=== PATIENT | female | born 1950 | race Two or more races ===

== ENCOUNTER 2020-06-30 09:31 | Outpatient (REF) | payer MEDICARE, SELFPAY | END 2020-06-30 09:32 | disposition home or self-care (01) | LOC: HO.LAB 09:31 | PROVIDERS: Visit Provider Internal Medicine | DX: Z20.828 Contact with and (suspected) exposure to other viral communicable diseases (principal) | CPT/HCPCS: C9803; U0003 ==

== ENCOUNTER 2020-07-24 09:44 | Emergency (ER) | payer MEDICARE, SELFPAY ==
[2020-07-24 10:00] VITALS: BP 170/71; PULSE 82; RESP 18; TEMP 36.4; O2SAT 95; BMI 26.0
--- NOTE | 2020-07-24 10:13 | ED.EAR ---
HPI - Ear Problem General Chief complaint: Ear Problems Stated complaint: ear pain Time Seen by Provider: 07/24/20 09:56 Source: patient Mode of arrival: ambulatory Limitations: no limitations History of Present Illness HPI Narrative: Left-sided sinus congestion and left ear pain for past couple days your pain getting worse. Thought maybe COVID related symptoms she had a COVID test 2 days ago that result today was negative. Denies any cough, runny nose, chest pain. Location: left ear Severity: moderate Relieving factors: nothing Discharge from ear: no Treatment prior to arrival: none Related Data Home Medications Medication Instructions Recorded Confirmed amlodipine 10 mg tablet 10 mg PO DAILY 06/17/20 Previous Rx's Medication Instructions Recorded amlodipine 10 mg tablet 10 mg PO DAILY 90 Days #90 tab 06/17/20 citalopram 10 mg tablet 10 mg PO DAILY 60 Days #60 tab 06/24/20 gabapentin 400 mg capsule 400 mg PO BID 60 Days #120 cap 06/24/20 hydrochlorothiazide 25 mg tablet 25 mg PO DAILY 90 Days #90 tab 06/24/20 insulin detemir U-100 100 unit/mL 56 unit SUBCUT DAILY 90 Days #50.4 06/24/20 (3 mL) subcutaneous pen ml metformin 850 mg tablet 850 mg PO BID 60 Days #120 tab 06/24/20 pen needle, diabetic 31 gauge x #100 ea 06/24/20 3/ amoxicillin-pot clavulanate 1 tab PO BID 7 Days #14 tab 07/24/20 [Augmentin] naproxen 500 mg PO BID PRN #14 tab 07/24/20 Allergies Allergy/AdvReac Type Severity Reaction Status Date / Time No Known Allergies Allergy Verified 07/24/20 10:02 [No Known Allergies*] Review of Systems Review of Systems: Constitutional: No Weight loss, No Fever, No Chills, No Night Sweats, No Fatigue, No Malaise ENT/Mouth: No Hearing loss, + Ear Pain, No Nasal Congestion, No Sinus Pain, No Hoarseness, No sore throat, No Rhinorrhea, No Swallowing Difficulty . Eyes: No Eye Pain, No Swelling, No Redness, No Foreign Body, No Discharge, No Vision Changes Cardiovascular: No Chest Pain, No SOB, No Dyspnea on Exertion, No Orthopnea, No Edema, No Palpitations Respiratory: No Cough, No Sputum, No Wheezing, No Smoke Exposure, No Dyspnea Gastrointestinal: No Nausea, No Vomiting, No Diarrhea, No Constipation, No abdominal Pain, No Hematochezia, No Melena Genitourinary: No Dysuria, No Urinary Frequency, No Hematuria, No Urinary Incontinence, No Urgency, No Flank Pain, No Urinary Flow Changes, No Hesitancy Musculoskeletal: No joint pain, No Myalgias, No Joint Swelling Skin: No Skin Lesions, No rash Neuro: No Weakness, No Numbness, No Paresthesias, No Loss of Consciousness, No Dizziness, No Headache Psych: No Social Issues Heme/Lymph: No Bruising, No Bleeding,No Lymphadenopathy Endocrine: No Polyuria, No Polydipsia, No Temperature Intolerance Yes all other systems are reviewed and are negative [facility] Past Medical History Surgical History History of bladder surgery History of tonsillectomy History of total hysterectomy Family History Family History (Updated 06/16/20 @ 13:12 by MICHAEL Stewart) Father Hypertension Diabetes Hx of leg amputation Mother Myocardial infarction Diabetes Hypertension Sister Breast cancer Brother Diabetes Maternal Aunt Bone cancer Social History Social History Advance Directives: No Advance Directives Information Provided: No Physical Exam Vital Signs: Vital Signs: Last Vital Signs Temp 97.6 F 07/24/20 10:00 Pulse 82 07/24/20 10:00 Resp 18 07/24/20 10:00 BP 170/71 H 07/24/20 10:00 Pulse Ox 95 07/24/20 10:00 Body Mass Index 26.0 Reviewed Const: General: cooperative and healthy appearing; No acute distress or intoxicated appearing Nutritional Appearance: average body habitus Orientation/consciousness: patient oriented x3 HENMT: Head: Yes normal to inspection Ears: hearing grossly normal bilaterally and TM abnormal (Negative tug test, no tender palpation over mastoid.) bulging, wth effusion, erythematous, with fluid behind the TM, with loss of landmarks and not mobile Eyes: General: appearance normal, both eyes and all related structures Visual Mariscal: normal visual mariscal by confrontation Neck: Neck: Yes normal visual inspection, No positive Brudzinski's sign, No positive Kernig's sign and No tender Thyroid: Thyroid normal Chest: Chest palpation & inspection: normal inspection of the chest Resp: Effort & Inspection: normal respiratory effort Cardio: Jugular venous distension: no JVD GI: Inspection: Yes normal to inspection Percussion: Yes normal to percussion Auscultation: normal bowel sounds : General: Yes no CVA tenderness Back/Spine/Pelvis: Back: no CVA tenderness Skin: General skin exam: no rashes or lesions noted Neuro: General: patient oriented x3 Extrem: General: Yes normal to inspection MDM - Ear Lab Data Labs: Lab Results 07/24/20 Range/Units 10:02 Coronavirus (PCR) NEGATIVE (Negative) Influenza Type A (PCR) NEGATIVE (Negative) Influenza Type B (PCR) NEGATIVE (Negative) RSV RNA Qual (PCR) NEGATIVE (Negative) Discharge Plan Discharge Clinical Impression: Acute otalgia, Sinusitis Patient Disposition: Home, Self-Care Instructions: Sinusitis (ED), Earache (ED) Additional Instructions: Drink plenty fluids Saltwater gargle Taking medication prescribed Return if any concerns or worsening symptoms otherwise self-isolation Social distancing and will call with results of your COVID test as well as her strep test in the next 1-2 hours Thank you Prescriptions: New amoxicillin-pot clavulanate [Augmentin] 875-125 mg tablet 1 tab PO BID 7 Days Qty: 14 RF: 0 naproxen 500 mg tablet 500 mg PO BID PRN (Reason: pain) Qty: 14 RF: 0 No Action amlodipine 10 mg tablet 10 mg PO DAILY 90 Days Qty: 90 RF: 0 citalopram 10 mg tablet 10 mg PO DAILY 60 Days Qty: 60 RF: 0 metformin 850 mg tablet 850 mg PO BID 60 Days Qty: 120 RF: 0 gabapentin 400 mg capsule 400 mg PO BID 60 Days Qty: 120 RF: 0 hydrochlorothiazide 25 mg tablet 25 mg PO DAILY 90 Days Qty: 90 RF: 0 Levemir FlexTouch U-100 Insuln 100 unit/mL (3 mL) insulin pen 56 unit subcut DAILY 90 Days Qty: 50.4 RF: 0 (DME) pen needle, diabetic [BD Ultra-Fine Mini Pen Needle] 31 gauge x 3/16 needle See Rx Instructions .ROUTE .MEDSUPPLY Qty: 100 RF: 0 Referrals: Afshan Smalls MD [Primary Care Provider] - 1 week (Phone visit) Interventions: ED Discharge Assessment Last Done: 07/24/20 10:31 Discharge Date/Time: 07/24/20 10:31
[2020-07-24 11:13] LABS: Influenza A PCR NEGATIVE (Negative); Influenza B PCR NEGATIVE (Negative); Resp Syncy Virus RNA Qual PCR NEGATIVE (Negative); SARS COV2 PCR INHOUSE NEGATIVE (Negative)
== END 2020-07-24 10:31 | disposition home or self-care (01) ==
PROVIDERS: Nurse Practitioner Primary Care; Emergency Provider Emergency Medicine Emergency Medical Services; PCP Internal Medicine
DX: H92.02 Otalgia, left ear (principal); J01.90 Acute sinusitis, unspecified; Z20.828 Contact with and (suspected) exposure to other viral communicable diseases
CPT/HCPCS: 0241U; 87071; 87880; 99282; 99283

== ENCOUNTER 2020-07-31 19:21 | Emergency (ER) | payer MEDICARE, SELFPAY ==
[2020-07-31 19:50] VITALS: BP 142/54; PULSE 86; RESP 16; TEMP 36.2; O2SAT 97; BMI 27.1
--- NOTE | 2020-07-31 21:14 | ED_ITS ---
HPI - Ear Problem General Chief complaint: Dental/Oral Stated complaint: EAR PAIN Time Seen by Provider: 07/31/20 21:10 Source: patient and full time staff interpreter Mode of arrival: ambulatory Limitations: no limitations History of Present Illness MD Complaint: ear pain and other (L sinus pain) Location: left ear Duration: constant Severity: moderate Relieving factors: nothing Exacerbating factors: palpation Context: recent illness (just completed antibiotics from 07/24) Discharge from ear: no Associated symptoms ear: other (facial swelling, congestion, L jaw pain ) Treatment prior to arrival: none Related Data Home Medications Medication Instructions Recorded Confirmed amlodipine 10 mg tablet 10 mg PO DAILY 06/17/20 Previous Rx's Medication Instructions Recorded amlodipine 10 mg tablet 10 mg PO DAILY 90 Days #90 tab 06/17/20 citalopram 10 mg tablet 10 mg PO DAILY 60 Days #60 tab 06/24/20 gabapentin 400 mg capsule 400 mg PO BID 60 Days #120 cap 06/24/20 hydrochlorothiazide 25 mg tablet 25 mg PO DAILY 90 Days #90 tab 06/24/20 insulin detemir U-100 100 unit/mL 56 unit SUBCUT DAILY 90 Days #50.4 06/24/20 (3 mL) subcutaneous pen ml metformin 850 mg tablet 850 mg PO BID 60 Days #120 tab 06/24/20 pen needle, diabetic 31 gauge x #100 ea 06/24/20 3/ amoxicillin-pot clavulanate 1 tab PO BID 7 Days #14 tab 07/24/20 [Augmentin] naproxen 500 mg PO BID PRN #14 tab 07/24/20 hydrocodone-acetaminophen 1 tab PO Q6H PRN #7 tab 07/31/20 levofloxacin 500 mg PO DAILY #6 tab 07/31/20 prednisone 20 mg PO DAILY 4 Days #4 tab 07/31/20 Allergies Allergy/AdvReac Type Severity Reaction Status Date / Time No Known Allergies Allergy Verified 07/24/20 10:02 [No Known Allergies*] Review of Systems Review of Systems: Constitutional : no Fever, no Chills, no fatigue, no Dina ise ENT/Mouth : positive sore throat, no runny nose, pos nasal congestion and sinus pain, positive ear pain Eyes: No Discharge Cardiovascular : No Chest Pain, No SOB Respiratory : No Cough, No Sputum Gastrointestinal : No Nausea, No Vomiting, No Diarrhea Genitourinary : No Dysuria, No Urinary Frequency Musculoskeletal : positive Myalgia Skin : No rash Neuro : No Headache [facility] Past Medical History Attestation statement: The following information was validated with the patient. Medical History Diabetes HTN (hypertension) Surgical History History of bladder surgery History of tonsillectomy History of total hysterectomy Family History Family History (Updated 06/16/20 @ 13:12 by Pam Vieira Elton) Father Hypertension Diabetes Hx of leg amputation Mother Myocardial infarction Diabetes Hypertension Sister Breast cancer Brother Diabetes Maternal Aunt Bone cancer Social History Social History (Updated 07/31/20 @ 21:26 by Opal Bello DO) Smoking Status: Never smoker Advance Directives: No Advance Directives Information Provided: Yes Physical Exam Vital Signs: Vital Signs: Last Vital Signs Temp 97.2 F 07/31/20 19:50 Pulse 86 07/31/20 19:50 Resp 16 07/31/20 19:50 BP 142/54 H 07/31/20 19:50 Pulse Ox 97 07/31/20 19:50 Body Mass Index 27.1 Appearance: Alert. Oriented X3. No acute distress. Eyes: Pupils equal, round and reactive to light. ENT: Pharynx normal. L ear normal, no ttp along temporal artery normal appearance, L max sinus ttp with mild swelling, no eye changes, no swelling inside oral cavity or on neck Neck: Normal inspection. Neck supple. CVS: Normal heart rate and rhythm. Pulses normal. Respiratory: No respiratory distress. Breath sounds normal. Abdomen: Soft and nontender. Skin: Skin warm and dry. Normal skin color. Normal skin turgor. Extremities: No lower extremity edema. No calf ttp Neuro: Oriented X 3. No motor deficit. No sensory deficit. MDM - Ear MDM Narrative Medical decision making narrative: 69 yo female with L sinus pain into ear and jaw, no sublingual swelling/submandibular swelling, no cellulitis, no tender temporal artery or abnormality of the artery, L max sinus swelling and ttp, just finished augmentin at this time will start on steroids for inflammation and levofloxacin, discussed hyperglycemia risks with the patient Discharge Plan Discharge Clinical Impression: Sinusitis Qualifiers: Sinusitis location: maxillary Chronicity: acute Recurrence: recurrent Qualified Code(s): J01.01 - Acute recurrent maxillary sinusitis Patient Disposition: Home, Self-Care Instructions: Sinusitis (ED) Additional Instructions: return to ED for any worsening symptoms or concerns Prescriptions: New prednisone 20 mg tablet 20 mg PO DAILY 4 Days Qty: 4 RF: 0 levofloxacin 500 mg tablet 500 mg PO DAILY Qty: 6 RF: 0 hydrocodone-acetaminophen 5-325 mg tablet 1 tab PO Q6H PRN (Reason: pain) Qty: 7 RF: 0 No Action amlodipine 10 mg tablet 10 mg PO DAILY 90 Days Qty: 90 RF: 0 citalopram 10 mg tablet 10 mg PO DAILY 60 Days Qty: 60 RF: 0 metformin 850 mg tablet 850 mg PO BID 60 Days Qty: 120 RF: 0 gabapentin 400 mg capsule 400 mg PO BID 60 Days Qty: 120 RF: 0 hydrochlorothiazide 25 mg tablet 25 mg PO DAILY 90 Days Qty: 90 RF: 0 Levemir FlexTouch U-100 Insuln 100 unit/mL (3 mL) insulin pen 56 unit subcut DAILY 90 Days Qty: 50.4 RF: 0 (DME) pen needle, diabetic [BD Ultra-Fine Mini Pen Needle] 31 gauge x 3/16 needle See Rx Instructions .ROUTE .MEDSUPPLY Qty: 100 RF: 0 amoxicillin-pot clavulanate [Augmentin] 875-125 mg tablet 1 tab PO BID 7 Days Qty: 14 RF: 0 naproxen 500 mg tablet 500 mg PO BID PRN (Reason: pain) Qty: 14 RF: 0 Referrals: Afshan Smalls MD [Primary Care Provider] - 5 days (if not better) Print Language: Lithuanian
[2020-07-31] MEDS: HYDROcodone Bit/Acetam 5/325 TABLET 1 TAB PO (22:05)
[2020-07-31] MEDS: levoFLOXacin 500 MG TABLET PO (22:05)
[2020-07-31] MEDS: predniSONE 20 MG TABLET PO (22:06)
== END 2020-07-31 22:14 | disposition home or self-care (01) ==
PROVIDERS: Emergency Provider Emergency Medicine; PCP Internal Medicine
DX: J01.01 Acute recurrent maxillary sinusitis (principal); E11.9 Type 2 diabetes mellitus without complications; I10 Essential (primary) hypertension
CPT/HCPCS: 99283

== ENCOUNTER → 2020-12-16 14:00 | Outpatient (BNVA) | payer MEDICARE, SELFPAY | PROVIDERS: PCP Internal Medicine; Visit Provider Orthopaedic Surgery | DX: M65.341 Trigger finger, right ring finger (principal) | CPT/HCPCS: 20550; 99202; J1100 ==

== ENCOUNTER 2021-01-07 08:33 | Outpatient (REF) | payer MEDICARE, SELFPAY ==
[2021-01-07 10:17] LABS: Hematocrit 32.4 % (37-47); Hemoglobin 10.9 g/dl (12.0-16.0); Mean Corpuscular HGB Conc 33.6 g/dl (31.0-35.0); Mean Corpuscular Hemoglobin 29.1 pg (27.0-33.0); Mean Corpuscular Volume 86.6 fL (80-98); Mean Platelet Volume 11.4 fL (9.4-12.3); Platelet Count 265 X10*3/uL (160-400); Red Blood Count 3.74 X10*6/uL (4.20-5.50); Red Cell Distribution Width 11.1 % (11.0-16.0)
[2021-01-07 10:22] LABS: Estimated Average Glucose 209 mg/dL; Hemoglobin A1c % 8.9 %
[2021-01-07 10:47] LABS: Glucose Urine UA 500 MG/DL (NEG); Leukocyte Esterase Urine NEG (NEG); Nitrite Urine NEG (NEG); Urine Blood NEG (NEG); Urine Ketones NEG (NEG); Urine Protein 1+ MG/DL (NEG-TRACE)
[2021-01-07 10:50] LABS: Appearance Urine HAZY; Color Urine YELLOW
[2021-01-07 10:55] LABS: Alanine Aminotransferase 16 U/L (0-31); Albumin Level 4.2 g/dL (3.5-5.0); Alkaline Phosphatase 80 U/L (39-117); Aspartate Amino Transferase 19 U/L (5-31); Bilirubin Direct < 0.2 mg/dL (0.0-0.5); Bilirubin Total 0.4 mg/dL (0.0-1.0); Cholesterol 292 mg/dL; HDL Cholesterol 37 mg/dL; LDL Cholesterol Calculated 196 mg/dl; Total Protein 7.1 g/dL (6.5-8.0); Triglycerides 296 mg/dL
[2021-01-07 10:59] LABS: Bacteria Urine 1+ /LPF; Mucus Urine 2+ /LPF; Squamous Epithelial Cell Urine 3+ /LPF
[2021-01-07 11:24] LABS: Folate 8.8 ng/mL (> or = 4.0); Vitamin B12 270 pg/mL (200-900)
[2021-01-07 11:27] LABS: Microalbum/Creatinine Ratio Ur 210.7 ug/mg cr
[2021-01-11 17:51] LABS: Vitamin D 25-OH, D2 <4 ng/mL; Vitamin D 25-OH, D3 19 ng/mL; Vitamin D 25-OH, Total 19 ng/mL (30-100)
== END 2021-01-07 08:34 | disposition home or self-care (01) ==
LOC: HO.LAB 08:33
PROVIDERS: PCP Internal Medicine; Visit Provider Internal Medicine
DX: E11.9 Type 2 diabetes mellitus without complications (principal); I10 Essential (primary) hypertension
CPT/HCPCS: 36415; 80061; 80076; 81001; 82043; 82306; 82607; 82746; 83036; 84443; 85027

== ENCOUNTER 2021-01-22 15:09 | Outpatient (REF) | payer MEDICARE, SELFPAY ==
--- NOTE | ~2021-01-22 | XR_ITS ---
EXAMINATION: XR CHEST CLINICAL INFORMATION: Cough COMPARISON: Previous chest x-ray July 2019 TECHNIQUE: 2 views of the chest were obtained. FINDINGS: The cardiac silhouette is upper normal in size. The thoracic aorta is calcified. Hilar and mediastinal contours are otherwise unremarkable. The lungs are clear. There is no pleural effusion or pneumothorax. Bony structures are unremarkable. XR/XR chest 2V IMPRESSION: Upper normal-size cardiac silhouette and calcification of the thoracic aorta. No evidence for acute disease in the chest.
== END 2021-01-22 15:10 | disposition home or self-care (01) ==
LOC: HO.XRAY 15:09
PROVIDERS: PCP Internal Medicine; Visit Provider Internal Medicine
DX: R05 Cough (principal)
CPT/HCPCS: 71046

== ENCOUNTER 2021-05-03 12:11 | Emergency (ER) | payer MEDICARE, SELFPAY ==
--- NOTE | ~2021-05-03 | XR_ITS ---
EXAMINATION: XR FOOT, LEFT CLINICAL INFORMATION: Left foot pain COMPARISON: None TECHNIQUE: AP, lateral, and oblique views of the left foot. FINDINGS: There is no visible acute fracture, dislocation or subluxation seen. The soft tissues are normal. Ankle mortise and subtalar joints are normal. The ankle mortise and subtalar joints are normal. The soft tissues are normal. XR/XR foot LT 2V IMPRESSION: Moderate size calcaneal heel endotracheal enthesophytes. No visible acute fracture or dislocation seen.
[2021-05-03 12:49] VITALS: BP 177/69; PULSE 82; RESP 18; TEMP 36.4; O2SAT 99; BMI 24.0
--- NOTE | 2021-05-03 14:11 | ED_ITS ---
HPI - Extremity Injury (Lower) General Chief Complaint: Extremity Injury, Lower Stated Complaint: lt ft pain Time Seen by Provider: 05/03/21 13:45 Source: patient Mode of arrival: ambulatory Limitations: no limitations History of Present Illness HPI Narrative: Patient presents to ED for left foot pain for the past 4 days. Patient states pain is in the heel. Patient denies any trauma. Patient denies any leg swelling, chest pain, or shortness of breath. Patient states no redness, calf pain, pus discharge, foul odor, ulcers, fever, or chills. Related Data Previous Rx's Medication Instructions Recorded blood sugar diagnostic (FreeStyle #50 ea 12/09/20 Lite Strips) blood-glucose meter (FreeStyle #1 ea 12/09/20 Lite Meter) lancets #100 ea 12/09/20 pen needle, diabetic 31 gauge x 1 ea SUBCUT DIRECTED 90 Days 12/09/2010/07 (BD Ultra-Fine Mini Pen #100 ea Needle) hydrochlorothiazide 25 mg tablet 25 mg PO DAILY #90 tab 12/25/20 albuterol sulfate 90 mcg/actuation 1 inh INHALATION QID PRN #6.7 g 01/20/21 aerosol inhaler insulin detemir U-100 100 unit/mL 56 unit SUBCUT DAILY 90 Days #50.4 01/20/21 (3 mL) subcutaneous pen (Levemir ml FlexTouch U-100 Insulin) metformin 850 mg tablet 850 mg PO BID #120 tab 03/11/21 citalopram 10 mg tablet 10 mg PO DAILY #60 tab 03/17/21 gabapentin 400 mg capsule 400 mg PO BID 60 Days #120 cap 03/17/21 amlodipine 10 mg tablet 10 mg PO DAILY #90 tab 04/29/21 naproxen 500 mg tablet 500 mg PO BID PRN #20 tab 05/03/21 Allergies Allergy/AdvReac Type Severity Reaction Status Date / Time No Known Allergies Allergy Verified 05/03/21 12:52 [No Known Allergies*] Review of Systems Review of Systems: Yes all other systems are reviewed and are negative Constitutional: Constitutional: Reports as per HPI and Reports no additional constitutional complaints Eyes: Eyes: Reports as per HPI and Reports no additional eye complaints ENT: Reports system reviewed and no additional complaints, except as documented and Reports as per HPI Cardiovascular: Cardiovascular: Reports as per HPI and Reports no additional cardiovascular complaints Respiratory: Respiratory: Reports as per HPI and Reports no additional respiratory complaints Gastrointestinal: Gastrointestinal: Reports as per HPI and Reports no additional gastrointestinal complaints Genitourinary: Genitourinary: Reports no additional female genitourinary complaints and Reports as per HPI Musculoskeletal: Musculoskeletal: Reports no additional musculoskeletal complaints, Reports as per HPI and Reports arthralgias (foot pain) Neurologic: Reports system reviewed and no additional complaints, except as documented and Reports as per HPI Psychiatric: Psychiatric: Reports no additional psychiatric complaints and Reports as per HPI [facility] Past Medical History Medical History Diabetes HTN (hypertension) Swelling of mandible Surgical History History of bladder surgery History of tonsillectomy History of total hysterectomy Family History Family History Father Hypertension Diabetes Hx of leg amputation Mother Myocardial infarction Diabetes Hypertension Sister Breast cancer Brother Diabetes Maternal Aunt Bone cancer Social History Social History Housing: Apartment Alcohol intake: never Patient Tobacco Use Status: Never used Tobacco Advance Directives: No Advance Directives Information Provided: Yes Current occupational status: retired Current occupation: rt hand Physical Exam Vital Signs: Vital Signs: Last Vital Signs Temp 97.5 F 05/03/21 12:49 Pulse 72 05/03/21 15:13 Resp 18 05/03/21 15:13 BP 130/70 05/03/21 15:13 Pulse Ox 97 05/03/21 15:13 Body Mass Index 24.0 Const: General: cooperative, healthy appearing, comfortable, no acute distress, well developed, alert, awake and Physically active Orientation/consciousness: patient oriented x3 HENMT: Head: Yes normal to inspection, Yes No palpable skull fracture present, Yes normocephalic, Yes atraumatic and No abrasion Eyes: General: appearance normal, both eyes and all related structures Neck: Neck: Yes normal visual inspection, Yes full ROM, Yes no lymphadenopathy, Yes no meningeal signs, Yes trachea midline, Yes supple and No tender Chest: Chest palpation & inspection: normal inspection of the chest Resp: Effort & Inspection: normal respiratory effort and able to speak in complete sentences Auscultation: clear to auscultation bilaterally Cardio: Jugular venous distension: no JVD Heart sounds: S1 normal heart sound present and S2 normal heart sound present GI: Inspection: Yes normal to inspection and No abdominal wall ecchymosis Palpation (GI): Soft to palpation, not firm, nontender, no guarding and not rigid : General: No CVA tenderness and Yes no CVA tenderness Back/Spine/Pelvis: Back: no CVA tenderness, No CVA tenderness and No back tenderness Skin: General skin exam: no rashes or lesions noted and elasticity normal Neuro: General: patient oriented x3, gait normal, no meningeal signs and CN's II-XI intact bilaterally Cranial nerves: Yes CN's II-XII intact bilaterally Extrem: General: Yes normal to inspection and Yes full ROM Ankle/foot/toe images: 1. Positive for heel tenderness. Negative for any erythema, open wound, foul odor, leg swelling, redness, ecchymosis, or def ormity. Motor/neuro/vascular exam is intact. Psych: Appearance: grossly normal, well kempt and not disheveled Course Course Course Narrative: Patient is sent for x-ray. Reevaluation(s) Reevaluation #1: X-ray negative for fracture but shows heel spur with osteoarthritis. Time: 14:38 MDM - Extremity Injury (Lower) MDM Narrative Medical decision making narrative: Heel Spur, Arthritis Discharge Plan Discharge Clinical Impression: Heel spur, Osteoarthritis Patient Disposition: Home, Self-Care Instructions: Osteoarthritis (ED), Heel Spur (ED) Additional Instructions: Gaines radiograf?a muestra espol?n en el uday?n y osteoartritis. Se le anya? de kayla con analg?sicos. Missy un seguimiento con el proveedor de atenci?n primaria. Regrese al servicio de urgencias por cualquier hinchaz?n en la pierna, hinchaz?n del pie, enrojecimiento, vetas arceo, fiebre, escalofr?os, dolor en la pantorrilla, dolor en el pecho, dificultad para respirar, heridas abiertas, sec reci?n de pus o cualquier otro s?ntoma preocupante. Prescriptions: New naproxen 500 mg tablet 500 mg PO BID PRN (Reason: pain) Qty: 20 RF: 0 No Action hydrochlorothiazide 25 mg tablet 25 mg PO DAILY Qty: 90 RF: 0 gabapentin 400 mg capsule 400 mg PO BID 60 Days Qty: 120 RF: 0 citalopram 10 mg tablet 10 mg PO DAILY Qty: 60 RF: 0 amlodipine 10 mg tablet 10 mg PO DAILY Qty: 90 RF: 1 albuterol sulfate 90 mcg/actuation HFA aerosol inhaler 1 inh inhalation QID PRN (Reason: shortness of breath or wheezing) Qty: 6.7 RF: 1 Levemir FlexTouch U-100 Insuln 100 unit/mL (3 mL) insulin pen 56 unit subcut DAILY 90 Days Qty: 50.4 RF: 0 pen needle, diabetic [BD Ultra-Fine Mini Pen Needle] 31 gauge x 3/16 needle 1 ea subcut DIRECTED 90 Days Qty: 100 RF: 0 (DME) blood-glucose meter [FreeStyle Lite Meter] Kit See Rx Instructions .ROUTE .MEDSUPPLY Qty: 1 RF: 0 (DME) FreeStyle Lite Strips Strip See Rx Instructions .ROUTE .MEDSUPPLY Qty: 50 RF: 6 (DME) lancets Misc See Rx Instructions .ROUTE .MEDSUPPLY Qty: 100 RF: 6 metformin 850 mg tablet 850 mg PO BID Qty: 120 RF: 0 Interventions: ED Discharge Assessment Last Done: 05/03/21 15:16 Discharge Date/Time: 05/03/21 15:17 Print Language: Estonian
[2021-05-03] MEDS: Ketorolac Tromethamine 15 MG/ML VIAL 30 MG IM (14:24)
[2021-05-03 15:13] VITALS: BP 130/70; PULSE 72; RESP 18; O2SAT 97
--- NOTE | 2021-05-03 15:15 | PC.NURSE ---
PT WAS EVALUATED BY PA. MEDICATED ORDERED FOR PAIN. PT REPORTS REDUCED PAIN LEVEL SINCE ADMIN OF MEDICATION. +CMS. PLAN IS FOR DC HOME IF XRAY WNL. PT AGREEABLE TO PLAN
== END 2021-05-03 15:17 | disposition home or self-care (01) ==
PROVIDERS: Emergency Provider Emergency Medicine Emergency Medical Services; PCP Internal Medicine
DX: M77.32 Calcaneal spur, left foot (principal); M19.072 Primary osteoarthritis, left ankle and foot; E11.9 Type 2 diabetes mellitus without complications; I10 Essential (primary) hypertension; Z79.4 Long term (current) use of insulin; Z79.899 Other long term (current) drug therapy
CPT/HCPCS: 73620; 96372; 99284; J1885

== ENCOUNTER 2021-07-03 13:25 | Outpatient (REF) | payer MEDICARE, SELFPAY ==
[2021-07-03 15:17] LABS: Appearance Urine HAZY; Color Urine YELLOW; Glucose Urine UA >=1000 MG/DL (NEG); Leukocyte Esterase Urine NEG (NEG); Nitrite Urine NEG (NEG); UACC Culture Trigger NO; Urine Blood NEG (NEG); Urine Ketones NEG (NEG); Urine Protein 2+ MG/DL (NEG-TRACE)
[2021-07-03 15:31] LABS: Granular Casts Urine 0-2 /LPF; Mucus Urine TRACE /LPF; Squamous Epithelial Cell Urine 1+ /LPF
[2021-07-03 15:33] LABS: Bacteria Urine 1+ /LPF; RBC Urine 0-2 /HPF (0); WBC Urine 0-2 /HPF (0-4)
== END 2021-07-03 13:26 | disposition home or self-care (01) ==
LOC: HO.LAB 13:25
PROVIDERS: PCP Internal Medicine; Visit Provider Internal Medicine
DX: R82.90 Unspecified abnormal findings in urine (principal)
CPT/HCPCS: 81001

== ENCOUNTER → 2021-08-21 08:39 | Outpatient (BNVA) | payer MEDICARE, SELFPAY | PROVIDERS: PCP Internal Medicine; Visit Provider Registered Nurse Diabetes Educator | CPT/HCPCS: Q3014 ==

== ENCOUNTER → 2021-09-04 09:01 | Outpatient (BNVA) | payer MEDICARE, SELFPAY | PROVIDERS: PCP Internal Medicine; Visit Provider Registered Nurse Diabetes Educator | DX: E11.9 Type 2 diabetes mellitus without complications (principal) | CPT/HCPCS: 99211 ==

== ENCOUNTER → 2021-11-02 10:52 | Outpatient (BNVA) | payer MEDICARE, SELFPAY | PROVIDERS: PCP Internal Medicine; Visit Provider Registered Nurse Diabetes Educator | DX: E11.65 Type 2 diabetes mellitus with hyperglycemia (principal) | CPT/HCPCS: 99211 ==

== ENCOUNTER 2022-09-28 10:53 | Emergency (ER) | payer OTHER, SELFPAY ==
[2022-09-28 11:14] LABS: Glucose, Whole Blood 476 mg/dL (60-115)
[2022-09-28 11:16] VITALS: BP 117/68; BP 156/94; PULSE 82; RESP 20; TEMP 36.5; O2SAT 96; BMI 26.0
--- NOTE | 2022-09-28 11:24 | ECG_ITS ---
Test Reason : ABDOMINAL PAIN Blood Pressure : / mmHG Vent. Rate : 081 BPM Atrial Rate : 081 BPM P-R Int : 174 ms QRS Dur : 082 ms QT Int : 402 ms P-R-T Axes : 051 -05 040 degrees QTc Int : 466 ms Normal sinus rhythm Septal infarct , age undetermined Abnormal ECG When compared with ECG of 24-AUG-2019 11:28, Septal infarct is now Present Referred By: Johanny Bello Electronically Signed By:MARY JANE CALIXTO
--- NOTE | 2022-09-28 11:34 | ED.GENADULT ---
HPI - General Adult General Chief complaint: Recheck/Abnormal Lab/Rx Stated complaint: HIGH BS 442 PER EMS Time Seen by Provider: 09/28/22 11:16 Source: patient and family Mode of arrival: EMS Limitations: other (poor historian) History of Present Illness HPI narrative: 72 yo female with hx of dementia, diabetes, HTN here with c/o eating a barcenas aguayo this AM - seemed okay this morning to family. felt her sugar was high but never checked her sugar and on her one gave her 20 units. She then went to her adult day program and seemed off c/o nausea feeling emptiness in her head. She was found to have blood sugars in 400s. Patient was fine at the buffet last night and had a great time. MD complaint: acting off and elevated blood sugars Onset (ago): hour(s) (few) Location: head and abdomen Severity: moderate Quality: dull Pain Consistency: constant Relieving factors: none Exacerbating factors: none Associated symptoms: other (nausea and elevated blood sugar) Treatments prior to arrival: none Related Data Previous Rx's Medication Instructions Recorded blood sugar diagnostic (FreeStyle #50 ea 08/18/21 Lite Strips) blood-glucose meter (FreeStyle #1 ea 08/18/21 Lite Meter kit) lancets #100 ea 08/18/21 pen needle, diabetic 31 gauge x 1 ea subcut DIRECTED 3 months 10/22/2110/07 (BD Ultra-Fine Mini Pen #100 ea Needle) amlodipine 10 mg tablet 10 mg PO DAILY #90 tabs 05/20/22 flash glucose scanning reader #1 ea 06/04/22 (FreeStyle Song 14 Day [place]) flash glucose sensor (FreeStyle #1 ea 06/04/22 Song 14 Day Sensor kit) naproxen 500 mg tablet 500 mg PO BID PRN pain #20 tabs 06/10/22 insulin aspart U-100 100 unit/mL 10 unit (0.1 mL) subcut TID 30 07/06/22 (3 mL) subcutaneous pen (Novolog days #9 mL FlexPen U-100 Insulin aspart) albuterol sulfate 90 mcg/actuation 1 puff PO QID PRN shortness of 08/07/22 aerosol inhaler breath or wheezing #18 ea citalopram 10 mg tablet 10 mg PO DAILY #90 tabs 08/14/22 hydrochlorothiazide 25 mg tablet 25 mg PO DAILY #90 tabs 08/14/22 metformin 1,000 mg tablet 1,000 mg PO BID #90 tabs 08/14/22 gabapentin 400 mg capsule 400 mg PO BID 2 months #120 caps 08/16/22 insulin detemir U-100 100 unit/mL 60 unit (0.6 mL) subcut DAILY #45 09/05/22 (3 mL) subcutaneous pen (Levemir mL FlexTouch U-100 Insulin) Allergies Allergy/AdvReac Type Severity Reaction Status Date / Time No Known Allergies Allergy Verified 09/27/22 09:23 [No Known Allergies*] Review of Systems Review of Systems: ROS unable to be obtained due to dementia FOR[facility]LY [facility] Past Medical History Attestation statement: The following information was validated with the patient. Source: old records reviewed and obtained from family Medical History Diabetes HTN (hypertension) Swelling of mandible Surgical History History of bladder surgery History of tonsillectomy History of total hysterectomy Family History Family History Father Hypertension Diabetes Hx of leg amputation Mother Myocardial infarction Diabetes Hypertension Sister Breast cancer Brother Diabetes Maternal Aunt Bone cancer Social History Social History Housing: Apartment Alcohol intake: never Patient Tobacco Use Status: Never used Tobacco Smoked in Last 30 Days: No e-Cigarette/Vaping Use: Never Used Second Hand Smoke Exposure: No Use of substances other than those prescribed or required for medical reasons: No Any prior treatment program specific to substance use: No Advance Directives: No Advance Directives Information Provided: Yes service: No Current occupational status: retired Current occupation: rt hand Cognitive needs: Yes (cane) Hearing needs: No Vision needs: Yes (Glasses) Physical Exam ED Vital Signs: Vital Signs - 24 hr 09/28/22 11:16 09/28/22 14:00 Temperature 97.7 F Pulse Rate 82 78 Respiratory Rate 20 16 Blood Pressure 117/68 Pulse Oximetry 96 95 Oxygen Delivery Method Room Air Room Air BMI result Body Mass Index 26.0 Appearance: Alert. Oriented to baseline. No acute distress. smiling and laughing Eyes: Pupils equal, round and reactive to light. ENT: Pharynx normal. Neck: Normal inspection. Neck supple. CVS: Normal heart rate and rhythm. Pulses normal. Respiratory: No respiratory distress. Breath sounds normal. Abdomen: Soft and nontender. Skin: Skin warm and dry. Normal skin color. Normal skin turgor. Extremities: No lower extremity edema. No calf ttp Neuro: Oriented to baseline No motor deficit. No sensory deficit. Course Course Course Narrative: per records and call to PCP/day program no blood work since 2019 - unknown kidney function lactic acidosis likely due to kidney function and metformin use and not infection or severe sepsis. Cr 1.Jul so she is now more at her baseline. blood sugar improved. patient states she feels much better at this time no urinary symptoms will hold off UTI treatments Medications Administered Discontinued Medications Generic Name Dose Route Start Last Admin Trade Name Freq PRN Reason Stop Dose Admin Sodium Chloride 1,000 mls @ 999 mls/hr 09/28/22 12:15 09/28/22 13:17 Ns IV 09/28/22 13:15 Infused .Q1H1M INGA Infusion Magnesium Sulfate 2 gm in 50 mls @ 25 mls/hr 09/28/22 12:11 09/28/22 14:18 Magnesium Sulfate/H2o IV 09/28/22 14:10 Infused ONCE ONE Infusion Insulin Human Regular 10 unit 09/28/22 12:09 09/28/22 12:15 Insulin Regular, Human 100 Unit/Ml 3 Ml Vial IVPUSH 09/28/22 12:10 10 unit ONCE ONE Administration Ondansetron HCl 4 mg 09/28/22 11:24 09/28/22 11:35 Ondansetron Hcl 4 Mg/2 Ml Vial IVPUSH 09/28/22 11:25 4 mg ONCE ONE Administration Medical Decision Making Medical Decision Making MDM Narrative: 72 yo female with hx of dementia, DM, HTN here with c/o nausea, dull headache - she is at her baseline mentally per daughter - she overate at a buffet last night and now has elevated blood sugars at this time will obtain labs, UA, EKG, IV insulin, zofran and reassess. She has no chest pain or abdominal pain. She is not toxic. She otherwise looks well at this time. Suspect her diet caused hyperglycemia - I am attempting to find her old Cr levels as no labs here in 3 years. Differential Diagnosis Differential Diagnoses: The differential diagnosis associated with the presentation includes hyperglycemia, UTI, nausea, doubt ICH given mild headache and no trauma reported. Admission/Observation Consideration of admission/observation: Escalation of care including admission/observation considered Lab Data MDM Lab Attestation statement: I reviewed the patient's lab results. 09/28/22 11:40 09/28/22 11:40 Labs: Lab Results 09/28/22 09/28/22 09/28/22 Range/Units 11:10 11:40 11:40 WBC 5.3 (4.8-10.8) X10*3/uL RBC 3.65 L (4.20-5.50) X10*6/uL Hgb 10.8 L (12.0-16.0) g/dl Hct 31.5 L (37.0-47.0) % MCV 86.3 (80.0-98.0) fL MCH 29.6 (27.0-33.0) pg MCHC 34.3 (31.0-35.0) g/dl RDW 10.9 L (11.0-16.0) % Plt Count 258 (160-400) X10*3/uL MPV 10.9 (9.4-12.3) fL Immature Gran % (Auto) 0.8 H (0.0-0.4) % Neut % (Auto) 67.6 (45-73) % Lymph % (Auto) 19.7 L (20-40) % [place] % (Auto) 8.3 (2-11) % Eos % (Auto) 3.0 (0-4) % Baso % (Auto) 0.6 (0-2) % Lymph # (Auto) 1.1 L (1.2-4.9) X10*3/uL [place] # (Auto) 0.4 (0.1-1.2) X10*3/uL Eos # (Auto) 0.2 (0.0-0.4) X10*3/uL Baso # (Auto) 0.0 (0.0-0.2) X10*3/uL Abs Immat Gran (auto) 0.04 H (0.00-0.03) X10*3/uL Absolute Neuts (auto) 3.6 (2.0-8.3) x10*3/uL Absolute Nucleated RBC 0.000 (0.0-0.012) X10*3/uL Nucleated RBC % (auto) 0.0 (0.0-0.2) /100WBC VBG pH (7.32-7.43) VBG pCO2 mmHg VBG pO2 mmHg VBG HCO3 (22-26) mmol/L VBG O2 Saturation % VBG Base Excess mmol/L Sodium 135 (135-145) mmol/L Potassium 3.3 (3.3-5.1) mmol/L Chloride 94 L (96-108) mmol/L Carbon Dioxide 26 (22-29) mmol/L Anion Gap 18 (12-20) BUN 40 H (9-16) mg/dL Creatinine 2.16 H (0.5-1.4) mg/dL Estim Creat Clear Calc 19.9 Estimated GFR 22 POC Glucose 476 H* (60-115) mg/dL Random Glucose 451 H* (60-115) mg/dL Lactic Acid (0.5-2.0) mmol/L Lactic Acid F/U @ 2Hr (0.5-2.0) mmol/L Calcium 9.4 (8.4-10.2) mg/dL Magnesium 1.4 L* (1.6-2.6) mg/dL Total Bilirubin 0.5 (0.0-1.0) mg/dL Direct Bilirubin < 0.2 (0.0-0.5) mg/dL AST 15 (5-31) U/L ALT 15 (0-31) U/L Alkaline Phosphatase 48 (39-117) U/L Troponin I High Sens (<3.5-17.0) ng/L Total Protein 6.3 L (6.5-8.0) g/dL Albumin 3.8 (3.5-5.0) g/dL Lipase 31 (8-78) U/L Urine Color Urine Appearance Urine pH (5.0-9.0) Ur Specific [place] (1.005-1.025) Urine Protein (Neg-Trace) mg/dL Urine Glucose (UA) (Negative) mg/dL Urine Ketones (Negative) mg/dL Urine Blood (Negative) Urine Nitrite (Negative) Ur Leukocyte Esterase (Negative) Urine RBC (0-2) /HPF Urine WBC (0-5) /HPF Ur Squamous Epith Cells (0-2) /HPF Urine Bacteria (None Seen) Hyaline Casts (0-2) /LPF Acetone, Qual Negative (Negative) COVID-19 (TAVARES) (Negative) COVID-19 Clin Com 09/28/22 09/28/22 09/28/22 Range/Units 11:40 11:40 11:40 WBC (4.8-10.8) X10*3/uL RBC (4.20-5.50) X10*6/uL Hgb (12.0-16.0) g/dl Hct (37.0-47.0) % MCV (80.0-98.0) fL MCH (27.0-33.0) pg MCHC (31.0-35.0) g/dl RDW (11.0-16.0) % Plt Count (160-400) X10*3/uL MPV (9.4-12.3) fL Immature Gran % (Auto) (0.0-0.4) % Neut % (Auto) (45-73) % Lymph % (Auto) (20-40) % [place] % (Auto) (2-11) % Eos % (Auto) (0-4) % Baso % (Auto) (0-2) % Lymph # (Auto) (1.2-4.9) X10*3/uL [place] # (Auto) (0.1-1.2) X10*3/uL Eos # (Auto) (0.0-0.4) X10*3/uL Baso # (Auto) (0.0-0.2) X10*3/uL Abs Immat Gran (auto) (0.00-0.03) X10*3/uL Absolute Neuts (auto) (2.0-8.3) x10*3/uL Absolute Nucleated RBC (0.0-0.012) X10*3/uL Nucleated RBC % (auto) (0.0-0.2) /100WBC VBG pH (7.32-7.43) VBG pCO2 mmHg VBG pO2 mmHg VBG HCO3 (22-26) mmol/L VBG O2 Saturation % VBG Base Excess mmol/L Sodium (135-145) mmol/L Potassium (3.3-5.1) mmol/L Chloride (96-108) mmol/L Carbon Dioxide (22-29) mmol/L Anion Gap (12-20) BUN (9-16) mg/dL Creatinine (0.5-1.4) mg/dL Estim Creat Clear Calc Estimated GFR POC Glucose (60-115) mg/dL Random Glucose (60-115) mg/dL Lactic Acid 3.6 H* (0.5-2.0) mmol/L Lactic Acid F/U @ 2Hr (0.5-2.0) mmol/L Calcium (8.4-10.2) mg/dL Magnesium (1.6-2.6) mg/dL Total Bilirubin (0.0-1.0) mg/dL Direct Bilirubin (0.0-0.5) mg/dL AST (5-31) U/L ALT (0-31) U/L Alkaline Phosphatase (39-117) U/L Troponin I High Sens 12.2 (<3.5-17.0) ng/L Total Protein (6.5-8.0) g/dL Albumin (3.5-5.0) g/dL Lipase (8-78) U/L Urine Color Urine Appearance Urine pH (5.0-9.0) Ur Specific [place] (1.005-1.025) Urine Protein (Neg-Trace) mg/dL Urine Glucose (UA) (Negative) mg/dL Urine Ketones (Negative) mg/dL Urine Blood (Negative) Urine Nitrite (Negative) Ur Leukocyte Esterase (Negative) Urine RBC (0-2) /HPF Urine WBC (0-5) /HPF Ur Squamous Epith Cells (0-2) /HPF Urine Bacteria (None Seen) Hyaline Casts (0-2) /LPF Acetone, Qual (Negative) COVID-19 (TAVARES) Negative (Negative) COVID-19 Clin Com See Note 09/28/22 09/28/22 09/28/22 Range/Units 11:43 12:22 14:13 WBC (4.8-10.8) X10*3/uL RBC (4.20-5.50) X10*6/uL Hgb (12.0-16.0) g/dl Hct (37.0-47.0) % MCV (80.0-98.0) fL MCH (27.0-33.0) pg MCHC (31.0-35.0) g/dl RDW (11.0-16.0) % Plt Count (160-400) X10*3/uL MPV (9.4-12.3) fL Immature Gran % (Auto) (0.0-0.4) % Neut % (Auto) (45-73) % Lymph % (Auto) (20-40) % [place] % (Auto) (2-11) % Eos % (Auto) (0-4) % Baso % (Auto) (0-2) % Lymph # (Auto) (1.2-4.9) X10*3/uL [place] # (Auto) (0.1-1.2) X10*3/uL Eos # (Auto) (0.0-0.4) X10*3/uL Baso # (Auto) (0.0-0.2) X10*3/uL Abs Immat Gran (auto) (0.00-0.03) X10*3/uL Absolute Neuts (auto) (2.0-8.3) x10*3/uL Absolute Nucleated RBC (0.0-0.012) X10*3/uL Nucleated RBC % (auto) (0.0-0.2) /100WBC VBG pH 7.41 (7.32-7.43) VBG pCO2 41 mmHg VBG pO2 53 mmHg VBG HCO3 26 (22-26) mmol/L VBG O2 Saturation 85.0 % VBG Base Excess 1.8 mmol/L Sodium (135-145) mmol/L Potassium (3.3-5.1) mmol/L Chloride (96-108) mmol/L Carbon Dioxide (22-29) mmol/L Anion Gap (12-20) BUN (9-16) mg/dL Creatinine (0.5-1.4) mg/dL Estim Creat Clear Calc Estimated GFR POC Glucose (60-115) mg/dL Random Glucose (60-115) mg/dL Lactic Acid (0.5-2.0) mmol/L Lactic Acid F/U @ 2Hr 1.4 (0.5-2.0) mmol/L Calcium (8.4-10.2) mg/dL Magnesium (1.6-2.6) mg/dL Total Bilirubin (0.0-1.0) mg/dL Direct Bilirubin (0.0-0.5) mg/dL AST (5-31) U/L ALT (0-31) U/L Alkaline Phosphatase (39-117) U/L Troponin I High Sens (<3.5-17.0) ng/L Total Protein (6.5-8.0) g/dL Albumin (3.5-5.0) g/dL Lipase (8-78) U/L Urine Color Yellow Urine Appearance Cloudy Urine pH 5.5 (5.0-9.0) Ur Specific [place] 1.020 (1.005-1.025) Urine Protein 100 (2+) H (Neg-Trace) mg/dL Urine Glucose (UA) >=1000 H (Negative) mg/dL Urine Ketones Negative (Negative) mg/dL Urine Blood Trace H (Negative) Urine Nitrite Negative (Negative) Ur Leukocyte Esterase Negative (Negative) Urine RBC 0-2 (0-2) /HPF Urine WBC 6-10 H (0-5) /HPF Ur Squamous Epith Cells 0-2 (0-2) /HPF Urine Bacteria 4+ (None Seen) Hyaline Casts 0-2 (0-2) /LPF Acetone, Qual (Negative) COVID-19 (TAVARES) (Negative) COVID-19 Clin Com 09/28/22 09/28/22 Range/Units 14:13 15:13 WBC (4.8-10.8) X10*3/uL RBC (4.20-5.50) X10*6/uL Hgb (12.0-16.0) g/dl Hct (37.0-47.0) % MCV (80.0-98.0) fL MCH (27.0-33.0) pg MCHC (31.0-35.0) g/dl RDW (11.0-16.0) % Plt Count (160-400) X10*3/uL MPV (9.4-12.3) fL Immature Gran % (Auto) (0.0-0.4) % Neut % (Auto) (45-73) % Lymph % (Auto) (20-40) % [place] % (Auto) (2-11) % Eos % (Auto) (0-4) % Baso % (Auto) (0-2) % Lymph # (Auto) (1.2-4.9) X10*3/uL [place] # (Auto) (0.1-1.2) X10*3/uL Eos # (Auto) (0.0-0.4) X10*3/uL Baso # (Auto) (0.0-0.2) X10*3/uL Abs Immat Gran (auto) (0.00-0.03) X10*3/uL Absolute Neuts (auto) (2.0-8.3) x10*3/uL Absolute Nucleated RBC (0.0-0.012) X10*3/uL Nucleated RBC % (auto) (0.0-0.2) /100WBC VBG pH (7.32-7.43) VBG pCO2 mmHg VBG pO2 mmHg VBG HCO3 (22-26) mmol/L VBG O2 Saturation % VBG Base Excess mmol/L Sodium 138 (135-145) mmol/L Potassium 3.4 (3.3-5.1) mmol/L Chloride 99 (96-108) mmol/L Carbon Dioxide 29 (22-29) mmol/L Anion Gap 13 (12-20) BUN 37 H (9-16) mg/dL Creatinine 1.86 H (0.5-1.4) mg/dL Estim Creat Clear Calc 23.1 Estimated GFR 27 POC Glucose 177 H (60-115) mg/dL Random Glucose 197 H (60-115) mg/dL Lactic Acid (0.5-2.0) mmol/L Lactic Acid F/U @ 2Hr (0.5-2.0) mmol/L Calcium 9.1 (8.4-10.2) mg/dL Magnesium (1.6-2.6) mg/dL Total Bilirubin (0.0-1.0) mg/dL Direct Bilirubin (0.0-0.5) mg/dL AST (5-31) U/L ALT (0-31) U/L Alkaline Phosphatase (39-117) U/L Troponin I High Sens (<3.5-17.0) ng/L Total Protein (6.5-8.0) g/dL Albumin (3.5-5.0) g/dL Lipase (8-78) U/L Urine Color Urine Appearance Urine pH (5.0-9.0) Ur Specific [place] (1.005-1.025) Urine Protein (Neg-Trace) mg/dL Urine Glucose (UA) (Negative) mg/dL Urine Ketones (Negative) mg/dL Urine Blood (Negative) Urine Nitrite (Negative) Ur Leukocyte Esterase (Negative) Urine RBC (0-2) /HPF Urine WBC (0-5) /HPF Ur Squamous Epith Cells (0-2) /HPF Urine Bacteria (None Seen) Hyaline Casts (0-2) /LPF Acetone, Qual (Negative) COVID-19 (TAVARES) (Negative) COVID-19 Clin Com Independent Interpretation I performed an independent interpretation of an: EKG Interpretation: Rate: 81 Rhythm: NSR [place]: left Normal P waves. Normal MANJU. Normal QRS complex. ST T wave : normal no LIYA qTC: normal prior studies: no acute ischemia The study has been interpreted contemporaneously by me. . Radiology Impression Discussion of test interpretation with radiology: I have reviewed the radiologist's reading. Independent Historian Clinical information obtained from an independent historian. History obtained from or confirmed by: Other (daughter) External Record Review External record reviewed: Inpatient record Prescription Management I considered prescription management with: Other Chronic Conditions Patient?s care impacted by: Diabetes Discharge Plan Discharge Clinical Impression: Acute dehydration, Hypomagnesemia, Acute hyperglycemia Patient Disposition: Home, Self-Care Instructions: Dehydration (ED), Hypomagnesemia (ED), Diabetic Hyperglycemia (ED) Additional Instructions: return to ED for any worsening symptoms or concerns monitor your blood sugars, you need to have your kidney function rechecked in 1 week by your doctor we repleted your magnesium in the ED you were given IV fluids as well stay with a responsible adult today if you have return of headaches, chest pain, trouble breathing, confusion, fevers, pain with urination please seek medical care Prescriptions: No Action (DME) blood-glucose meter [FreeStyle Lite Meter] Kit See Rx Instructions .ROUTE .MEDSUPPLY Qty: 1 0RF Rx Instructions: As directed to check blood glucose daily (DME) FreeStyle Lite Strips Strip See Rx Instructions .ROUTE .MEDSUPPLY Qty: 50 6RF Rx Instructions: As directed to test blood glucose daily (DME) lancets Misc See Rx Instructions .ROUTE .MEDSUPPLY Qty: 100 6RF Rx Instructions: FREESTYLE LITE LANCETS TEST DAILY amlodipine 10 mg tablet 10 mg PO DAILY Qty: 90 1RF (DME) FreeStyle Song 14 Day Sensor Kit See Rx Instructions miscellaneous .MEDSUPPLY Qty: 1 0RF Rx Instructions: As directed (DME) FreeStyle Song 14 Day [place] Misc See Rx Instructions .MEDSUPPLY Qty: 1 0RF Rx Instructions: Continuous glucose monitor insulin aspart U-100 [Novolog FlexPen U-100 Insulin] 100 unit/mL (3 mL) insulin pen 10 unit subcut TID 30 Days Qty: 9 1RF albuterol sulfate 90 mcg/actuation HFA aerosol inhaler 1 puff PO QID PRN (Reason: shortness of breath or wheezing) Qty: 18 1RF citalopram 10 mg tablet 10 mg PO DAILY Qty: 90 1RF metformin 1,000 mg tablet 1,000 mg PO BID Qty: 90 1RF hydrochlorothiazide 25 mg tablet 25 mg PO DAILY Qty: 90 0RF gabapentin 400 mg capsule 400 mg PO BID 60 Days Qty: 120 1RF Levemir FlexTouch U-100 Insuln 100 unit/mL (3 mL) insulin pen 60 unit subcut DAILY Qty: 45 0RF pen needle, diabetic [BD Ultra-Fine Mini Pen Needle] 31 gauge x 3/16 needle 1 ea subcut DIRECTED 90 Days Qty: 100 0RF naproxen 500 mg tablet 500 mg PO BID PRN (Reason: pain) Qty: 20 0RF Referrals: Miguel Johnson MD [Primary Care Provider] - 1 week (needs kidney function testing in 1 week)
[2022-09-28] MEDS: ondansetron HCL 4 MG/2 ML VIAL IVPUSH (11:35)
[2022-09-28 11:47] LABS: Venous Blood Gas Refer to POC result
[2022-09-28 11:49] LABS: MANUAL DIFF FLAG NO
[2022-09-28 11:49] LABS: VBG Base Excess 1.8 mmol/L; VBG HCO3 26 mmol/L (22-26); VBG pCO2 41 mmHg; VBG pH 7.41 (7.32-7.43); VBG pO2 53 mmHg
[2022-09-28 11:53] LABS: Basophils Percent Auto 0.6 % (0-2); Eosinophils Absolute Auto 0.2 X10*3/uL (0.0-0.4); Hematocrit 31.5 % (37.0-47.0); Hemoglobin 10.8 g/dl (12.0-16.0); Imm Gran Abs Auto 0.04 X10*3/uL (0.00-0.03); Imm Gran Pct Auto 0.8 % (0.0-0.4); Lymphocytes Absolute Auto 1.1 X10*3/uL (1.2-4.9); Lymphocytes Percent Auto 19.7 % (20-40); Mean Corpuscular HGB Conc 34.3 g/dl (31.0-35.0); Mean Corpuscular Hemoglobin 29.6 pg (27.0-33.0); Mean Corpuscular Volume 86.3 fL (80.0-98.0); Mean Platelet Volume 10.9 fL (9.4-12.3); Monocytes Absolute Auto 0.4 X10*3/uL (0.1-1.2); Monocytes Percent Auto 8.3 % (2-11); Neutrophils Absolute Auto 3.6 x10*3/uL (2.0-8.3); Neutrophils Percent Auto 67.6 % (45-73); Platelet Count 258 X10*3/uL (160-400); Red Blood Count 3.65 X10*6/uL (4.20-5.50); Red Cell Distribution Width 10.9 % (11.0-16.0); White Blood Count 5.3 X10*3/uL (4.8-10.8)
[2022-09-28 12:09] LABS: Alanine Aminotransferase 15 U/L (0-31); Albumin Level 3.8 g/dL (3.5-5.0); Alkaline Phosphatase 48 U/L (39-117); Anion Gap 18 (12-20); Aspartate Amino Transferase 15 U/L (5-31); Bilirubin Direct < 0.2 mg/dL (0.0-0.5); Bilirubin Total 0.5 mg/dL (0.0-1.0); Blood Urea Nitrogen 40 mg/dL (9-16); Calcium 9.4 mg/dL (8.4-10.2); Carbon Dioxide 26 mmol/L (22-29); Chloride 94 mmol/L (96-108); Creatinine Clr Calc Pharmacy 19.9; Estimated Glomerular Filt Rate 22; Lactic Acid 3.6 mmol/L (0.5-2.0); Lipase 31 U/L (8-78); Potassium 3.3 mmol/L (3.3-5.1); Sodium 135 mmol/L (135-145); Total Protein 6.3 g/dL (6.5-8.0)
[2022-09-28 12:12] LABS: COVID-19 Test Negative (Negative); Glucose Random 451 mg/dL (60-115); IDNOW Serial# 08D9AD1C; Magnesium 1.4 mg/dL (1.6-2.6)
[2022-09-28] MEDS: 0.9 % Sodium Chloride 1,000 ML 999 ML IV (12:14)
[2022-09-28 12:15] LABS: Troponin-I High Sensitivity 12.2 ng/L (<3.5-17.0)
[2022-09-28] MEDS: Insulin Regular, Human 100 UNIT/ML 3 ML VIAL 10 UNIT IVPUSH (12:15)
[2022-09-28] MEDS: Magnesium Sulfate/H2O 2 GM/50 ML PIGGYBACK IV (12:18)
[2022-09-28 12:43] LABS: Appearance Urine Cloudy; Color Urine Yellow; Glucose Urine UA >=1000 mg/dL (Negative); Leukocyte Esterase Urine Negative (Negative); Nitrite Urine Negative (Negative); PH 5.5 (5.0-9.0); UMIC TRIGGER UACC YES; Urine Blood Trace (Negative); Urine Ketones Negative (Negative); Urine Protein 100 (2+) mg/dL (Neg-Trace)
[2022-09-28 13:03] LABS: Bacteria Urine 4+ (None Seen); Hyaline Casts Urine 0-2 /LPF (0-2); RBC Urine 0-2 /HPF (0-2); Squamous Epithelial Cell Urine 0-2 /HPF (0-2); UACC Culture Trigger YES
[2022-09-28 13:46] LABS: Reflex Lactate? Lactic Acid Added
--- NOTE | 2022-09-28 13:56 | MHC.CM.ED ---
Patient came to the ER from her day program. Dr Bello requesting help obtaining baseline Creat. T/W spoke with patient's day program, [facility] on [address] in [place]. They have no labs available for patient. PCP is Dr Johnson. Patient also sees [facility] [place] No labs available since 2019. Dr Bello aware.
[2022-09-28 14:00] VITALS: PULSE 78; RESP 16; O2SAT 95
[2022-09-28 14:03] LABS: Acetone, serum QL Negative (Negative)
[2022-09-28 14:31] LABS: ~Lactic Acid-LAB USE ONLY 1.4 mmol/L (0.5-2.0)
[2022-09-28 14:41] LABS: Anion Gap 13 (12-20); Blood Urea Nitrogen 37 mg/dL (9-16); Calcium 9.1 mg/dL (8.4-10.2); Carbon Dioxide 29 mmol/L (22-29); Chloride 99 mmol/L (96-108); Creatinine Clr Calc Pharmacy 23.1; Estimated Glomerular Filt Rate 27; Glucose Random 197 mg/dL (60-115); Potassium 3.4 mmol/L (3.3-5.1); Sodium 138 mmol/L (135-145)
[2022-09-28 15:16] LABS: Glucose, Whole Blood 177 mg/dL (60-115)
== END 2022-09-28 16:15 | disposition home or self-care (01) ==
PROVIDERS: Emergency Provider Emergency Medicine; PCP Internal Medicine
DX: E86.0 Dehydration (principal); E61.2 Magnesium deficiency; E11.65 Type 2 diabetes mellitus with hyperglycemia; I10 Essential (primary) hypertension; R07.89 Other chest pain; R10.13 Epigastric pain; Z20.822 Contact with and (suspected) exposure to COVID-19; Z20.828 Contact with and (suspected) exposure to other viral communicable diseases; Z79.4 Long term (current) use of insulin; Z79.899 Other long term (current) drug therapy
CPT/HCPCS: 36415; 80048; 80076; 81001; 82009; 82803; 82947; 83605; 83690; 83735; 84484; 85025; 87086; 87088; 87186; 87635; 93005; 96361; 96365; 96375; 99284; 99285; J2405; J3475

== ENCOUNTER 2023-06-24 09:45 | Outpatient (AMB) | payer OTHER, SELFPAY ==
--- NOTE | 2023-06-24 09:46 | MHC.PC.OV ---
Vital Signs 06/24/23 09:47 Height 5 ft 1 in Weight 133 lb 8 oz BMI 25.2 BP 136/60 Blood Pressure Location Rt femoral Position Sitting Pulse 88 Pulse Source Pulse Oximeter Pulse Oximetry (%) 98 Oxygen Delivery Method Room Air Intake Visit Reasons: 3mth f/u ( Blood Sugar) Pipe Or Steam Fitter Furnace Installer Required: Yes Pipe Or Steam Fitter Furnace Installer Name: Сергей Garduno Information Interpreted: non-clinical & clinical Manager Drilling: Present Accompanied by: Daughter Allergies No Known Allergies [No Known Allergies*] Allergy (Verified 06/24/23 10:03) Medication List - Last Reconciled 06/24/23 by MARAL Sterling albuterol sulfate 90 mcg/actuation 1 puff PO QID PRN amlodipine 10 mg PO DAILY blood sugar diagnostic (Food EvolutionTouch Ultra Test strips) test 3 times per day blood-glucose meter (Food EvolutionTouch Ultra2 Meter) test 3 times per day cefuroxime axetil 250 mg PO BID 7 days citalopram 10 mg PO DAILY gabapentin 400 mg PO BID 2 months hydrochlorothiazide 25 mg PO DAILY insulin aspart U-100 (Novolog FlexPen U-100 Insulin aspart) 15 units (0.15 mL) subcut TID 30 days insulin glargine (Lantus Solostar U-100 Insulin) 40 units (0.4 mL) subcut QPM lancets (Food EvolutionTouch UltraSoft 2 Lancet) test 3 times per day metformin 1,000 mg PO BID naproxen 500 mg PO BID PRN pen needle, diabetic (BD Ultra-Fine Mini Pen Needle) 1 ea subcut DIRECTED 3 months Tobacco use date assessed: 09/27/22 Fall risk assessment: 1 Fall in past year Last assessed Fall Risk: 06/24/23 Dental Screening Dental Screen Date: 06/24/23 Did you have a dental visit in the last 12 months?: No Did you have a dental problem in the last 6 months where you did not have access to dental care?: No Was dental information given to patient?: Patient has dentist HPI HPI Comments History of Present Illness Details 72-year-old female past medical history significant for hypertension, a virtual diabetes mellitus. Patient of Dr. Johnson, Patient last seen and September. Patient reports today with her daughter that aids in interpretation. Patient and daughter report that patient was previously on 20 units of sliding scale insulin t.i.d. and she was experiencing low blood sugars regarding this, states she would get her sliding scale at her program and occasionally would not like with your serving for lunch so she would not eat a lot and that her blood sugar would be 59. Review of the notes and there appeared to be some confusion with what dose of sliding scale patient should be on at her adult day program 20 units t.i.d. verses 10 units t.i.d. however Alicia from [facility] was reporting patient has been having elevated blood sugars in the 200's while at the program. Patient reports was taking 10 units of insulin at home however at the day program she was getting 20. Patient's PCP was made aware of this, insulin was changed to 15 units t.i.d. and medication list been faxed to day program on 06/22/2023 Hemoglobin A1c remains uncontrolled in office today at 9.0%. [facility] Medical History (Updated 03/21/23 @ 13:49 by Claritza Jaime RN) Swelling of mandible HTN (hypertension) Diabetes Surgical History History of bladder surgery History of total hysterectomy History of tonsillectomy Family History Father Hypertension Diabetes Hx of leg amputation Mother Myocardial infarction Diabetes Hypertension Sister Breast cancer Brother Diabetes Maternal Aunt Bone cancer Social History Housing: Apartment Alcohol intake: never Patient Tobacco Use Status: Never used Tobacco e-Cigarette/Vaping Use: Never Used Second Hand Smoke Exposure: No service: No Current occupational status: retired Current occupation: rt hand Cognitive needs: Yes (cane) Hearing needs: No Vision needs: Yes (Glasses) Questionnaire Thrive Questionnaire Date Thrive assessed: 09/27/22 EMMETT-7 AMB Questionnaire EMMETT-7 Date EMMETT - 7 assessed: 09/27/22 Source: Developed by Drs. Raymundo Ontiveros, Neva Russell, Navin Sarah and colleagues, with an educational gogo from [employer]. Review of Systems Const Denies chills, Denies fatigue, Denies fever(s) and Denies poor appetite Eyes Denies no additional complaints ENT Reports Normal hearing present Card Denies chest pain, Denies syncope, Denies rapid heart rate and Denies dyspnea Resp Denies cough and Denies dyspnea GI Denies change in stool character, Denies constipation, Denies diarrhea, Denies nausea and Denies vomiting Denies urinary frequency, Denies dysuria and Denies urinary urgency Neuro Reports Normal hearing present, Denies confusion and Denies syncope Psych Denies confusion Endo Denies fatigue Physical exam (Primary Care) Vital Signs: Last Vital Signs Pulse 88 06/24/23 09:47 BP 136/60 06/24/23 09:47 Pulse Ox 98 06/24/23 09:47 Oxygen Delivery Method Room Air 06/24/23 09:47 BMI result Body Mass Index 25.2 Tobacco/Smoking Status: Tobacco use Status Tobacco use date assessed 09/27/22 06/24/23 09:48 Patient Tobacco Use Status Never used Tobacco 06/24/23 09:48 e-Cigarette/Vaping Use Never Used 06/24/23 09:48 Thrive Assessment: Date of Thrive Assessment Date Thrive assessed 09/27/22 06/24/23 09:48 Const General: No confusion Orientation/consciousness: No confusion HENMT Head: Yes normocephalic and Yes atraumatic Eyes Conjunctivae: conjunctivae normal Chest Chest palpation & inspection: normal inspection of the chest Resp Effort & Inspection: normal respiratory effort Auscultation: clear to auscultation bilaterally, no crackles, no rhonchi and no wheezes Cardio Rate: regular rate Rhythm: regular rhythm Heart sounds: S1 normal heart sound present and S2 normal heart sound present GI Inspection: Yes normal to inspection Neuro General: No confusion Cranial nerves: Yes Normal hearing present Extrem General: No edema Results AMB Hemoglobin A1c AMB Hemoglobin A1c 9.0 % Last Edit by Deanne Mansfield on 06/24/23 10:32 Results Reviewed Results Reviewed: Laboratory Last Values Hgb A1c (Clinic) 9.0 % (4.0-6.0) H 06/24/23 10:14 Assessment and Plan Assessment & Plan (1) HTN (hypertension): Code(s): I10 - Essential (primary) hypertension Plan: Continue on current medications. Blood pressure below goal in office today. Follow low-salt diet and exercise. (2) Uncontrolled diabetes mellitus: Code(s): E11.65 - Type 2 diabetes mellitus with hyperglycemia Plan: Patient to remain on NovoLog 15 units t.i.d., medication list was faxed to patient's day program to ensure accuracy on 06/22/23. Continue on Lantus 40 units at bedtime. Patient and daughter made aware to continue to monitor blood sugars at home and if they have a low blood sugar readings on decreased NovoLog to notify PCP. A1c remains 9.0% Patient educated to decrease the amount of carbohydrate intake such as pasta, bread, rice and potatoes are all sugar in addition to the sweet stuff. Remember that fruits are good but they also have sugar. Plan Follow-up in 3 months with PCP or sooner if needed Orders: Orders Comprehensive [place]. Panel Fast Today E11.9 - Type 2 diabetes mellitus without complications AMB Hemoglobin A1c Today Z13.9 - Encounter for screening, unspecified Lipid Panel Today E11.9 - Type 2 diabetes mellitus without complications Coding Level of Care Code Est Pt Level 3 (71041) Diagnoses HTN (hypertension) I10 Uncontrolled diabetes mellitus E11.65
[2023-06-24 09:47] VITALS: BP 136/60; PULSE 88; O2SAT 98; BMI 25.2
== END 2023-06-24 10:22 | disposition home or self-care (01) ==
PROVIDERS: PCP Internal Medicine; Visit Provider Nurse Practitioner Family
DX: I10 Essential (primary) hypertension (principal); E11.65 Type 2 diabetes mellitus with hyperglycemia
CPT/HCPCS: 83036; 99213

== ENCOUNTER 2023-06-24 10:34 | Outpatient (REF) | payer OTHER, SELFPAY ==
[2023-06-24 12:20] LABS: Alanine Aminotransferase 14 U/L (0-31); Albumin Level 4.2 g/dL (3.5-5.0); Alkaline Phosphatase 70 U/L (39-117); Anion Gap 16 (12-20); Aspartate Amino Transferase 17 U/L (5-31); Bilirubin Total 0.4 mg/dL (0.0-1.0); Blood Urea Nitrogen 41 mg/dL (9-16); Calcium 10.1 mg/dL (8.4-10.2); Carbon Dioxide 29 mmol/L (22-29); Chloride 98 mmol/L (96-108); Cholesterol 310 mg/dL (<200); Estimated Glomerular Filt Rate 25; Glucose Fasting 341 mg/dL (60-99); HDL Cholesterol 40 mg/dL (>40); LDL Cholesterol Calculated 215 mg/dL (<100); Potassium 3.8 mmol/L (3.3-5.1); Sodium 139 mmol/L (135-145); Total Protein 7.8 g/dL (6.5-8.0); Triglycerides 275 mg/dL (<150)
== END 2023-06-24 10:35 | disposition home or self-care (01) ==
LOC: HO.LAB 10:34
PROVIDERS: PCP Nurse Practitioner Family; Visit Provider Nurse Practitioner Family
DX: E11.9 Type 2 diabetes mellitus without complications (principal)
CPT/HCPCS: 36415; 80053; 80061

== ENCOUNTER 2023-07-14 14:35 | Outpatient (AMB) | payer OTHER, SELFPAY ==
--- NOTE | 2023-07-14 14:39 | HO.NEPHOV ---
HPI HPI Comments History of Present Illness Details 72-year-old female with a history significant for hypertension, a virtual diabetes mellitus. She is here for evaluation of CKD Particle Board Supervisor service was used [facility] Medical History Swelling of mandible HTN (hypertension) Diabetes Surgical History History of bladder surgery History of total hysterectomy History of tonsillectomy Family History Father Hypertension Diabetes Hx of leg amputation Mother Myocardial infarction Diabetes Hypertension Sister Breast cancer Brother Diabetes Maternal Aunt Bone cancer Social History Housing: Apartment Alcohol intake: never Patient Tobacco Use Status: Never used Tobacco e-Cigarette/Vaping Use: Never Used Second Hand Smoke Exposure: No service: No Current occupational status: retired Current occupation: rt hand Cognitive needs: Yes (cane) Hearing needs: No Vision needs: Yes (Glasses) Vital Signs 07/14/23 14:40 07/14/23 14:56 07/14/23 14:56 Height 5 ft 1 in Weight 132 lb 8 oz BMI 25.0 BP 150/64 H 150/90 H 90/60 Blood Pressure Location Rt brachial Rt brachial Lt brachial Position Sitting Sitting Sitting Pulse 81 Pulse Source Pulse Oximeter Pulse Oximetry (%) 96 Oxygen Delivery Method Room Air Physical Exam Vital Signs: Last Vital Signs Pulse 81 07/14/23 14:40 BP 90/60 07/14/23 14:56 Pulse Ox 96 07/14/23 14:40 Oxygen Delivery Method Room Air 07/14/23 14:40 BMI result Body Mass Index 25.0 Const General: comfortable Nutritional Appearance: well nourished Orientation/consciousness: patient oriented x3 HEENT Head: No normal to inspection Mouth: moist mucous membranes Neck Neck: Yes supple and Yes no JVD Resp Auscultation: clear to auscultation bilaterally, no rales and rub present Cardio Jugular venous distension: no JVD Palpation: no palpable S3 and no palpable S4 Heart sounds: no rubs GI Palpation (GI): Soft to palpation and nontender Percussion: No Fluid wave present General: Yes no CVA tenderness Back/Spine/Pelvis Back: no CVA tenderness Skin General skin exam: no rashes or lesions noted Neuro General: patient oriented x3 Extrem General: Yes no pedal edema and No clubbing Assessment & Plan Assessment & Plan (1) CKD (chronic kidney disease): Code(s): N18.9 - Chronic kidney disease, unspecified Plan Elderly woman with CKD most likely due to underlying diabetic hypertensive kidney disease. Renal functions close to baseline. Goal is to slow the progression of renal disease. Continue to avoid nephrotoxic agents. Maintain blood pressure less than 130/80. Given the degree of renal insufficiency I would recommend discontinuing metformin due to the risk of lactic acidosis. Of note there is a differential in blood pressure readings in both upper extremities. Orders: Orders Comprehensive Met. Panel 07/14/23 N18.9 - Chronic kidney disease, unspecified US renal BI 07/14/23 N18.9 - Chronic kidney disease, unspecified Total Protein Urine Random 07/14/23 N18.9 - Chronic kidney disease, unspecified UA and rflx microscopic 07/14/23 N18.9 - Chronic kidney disease, unspecified Creatinine Urine 07/14/23 N18.9 - Chronic kidney disease, unspecified Coding Level of Care Code New Pt Level 5 (16190) Diagnoses CKD (chronic kidney disease) N18.9 Results Reviewed Nephrology Results: Hgb 10.8 g/dl (12.0-16.0) L 09/28/22 WBC 5.3 X10*3/uL (4.8-10.8) 09/28/22 Plt Count 258 X10*3/uL (160-400) 09/28/22 Sodium 139 mmol/L (135-145) 06/24/23 Potassium 3.8 mmol/L (3.3-5.1) 06/24/23 Chloride 98 mmol/L (96-108) 06/24/23 Carbon Dioxide 29 mmol/L (22-29) 06/24/23 BUN 41 mg/dL (9-16) H 06/24/23 Creatinine 1.98 mg/dL (0.5-1.4) H 06/24/23 Calcium 10.1 mg/dL (8.4-10.2) 06/24/23 Urine Protein 100 (2+) mg/dL (Neg-Trace) H 09/28/22
[2023-07-14 14:40] VITALS: BP 150/64; PULSE 81; O2SAT 96; BMI 25.0
[2023-07-14 14:56] VITALS: BP 150/90; BP 90/60
== END 2023-07-14 15:03 | disposition home or self-care (01) ==
PROVIDERS: PCP Nurse Practitioner Family; Visit Provider Internal Medicine Hypertension Specialist
DX: I12.9 Hypertensive chronic kidney disease with stage 1 through stage 4 chronic kidney disease, or unspecified chronic kidney disease (principal); E11.22 Type 2 diabetes mellitus with diabetic chronic kidney disease; N18.9 Chronic kidney disease, unspecified
CPT/HCPCS: 99204

== ENCOUNTER → 2023-07-14 14:35 | Outpatient (BNVA) | payer OTHER, MEDICAID, SELFPAY | PROVIDERS: PCP Nurse Practitioner Family; Visit Provider Internal Medicine Hypertension Specialist | DX: N18.9 Chronic kidney disease, unspecified (principal) | CPT/HCPCS: 99202 ==

== ENCOUNTER 2023-08-09 08:37 | Outpatient (REF) | payer MEDICARE, MEDICAID, SELFPAY ==
[2023-08-09 10:09] LABS: Alanine Aminotransferase 15 U/L (0-31); Albumin Level 4.3 g/dL (3.5-5.0); Alkaline Phosphatase 76 U/L (39-117); Anion Gap 17 (12-20); Aspartate Amino Transferase 16 U/L (5-31); Bilirubin Total 0.4 mg/dL (0.0-1.0); Blood Urea Nitrogen 32 mg/dL (9-16); Carbon Dioxide 29 mmol/L (22-29); Chloride 96 mmol/L (96-108); Estimated Glomerular Filt Rate 26; Glucose Random 241 mg/dL (60-115); Potassium 3.2 mmol/L (3.3-5.1); Sodium 139 mmol/L (135-145)
[2023-08-09 10:50] LABS: Appearance Urine Turbid; Color Urine Yellow; Glucose Urine UA 250 mg/dL (Negative); Leukocyte Esterase Urine Small (1+) (Negative); Nitrite Urine Negative (Negative); PH 5.5 (5.0-9.0); Specific Gravity - Urine 1.015 (1.005-1.025); UMIC TRIGGER UA YES; Urine Blood Negative (Negative); Urine Ketones Negative (Negative); Urine Protein 100 (2+) mg/dL (Neg-Trace)
[2023-08-09 10:56] LABS: Bacteria Urine 4+ (None Seen); Hyaline Casts Urine 0-2 /LPF (0-2); RBC Urine 0-2 /HPF (0-2); WBC Urine 21-50 /HPF (0-5)
[2023-08-09 11:07] LABS: Creatinine Urine 66.93 mg/dL; Total Protein Urine Random 107 mg/dL (<12)
== END 2023-08-09 08:38 | disposition home or self-care (01) ==
LOC: HO.LAB 08:37
PROVIDERS: PCP Internal Medicine; Visit Provider Internal Medicine Hypertension Specialist
DX: N18.9 Chronic kidney disease, unspecified (principal)
CPT/HCPCS: 36415; 80053; 81001; 82570; 84156

== ENCOUNTER 2023-09-22 13:11 | Outpatient (AMB) | payer MEDICARE, MEDICAID, SELFPAY ==
[2023-09-22 13:12] VITALS: BP 146/62; PULSE 88; O2SAT 97; BMI 25.1
--- NOTE | 2023-09-22 13:12 | HO.NEPHOV ---
HPI HPI Comments History of Present Illness Details 72-year-old female with a history significant for hypertension, and diabetes mellitus. She is here for evaluation of CKD Grand daughter helped with translation c/o diarrhea for 1- 2 months USG pending [facility] Medical History Swelling of mandible HTN (hypertension) Diabetes Surgical History (Updated 09/22/23 @ 13:22 by Sasha Tucker) History of cataract surgery History of bladder surgery History of total hysterectomy History of tonsillectomy Family History Father Hypertension Diabetes Hx of leg amputation Mother Myocardial infarction Diabetes Hypertension Sister Breast cancer Brother Diabetes Maternal Aunt Bone cancer Social History Housing: Apartment Alcohol intake: never Patient Tobacco Use Status: Never used Tobacco e-Cigarette/Vaping Use: Never Used Second Hand Smoke Exposure: No service: No Current occupational status: retired Current occupation: rt hand Cognitive needs: Yes (cane) Hearing needs: No Vision needs: Yes (Glasses) Vital Signs 09/22/23 13:12 Height 5 ft 1 in Weight 133 lb BMI 25.1 BP 146/62 H Blood Pressure Location Lt brachial Position Sitting Pulse 88 Pulse Source Pulse Oximeter Pulse Oximetry (%) 97 Oxygen Delivery Method Room Air Physical Exam Vital Signs: Last Vital Signs Pulse 88 09/22/23 13:12 BP 146/62 H 09/22/23 13:12 Pulse Ox 97 09/22/23 13:12 Oxygen Delivery Method Room Air 09/22/23 13:12 BMI result Body Mass Index 25.1 Const General: comfortable Nutritional Appearance: well nourished Orientation/consciousness: patient oriented x3 HEENT Head: No normal to inspection Mouth: moist mucous membranes Neck Neck: Yes supple and Yes no JVD Resp Auscultation: clear to auscultation bilaterally, no rales and rub present Cardio Jugular venous distension: no JVD Palpation: no palpable S3 and no palpable S4 Heart sounds: no rubs GI Palpation (GI): Soft to palpation and nontender Percussion: No Fluid wave present General: Yes no CVA tenderness Back/Spine/Pelvis Back: no CVA tenderness Skin General skin exam: no rashes or lesions noted Neuro General: patient oriented x3 Extrem General: Yes no pedal edema and No clubbing Assessment & Plan Assessment & Plan (1) CKD (chronic kidney disease): Code(s): N18.9 - Chronic kidney disease, unspecified Plan Elderly woman with CKD most likely due to underlying diabetic hypertensive kidney disease. Renal functions close to baseline. Goal is to slow the progression of renal disease. Continue to avoid nephrotoxic agents. Maintain blood pressure less than 130/80. Given the degree of renal insufficiency I would recommend discontinuing metformin due to the risk of lactic acidosis. Of note there is a differential in blood pressure readings in both upper extremities. Orders: Orders US renal BI Today N18.9 - Chronic kidney disease, unspecified Comprehensive Met. Panel 4 Months N18.9 - Chronic kidney disease, unspecified Complete Blood Count Auto Diff 4 Months N18.30 - Chronic kidney disease, stage 3 unspecified Coding Level of Care Code Est Pt Level 3 (29883) Diagnoses CKD (chronic kidney disease) N18.9 Results Reviewed Nephrology Results: Hgb 10.8 g/dl (12.0-16.0) L 09/28/22 WBC 5.3 X10*3/uL (4.8-10.8) 09/28/22 Plt Count 258 X10*3/uL (160-400) 09/28/22 Sodium 139 mmol/L (135-145) 08/09/23 Potassium 3.2 mmol/L (3.3-5.1) L 08/09/23 Chloride 96 mmol/L (96-108) 08/09/23 Carbon Dioxide 29 mmol/L (22-29) 08/09/23 BUN 32 mg/dL (9-16) H 08/09/23 Creatinine 1.87 mg/dL (0.5-1.4) H 08/09/23 Calcium 10.0 mg/dL (8.4-10.2) 08/09/23 Urine Protein 100 (2+) mg/dL (Neg-Trace) H 08/09/23 Urine Creatinine 66.93 mg/dL 08/09/23
== END 2023-09-22 13:39 | disposition home or self-care (01) ==
PROVIDERS: PCP Internal Medicine; Visit Provider Internal Medicine Hypertension Specialist
DX: N18.9 Chronic kidney disease, unspecified (principal)
CPT/HCPCS: 99213

== ENCOUNTER → 2023-09-22 13:11 | Outpatient (BNVA) | payer MEDICARE, MEDICAID, SELFPAY | PROVIDERS: PCP Internal Medicine; Visit Provider Internal Medicine Hypertension Specialist | DX: E11.22 Type 2 diabetes mellitus with diabetic chronic kidney disease (principal); I12.9 Hypertensive chronic kidney disease with stage 1 through stage 4 chronic kidney disease, or unspecified chronic kidney disease; N18.9 Chronic kidney disease, unspecified | CPT/HCPCS: 99212 ==

== ENCOUNTER 2023-10-07 12:31 | Emergency (ER) | payer OTHER, MEDICAID, SELFPAY ==
[2023-10-07 13:01] VITALS: BP 151/59; PULSE 74; O2SAT 99
[2023-10-07 13:05] LABS: Glucose, Whole Blood 265 mg/dL (60-115)
[2023-10-07 13:12] VITALS: BP 174/65; PULSE 75; RESP 18; TEMP 36.6; O2SAT 97; BMI 25.6
[2023-10-07 13:56] VITALS: BP 170/60; PULSE 74; RESP 16; O2SAT 98
--- NOTE | 2023-10-07 13:56 | ECG_ITS ---
Test Reason : CP Blood Pressure : / mmHG Vent. Rate : 073 BPM Atrial Rate : 073 BPM P-R Int : 156 ms QRS Dur : 090 ms QT Int : 414 ms P-R-T Axes : 014 -09 030 degrees QTc Int : 456 ms Normal sinus rhythm Normal ECG When compared with ECG of 28-SEP-2022 11:48, No significant change was found Referred By: Katarina Siddiqui Electronically Signed By:DAQUAN ROBERTS MD
--- NOTE | 2023-10-07 14:05 | ED_ITS ---
HPI - Recheck/Abnormal Lab/Rx General Chief Complaint: Recheck/Abnormal Lab/Rx Stated Complaint: HIGH BLOOD SUGAR Time Seen by Provider: 10/07/23 13:15 History of Present Illness HPI narrative: Patient is a 73-year-old female from adult daycare was noted to have a 301 POC was given 15 units of insulin recheck sugar was 500 patient was sent to the ED for further evaluation. Patient denies any symptoms currently. Daycare wanted patient to be evaluated. She has a history of chronic kidney disease history diabetes. Related Data Home Medications Medication Instructions Recorded Confirmed erythromycin 5 mg/gram (0.5 %) eye ophthalmic (eye) 09/22/23 ointment insulin glargine 100 unit/mL (3 40 unit subcut QPM 09/22/23 mL) subcutaneous pen (Lantus Solostar U-100 Insulin) ketorolac 0.5 % eye drops drp ophthalmic (eye) 09/22/23 Previous Rx's Medication Instructions Recorded gabapentin 400 mg capsule 400 mg PO BID 2 months #120 caps 01/29/23 blood sugar diagnostic (OneTouch #100 ea 03/21/23 Ultra Test strips) blood-glucose meter (OneTouch #1 ea 03/21/23 Ultra2 Meter) lancets 30 gauge (OneTouch #200 ea 03/21/23 UltraSoft 2 Lancet) albuterol sulfate 90 mcg/actuation 1 puff PO QID PRN shortness of 04/07/23 aerosol inhaler breath or wheezing #18 ea amlodipine 10 mg tablet 10 mg PO DAILY #90 tabs 04/07/23 hydrochlorothiazide 25 mg tablet 25 mg PO DAILY #90 tabs 04/07/23 pen needle, diabetic 31 gauge x 1 ea subcut DIRECTED 3 months 04/07/2310/07 (BD Ultra-Fine Mini Pen #100 ea Needle) insulin aspart U-100 100 unit/mL 15 unit (0.15 mL) subcut TID 30 06/22/23 (3 mL) subcutaneous pen (Novolog days #13.5 mL FlexPen U-100 Insulin aspart) rosuvastatin 5 mg tablet 5 mg PO DAILY #30 tabs 07/02/23 citalopram 10 mg tablet 10 mg PO DAILY #90 tabs 07/12/23 potassium chloride 8 mEq 8 meq PO DAILY #10 caps 01/16/24 capsule,extended release metformin 1,000 mg tablet 1,000 mg PO BID #180 tabs 09/30/23 Allergies Allergy/AdvReac Type Severity Reaction Status Date / Time No Known Allergies Allergy Verified 10/07/23 13:18 [No Known Allergies*] Review of Systems 2 Review of Systems: No chest pain or shortness breath no dizziness no symptoms Yes all other systems are reviewed and are negative [facility] Past Medical History Attestation statement: The following information was validated with the patient. Medical History Swelling of mandible HTN (hypertension) Diabetes Surgical History History of cataract surgery History of bladder surgery History of total hysterectomy History of tonsillectomy Family History Family History Father Hypertension Diabetes Hx of leg amputation Mother Myocardial infarction Diabetes Hypertension Sister Breast cancer Brother Diabetes Maternal Aunt Bone cancer Social History Social History Housing: Apartment Alcohol intake: never Patient Tobacco Use Status: Never used Tobacco e-Cigarette/Vaping Use: Never Used Second Hand Smoke Exposure: No Advance Directives: No Advance Directives Information Provided: Yes service: No Current occupational status: retired Current occupation: rt hand Cognitive needs: Yes (cane) Hearing needs: No Vision needs: Yes (Glasses) Physical Exam 2 Vital Signs: Vital Signs: Last Vital Signs Temp 97.8 F 10/07/23 13:12 Pulse 71 10/07/23 14:28 Resp 16 10/07/23 14:28 BP 136/59 L 10/07/23 14:28 Pulse Ox 93 10/07/23 14:28 O2 Del Method Room Air 10/07/23 14:28 BMI result Body Mass Index 25.6 Appearance: Alert. Oriented X3. No acute distress. Eyes: Pupils equal, round and reactive to light. ENT: Pharynx normal. Neck: Normal inspection. Neck supple. No lymph nodes noted. No crepitus CVS: Normal heart rate and rhythm. Pulses normal. Normal S1 and S2 Respiratory: No respiratory distress. Breath sounds normal. No Wheezing. No rales Abdomen: Soft and nontender. No rigidity. No distention. good BS x4 Skin: Skin warm and dry. Normal skin color. Normal skin turgor. Extremities: No lower extremity edema. Neurovascular intact to all extremities. No Lacerations. No Rash Neuro: Oriented X 3. No motor deficit. No sensory deficit. Moving all extermities. No slurred speech Medications Administered Discontinued Medications Generic Name Dose Route Start Last Admin Trade Name Freq PRN Reason Stop Dose Admin Sodium Chloride 1,000 mls @ 999 mls/hr 10/07/23 14:00 10/07/23 14:56 Ns IV 10/07/23 15:00 999 mls/hr .Q1H1M INGA Administration Medical Decision Making Medical Decision Making MDM Narrative: Patient presents today with possible hyperglycemia. When we finally got the electrolyte back it was 120. However patient's potassium is low at 2.9. Will give patient some oral potassium along with 2 runs of K. patient to be discharged home. Close follow-up on an outpatient basis. In stable condition. No DKA. Compliant with medication. Patient's beta hydroxybutyrate is normal. PH is normal. Differential Diagnosis Differential Diagnoses: The differential diagnosis associated with the presentation includes Hyperglycemia, diabetes, diabetic ketoacidosis Admission/Observation Consideration of admission/observation: Escalation of care including admission/observation considered Lab Data [facility] Lab Attestation statement: I reviewed the patient's lab results. 10/07/23 14:46 10/07/23 14:46 Labs: Lab Results 10/07/23 10/07/23 10/07/23 Range/Units 13:01 14:46 14:49 WBC 5.9 (4.8-10.8) X10*3/uL RBC 3.48 L (4.20-5.50) X10*6/uL Hgb 10.4 L (12.0-16.0) g/dl Hct 29.7 L (37.0-47.0) % MCV 85.3 (80.0-98.0) fL MCH 29.9 (27.0-33.0) pg MCHC 35.0 (31.0-35.0) g/dl RDW 11.0 (11.0-16.0) % Plt Count 264 (160-400) X10*3/uL MPV 10.8 (9.4-12.3) fL Immature Gran % (Auto) 0.2 (0.0-0.4) % Neut % (Auto) 61.1 (45-73) % Lymph % (Auto) 23.8 (20-40) % [place] % (Auto) 10.1 (2-11) % Eos % (Auto) 4.3 H (0-4) % Baso % (Auto) 0.5 (0-2) % Lymph # (Auto) 1.4 (1.2-4.9) X10*3/uL [place] # (Auto) 0.6 (0.1-1.2) X10*3/uL Eos # (Auto) 0.3 (0.0-0.4) X10*3/uL Baso # (Auto) 0.0 (0.0-0.2) X10*3/uL Abs Immat Gran (auto) 0.01 (0.00-0.03) X10*3/uL Absolute Neuts (auto) 3.6 (2.0-8.3) x10*3/uL Absolute Nucleated RBC 0.000 (0.0-0.012) X10*3/uL Nucleated RBC % (auto) 0.0 (0.0-0.2) /100WBC VBG pH 7.49 H (7.32-7.43) VBG pCO2 38 mmHg VBG pO2 98 mmHg VBG HCO3 29 H (22-26) mmol/L VBG O2 Saturation 100.0 % VBG Base Excess 6.2 mmol/L Sodium 140 (135-145) mmol/L Potassium 2.9 L* (3.3-5.1) mmol/L Chloride 103 (96-108) mmol/L Carbon Dioxide 26 (22-29) mmol/L Anion Gap 14 (12-20) BUN 30 H (9-16) mg/dL Creatinine 1.63 H (0.5-1.4) mg/dL Estim Creat Clear Calc 25.8 Estimated GFR 31 POC Glucose 265 H (60-115) mg/dL Random Glucose 120 H (60-115) mg/dL Calcium 9.4 (8.4-10.2) mg/dL Beta-Hydroxybutyrate 0.06 (0.02-0.27) mmol/L Independent Interpretation I performed an independent interpretation of an: EKG (Sinus rhythm heart rate is 70 CO QRS QTC within normal limits is no acute ST segment elevation noted) Chronic Conditions Patient?s care impacted by: Diabetes Discharge Plan Discharge Clinical Impression: Diabetes, Acute hyperglycemia, Hypokalemia Instructions: Diabetes and Nutrition (ED), How to Check your Blood Sugar (ED), Type 2 Diabetes Management for Adults (ED) Prescriptions: No Action gabapentin 400 mg capsule 400 mg PO BID 60 Days Qty: 120 1RF (DME) blood-glucose meter [OneTouch Ultra2 Meter] Misc See Rx Instructions .Route Qty: 1 0RF Rx Instructions: test 3 times per day (DME) OneTouch Ultra Test Strip See Rx Instructions .Route Qty: 100 8RF Rx Instructions: test 3 times per day (DME) lancets [OneTouch UltraSoft 2 Lancet] 30 gauge misc See Rx Instructions .Route Qty: 200 5RF Rx Instructions: test 3 times per day albuterol sulfate 90 mcg/actuation HFA aerosol inhaler 1 puff PO QID PRN (Reason: shortness of breath or wheezing) Qty: 18 3RF pen needle, diabetic [BD Ultra-Fine Mini Pen Needle] 31 gauge x 3/16 needle 1 ea subcut DIRECTED 90 Days Qty: 100 5RF amlodipine 10 mg tablet 10 mg PO DAILY Qty: 90 1RF hydrochlorothiazide 25 mg tablet 25 mg PO DAILY Qty: 90 1RF insulin aspart U-100 [Novolog FlexPen U-100 Insulin] 100 unit/mL (3 mL) insulin pen 15 unit subcut TID 30 Days Qty: 13.5 1RF rosuvastatin 5 mg tablet 5 mg PO DAILY Qty: 30 3RF citalopram 10 mg tablet 10 mg PO DAILY Qty: 90 1RF potassium chloride 8 mEq capsule, extended release 8 meq PO DAILY Qty: 10 0RF metformin 1,000 mg tablet 1,000 mg PO BID Qty: 180 0RF insulin glargine [Lantus Solostar U-100 Insulin] 100 unit/mL (3 mL) insulin pen 40 unit subcut QPM erythromycin 5 mg/gram (0.5 %) ointment ophthalmic (eye) ketorolac 0.5 % drops ophthalmic (eye) Referrals: Miguel Johnson MD [Primary Care Provider] - 10/10/23 Print Language: [place] Islander
[2023-10-07 14:28] VITALS: BP 136/59; PULSE 71; RESP 16; O2SAT 93
[2023-10-07 14:50] LABS: MANUAL DIFF FLAG NO
[2023-10-07 14:51] LABS: Basophils Percent Auto 0.5 % (0-2); Eosinophils Absolute Auto 0.3 X10*3/uL (0.0-0.4); Eosinophils Percent Auto 4.3 % (0-4); Hematocrit 29.7 % (37.0-47.0); Hemoglobin 10.4 g/dl (12.0-16.0); Imm Gran Abs Auto 0.01 X10*3/uL (0.00-0.03); Imm Gran Pct Auto 0.2 % (0.0-0.4); Lymphocytes Absolute Auto 1.4 X10*3/uL (1.2-4.9); Lymphocytes Percent Auto 23.8 % (20-40); Mean Corpuscular Hemoglobin 29.9 pg (27.0-33.0); Mean Corpuscular Volume 85.3 fL (80.0-98.0); Mean Platelet Volume 10.8 fL (9.4-12.3); Monocytes Absolute Auto 0.6 X10*3/uL (0.1-1.2); Monocytes Percent Auto 10.1 % (2-11); Neutrophils Absolute Auto 3.6 x10*3/uL (2.0-8.3); Neutrophils Percent Auto 61.1 % (45-73); Platelet Count 264 X10*3/uL (160-400); Red Blood Count 3.48 X10*6/uL (4.20-5.50); White Blood Count 5.9 X10*3/uL (4.8-10.8)
[2023-10-07] MEDS: 0.9 % Sodium Chloride 1,000 ML 999 ML IV (14:56)
[2023-10-07 14:57] LABS: VBG Base Excess 6.2 mmol/L; VBG HCO3 29 mmol/L (22-26); VBG pCO2 38 mmHg; VBG pH 7.49 (7.32-7.43); VBG pO2 98 mmHg
[2023-10-07 14:59] LABS: Venous Blood Gas Refer to POC result
[2023-10-07 15:09] LABS: Beta-Hydroxybutyrate 0.06 mmol/L (0.02-0.27)
[2023-10-07 15:23] LABS: Anion Gap 14 (12-20); Blood Urea Nitrogen 30 mg/dL (9-16); Calcium 9.4 mg/dL (8.4-10.2); Carbon Dioxide 26 mmol/L (22-29); Chloride 103 mmol/L (96-108); Creatinine Clr Calc Pharmacy 25.8; Estimated Glomerular Filt Rate 31; Glucose Random 120 mg/dL (60-115); Potassium 2.9 mmol/L (3.3-5.1); Sodium 140 mmol/L (135-145)
[2023-10-07] MEDS: Potassium Chloride Packet 20 MEQ PACKET 40 MEQ PO (15:49)
[2023-10-07] MEDS: Potassium Chloride/H20 10 MEQ/100 ML PIGGYBACK 100 MEQ IV ×2 (15:54→16:50)
[2023-10-07 17:05] VITALS: BP 170/65; PULSE 80; RESP 20; TEMP 36.9; O2SAT 96
== END 2023-10-07 18:40 | disposition home or self-care (01) ==
PROVIDERS: Emergency Provider Emergency Medicine Emergency Medical Services; PCP Internal Medicine
DX: E11.65 Type 2 diabetes mellitus with hyperglycemia (principal); E87.6 Hypokalemia; I10 Essential (primary) hypertension
CPT/HCPCS: 36415; 80048; 82010; 82803; 82947; 85025; 93005; 96361; 96374; 99284; 99285; J3480

== ENCOUNTER → 2023-10-07 13:56 | Outpatient (BNV) | payer OTHER, SELFPAY | PROVIDERS: Emergency Provider Emergency Medicine Emergency Medical Services; PCP Internal Medicine; Visit Provider Internal Medicine Cardiovascular Disease | DX: R07.9 Chest pain, unspecified (principal) | CPT/HCPCS: 93010 ==

== ENCOUNTER 2023-10-13 10:35 | Outpatient (REF) | payer OTHER, MEDICAID, SELFPAY ==
--- NOTE | ~2023-10-13 | US_ITS ---
EXAMINATION: US RETROPERITONEAL LIMITED (RENAL ONLY) CLINICAL INFORMATION: Chronic kidney disease, unspecified. COMPARISON: CT abdomen and pelvis 08/24/2019. TECHNIQUE: Real-time imaging of the kidneys. FINDINGS: RIGHT KIDNEY: 10.7 x 4.1 x 4.2 cm (SAG x AP x TRV). The kidney is normal in size, contour, and echogenicity. Renal cortical thickness is normal. No renal calculi or hydronephrosis. There are scattered echogenic foci, which do not meet formal ultrasound criteria for calculi. At the interpolar aspect laterally, a 4 mm benign, simple cyst is seen, which requires no imaging follow-up. LEFT KIDNEY: 10.6 x 3.6 x 3.4 cm (SAG x AP x TRV). The kidney is normal in size, contour, and echogenicity. Renal cortical thickness is normal. No renal calculi or hydronephrosis. At the interpolar aspect laterally, a 4 mm benign, simple cyst is seen, which requires no imaging follow-up. US/US renal BI IMPRESSION: Unremarkable examination.
== END 2023-10-13 10:36 | disposition home or self-care (01) ==
LOC: HO.US 10:35
PROVIDERS: PCP Internal Medicine; Visit Provider Internal Medicine Hypertension Specialist
DX: N18.9 Chronic kidney disease, unspecified (principal)
CPT/HCPCS: 76775

== ENCOUNTER 2023-12-01 11:54 | Observation (INO) | payer OTHER, MEDICAID, SELFPAY ==
--- NOTE | ~2023-12-01 | XR_ITS ---
EXAMINATION: XR CHEST CLINICAL INFORMATION: Neck and arm pain COMPARISON: 01/22/2021 TECHNIQUE: 2 views of the chest were obtained. FINDINGS: Lungs are mildly hypoinflated. Heart size upper limits of normal to mildly enlarged. There is mild central venous prominence. No edema or pleural effusions. No consolidations or lung masses. Compared to the 01/22/2021 study there's been no interval change. XR/XR chest 2V IMPRESSION: No acute intrathoracic disease
[2023-12-01 12:18] VITALS: BP 126/52; BP 137/62; PULSE 59; PULSE 60; RESP 18; TEMP 37.2; O2SAT 100; O2SAT 95; BMI 26.6
--- NOTE | 2023-12-01 12:21 | ED_ITS ---
HPI - Extremity Injury (Upper) General Chief Complaint: General Medical Stated Complaint: BUE PAIN,DIZZY,WEAK THIS AM PER EMS Time Seen by Provider: 12/01/23 12:13 Source: patient Mode of arrival: ambulatory Limitations: no limitations History of Present Illness HPI narrative: . Patient is a very limited historian 73-year-old female past history hyperlipidemia chronic kidney disease uncontrolled diabetes fecal incontinence who presents emergency room complaining of weakness and pain. She states she was in use today felt last night she was playing bingo and she went home and fell asleep states she fell asleep sitting she woke this morning her neck and shoulder were hurting her. She states she does not normally sleeps in a chair she did not take anything for pain she denies any falls or injuries. She lives with her daughter she denies chest pain cough nausea vomiting diarrhea. Per EMS patient was at adult daycare woke up and was feeling normal in the finishing up to 95 was given 15 units of insulin and the patient experienced weakness dizziness and reported dry mouth right-sided neck pain in legs being tingling Related Data Home Medications ?Medication ?Instructions ?Recorded ?Confirmed insulin glargine 100 unit/mL (3 40 unit subcut QPM 09/22/23 12/01/23 mL) subcutaneous pen (Lantus Solostar U-100 Insulin) aspirin 81 mg tablet,delayed 81 mg PO DAILY 12/01/23 12/01/23 release citalopram 10 mg tablet 20 mg PO DAILY 12/01/23 12/01/23 gabapentin 400 mg capsule 400 mg PO Q12H 12/01/23 12/01/23 metformin 1,000 mg tablet 1,000 mg PO Q12H 12/01/23 12/01/23 Previous Rx's ?Medication ?Instructions ?Recorded blood sugar diagnostic (OneTouch #100 ea 03/21/23 Ultra Test strips) blood-glucose meter (OneTouch #1 ea 03/21/23 Ultra2 Meter) lancets 30 gauge (OneTouch #200 ea 03/21/23 UltraSoft 2 Lancet) albuterol sulfate 90 mcg/actuation 1 puff PO QID PRN shortness of 04/07/23 aerosol inhaler breath or wheezing #18 ea amlodipine 10 mg tablet 10 mg PO DAILY #90 tabs 10/26/23 hydrochlorothiazide 25 mg tablet 25 mg PO DAILY #90 tabs 10/31/23 insulin aspart U-100 100 unit/mL 15 unit (0.15 mL) subcut TID 30 11/09/23 (3 mL) subcutaneous pen (Novolog days #13.5 mL FlexPen U-100 Insulin aspart) Allergies Allergy/AdvReac Type Severity Reaction Status Date / Time No Known Allergies Allergy Verified 12/01/23 12:23 [No Known Allergies*] Review of Systems 2 Review of Systems: Review of systems: General: Weakness tingling Patient denies any fever chills recent illness or falls Musculoskeletal: Denies back pain or body aches or other injuries HEENT: denies headache, runny nose, ear pain Respiratory: denies shortness of breath, cough Cardiovascular: no chest pain or palpitations : denies dysuria, frequency Abdomen: no nausea vomiting denies abdominal pain Extremities: no swelling, no pain Skin: no diaphoresis Yes all other systems are reviewed and are negative PMFSH Past Medical History Medical History Swelling of mandible HTN (hypertension) Diabetes Surgical History History of cataract surgery History of bladder surgery History of total hysterectomy History of tonsillectomy Family History Family History Father Hypertension Diabetes Hx of leg amputation Mother Myocardial infarction Diabetes Hypertension Sister Breast cancer Brother Diabetes Maternal Aunt Bone cancer Social History Social History Housing: Apartment Alcohol intake: never Patient Tobacco Use Status: Never used Tobacco Smoked in Last 30 Days: No e-Cigarette/Vaping Use: Never Used Second Hand Smoke Exposure: No Use of substances other than those prescribed or required for medical reasons: No Advance Directives: Yes Advance Directives Information Provided: No Advance Directives on File: No Do you have a plan to hurt others: No Plan service: No Current occupational status: retired Current occupation: rt hand Cognitive needs: Yes (cane) Hearing needs: No Vision needs: Yes (Glasses) Physical Exam 2 Vital Signs: Vital Signs: Last Vital Signs Temp 98.9 F 12/01/23 12:18 Pulse 55 12/01/23 14:45 Resp 16 12/01/23 14:45 BP 143/57 H 12/01/23 14:45 Pulse Ox 96 12/01/23 14:45 O2 Del Method Room Air 12/01/23 14:45 BMI result Body Mass Index 26.6 Neurological exam: CN II- XII tested. Patient is alert and oriented to person place and time. Patient has no dysphagia or dysarthia, denies good vision in all four vision pratt no nystagmus on exam, good strength to upper and lower extremities with normal reflexes to brachioradialis, wrist, patella and achilles. Negative romberg, good finger to nose and heel to [place]. General: Well-appearing well-nourished in no signs of distress HEENT: Normocephalic atraumatic Neck: No signs of JVD, no masses no tenderness or lymphadenopathy Cardiovascular: Regular rate and rhythm Respiratory: Clear to auscultation bilaterally Abdomen: Soft nontender no masses Extremities: Normal pedal pulses no signs of edema Skin: Dry warm no rashes Back: No tenderness full ROM Medications Administered Generic Name Dose Route Start Last Admin Trade Name Freq PRN Reason Stop Dose Admin Dextrose 1,000 mls @ 250 mls/hr 12/01/23 15:30 12/01/23 15:00 D10 IVCONT Infused .Q4H INGA Infusion Discontinued Medications Generic Name Dose Route Start Last Admin Trade Name Freq PRN Reason Stop Dose Admin Acetaminophen 650 mg 12/01/23 12:48 12/01/23 13:12 Acetaminophen 325 Mg Tablet PO 12/01/23 12:49 650 mg ONCE ONE Administration Sodium Chloride 1,000 mls @ 999 mls/hr 12/01/23 13:00 12/01/23 14:44 Ns IV 12/01/23 14:00 Infused .Q1H1M INGA Infusion Sodium Chloride 1,000 mls @ 999 mls/hr 12/01/23 14:30 12/01/23 17:38 Ns IV 12/01/23 15:30 999 mls/hr .Q1H1M INGA Administration Ketorolac Tromethamine 15 mg 12/01/23 12:48 12/01/23 13:36 Ketorolac Tromethamine 30 Mg/Ml Vial IM 12/01/23 12:49 15 mg ONCE ONE Administration Medical Decision Making Medical Decision Making [facility] Narrative: I will check labs give the patient over for an x-ray EKG patient some Toradol and Tylenol do not think there is any need for imaging of the neck or head she has no signs this is meningitis or infectious she said her usual state of health nasal symptoms started after getting some insulin she does not have a fever here and her vitals were completely normal. Differential Diagnosis Differential Diagnoses: The differential diagnosis associated with the presentation includes Acute on chronic kidney disease dehydration electrolyte abnormality muscle pain IA bladder infection insulin reaction low blood sugar Admission/Observation Consideration of admission/observation: Escalation of care including admission/observation considered Consult Healthcare Provider Management of the patient was discussed with: Hospitalist Dr. Peterson and I discussed the patient will be admitted to medicine. Lab Data MDM Lab Attestation statement: I reviewed the patient's lab results. Labs unremarkable lipase is 82 I think this is age related she has no signs of pancreatitis do not think she needs CT scan or further imaging at this time 12/01/23 13:41 12/01/23 13:41 Labs: Lab Results 12/01/23 12/01/23 12/01/23 Range/Units 12:18 13:41 14:39 WBC 5.0 (4.8-10.8) X10*3/uL RBC 3.41 L (4.20-5.50) X10*6/uL Hgb 10.1 L (12.0-16.0) g/dl Hct 29.3 L (37.0-47.0) % MCV 85.9 (80.0-98.0) fL MCH 29.6 (27.0-33.0) pg MCHC 34.5 (31.0-35.0) g/dl RDW 11.3 (11.0-16.0) % Plt Count 205 (160-400) X10*3/uL MPV 11.2 (9.4-12.3) fL Immature Gran % (Auto) 0.2 (0.0-0.4) % Neut % (Auto) 57.4 (45-73) % Lymph % (Auto) 27.9 (20-40) % Archule[place] % (Auto) 10.5 (2-11) % Eos % (Auto) 3.4 (0-4) % Baso % (Auto) 0.6 (0-2) % Lymph # (Auto) 1.4 (1.2-4.9) X10*3/uL [place] # (Auto) 0.5 (0.1-1.2) X10*3/uL Eos # (Auto) 0.2 (0.0-0.4) X10*3/uL Baso # (Auto) 0.0 (0.0-0.2) X10*3/uL Abs Immat Gran (auto) 0.01 (0.00-0.03) X10*3/uL Absolute Neuts (auto) 2.8 (2.0-8.3) x10*3/uL Absolute Nucleated RBC 0.000 (0.0-0.012) X10*3/uL Nucleated RBC % (auto) 0.0 (0.0-0.2) /100WBC Sodium 134 L (135-145) mmol/L Potassium 3.1 L (3.3-5.1) mmol/L Chloride 99 (96-108) mmol/L Carbon Dioxide 23 (22-29) mmol/L Anion Gap 15 (12-20) BUN 36 H (9-16) mg/dL Creatinine 1.73 H (0.5-1.4) mg/dL Estim Creat Clear Calc 24.7 Estimated GFR 29 POC Glucose 126 H 34 L* (60-115) mg/dL Random Glucose 84 (60-115) mg/dL Calcium 9.3 (8.4-10.2) mg/dL Total Bilirubin 0.3 (0.0-1.0) mg/dL Direct Bilirubin 0.1 (0.0-0.5) mg/dL AST 16 (5-31) U/L ALT 13 (0-31) U/L Alkaline Phosphatase 70 (39-117) U/L Troponin I High Sens 10.8 (<3.5-17.0) ng/L Total Protein 7.1 (6.5-8.0) g/dL Albumin 3.9 (3.5-5.0) g/dL Lipase 82 H (8-78) U/L Urine Color Urine Appearance Urine pH (5.0-9.0) Ur Specific Henderson (1.005-1.025) Urine Protein (Neg-Trace) mg/dL Urine Glucose (UA) (Negative) mg/dL Urine Ketones (Negative) mg/dL Urine Blood (Negative) Urine Nitrite (Negative) Ur Leukocyte Esterase (Negative) Urine RBC (0-2) /HPF Urine WBC (0-5) /HPF Ur Squamous Epith Cells (0-2) /HPF Urine Bacteria (None Seen) Hyaline Casts (0-2) /LPF COVID-19 (TAVARES) Negative (Negative) COVID-19 Clin Com See Note 12/01/23 12/01/23 12/01/23 Range/Units 15:06 16:48 18:48 WBC (4.8-10.8) X10*3/uL RBC (4.20-5.50) X10*6/uL Hgb (12.0-16.0) g/dl Hct (37.0-47.0) % MCV (80.0-98.0) fL MCH (27.0-33.0) pg MCHC (31.0-35.0) g/dl RDW (11.0-16.0) % Plt Count (160-400) X10*3/uL MPV (9.4-12.3) fL Immature Gran % (Auto) (0.0-0.4) % Neut % (Auto) (45-73) % Lymph % (Auto) (20-40) % [place] % (Auto) (2-11) % Eos % (Auto) (0-4) % Baso % (Auto) (0-2) % Lymph # (Auto) (1.2-4.9) X10*3/uL [place] # (Auto) (0.1-1.2) X10*3/uL Eos # (Auto) (0.0-0.4) X10*3/uL Baso # (Auto) (0.0-0.2) X10*3/uL Abs Immat Gran (auto) (0.00-0.03) X10*3/uL Absolute Neuts (auto) (2.0-8.3) x10*3/uL Absolute Nucleated RBC (0.0-0.012) X10*3/uL Nucleated RBC % (auto) (0.0-0.2) /100WBC Sodium (135-145) mmol/L Potassium (3.3-5.1) mmol/L Chloride (96-108) mmol/L Carbon Dioxide (22-29) mmol/L Anion Gap (12-20) BUN (9-16) mg/dL Creatinine (0.5-1.4) mg/dL Estim Creat Clear Calc Estimated GFR POC Glucose 164 H 218 H (60-115) mg/dL Random Glucose (60-115) mg/dL Calcium (8.4-10.2) mg/dL Total Bilirubin (0.0-1.0) mg/dL Direct Bilirubin (0.0-0.5) mg/dL AST (5-31) U/L ALT (0-31) U/L Alkaline Phosphatase (39-117) U/L Troponin I High Sens (<3.5-17.0) ng/L Total Protein (6.5-8.0) g/dL Albumin (3.5-5.0) g/dL Lipase (8-78) U/L Urine Color Yellow Urine Appearance Clear Urine pH 5.5 (5.0-9.0) Ur Specific Henderson 1.010 (1.005-1.025) Urine Protein 30 (1+) H (Neg-Trace) mg/dL Urine Glucose (UA) 100 H (Negative) mg/dL Urine Ketones Negative (Negative) mg/dL Urine Blood Negative (Negative) Urine Nitrite Negative (Negative) Ur Leukocyte Esterase Trace H (Negative) Urine RBC 0-2 (0-2) /HPF Urine WBC 6-10 H (0-5) /HPF Ur Squamous Epith Cells 0-2 (0-2) /HPF Urine Bacteria 4+ (None Seen) Hyaline Casts 0-2 (0-2) /LPF COVID-19 (TAVARES) (Negative) COVID-19 Clin Com Critical Care Time Critical Care Time Critical Care Time: Yes Total Critical Care Time: 40 Attestation: Hypoglycemia requiring multiple boluses also hypersomnolent evaluated multiple times found to have a UTI. Discharge Plan Discharge Clinical Impression: Hypoglycemia, Acute UTI, Acute alteration in mental status, Hypersomnia Patient Disposition: Admitted As Inpatient Prescriptions: No Action (DME) blood-glucose meter [OneTouch Ultra2 Meter] Misc See Rx Instructions .Route Qty: 1 0RF Rx Instructions: test 3 times per day (DME) OneTouch Ultra Test Strip See Rx Instructions .Route Qty: 100 8RF Rx Instructions: test 3 times per day (DME) lancets [OneTouch UltraSoft 2 Lancet] 30 gauge misc See Rx Instructions .Route Qty: 200 5RF Rx Instructions: test 3 times per day albuterol sulfate 90 mcg/actuation HFA aerosol inhaler 1 puff PO QID PRN (Reason: shortness of breath or wheezing) Qty: 18 3RF amlodipine 10 mg tablet 10 mg PO DAILY Qty: 90 1RF hydrochlorothiazide 25 mg tablet 25 mg PO DAILY Qty: 90 1RF insulin aspart U-100 [Novolog FlexPen U-100 Insulin] 100 unit/mL (3 mL) insulin pen 15 unit subcut TID 30 Days Qty: 13.5 1RF aspirin [Aspir-81] 81 mg Tablet,Delayed Release (Dr/Ec) 81 mg PO DAILY gabapentin 400 mg capsule 400 mg PO Q12H metformin 1,000 mg tablet 1,000 mg PO Q12H citalopram 10 mg tablet 20 mg PO DAILY insulin glargine [Lantus Solostar U-100 Insulin] 100 unit/mL (3 mL) insulin pen 40 unit subcut QPM Print Language: Irish
[2023-12-01 12:23] LABS: Glucose, Whole Blood 126 mg/dL (60-115)
[2023-12-01 12:27] VITALS: PULSE 59
--- NOTE | 2023-12-01 12:48 | ECG_ITS ---
Test Reason : Weakness Blood Pressure : / mmHG Vent. Rate : 059 BPM Atrial Rate : 059 BPM P-R Int : 186 ms QRS Dur : 090 ms QT Int : 512 ms P-R-T Axes : 047 001 042 degrees QTc Int : 506 ms Sinus bradycardia Prolonged QT Abnormal ECG When compared with ECG of 07-OCT-2023 14:12, No significant change was found Referred By: Adam Jessica Electronically Signed By:Mitch Smith
[2023-12-01] MEDS: Acetaminophen 325 MG TABLET 650 MG PO (13:12)
[2023-12-01] MEDS: 0.9 % Sodium Chloride 1,000 ML 999 ML IV ×2 (13:32→17:38)
[2023-12-01] MEDS: Ketorolac Tromethamine 30 MG/ML VIAL 15 MG IM (13:36)
[2023-12-01 13:46] LABS: MANUAL DIFF FLAG NO
[2023-12-01 13:49] LABS: Basophils Percent Auto 0.6 % (0-2); Eosinophils Absolute Auto 0.2 X10*3/uL (0.0-0.4); Eosinophils Percent Auto 3.4 % (0-4); Hematocrit 29.3 % (37.0-47.0); Hemoglobin 10.1 g/dl (12.0-16.0); Imm Gran Abs Auto 0.01 X10*3/uL (0.00-0.03); Imm Gran Pct Auto 0.2 % (0.0-0.4); Lymphocytes Absolute Auto 1.4 X10*3/uL (1.2-4.9); Lymphocytes Percent Auto 27.9 % (20-40); Mean Corpuscular HGB Conc 34.5 g/dl (31.0-35.0); Mean Corpuscular Hemoglobin 29.6 pg (27.0-33.0); Mean Corpuscular Volume 85.9 fL (80.0-98.0); Mean Platelet Volume 11.2 fL (9.4-12.3); Monocytes Absolute Auto 0.5 X10*3/uL (0.1-1.2); Monocytes Percent Auto 10.5 % (2-11); Neutrophils Absolute Auto 2.8 x10*3/uL (2.0-8.3); Neutrophils Percent Auto 57.4 % (45-73); Platelet Count 205 X10*3/uL (160-400); Red Blood Count 3.41 X10*6/uL (4.20-5.50); Red Cell Distribution Width 11.3 % (11.0-16.0)
[2023-12-01 14:01] LABS: COVID-19 Test Negative (Negative); IDNOW Serial# 58CA691E
[2023-12-01 14:04] LABS: Alanine Aminotransferase 13 U/L (0-31); Albumin Level 3.9 g/dL (3.5-5.0); Alkaline Phosphatase 70 U/L (39-117); Anion Gap 15 (12-20); Aspartate Amino Transferase 16 U/L (5-31); Bilirubin Direct 0.1 mg/dL (0.0-0.5); Bilirubin Total 0.3 mg/dL (0.0-1.0); Blood Urea Nitrogen 36 mg/dL (9-16); Calcium 9.3 mg/dL (8.4-10.2); Carbon Dioxide 23 mmol/L (22-29); Chloride 99 mmol/L (96-108); Creatinine Clr Calc Pharmacy 24.7; Estimated Glomerular Filt Rate 29; Glucose Random 84 mg/dL (60-115); Lipase 82 U/L (8-78); Potassium 3.1 mmol/L (3.3-5.1); Sodium 134 mmol/L (135-145); Total Protein 7.1 g/dL (6.5-8.0)
[2023-12-01 14:07] LABS: Troponin-I High Sensitivity 10.8 ng/L (<3.5-17.0)
--- NOTE | 2023-12-01 14:15 | PHA.MEDREC ---
Pharmacy Consult ? Medication Reconciliation Pharmacy has completed the medication reconciliation. Patient came in with a home list.
[2023-12-01 14:45] VITALS: BP 143/57; PULSE 55; RESP 16; O2SAT 96
[2023-12-01] MEDS: Dextrose 10 % 1,000 ML 999 ML IVCONT (14:45)
--- NOTE | 2023-12-01 14:46 | PC.NURSE ---
woke the pt for vs and re-evluation and pt is slurring her v words, pain better at 3/10 re-checked poc 34, md aware dextrose 10% on a pressure bag up and infusing
[2023-12-01 14:49] LABS: Glucose, Whole Blood 34 mg/dL (60-115)
[2023-12-01 15:11] LABS: Glucose, Whole Blood 164 mg/dL (60-115)
[2023-12-01 16:52] LABS: Glucose, Whole Blood 218 mg/dL (60-115)
[2023-12-01 19:04] LABS: Appearance Urine Clear; Color Urine Yellow; Glucose Urine UA 100 mg/dL (Negative); Leukocyte Esterase Urine Trace (Negative); Nitrite Urine Negative (Negative); PH 5.5 (5.0-9.0); UMIC TRIGGER UACC YES; Urine Blood Negative (Negative); Urine Ketones Negative (Negative); Urine Protein 30 (1+) mg/dL (Neg-Trace)
[2023-12-01 19:09] LABS: Bacteria Urine 4+ (None Seen); Hyaline Casts Urine 0-2 /LPF (0-2); RBC Urine 0-2 /HPF (0-2); Squamous Epithelial Cell Urine 0-2 /HPF (0-2); UACC Culture Trigger YES
--- NOTE | 2023-12-01 20:24 | PM.IMHP ---
History of Present Illness Date of Service: 12/01/23 <FAVIAN Morrison - Last Filed: 12/01/23 20:56> Attending physician on admission: Chris Peterson <FAVIAN Morrison - Last Filed: 12/01/23 20:56> Chief Complaint: Weakness, lethargy <FAVIAN Morrison - Last Filed: 12/01/23 20:56> Pt is a 73-year-old female with a PMH significant for?HTN, insulin-dependent type 2 diabetes, CKD 3, mild intermittent asthma, and mood disorder who presents to the ED for evaluation weakness and dizziness. Patient is a limited historian and initially says that she feels ?spaced out? when trying to recall the events of the day. States she was in her normal state of health last night and this morning. Was at an [employer] day program where she was playing bingo when she reports suddenly feeling lightheaded and dizzy, and then falling asleep. Apparently was woken up by nurse who at some point administered 15 units of NovoLog. It is unclear if this was before or after pt went to sleep. Pt was then sent to the ED for further evaluation. Pt reports diarrhea 2-3 days ago and some nausea and vomiting 2-3 weeks prior to that,?otherwise no acute medical complaints. Has been eating and drinking normally. No chest pain/pressure or palpitations. Denies SOB. In the ED pt was hypertensive up to 143/57, vitals otherwise WNL. Labs were significant for sodium 134, and POC as low as 34, otherwise grossly unremarkable and baseline for patient. No leukocytosis. Stable H&H. Renal and hepatic function baseline. Lactic acid WNL. Ammonia WNL at 23. UA likely negative for UTI, but showing 4+ bacteria similar to previous. CXR showed no acute intrathoracic disease. EKG demonstrated sinus bradycardia of 59 with prolonged QTc of 506 and no evidence of significant ST elevations or depressions. Pt was treated with acetaminophen, IVF, ketorolac, dextrose, potassium chloride, and ceftriaxone. Pt will be admitted to the hospital under observation for treatment and further evaluation of acute metabolic encephalopathy likely in the setting of hypoglycemia due to insulin mismanagement. <FAVIAN Morrison - Last Filed: 12/01/23 20:56> Review of Systems Review of Systems: Lightheadedness, dizziness Confusion Tiredness/fatigue No fever, chills, abdominal pain Denies chest pain/pressure, palpitations No shortness of breath <FAVIAN Morrison - Last Filed: 12/01/23 20:56> [facility] Medical History: Medical History Swelling of mandible HTN (hypertension) Diabetes <FAVIAN Morrsion Last Filed: 12/01/23 20:56> Family History: Family History Father Hypertension Diabetes Hx of leg amputation Mother Myocardial infarction Diabetes Hypertension Sister Breast cancer Brother Diabetes Maternal Aunt Bone cancer <FAVIAN Morrison - Last Filed: 12/01/23 20:56> Surgical History: Surgical History History of cataract surgery History of bladder surgery History of total hysterectomy History of tonsillectomy <FAVIAN Morrison - Last Filed: 12/01/23 20:56> Social History: Social History Housing: Apartment Alcohol intake: never Patient Tobacco Use Status: Never used Tobacco Smoked in Last 30 Days: No e-Cigarette/Vaping Use: Never Used Second Hand Smoke Exposure: No Use of substances other than those prescribed or required for medical reasons: No Advance Directives: Yes Advance Directives Information Provided: No Advance Directives on File: No Do you have a plan to hurt others: No Plan service: No Current occupational status: retired Current occupation: rt hand Cognitive needs: Yes (cane) Hearing needs: No Vision needs: Yes (Glasses) <FAVIAN Morrison Last Filed: 12/01/23 20:56> Meds Allergies/Adverse reactions: Allergies Allergy/AdvReac Type Severity Reaction Status Date / Time No Known Allergies Allergy Verified 12/01/23 12:23 [No Known Allergies*] <FAVIAN Morrison Last Filed: 12/01/23 20:56> Active Medications: Current Medications Acetaminophen (Acetaminophen 325 Mg Tablet) 650 mg PO Q6H PRN PRN Reason: Pain, Mild (Pain Scale 1-3) Acetaminophen (Acetaminophen Supp 650 Mg Supp.Rect) 650 mg [place] Q6H PRN PRN Reason: Pain, Mild (Pain Scale 1-3) Enoxaparin Sodium (Enoxaparin Sodium 30 Mg/0.3 Ml Syringe) 30 mg SUBCUT Q24H [facility] Dextrose (D10) 1,000 mls @ 250 mls/hr IVCONT .Q4H [facility] Last Infusion: 12/01/23 15:00 Dose: Infused Potassium Chloride (Potassium Chloride/H20) 10 meq in 100 mls @ 100 mls/hr IV Q1H [facility] Stop: 12/01/23 23:29 Melatonin (Melatonin 3 Mg Tablet) 6 mg PO BEDTIME PRN PRN Reason: Insomnia Ondansetron HCl (Ondansetron Hcl 4 Mg/2 Ml Vial) 4 mg IVPUSH Q8H PRN PRN Reason: Nausea and Vomiting Sodium Chloride (0.9 % Sodium Chloride Flush 3 Ml Syringe) 3 ml IVFLUSH QSHIFT [facility] <AFVIAN Morrison - Last Filed: 12/01/23 20:56> Home medications: Home Medications ?Medication ?Instructions ?Recorded ?Confirmed ?Last Taken ?Type insulin glargine 100 unit/mL (3 40 unit subcut QPM 09/22/23 12/01/23 Unknown History mL) subcutaneous pen (Lantus Solostar U-100 Insulin) aspirin 81 mg tablet,delayed 81 mg PO DAILY 12/01/23 12/01/23 Unknown History release citalopram 10 mg tablet 20 mg PO DAILY 12/01/23 12/01/23 Unknown History gabapentin 400 mg capsule 400 mg PO Q12H 12/01/23 12/01/23 Unknown History metformin 1,000 mg tablet 1,000 mg PO Q12H 12/01/23 12/01/23 Unknown History <FAVIAN Morrison - Last Filed: 12/01/23 20:56> Physical Exam Vital Signs and Narrative: Vital Signs: Last Vital Signs Temp 98.9 F 12/01/23 12:18 Pulse 55 12/01/23 14:45 Resp 16 12/01/23 14:45 BP 143/57 H 12/01/23 14:45 Pulse Ox 96 12/01/23 14:45 O2 Del Method Room Air 12/01/23 14:45 BMI result Body Mass Index 26.6 <FAVIAN Morrison - Last Filed: 12/01/23 20:56> General: AOx3, answering appropriately though with some mild confusion, in no acute distress Resp: CTA bilaterally CVS: S1, S2, RRR GI: +BS, NT, no distention Skin: Warm, dry Neuro: Cranial nerves II-XII grossly intact bilaterally. Motor grossly intact bilaterally Extremities: No edema Psych: Appropriate affect <FAVIAN Morrison - Last Filed: 12/01/23 20:56> Results Labs CBC and Chem 7: 12/01/23 13:41 12/01/23 13:41 <FAVIAN Morrison - Last Filed: 12/01/23 20:56> Labs: Laboratory Results - last 24 hr 12/01/23 12/01/23 12/01/23 12:18 13:41 14:39 MCV 85.9 MCH 29.6 MCHC 34.5 RDW 11.3 Plt Count 205 MPV 11.2 Immature Gran % (Auto) 0.2 Neut % (Auto) 57.4 Lymph % (Auto) 27.9 [place] % (Auto) 10.5 Eos % (Auto) 3.4 Baso % (Auto) 0.6 Lymph # (Auto) 1.4 [place] # (Auto) 0.5 Eos # (Auto) 0.2 Baso # (Auto) 0.0 Abs Immat Gran (auto) 0.01 Absolute Neuts (auto) 2.8 Absolute Nucleated RBC 0.000 Nucleated RBC % (auto) 0.0 Anion Gap 15 Estim Creat Clear Calc 24.7 Estimated GFR 29 POC Glucose 126 H 34 L* Random Glucose 84 Calcium 9.3 Total Bilirubin 0.3 Direct Bilirubin 0.1 AST 16 ALT 13 Alkaline Phosphatase 70 Troponin I High Sens 10.8 Total Protein 7.1 Albumin 3.9 Lipase 82 H Urine Color Urine Appearance Urine pH Ur Specific [place] Urine Protein Urine Glucose (UA) Urine Ketones Urine Blood Urine Nitrite Ur Leukocyte Esterase Urine RBC Urine WBC Ur Squamous Epith Cells Urine Bacteria Hyaline Casts COVID-19 ([facility]) Negative COVID-19 Clin Com See Note 12/01/23 12/01/23 12/01/23 15:06 16:48 18:48 MCV MCH MCHC RDW Plt Count MPV Immature Gran % (Auto) Neut % (Auto) Lymph % (Auto) [place] % (Auto) Eos % (Auto) Baso % (Auto) Lymph # (Auto) [place] # (Auto) Eos # (Auto) Baso # (Auto) Abs Immat Gran (auto) Absolute Neuts (auto) Absolute Nucleated RBC Nucleated RBC % (auto) Anion Gap Estim Creat Clear Calc Estimated GFR POC Glucose 164 H 218 H Random Glucose Calcium Total Bilirubin Direct Bilirubin AST ALT Alkaline Phosphatase Troponin I High Sens Total Protein Albumin Lipase Urine Color Yellow Urine Appearance Clear Urine pH 5.5 Ur Specific [place] 1.010 Urine Protein 30 (1+) H Urine Glucose (UA) 100 H Urine Ketones Negative Urine Blood Negative Urine Nitrite Negative Ur Leukocyte Esterase Trace H Urine RBC 0-2 Urine WBC 6-10 H Ur Squamous Epith Cells 0-2 Urine Bacteria 4+ Hyaline Casts 0-2 COVID-19 ([facility]) COVID-19 Clin Com <FAVIAN Morrison - Last Filed: 12/01/23 20:56> Imaging Radiologist's Impressions: Impressions Chest X-Ray 12/01/23 13:23 IMPRESSION: No acute intrathoracic disease <FAVIAN Morrison - Last Filed: 12/01/23 20:56> Assessment and Plan (1) Acute alteration in mental status: Status: Acute <FAVIAN Morrison - Last Filed: 12/01/23 20:56> (2) Hypoglycemia: Status: Acute <FAVIAN Morrison - Last Filed: 12/01/23 20:56> Pt is a 73-year-old female with a PMH significant for?HTN, insulin-dependent type 2 diabetes, CKD 3, mild intermittent asthma, and mood disorder who presents to the ED for evaluation weakness and dizziness. Pt will be admitted to the hospital under observation for treatment and further evaluation of acute metabolic encephalopathy likely in the setting of hypoglycemia due to insulin mismanagement. Acute metabolic encephalopathy Likely in the setting of hypoglycemia from insulin mismanagement Patient's POC as low as 34 in the ED Patient with long history of difficult to control type 2 diabetes Will cover for now with sliding scale insulin, Lantus at half coverage Diabetic diet Monitor mentation Question of UTI UA positive for trace leukocyte esterase, wbc's 6-10, and 4+ bacteria Patient likely colonized Patient does not meet sepsis criteria: No fever, tachycardia, tachypnea, or leukocytosis; lactic acid WNL Patient started on broad-spectrum antibiotics in the ED Empirically cover with ceftriaxone, started 12/01/2023 Follow cultures Mild intermittent asthma Not in acute exacerbation Continue home inhaler HTN Continue amlodipine, hydrochlorothiazide Mood disorder Continue citalopram Full Code Attending:?Dr. Peterson DVT Prophylaxis: Lovenox Patient admitted to the hospital under observation for treatment and further evaluation of acute metabolic encephalopathy in the setting of likely hypoglycemia. Patient required observation for monitoring of mentation blood sugar levels. <FAVIAN Morrison - Last Filed: 12/01/23 20:56> Pt is a 73-year-old female with a PMH significant for?HTN, insulin-dependent type 2 diabetes, CKD 3, mild intermittent asthma, and mood disorder who presents to the ED for evaluation weakness and dizziness. Pt will be admitted to the hospital under observation for treatment and further evaluation of acute metabolic encephalopathy likely in the setting of hypoglycemia due to insulin mismanagement. Acute metabolic encephalopathy Likely in the setting of hypoglycemia from insulin mismanagement Patient's POC as low as 34 in the ED Patient with long history of difficult to control type 2 diabetes Will cover for now with sliding scale insulin, Lantus at half coverage Diabetic diet Monitor mentation Bacteriuria with minimal pyuria No symptoms. Was given ceftriaxone in the ER, no indication to continue Mild intermittent asthma Not in acute exacerbation Continue home inhaler HTN Continue amlodipine, hydrochlorothiazide Mood disorder Continue citalopram Full Code Attending:?Dr. Peterson DVT Prophylaxis: Lovenox Patient admitted to the hospital under observation for treatment and further evaluation of acute metabolic encephalopathy in the setting of likely hypoglycemia. Patient required observation for monitoring of mentation blood sugar levels. <Chris Peterson MD - Last Filed: 12/01/23 21:05> Quality Stroke Does the patient have a stroke diagnosis?: No <FAVIAN Morrison - Last Filed: 12/01/23 20:56> VTE Prior VTE?: No <FAVIAN Morrison - Last Filed: 12/01/23 20:56> VTE Risk Level:: Medical - moderate - high <FAVIAN Morrison - Last Filed: 12/01/23 20:56> VTE Device Contraindication: Treatment Not Indicated <FAVIAN Morrison - Last Filed: 12/01/23 20:56> VTE Drug Contraindication: N/A - Med Ordered <FAVIAN Morrison - Last Filed: 12/01/23 20:56>
[2023-12-01 20:25] LABS: Ammonia 23 umol/L (13-55)
[2023-12-01 20:29] LABS: Lactic Acid 1.6 mmol/L (0.5-2.0)
[2023-12-01] MEDS: Potassium Chloride/H20 10 MEQ/100 ML PIGGYBACK 100 MEQ IV ×3 (20:45→22:59)
[2023-12-01] MEDS: cefTRIAXone sodium 1 GM in 0.9 % Sodium Chloride 50 ML IV (20:47)
[2023-12-01] MEDS: Enoxaparin Sodium 30 MG/0.3 ML SYRINGE SUBCUT (20:48)
[2023-12-01] MEDS: Insulin Glargine,Hum.rec.anlog 100 UNIT/ML 10 ML VIAL 20 UNIT SUBCUT (21:40)
[2023-12-01] MEDS: Gabapentin 400 MG CAPSULE PO (21:40)
[2023-12-01 21:42] LABS: Glucose, Whole Blood 174 mg/dL (60-115)
[2023-12-01 21:56] VITALS: BP 145/56; PULSE 65; RESP 20; TEMP 36.5; O2SAT 96
[2023-12-01 22:50] VITALS: BP 118/44; PULSE 65; RESP 16; TEMP 36.4; O2SAT 100
[2023-12-01 23:07] LABS: Amphetamine Screen Urine Not Detected (Not Detect); Barbiturates, Urine Not Detected (Not Detect); Benzodiazepines Screen Urine Not Detected (Not Detect); Buprenorphine Scr Not Detected (Not Detect); Cannabinoid Screen Urine Not Detected (Not Detect); Cocaine Screen Urine Not Detected (Not Detect); Fentanyl, urine Not Detected (Not Detect); Methadone Screen, Urine Not Detected (Not Detect); Opiate Screen Urine Not Detected (Not Detect); Oxycodone Screen Urine Not Detected (Not Detect); Phencyclidine Screen Urine Not Detected (Not Detect)
[2023-12-02] VITALS (7 sets, daily range): BP systolic 134–153; BP diastolic 53–66; PULSE 71–87; RESP 16–20; TEMP 36–36.8; O2SAT 92–96
[2023-12-02] MEDS: Potassium Chloride/H20 10 MEQ/100 ML PIGGYBACK 100 MEQ IV (00:45)
[2023-12-02 05:34] LABS: MANUAL DIFF FLAG NO
[2023-12-02 05:43] LABS: Basophils Percent Auto 0.8 % (0-2); Eosinophils Absolute Auto 0.2 X10*3/uL (0.0-0.4); Eosinophils Percent Auto 3.9 % (0-4); Hematocrit 26.1 % (37.0-47.0); Hemoglobin 8.9 g/dl (12.0-16.0); Imm Gran Abs Auto 0.01 X10*3/uL (0.00-0.03); Imm Gran Pct Auto 0.3 % (0.0-0.4); Lymphocytes Absolute Auto 1.1 X10*3/uL (1.2-4.9); Lymphocytes Percent Auto 27.2 % (20-40); Mean Corpuscular HGB Conc 34.1 g/dl (31.0-35.0); Mean Corpuscular Hemoglobin 29.6 pg (27.0-33.0); Mean Corpuscular Volume 86.7 fL (80.0-98.0); Mean Platelet Volume 11.2 fL (9.4-12.3); Monocytes Absolute Auto 0.4 X10*3/uL (0.1-1.2); Monocytes Percent Auto 9.5 % (2-11); Neutrophils Absolute Auto 2.3 x10*3/uL (2.0-8.3); Neutrophils Percent Auto 58.3 % (45-73); Platelet Count 220 X10*3/uL (160-400); Red Blood Count 3.01 X10*6/uL (4.20-5.50); Red Cell Distribution Width 11.2 % (11.0-16.0); White Blood Count 3.9 X10*3/uL (4.8-10.8)
[2023-12-02 05:58] LABS: Anion Gap 12 (12-20); Blood Urea Nitrogen 27 mg/dL (9-16); Calcium 8.7 mg/dL (8.4-10.2); Carbon Dioxide 23 mmol/L (22-29); Chloride 108 mmol/L (96-108); Creatinine Clr Calc Pharmacy 26.8; Estimated Glomerular Filt Rate 32; Glucose Random 135 mg/dL (60-115); Potassium 3.7 mmol/L (3.3-5.1); Sodium 139 mmol/L (135-145)
[2023-12-02 07:22] LABS: Glucose, Whole Blood 118 mg/dL (60-115)
[2023-12-02] MEDS: Gabapentin 400 MG CAPSULE PO ×2 (07:57→20:34)
[2023-12-02] MEDS: amLODIPine Besylate 10 MG TABLET PO (07:57)
[2023-12-02] MEDS: hydroCHLOROthiazide 25 MG TABLET PO (07:57)
[2023-12-02] MEDS: Aspirin Enteric Coated 81 MG TABLET.DR PO (07:57)
--- NOTE | 2023-12-02 07:58 | PC.NURSE ---
pt awake/alert to person/place, pt ambulated with cane and stby assist to bathroom, denies pain at this time, vitals stable, took meds whole with water, eating breakfast independently, lungs clear/rr even/non labored. call moraes within reach, will continue to monitor
[2023-12-02] MEDS: 0.9 % Sodium Chloride Flush 3 ML SYRINGE IVFLUSH ×3 (08:03→19:25)
[2023-12-02 08:07] LABS: Estimated Average Glucose 166 mg/dL; Hemoglobin A1c % 7.4 % (<6.0)
--- NOTE | 2023-12-02 10:20 | MHC.EDTECH ---
pt was assisted to the bathroom and wash washed up with clean linen.
--- NOTE | 2023-12-02 10:57 | HO.PM.IMPN ---
Subjective Subjective Date of Service: 12/02/23 Interval History: weakness Physical Exam Vital Signs: Vital Signs: Last Vital Signs Temp 98.3 F 12/02/23 08:47 Pulse 75 12/02/23 08:47 Resp 18 12/02/23 08:47 BP 148/54 H 12/02/23 08:47 Pulse Ox 94 12/02/23 08:47 O2 Del Method Room Air 12/02/23 08:47 BMI result Body Mass Index 26.6 General: AO X 3, no acute distress Resp: CTA bilateral, no accessory muscles used CVS: S1,S2,RRR GI: soft, non tender, non distended Neuro: motor grossly intact, alert Psych: appropriate affect, appropriate insight Objective Data Active Medications Acetaminophen (Acetaminophen 325 Mg Tablet) 650 mg PO Q6H PRN PRN Reason: Pain, Mild (Pain Scale 1-3) Acetaminophen (Acetaminophen Supp 650 Mg Supp.Rect) 650 mg [place] Q6H PRN PRN Reason: Pain, Mild (Pain Scale 1-3) Albuterol Sulfate (Albuterol Sulfate 90 Mcg 8 Gm Inhaler) 1 puff INHALE QID PRN PRN Reason: shortness of breath or wheezing Amlodipine Besylate (Amlodipine Besylate 10 Mg Tablet) 10 mg PO DAILY [facility]; Protocol Last Admin: 12/02/23 07:57 Dose: 10 mg Documented By: JENNIFER Aspirin (Aspirin Enteric Coated 81 Mg Tablet.Dr) 81 mg PO DAILY [facility] Last Admin: 12/02/23 07:57 Dose: 81 mg Documented By: JENNIFER Enoxaparin Sodium (Enoxaparin Sodium 30 Mg/0.3 Ml Syringe) 30 mg SUBCUT Q24H [facility] Last Admin: 12/01/23 20:48 Dose: 30 mg Documented By: EMMANUEL Gabapentin (Gabapentin 400 Mg Capsule) 400 mg PO Q12H [facility] Last Admin: 12/02/23 07:57 Dose: 400 mg Documented By: JENNIFER Glucose (Glucose Gel 15 Gm Gel..Gram.) 15 gm PO Q15M PRN; Protocol PRN Reason: per Hypoglycemia Standing Ord. Glucose (Glucose Gel 15 Gm Gel..Gram.) 15 gm PO Q15M PRN; Protocol PRN Reason: per Hypoglycemia Standing Ord. Hydrochlorothiazide (Hydrochlorothiazide 25 Mg Tablet) 25 mg PO DAILY [facility]; Protocol Last Admin: 12/02/23 07:57 Dose: 25 mg Documented By: JENNIFER Dextrose (D10) 250 mls @ 750 mls/hr IV Q15M PRN; Protocol PRN Reason: per Hypoglycemia Standing Ord. Dextrose (D10) 250 mls @ 750 mls/hr IV Q15M PRN; Protocol PRN Reason: per Hypoglycemia Standing Ord. Insulin Glargine (Insulin Glargine,Hum.Rec.Anlog 100 Unit/Ml 10 Ml Vial) 20 unit SUBCUT BEDTIME [facility] Last Admin: 12/01/23 21:40 Dose: 20 unit Documented By: NABIL Insulin Human Lispro (Insulin Lispro 100 Unit/Ml 3 Ml Vial) 0 unit SUBCUT QIDACHS [facility]; Protocol Last Admin: 12/02/23 07:21 Dose: Not Given Documented By: JENNIFER Non-Admin Reason: No Insulin Coverage Melatonin (Melatonin 3 Mg Tablet) 6 mg PO BEDTIME PRN PRN Reason: Insomnia Ondansetron HCl (Ondansetron Hcl 4 Mg/2 Ml Vial) 4 mg IVPUSH Q8H PRN PRN Reason: Nausea and Vomiting Sodium Chloride (0.9 % Sodium Chloride Flush 3 Ml Syringe) 3 ml IVFLUSH QSHIFT [facility] Last Admin: 12/02/23 08:03 Dose: 3 ml Documented By: JENNIFER Labs 12/02/23 05:15 12/02/23 05:15 Labs: Laboratory Results - last 24 hr 12/01/23 12/01/23 12/01/23 12:18 13:41 14:39 MCV 85.9 MCH 29.6 MCHC 34.5 RDW 11.3 Plt Count 205 MPV 11.2 Immature Gran % (Auto) 0.2 Neut % (Auto) 57.4 Lymph % (Auto) 27.9 [place] % (Auto) 10.5 Eos % (Auto) 3.4 Baso % (Auto) 0.6 Lymph # (Auto) 1.4 [place] # (Auto) 0.5 Eos # (Auto) 0.2 Baso # (Auto) 0.0 Abs Immat Gran (auto) 0.01 Absolute Neuts (auto) 2.8 Absolute Nucleated RBC 0.000 Nucleated RBC % (auto) 0.0 Anion Gap 15 Estim Creat Clear Calc 24.7 Estimated GFR 29 POC Glucose 126 H 34 L* Random Glucose 84 Estimat Average Glucose Hemoglobin A1c % Lactic Acid Calcium 9.3 Total Bilirubin 0.3 Direct Bilirubin 0.1 AST 16 ALT 13 Alkaline Phosphatase 70 Ammonia Troponin I High Sens 10.8 Total Protein 7.1 Albumin 3.9 Lipase 82 H Urine Color Urine Appearance Urine pH Ur Specific [place] Urine Protein Urine Glucose (UA) Urine Ketones Urine Blood Urine Nitrite Ur Leukocyte Esterase Urine RBC Urine WBC Ur Squamous Epith Cells Urine Bacteria Hyaline Casts Urine Opiates Screen Ur Buprenorphine Scrn Ur Oxycodone Screen Urine Methadone Screen Urine Fentanyl Screen Ur Barbiturates Screen Ur Phencyclidine Scrn Ur Amphetamines Screen U Benzodiazepines Scrn Urine Cocaine Screen U Marijuana (THC) Screen COVID-19 ([facility]) Negative COVID-19 Clin Com See Note 12/01/23 12/01/23 12/01/23 15:06 16:48 18:48 MCV MCH MCHC RDW Plt Count MPV Immature Gran % (Auto) Neut % (Auto) Lymph % (Auto) [place] % (Auto) Eos % (Auto) Baso % (Auto) Lymph # (Auto) [place] # (Auto) Eos # (Auto) Baso # (Auto) Abs Immat Gran (auto) Absolute Neuts (auto) Absolute Nucleated RBC Nucleated RBC % (auto) Anion Gap Estim Creat Clear Calc Estimated GFR POC Glucose 164 H 218 H Random Glucose Estimat Average Glucose Hemoglobin A1c % Lactic Acid Calcium Total Bilirubin Direct Bilirubin AST ALT Alkaline Phosphatase Ammonia Troponin I High Sens Total Protein Albumin Lipase Urine Color Yellow Urine Appearance Clear Urine pH 5.5 Ur Specific [place] 1.010 Urine Protein 30 (1+) H Urine Glucose (UA) 100 H Urine Ketones Negative Urine Blood Negative Urine Nitrite Negative Ur Leukocyte Esterase Trace H Urine RBC 0-2 Urine WBC 6-10 H Ur Squamous Epith Cells 0-2 Urine Bacteria 4+ Hyaline Casts 0-2 Urine Opiates Screen Not Detected Ur Buprenorphine Scrn Not Detected Ur Oxycodone Screen Not Detected Urine Methadone Screen Not Detected Urine Fentanyl Screen Not Detected Ur Barbiturates Screen Not Detected Ur Phencyclidine Scrn Not Detected Ur Amphetamines Screen Not Detected U Benzodiazepines Scrn Not Detected Urine Cocaine Screen Not Detected U Marijuana (THC) Screen Not Detected COVID-19 ([facility]) COVID-19 Clin Com 12/01/23 12/01/23 12/02/23 20:06 21:39 05:15 MCV 86.7 MCH 29.6 MCHC 34.1 RDW 11.2 Plt Count 220 MPV 11.2 Immature Gran % (Auto) 0.3 Neut % (Auto) 58.3 Lymph % (Auto) 27.2 [place] % (Auto) 9.5 Eos % (Auto) 3.9 Baso % (Auto) 0.8 Lymph # (Auto) 1.[address] [place] # (Auto) 0.4 Eos # (Auto) 0.2 Baso # (Auto) 0.0 Abs Immat Gran (auto) 0.01 Absolute Neuts (auto) 2.3 Absolute Nucleated RBC 0.000 Nucleated RBC % (auto) 0.0 Anion Gap 12 Estim Creat Clear Calc 26.8 Estimated GFR 32 POC Glucose 174 H Random Glucose 135 H Estimat Average Glucose 166 Hemoglobin A1c % 7.4 H Lactic Acid 1.6 Calcium 8.7 D Total Bilirubin Direct Bilirubin AST ALT Alkaline Phosphatase Ammonia 23 Troponin I High Sens Total Protein Albumin Lipase Urine Color Urine Appearance Urine pH Ur Specific [place] Urine Protein Urine Glucose (UA) Urine Ketones Urine Blood Urine Nitrite Ur Leukocyte Esterase Urine RBC Urine WBC Ur Squamous Epith Cells Urine Bacteria Hyaline Casts Urine Opiates Screen Ur Buprenorphine Scrn Ur Oxycodone Screen Urine Methadone Screen Urine Fentanyl Screen Ur Barbiturates Screen Ur Phencyclidine Scrn Ur Amphetamines Screen U Benzodiazepines Scrn Urine Cocaine Screen U Marijuana (THC) Screen COVID-19 ([facility]) COVID-19 Clin Com 12/02/23 07:17 MCV MCH MCHC RDW Plt Count MPV Immature Gran % (Auto) Neut % (Auto) Lymph % (Auto) [place] % (Auto) Eos % (Auto) Baso % (Auto) Lymph # (Auto) [place] # (Auto) Eos # (Auto) Baso # (Auto) Abs Immat Gran (auto) Absolute Neuts (auto) Absolute Nucleated RBC Nucleated RBC % (auto) Anion Gap Estim Creat Clear Calc Estimated GFR POC Glucose 118 H Random Glucose Estimat Average Glucose Hemoglobin A1c % Lactic Acid Calcium Total Bilirubin Direct Bilirubin AST ALT Alkaline Phosphatase Ammonia Troponin I High Sens Total Protein Albumin Lipase Urine Color Urine Appearance Urine pH Ur Specific [place] Urine Protein Urine Glucose (UA) Urine Ketones Urine Blood Urine Nitrite Ur Leukocyte Esterase Urine RBC Urine WBC Ur Squamous Epith Cells Urine Bacteria Hyaline Casts Urine Opiates Screen Ur Buprenorphine Scrn Ur Oxycodone Screen Urine Methadone Screen Urine Fentanyl Screen Ur Barbiturates Screen Ur Phencyclidine Scrn Ur Amphetamines Screen U Benzodiazepines Scrn Urine Cocaine Screen U Marijuana (THC) Screen COVID-19 ([facility]) COVID-19 Clin Com Assessment and Plan (1) Hypoglycemia: Status: Acute Plan 73F PMH DM, CKD III, htn, mild intermittent asthma, presented with weakness, ams Acute metabolic encephalopathy due to diabetes with hypoglycemia Lantus decreased by 50% Continue insulin sliding scale and monitor point of care PT eval Mild intermittent asthma Stable Hypertension Amlodipine, HCTZ Mood disorder Celexa CKD 3 Stable DVT prophylaxis with Lovenox Full Code reason for continued hospitalization: Monitoring for hypoglycemia Quality Stroke Does the patient have a stroke diagnosis?: No VTE Prior VTE?: No VTE Risk Level:: Medical - moderate - high VTE Device Contraindication: Treatment Not Indicated VTE Drug Contraindication: N/A - Med Ordered
--- NOTE | 2023-12-02 11:30 | PC.NURSE ---
ASSUMED CARE AT 1130. PT A+O x3. PT TRANSFERRED FROM ED 14 TO OVFLW 1 VIA STRETCHER. PT AMBULATED FROM STRETCHER TO HOSPITAL BED USING HER CANE AND WITH GUIDANCE FROM STAFF.
[2023-12-02 11:38] LABS: Glucose, Whole Blood 204 mg/dL (60-115)
[2023-12-02] MEDS: Insulin Lispro 100 UNIT/ML 3 ML VIAL SUBCUT ×2 (11:59→16:55)
--- NOTE | 2023-12-02 13:14 | MHC.EDTECH ---
pt ate her lunch 100%
--- NOTE | 2023-12-02 14:09 | MHC.CM.PN ---
IMM 12/02/23 DELIVERED TO BEDSIDE, EMR REVIEWED PT W/AMS ELECTROLYTE IMBALANCE NOW A&O, PT REPORTS SHE LIVES W/HER DTR NIRANJANMari SUDHA, PT HAS GRAB BARS IN BR IN SHOWER AND BY TOILET, CURRENTLY USING CANE BECAUSE HER ROLLATER WALKER BROKE AND PT REQUESTING SCRIPT FOR NEW ONE, PT HAS NO HOME SERVICES HOWEVER ATTENDS [employer] M-F 8-2PM, [employer] PROVIDES TRANSPORT. GOAL FOR DC IS HOME W/DTR'S SUPPORT. PCP ON FILE VERIFIED AND PT HAS BEEN EDUCATED ON AND COMPLETED A HCP NAMING HER DTR DONNIE HALEY [phone] HER [facility] W/NO ALTERNATE CHOSEN, COPY UPLOADED TO [facility] AND PLACED IN PAPER CHART.
[2023-12-02 14:24] LABS: Glucose, Whole Blood 301 mg/dL (60-115)
[2023-12-02 16:13] LABS: Glucose, Whole Blood 269 mg/dL (60-115)
[2023-12-02] MEDS: Enoxaparin Sodium 30 MG/0.3 ML SYRINGE SUBCUT (19:25)
[2023-12-02 19:50] LABS: Glucose, Whole Blood 97 mg/dL (60-115)
[2023-12-02] MEDS: Insulin Glargine,Hum.rec.anlog 100 UNIT/ML 10 ML VIAL 20 UNIT SUBCUT (20:34)
[2023-12-03 03:46] VITALS: PULSE 73; RESP 18; TEMP 36.4; O2SAT 94
[2023-12-03 06:24] LABS: Anion Gap 14 (12-20); Blood Urea Nitrogen 28 mg/dL (9-16); Calcium 9.6 mg/dL (8.4-10.2); Carbon Dioxide 26 mmol/L (22-29); Chloride 104 mmol/L (96-108); Creatinine Clr Calc Pharmacy 27.3; Estimated Glomerular Filt Rate 32; Glucose Fasting 117 mg/dL (60-99); Potassium 3.6 mmol/L (3.3-5.1); Sodium 140 mmol/L (135-145)
[2023-12-03 06:37] LABS: Hematocrit 31.1 % (37.0-47.0); Hemoglobin 10.5 g/dl (12.0-16.0); Mean Corpuscular HGB Conc 33.8 g/dl (31.0-35.0); Mean Corpuscular Hemoglobin 29.2 pg (27.0-33.0); Mean Corpuscular Volume 86.6 fL (80.0-98.0); Mean Platelet Volume 11.2 fL (9.4-12.3); Platelet Count 271 X10*3/uL (160-400); Red Blood Count 3.59 X10*6/uL (4.20-5.50); Red Cell Distribution Width 11.2 % (11.0-16.0); White Blood Count 4.4 X10*3/uL (4.8-10.8)
[2023-12-03 06:54] VITALS: BP 106/58; PULSE 76; RESP 16; TEMP 36.6; O2SAT 96
[2023-12-03 07:06] LABS: Glucose, Whole Blood 109 mg/dL (60-115)
[2023-12-03] MEDS: hydroCHLOROthiazide 25 MG TABLET PO (08:19)
[2023-12-03] MEDS: amLODIPine Besylate 10 MG TABLET PO (08:20)
[2023-12-03] MEDS: Aspirin Enteric Coated 81 MG TABLET.DR PO (08:20)
[2023-12-03] MEDS: Gabapentin 400 MG CAPSULE PO (08:20)
[2023-12-03] MEDS: 0.9 % Sodium Chloride Flush 3 ML SYRINGE IVFLUSH (08:22)
--- NOTE | 2023-12-03 08:25 | P.DS_ITS ---
DS: Providers Provider Date of Service: 12/03/23 Date of admission: 12/01/23 19:19 Primary care physician: Miguel Johnson MD DS: Diagnosis Discharge Diagnosis (1) Hypoglycemia: Status: Acute DS: Summary Hospital Course Hospital Course: from initial hpi: 73-year-old female with a PMH significant for?HTN, insulin-dependent type 2 diabetes, CKD 3, mild intermittent asthma, and mood disorder who presents to the ED for evaluation weakness and dizziness. Patient is a limited historian and initially says that she feels ?spaced out? when trying to recall the events of the day. States she was in her normal state of health last night and this morning. Was at an [employer] day program where she was playing bingo when she reports suddenly feeling lightheaded and dizzy, and then falling asleep. Apparently was woken up by nurse who at some point administered 15 units of NovoLog. It is unclear if this was before or after pt went to sleep. Pt was then sent to the ED for further evaluation. Pt reports diarrhea 2-3 days ago and some nausea and vomiting 2-3 weeks prior to that,?otherwise no acute medical complaints. Has been eating and drinking normally. No chest pain/pressure or palpitations. Denies SOB. In the ED pt was hypertensive up to 143/57, vitals otherwise WNL. Labs were significant for sodium 134, and POC as low as 34, otherwise grossly unremarkable and baseline for patient. No leukocytosis. Stable H&H. Renal and hepatic function baseline. Lactic acid WNL. Ammonia WNL at 23. UA likely negative for UTI, but showing 4+ bacteria similar to previous. CXR showed no acute intrathoracic disease. EKG demonstrated sinus bradycardia of 59 with prolonged QTc of 506 and no evidence of significant ST elevations or depressions. Pt was treated with acetaminophen, IVF, ketorolac, dextrose, potassium chloride, and ceftriaxone. Pt will be admitted to the hospital under observation for treatment and further evaluation of acute metabolic encephalopathy likely in the setting of hypoglycemia due to insulin mismanagement. hospital course: Patient was admitted for acute metabolic encephalopathy due to diabetes with hypoglycemia. Her Lantus was decreased to 20 units, from 40 units. Hypoglycemia resolved. She was evaluated by physical therapy recommended home. For mild intermittent asthma she remained stable. For hypertension was continued on amlodipine and hydrochlorothiazide. For mood disorder was continued on Celexa. Her CKD 3 remained stable. Time Attestation Discharge Coordination Time (in mins): 35 Quality: Safe Use of Opioids Does Pt have an Active Cancer Diagnosis on the Problem List?: No Quality: Stroke Does the patient have a stroke diagnosis?: No Physical Exam Vital Signs: Vital Signs: Last Vital Signs Temp 98 F 12/03/23 06:54 Pulse 76 12/03/23 06:54 Resp 16 12/03/23 06:54 BP 106/58 L 12/03/23 06:54 Pulse Ox 96 12/03/23 06:54 O2 Del Method Room Air 12/03/23 06:54 BMI result Body Mass Index 26.6 General: AO X 3, no acute distress Resp: CTA bilateral, no accessory muscles used CVS: S1,S2,RRR GI: soft, non tender, non distended Neuro: motor grossly intact, alert Psych: appropriate affect, appropriate insight DS: Data Data Completed and Pending Labs on day of discharge: Laboratory Results - last 24 hr 12/02/23 12/02/23 12/02/23 11:33 14:20 16:09 WBC RBC Hgb Hct MCV MCH MCHC RDW Plt Count MPV Absolute Nucleated RBC Nucleated RBC % (auto) Sodium Potassium Chloride Carbon Dioxide Anion Gap BUN Creatinine Estim Creat Clear Calc Estimated GFR POC Glucose 204 H 301 H 269 H Fasting Glucose Calcium 12/02/23 12/03/23 12/03/23 19:45 05:32 07:00 WBC 4.4 L RBC 3.59 L Hgb 10.5 L Hct 31.1 L MCV 86.6 MCH 29.2 MCHC 33.8 RDW 11.2 Plt Count 271 MPV 11.2 Absolute Nucleated RBC 0.000 Nucleated RBC % (auto) 0.0 Sodium 140 Potassium 3.6 Chloride 104 Carbon Dioxide 26 Anion Gap 14 BUN 28 H Creatinine 1.57 H Estim Creat Clear Calc 27.3 Estimated GFR 32 POC Glucose 97 109 Fasting Glucose 117 H Calcium 9.6 D Preliminary micro results at discharge 12/01/23 20:06 Blood Culture - Preliminary Blood - Venous No growth after 24 hours. 12/01/23 20:05 Blood Culture - Preliminary Blood - Venous No growth after 24 hours. Discharge Plan Discharge Anticipated Discharge Date/Time: 12/03/23 08:23 Patient Disposition: Home, Self-Care Discharge Diagnosis: hypoglycemia Referrals: Miguel Johnson MD [Primary Care Provider] - 1 Week Discharge Medications: Continued (DME) blood-glucose meter [OneTouch Ultra2 Meter] Misc See Rx Instructions .Route Qty: 1 0RF Rx Instructions: test 3 times per day (DME) OneTouch Ultra Test Strip See Rx Instructions .Route Qty: 100 8RF Rx Instructions: test 3 times per day (DME) lancets [OneTouch UltraSoft 2 Lancet] 30 gauge misc See Rx Instructions .Route Qty: 200 5RF Rx Instructions: test 3 times per day albuterol sulfate 90 mcg/actuation HFA aerosol inhaler 1 puff PO QID PRN (Reason: shortness of breath or wheezing) Qty: 18 3RF amlodipine 10 mg tablet 10 mg PO DAILY Qty: 90 1RF hydrochlorothiazide 25 mg tablet 25 mg PO DAILY Qty: 90 1RF insulin aspart U-100 [Novolog FlexPen U-100 Insulin] 100 unit/mL (3 mL) insulin pen 15 unit subcut TID 30 Days Qty: 13.5 1RF aspirin 81 mg Tablet,Delayed Release (Dr/Ec) 81 mg PO DAILY gabapentin 400 mg capsule 400 mg PO Q12H citalopram 10 mg tablet 20 mg PO DAILY Changed insulin glargine [Lantus Solostar U-100 Insulin] 100 unit/mL (3 mL) insulin pen 20 unit subcut QPM Qty: 15 0RF Discontinued metformin 1,000 mg tablet 1,000 mg PO Q12H Discharge Orders: Discharge Order (Routine); Ordered 12/03/23 Ordered By: Miguelito Elizondo Diet: Advance to usual diet Activity on Discharge: As tolerated Stand Alone Forms: Patient Portal Discharge page Print Language: Slovak Care Plan Goals: recovery Health Concerns: hypoglycemia Plan of Treatment: decrease lantus to 20 units Assessment: see above
--- NOTE | 2023-12-03 08:51 | P.F2F_ITS ---
Service Date Service Date: 12/03/23 Encounter Date of encounter: 12/03/23 Reasons for Services Signs and symptoms assessed: weakness Reason for long-term: medication management, medication treatment and teach disease management Homebound: Leaving the home is medically contraindicated at this time without the asist of a device and/or another person due th the listed conditions above and below. Reason homebound: unsteady gait / fall risk Certification: Based on the above findings, I certify that this patient is confined to the home and needs intermittent long-term care, physical therapy and/or speech therapy, or continues to need occupational therapy. The patient is under my care, and I have initiated the establishment of the plan of care. The patient will be followed by a physician who will periodically review the plan of care. Time Spent With Patient Time: Total time managing care of this patient today ____ minutes.
--- NOTE | 2023-12-03 09:08 | MHC.CM.PN ---
pt dcd home self care
[2023-12-03 11:16] LABS: Glucose, Whole Blood 234 mg/dL (60-115)
[2023-12-03] MEDS: Insulin Lispro 100 UNIT/ML 3 ML VIAL SUBCUT (11:56)
== END 2023-12-03 14:22 | disposition home or self-care (01) ==
LOC: HO.ED 19:19 → HO.EDOVER 19:45 → HO.S3 12-02 11:15
PROVIDERS: Admitting Provider Student in an Organized Health Care Education/Training Program; Emergency Provider Student in an Organized Health Care Education/Training Program; PCP Internal Medicine; Visit Provider Internal Medicine
DX: E11.649 Type 2 diabetes mellitus with hypoglycemia without coma (principal); E11.22 Type 2 diabetes mellitus with diabetic chronic kidney disease; I12.9 Hypertensive chronic kidney disease with stage 1 through stage 4 chronic kidney disease, or unspecified chronic kidney disease; N18.9 Chronic kidney disease, unspecified; G93.41 Metabolic encephalopathy; R41.82 Altered mental status, unspecified; N39.0 Urinary tract infection, site not specified; R15.9 Full incontinence of feces; M25.519 Pain in unspecified shoulder; M54.2 Cervicalgia; R53.1 Weakness; G47.10 Hypersomnia, unspecified; F39 Unspecified mood [affective] disorder; J45.20 Mild intermittent asthma, uncomplicated; Z79.4 Long term (current) use of insulin; Z79.899 Other long term (current) drug therapy
CPT/HCPCS: 36415; 71046; 80048; 80076; 80307; 81001; 81003; 82140; 82947; 83036; 83605; 83690; 84484; 85025; 85027; 87040; 87086; 87088; 87186; 87635; 93005; 96361; 96365; 96366; 96367; 96372; 96375; 97162; 99221; 99285; J0696; J1650; J1885; J3480

== ENCOUNTER → 2023-12-01 12:48 | Outpatient (BNV) | payer OTHER, SELFPAY | PROVIDERS: Admitting Provider Student in an Organized Health Care Education/Training Program; Emergency Provider Student in an Organized Health Care Education/Training Program; PCP Internal Medicine; Visit Provider Internal Medicine Cardiovascular Disease | DX: R00.1 Bradycardia, unspecified (principal); I45.81 Long QT syndrome; R53.1 Weakness | CPT/HCPCS: 93010 ==

== ENCOUNTER → 2023-12-01 19:19 | Outpatient (BNV) | payer OTHER, SELFPAY | PROVIDERS: Admitting Provider Student in an Organized Health Care Education/Training Program; Emergency Provider Student in an Organized Health Care Education/Training Program; PCP Internal Medicine; Visit Provider Student in an Organized Health Care Education/Training Program | DX: E11.65 Type 2 diabetes mellitus with hyperglycemia (principal) | CPT/HCPCS: 99222; 99232; 99239 ==

== ENCOUNTER 2023-12-08 10:59 | Emergency (ER) | payer OTHER, SELFPAY ==
[2023-12-08 11:07] VITALS: BP 146/49; PULSE 84; RESP 18; TEMP 36.3; O2SAT 92; BMI 24.8
[2023-12-08 11:13] LABS: Glucose, Whole Blood 451 mg/dL (60-115)
[2023-12-08 11:42] LABS: MANUAL DIFF FLAG NO
[2023-12-08 11:45] LABS: Basophils Percent Auto 0.8 % (0-2); Eosinophils Absolute Auto 0.1 X10*3/uL (0.0-0.4); Eosinophils Percent Auto 3.6 % (0-4); Hematocrit 33.1 % (37.0-47.0); Hemoglobin 11.2 g/dl (12.0-16.0); Imm Gran Abs Auto 0.01 X10*3/uL (0.00-0.03); Imm Gran Pct Auto 0.3 % (0.0-0.4); Lymphocytes Absolute Auto 0.8 X10*3/uL (1.2-4.9); Lymphocytes Percent Auto 21.4 % (20-40); Mean Corpuscular HGB Conc 33.8 g/dl (31.0-35.0); Mean Corpuscular Hemoglobin 29.7 pg (27.0-33.0); Mean Corpuscular Volume 87.8 fL (80.0-98.0); Mean Platelet Volume 10.7 fL (9.4-12.3); Monocytes Absolute Auto 0.5 X10*3/uL (0.1-1.2); Monocytes Percent Auto 12.8 % (2-11); Neutrophils Absolute Auto 2.4 x10*3/uL (2.0-8.3); Neutrophils Percent Auto 61.1 % (45-73); Platelet Count 248 X10*3/uL (160-400); Red Blood Count 3.77 X10*6/uL (4.20-5.50); Red Cell Distribution Width 11.3 % (11.0-16.0); White Blood Count 3.8 X10*3/uL (4.8-10.8)
[2023-12-08 11:46] LABS: Venous Blood Gas Refer to POC result
[2023-12-08 11:46] LABS: VBG Base Excess 6.5 mmol/L; VBG HCO3 32 mmol/L (22-26); VBG pCO2 52 mmHg; VBG pH 7.39 (7.32-7.43); VBG pO2 38 mmHg
[2023-12-08 12:01] LABS: Alanine Aminotransferase 21 U/L (0-31); Albumin Level 4.3 g/dL (3.5-5.0); Alkaline Phosphatase 89 U/L (39-117); Anion Gap 14 (12-20); Aspartate Amino Transferase 24 U/L (5-31); Bilirubin Total 0.3 mg/dL (0.0-1.0); Blood Urea Nitrogen 38 mg/dL (9-16); Calcium 10.4 mg/dL (8.4-10.2); Carbon Dioxide 31 mmol/L (22-29); Chloride 97 mmol/L (96-108); Creatinine Clr Calc Pharmacy 18.1; Estimated Glomerular Filt Rate 20; Magnesium 2.2 mg/dL (1.6-2.6); Potassium 3.5 mmol/L (3.3-5.1); Sodium 138 mmol/L (135-145); Total Protein 7.8 g/dL (6.5-8.0)
[2023-12-08 12:02] LABS: Glucose Random 464 mg/dL (60-115)
[2023-12-08 12:08] LABS: Appearance Urine Clear; Color Urine Yellow; Glucose Urine UA >=1000 mg/dL (Negative); Leukocyte Esterase Urine Negative (Negative); Nitrite Urine Negative (Negative); UMIC TRIGGER UACC YES; Urine Blood Negative (Negative); Urine Ketones Negative (Negative); Urine Protein 100 (2+) mg/dL (Neg-Trace)
[2023-12-08 12:09] LABS: Bacteria Urine None Seen (None Seen); Hyaline Casts Urine 0-2 /LPF (0-2); RBC Urine 0-2 /HPF (0-2); Squamous Epithelial Cell Urine 0-2 /HPF (0-2); WBC Urine 0-5 /HPF (0-5)
[2023-12-08 12:33] LABS: Influenza A PCR NEGATIVE (Negative); Influenza B PCR NEGATIVE (Negative); Resp Syncy Virus RNA Qual PCR NEGATIVE (Negative); SARS COV2 PCR INHOUSE NEGATIVE (Negative)
[2023-12-08 12:34] LABS: Beta-Hydroxybutyrate 0.08 mmol/L (0.02-0.27)
[2023-12-08 12:35] LABS: Glucose, Whole Blood 388 mg/dL (60-115)
[2023-12-08 12:55] VITALS: BP 153/64; PULSE 79; RESP 14; TEMP 36.6; O2SAT 96
--- NOTE | 2023-12-08 13:43 | ED.GENADULT ---
[facility] - General Adult General Chief complaint: General Medical Stated complaint: high bgl lethargy, dizziness Time Seen by Provider: 12/08/23 11:34 Source: patient Mode of arrival: EMS History of Present Illness HPI narrative: 73-year-old female who arrives via EMS from adult daycare where they noted that her glucose was 512, she was provided with 12 units of insulin and reports to me that she has eaten some cookies and a pair prior to arrival. She denies any fever, chills, GI or symptoms and denies any shortness of breath or chest pain/palpitations. Related Data Home Medications ?Medication ?Instructions ?Recorded ?Confirmed aspirin 81 mg tablet,delayed 81 mg PO DAILY 12/01/23 12/01/23 release citalopram 10 mg tablet 20 mg PO DAILY 12/01/23 12/01/23 gabapentin 400 mg capsule 400 mg PO Q12H 12/01/23 12/01/23 Previous Rx's ?Medication ?Instructions ?Recorded blood sugar diagnostic (OneTouch #100 ea 03/21/23 Ultra Test strips) blood-glucose meter (OneTouch #1 ea 03/21/23 Ultra2 Meter) lancets 30 gauge (OneTouch #200 ea 03/21/23 UltraSoft 2 Lancet) albuterol sulfate 90 mcg/actuation 1 puff PO QID PRN shortness of 04/07/23 aerosol inhaler breath or wheezing #18 ea amlodipine 10 mg tablet 10 mg PO DAILY #90 tabs 10/26/23 hydrochlorothiazide 25 mg tablet 25 mg PO DAILY #90 tabs 10/31/23 insulin aspart U-100 100 unit/mL 15 unit (0.15 mL) subcut TID 30 11/09/23 (3 mL) subcutaneous pen (Novolog days #13.5 mL FlexPen U-100 Insulin aspart) insulin glargine 100 unit/mL (3 20 unit (0.2 mL) subcut QPM #15 mL 12/03/23 mL) subcutaneous pen (Lantus Solostar U-100 Insulin) Allergies Allergy/AdvReac Type Severity Reaction Status Date / Time lisinopril Allergy Unknown Verified 12/08/23 11:12 Review of Systems Review of Systems: Pertinent positives and negatives as stated in HPI [facility] Past Medical History Source: nursing notes reviewed Medical History Swelling of mandible HTN (hypertension) Diabetes Surgical History History of cataract surgery History of bladder surgery History of total hysterectomy History of tonsillectomy Family History Family History Father Hypertension Diabetes Hx of leg amputation Mother Myocardial infarction Diabetes Hypertension Sister Breast cancer Brother Diabetes Maternal Aunt Bone cancer Social History Social History Household Members: Children and Other Household Members Other:: daughter, grandkids, , 6 total Housing: Apartment Do you presently have visiting nurse or other home services: No Alcohol intake: never Patient Tobacco Use Status: Never used Tobacco e-Cigarette/Vaping Use: Never Used Second Hand Smoke Exposure: No Advance Directives: No Advance Directives Information Provided: Yes Do you have a plan to hurt others: No Plan service: No Current occupational status: retired Current occupation: rt hand Cognitive needs: Yes (cane) Hearing needs: No Vision needs: Yes (Glasses) Physical Exam ED Vital Signs: Vital Signs - 24 hr 12/08/23 11:07 12/08/23 12:55 12/08/23 14:00 Temperature 97.4 F 97.8 F 97.4 F Pulse Rate 84 79 78 Respiratory Rate 18 14 15 Blood Pressure 146/49 H 153/64 H 159/57 H Pulse Oximetry 92 96 96 Oxygen Delivery Method Room Air Room Air Room Air BMI result Body Mass Index 24.8 VITAL SIGNS: Reviewed. GENERAL: Well developed, well nourished, in no acute distress. HEAD: Normocephalic/atraumatic EYES: PERRLA, EOMI LUNGS: Normal breath sounds. No adventitious sounds or accessory muscle use. SpO2<96> CARDIOVASCULAR: Regular rate and rhythm without noted murmurs, no JVD or lower extremity edema. ABDOMEN: Soft, non-tender, non-distended with bowel sounds. MUSCULOSKELETAL: No tenderness, deformities, or effusions noted on gross inspection. EXTREMITIES: No cyanosis, clubbing or edema. SKIN: Inspection of the skin reveals no rashes NEUROLOGIC: Alert and oriented x 4. Strength and sensation to light touch were grossly intact x 4. Medications Administered Discontinued Medications Generic Name Dose Route Start Last Admin Trade Name Freq PRN Reason Stop Dose Admin Sodium Chloride 1,000 mls @ 999 mls/hr 12/08/23 14:15 12/08/23 15:44 Ns IV 12/08/23 15:15 Infused .Q1H1M INGA Infusion Medical Decision Making Medical Decision Making [facility] Narrative: 73-year-old female with history and clinical presentation, suspect that patient has hyperglycemia secondary to recent consumption of high sugar content fruit. I reviewed all investigations and hematologic indices are chronically stable with a mild leukopenia and normocytic anemia and no evidence of thrombocytopenia. Patient without acidosis. Chemistry indices demonstrate acute on chronic renal failure without electrolyte derangement and patient is noted to be hyperglycemic without evidence of DKA or HHS no evidence of liver enzyme derangements. Urinalysis is negative for UTI. Viral testing negative for COVID-19/RSV/influenza. INTERVENTION: 1 L of IV fluids, repeat BMP Signed out to FAVIAN Martinez f/alexandria BMP if MELANIE has improved can be discharged Differential Diagnosis Differential Diagnoses: The differential diagnosis associated with the presentation includes Please see the discussion above Admission/Observation Consideration of admission/observation: Escalation of care including admission/observation considered Please see the discussion above Lab Data [facility] Lab Attestation statement: I reviewed the patient's lab results. Please see the discussion above 12/08/23 11:37 12/08/23 11:36 Labs: Lab Results 12/08/23 12/08/23 12/08/23 Range/Units 11:09 11:36 11:37 WBC 3.8 L (4.8-10.8) X10*3/uL RBC 3.77 L (4.20-5.50) X10*6/uL Hgb 11.2 L (12.0-16.0) g/dl Hct 33.1 L (37.0-47.0) % MCV 87.8 (80.0-98.0) fL MCH 29.7 (27.0-33.0) pg MCHC 33.8 (31.0-35.0) g/dl RDW 11.3 (11.0-16.0) % Plt Count 248 (160-400) X10*3/uL MPV 10.7 (9.4-12.3) fL Immature Gran % (Auto) 0.3 (0.0-0.4) % Neut % (Auto) 61.1 (45-73) % Lymph % (Auto) 21.4 (20-40) % [place] % (Auto) 12.8 H (2-11) % Eos % (Auto) 3.6 (0-4) % Baso % (Auto) 0.8 (0-2) % Lymph # (Auto) 0.8 L (1.2-4.9) X10*3/uL [place] # (Auto) 0.5 (0.1-1.2) X10*3/uL Eos # (Auto) 0.1 (0.0-0.4) X10*3/uL Baso # (Auto) 0.0 (0.0-0.2) X10*3/uL Abs Immat Gran (auto) 0.01 (0.00-0.03) X10*3/uL Absolute Neuts (auto) 2.4 (2.0-8.3) x10*3/uL Absolute Nucleated RBC 0.000 (0.0-0.012) X10*3/uL Nucleated RBC % (auto) 0.0 (0.0-0.2) /100WBC VBG pH (7.32-7.43) VBG pCO2 mmHg VBG pO2 mmHg VBG HCO3 (22-26) mmol/L VBG O2 Saturation % VBG Base Excess mmol/L Sodium 138 (135-145) mmol/L Potassium 3.5 (3.3-5.1) mmol/L Chloride 97 (96-108) mmol/L Carbon Dioxide 31 H (22-29) mmol/L Anion Gap 14 (12-20) BUN 38 H (9-16) mg/dL Creatinine 2.38 H (0.5-1.4) mg/dL Estim Creat Clear Calc 18.1 Estimated GFR 20 POC Glucose 451 H* (60-115) mg/dL Random Glucose 464 H* (60-115) mg/dL Calcium 10.4 H D (8.4-10.2) mg/dL Magnesium 2.2 (1.6-2.6) mg/dL Total Bilirubin 0.3 (0.0-1.0) mg/dL AST 24 (5-31) U/L ALT 21 (0-31) U/L Alkaline Phosphatase 89 (39-117) U/L Total Protein 7.8 (6.5-8.0) g/dL Albumin 4.3 (3.5-5.0) g/dL Beta-Hydroxybutyrate 0.08 (0.02-0.27) mmol/L Urine Color Urine Appearance Urine pH (5.0-9.0) Ur Specific [place] (1.005-1.025) Urine Protein (Neg-Trace) mg/dL Urine Glucose (UA) (Negative) mg/dL Urine Ketones (Negative) mg/dL Urine Blood (Negative) Urine Nitrite (Negative) Ur Leukocyte Esterase (Negative) Urine RBC (0-2) /HPF Urine WBC (0-5) /HPF Ur Squamous Epith Cells (0-2) /HPF Urine Bacteria (None Seen) Hyaline Casts (0-2) /LPF Influenza Type A (PCR) NEGATIVE (Negative) Influenza Type B (PCR) NEGATIVE (Negative) RSV RNA Qual (PCR) NEGATIVE (Negative) SARS-CoV-2 RNA (RT-PCR) NEGATIVE (Negative) 12/08/23 12/08/23 12/08/23 Range/Units 11:38 11:52 12:23 WBC (4.8-10.8) X10*3/uL RBC (4.20-5.50) X10*6/uL Hgb (12.0-16.0) g/dl Hct (37.0-47.0) % MCV (80.0-98.0) fL MCH (27.0-33.0) pg MCHC (31.0-35.0) g/dl RDW (11.0-16.0) % Plt Count (160-400) X10*3/uL MPV (9.4-12.3) fL Immature Gran % (Auto) (0.0-0.4) % Neut % (Auto) (45-73) % Lymph % (Auto) (20-40) % [place] % (Auto) (2-11) % Eos % (Auto) (0-4) % Baso % (Auto) (0-2) % Lymph # (Auto) (1.2-4.9) X10*3/uL [place] # (Auto) (0.1-1.2) X10*3/uL Eos # (Auto) (0.0-0.4) X10*3/uL Baso # (Auto) (0.0-0.2) X10*3/uL Abs Immat Gran (auto) (0.00-0.03) X10*3/uL Absolute Neuts (auto) (2.0-8.3) x10*3/uL Absolute Nucleated RBC (0.0-0.012) X10*3/uL Nucleated RBC % (auto) (0.0-0.2) /100WBC VBG pH 7.39 (7.32-7.43) VBG pCO2 52 mmHg VBG pO2 38 mmHg VBG HCO3 32 H (22-26) mmol/L VBG O2 Saturation 68.0 % VBG Base Excess 6.5 mmol/L Sodium (135-145) mmol/L Potassium (3.3-5.1) mmol/L Chloride (96-108) mmol/L Carbon Dioxide (22-29) mmol/L Anion Gap (12-20) BUN (9-16) mg/dL Creatinine (0.5-1.4) mg/dL Estim Creat Clear Calc Estimated GFR POC Glucose 388 H* (60-115) mg/dL Random Glucose (60-115) mg/dL Calcium (8.4-10.2) mg/dL Magnesium (1.6-2.6) mg/dL Total Bilirubin (0.0-1.0) mg/dL AST (5-31) U/L ALT (0-31) U/L Alkaline Phosphatase (39-117) U/L Total Protein (6.5-8.0) g/dL Albumin (3.5-5.0) g/dL Beta-Hydroxybutyrate (0.02-0.27) mmol/L Urine Color Yellow Urine Appearance Clear Urine pH 6.0 (5.0-9.0) Ur Specific [place] 1.020 (1.005-1.025) Urine Protein 100 (2+) H (Neg-Trace) mg/dL Urine Glucose (UA) >=1000 H (Negative) mg/dL Urine Ketones Negative (Negative) mg/dL Urine Blood Negative (Negative) Urine Nitrite Negative (Negative) Ur Leukocyte Esterase Negative (Negative) Urine RBC 0-2 (0-2) /HPF Urine WBC 0-5 (0-5) /HPF Ur Squamous Epith Cells 0-2 (0-2) /HPF Urine Bacteria None Seen (None Seen) Hyaline Casts 0-2 (0-2) /LPF Influenza Type A (PCR) (Negative) Influenza Type B (PCR) (Negative) RSV RNA Qual (PCR) (Negative) SARS-CoV-2 RNA (RT-PCR) (Negative) 12/08/23 Range/Units 13:50 WBC (4.8-10.8) X10*3/uL RBC (4.20-5.50) X10*6/uL Hgb (12.0-16.0) g/dl Hct (37.0-47.0) % MCV (80.0-98.0) fL MCH (27.0-33.0) pg MCHC (31.0-35.0) g/dl RDW (11.0-16.0) % Plt Count (160-400) X10*3/uL MPV (9.4-12.3) fL Immature Gran % (Auto) (0.0-0.4) % Neut % (Auto) (45-73) % Lymph % (Auto) (20-40) % [place] % (Auto) (2-11) % Eos % (Auto) (0-4) % Baso % (Auto) (0-2) % Lymph # (Auto) (1.2-4.9) X10*3/uL [place] # (Auto) (0.1-1.2) X10*3/uL Eos # (Auto) (0.0-0.4) X10*3/uL Baso # (Auto) (0.0-0.2) X10*3/uL Abs Immat Gran (auto) (0.00-0.03) X10*3/uL Absolute Neuts (auto) (2.0-8.3) x10*3/uL Absolute Nucleated RBC (0.0-0.012) X10*3/uL Nucleated RBC % (auto) (0.0-0.2) /100WBC VBG pH (7.32-7.43) VBG pCO2 mmHg VBG pO2 mmHg VBG HCO3 (22-26) mmol/L VBG O2 Saturation % VBG Base Excess mmol/L Sodium (135-145) mmol/L Potassium (3.3-5.1) mmol/L Chloride (96-108) mmol/L Carbon Dioxide (22-29) mmol/L Anion Gap (12-20) BUN (9-16) mg/dL Creatinine (0.5-1.4) mg/dL Estim Creat Clear Calc Estimated GFR POC Glucose 331 H (60-115) mg/dL Random Glucose (60-115) mg/dL Calcium (8.4-10.2) mg/dL Magnesium (1.6-2.6) mg/dL Total Bilirubin (0.0-1.0) mg/dL AST (5-31) U/L ALT (0-31) U/L Alkaline Phosphatase (39-117) U/L Total Protein (6.5-8.0) g/dL Albumin (3.5-5.0) g/dL Beta-Hydroxybutyrate (0.02-0.27) mmol/L Urine Color Urine Appearance Urine pH (5.0-9.0) Ur Specific [place] (1.005-1.025) Urine Protein (Neg-Trace) mg/dL Urine Glucose (UA) (Negative) mg/dL Urine Ketones (Negative) mg/dL Urine Blood (Negative) Urine Nitrite (Negative) Ur Leukocyte Esterase (Negative) Urine RBC (0-2) /HPF Urine WBC (0-5) /HPF Ur Squamous Epith Cells (0-2) /HPF Urine Bacteria (None Seen) Hyaline Casts (0-2) /LPF Influenza Type A (PCR) (Negative) Influenza Type B (PCR) (Negative) RSV RNA Qual (PCR) (Negative) SARS-CoV-2 RNA (RT-PCR) (Negative) External Record Review External record reviewed: Outpatient record and Prior outpatient labs Chronic Conditions Patient?s care impacted by: Diabetes and Hypertension Hypersomnia Critical Care Time Critical Care Time Critical Care Time: Yes Total Critical Care Time: 45 Attestation: I personally attest to this time spent taking care of the patient. Discharge Plan Discharge Clinical Impression: Acute on chronic renal failure, Hyperglycemia due to diabetes mellitus Patient Disposition: Still a Patient Instructions: Chronic Kidney Disease (ED), Diabetic Hyperglycemia (ED) Prescriptions: No Action (DME) blood-glucose meter [OneTouch Ultra2 Meter] Misc See Rx Instructions .Route Qty: 1 0RF Rx Instructions: test 3 times per day (DME) OneTouch Ultra Test Strip See Rx Instructions .Route Qty: 100 8RF Rx Instructions: test 3 times per day (DME) lancets [OneTouch UltraSoft 2 Lancet] 30 gauge misc See Rx Instructions .Route Qty: 200 5RF Rx Instructions: test 3 times per day albuterol sulfate 90 mcg/actuation HFA aerosol inhaler 1 puff PO QID PRN (Reason: shortness of breath or wheezing) Qty: 18 3RF amlodipine 10 mg tablet 10 mg PO DAILY Qty: 90 1RF hydrochlorothiazide 25 mg tablet 25 mg PO DAILY Qty: 90 1RF insulin aspart U-100 [Novolog FlexPen U-100 Insulin] 100 unit/mL (3 mL) insulin pen 15 unit subcut TID 30 Days Qty: 13.5 1RF aspirin 81 mg Tablet,Delayed Release (Dr/Ec) 81 mg PO DAILY gabapentin 400 mg capsule 400 mg PO Q12H citalopram 10 mg tablet 20 mg PO DAILY insulin glargine [Lantus Solostar U-100 Insulin] 100 unit/mL (3 mL) insulin pen 20 unit subcut QPM Qty: 15 0RF Print Language: Croatian
[2023-12-08 13:53] LABS: Glucose, Whole Blood 331 mg/dL (60-115)
--- NOTE | 2023-12-08 13:55 | PC.NURSE ---
patient ambulated with this nurse and her cane, patient ambulates with steady gait
[2023-12-08 14:00] VITALS: BP 159/57; PULSE 78; RESP 15; TEMP 36.3; O2SAT 96
[2023-12-08] MEDS: 0.9 % Sodium Chloride 1,000 ML 999 ML IV (14:25)
--- NOTE | 2023-12-08 15:57 | PC.NURSE ---
attempted to call patients daughter, no answer, left message
[2023-12-08 16:11] VITALS: BP 148/52; PULSE 76; RESP 15; TEMP 36.2; O2SAT 95
[2023-12-08 17:36] VITALS: BP 154/52; PULSE 71; RESP 15; TEMP 36.2; O2SAT 96
[2023-12-08 17:55] LABS: Glucose, Whole Blood 238 mg/dL (60-115)
== END 2023-12-08 18:05 | disposition still patient (30) ==
PROVIDERS: Physician Assistant Medical; Emergency Provider Student in an Organized Health Care Education/Training Program
DX: E11.65 Type 2 diabetes mellitus with hyperglycemia (principal); N17.9 Acute kidney failure, unspecified; E11.22 Type 2 diabetes mellitus with diabetic chronic kidney disease; I12.9 Hypertensive chronic kidney disease with stage 1 through stage 4 chronic kidney disease, or unspecified chronic kidney disease; N18.9 Chronic kidney disease, unspecified; Z03.818 Encounter for observation for suspected exposure to other biological agents ruled out
CPT/HCPCS: 0241U; 80053; 81001; 81003; 82010; 82803; 82947; 83735; 85025; 96360; 99284

== ENCOUNTER 2024-01-19 13:26 | Outpatient (AMB) | payer OTHER, MEDICAID, SELFPAY ==
--- NOTE | 2024-01-19 13:47 | A.OFFPC_ITS ---
Vital Signs 01/19/24 13:51 Height 5 ft 4 in Weight 137 lb 8 oz BMI 23.6 BP 120/58 L Blood Pressure Location Rt brachial Position Sitting Pulse 81 Pulse Source Pulse Oximeter Pulse Oximetry (%) 98 Oxygen Delivery Method Room Air Intake Visit Reasons: 3mth f/u Intake Note: Patient is here to follow up on HTN, DM, HLD, CKD. Complaint of left big toe pain, possible infecting. Strip Mill Operator Required: Yes Strip Mill Operator Language: Lead Etl Developer Name: Сергей (granddaughter) Information Interpreted: non-clinical & clinical Evp Managing Director: Present Accompanied by: Grand Child Allergies lisinopril Allergy (Verified 01/19/24 13:50) Unknown Tobacco use date assessed: 01/19/24 Fall risk assessment: No Falls in past year Last assessed Fall Risk: 01/19/24 Dental Screening Dental Screen Date: 01/19/24 Did you have a dental visit in the last 12 months?: Yes Did you have a dental problem in the last 6 months where you did not have access to dental care?: No Was dental information given to patient?: Patient has dentist [facility] Medical History Swelling of mandible HTN (hypertension) Diabetes Surgical History History of cataract surgery History of bladder surgery History of total hysterectomy History of tonsillectomy Family History Father Hypertension Diabetes Hx of leg amputation Mother Myocardial infarction Diabetes Hypertension Sister Breast cancer Brother Diabetes Maternal Aunt Bone cancer Social History Household Members: Children and Other Household Members Other:: daughter, grandkids, , 6 total Housing: Apartment Do you presently have visiting nurse or other home services: No Alcohol intake: never Patient Tobacco Use Status: Never used Tobacco e-Cigarette/Vaping Use: Never Used Second Hand Smoke Exposure: No service: No Current occupational status: retired Current occupation: rt hand Cognitive needs: Yes (cane) Hearing needs: No Vision needs: Yes (Glasses) Questionnaire PHQ-9 Over the last 2 weeks, how often have you been bothered by any of the following problems? 1. Little interest or pleasure in doing things: not at all 2. Feeling down, depressed, or hopeless: not at all 3. Trouble falling or staying asleep, or sleeping too much: not at all 4. Feeling tired or having little energy: not at all 5. Poor appetite or overeating: not at all 6. Feeling bad about yourself - or that you are a failure or have let yourself or your family down: not at all 7. Trouble concentrating on things, such as reading the newspaper or watching television: not at all 8. Moving or speaking so slowly that other people could have noticed. Or the opposite - being so fidgety or restless that you have been moving around a lot more than usual: not at all 9. Thoughts that you would be better off or of hurting yourself in some way: not at all Total score: 0 Depression Screening Interpretation: Negative Depression Screening Done: Yes Source: Developed by Drs. Raymundo Ontiveros, Neva Russell, Navin Sarah and colleagues, with an educational gogo from [employer]). Thrive Questionnaire Date Thrive assessed: 12/02/23 AUDIT C Alcohol Use Questionnaire (AUDIT-C) 1. How often do you have a drink containing alcohol?: Never Total Score: 0 EMMETT-7 AMB Questionnaire EMMETT-7 Date EMMETT - 7 assessed: 01/19/24 Feeling nervous, anxious, or on edge: 0 = Not at all Not being able to stop or control worryin = Not at all Worrying too much about different things: 0 = Not at all Trouble relaxin = Not at all Being so restless that it is hard to sit still: 0 = Not at all Becoming easily annoyed or irritable: 0 = Not at all Feeling afraid as if something awful might happen: 0 = Not at all Total EMMETT-7 score (0-4 normal; 5-9 mild; 10-14 moderate; 15-21 severe): 0 Source: Developed by Drs. Raymundo Ontiveros, Navin Cazares and colleagues, with an educational gogo from [employer] ([employer]). Physical exam (Primary Care) Vital Signs: Last Vital Signs Pulse 81 01/19/24 13:51 BP 120/58 L 01/19/24 13:51 Pulse Ox 98 01/19/24 13:51 Oxygen Delivery Method Room Air 01/19/24 13:51 Care Plan Goal for BP management: BP is in range BMI result Body Mass Index 23.6 Tobacco/Smoking Status: Tobacco use Status Tobacco use date assessed 01/19/24 01/19/24 13:57 Patient Tobacco Use Status Never used Tobacco 01/19/24 13:57 e-Cigarette/Vaping Use Never Used 01/19/24 13:57 PHQ-9: PHQ-9 Score PHQ-9: Total score 0 01/19/24 13:57 Depression Screening Interpretation: Negative Thrive Assessment: Date of Thrive Assessment Date Thrive assessed 12/02/23 01/19/24 13:57 Const General: cooperative and healthy appearing Nutritional Appearance: well nourished Orientation/consciousness: patient oriented x3 Limitations: no limitations HENMT Head: Yes normal to inspection Eyes General: appearance normal, both eyes and all related structures Neck Neck: Yes normal visual inspection Chest Chest palpation & inspection: normal palpation of entire chest wall Resp Effort & Inspection: normal respiratory effort Skin Other: Right foot: Swollen, red in the forefoot. Minimal tenderness on palpation over the dorsum of the foot Neuro General: patient oriented x3 Assessment and Plan Assessment & Plan (1) Uncontrolled diabetes mellitus: Code(s): E11.65 - Type 2 diabetes mellitus with hyperglycemia Plan: Barriers in Care: Pt not understanding that her insulin dosage should be increased if her blood sugars are spiking upwards. Diabetic education requested. Nurse has been instructed to determine, if she is eligible for CGM. The long acting insulin (basaglar) increased to 50 units at bedtime. The short acting insulin dosage has been increased to 30 units to thrice daily. Grand daughter was counselled on the importance of sugar control. (2) Cellulitis of foot: Code(s): L03.119 - Cellulitis of unspecified part of limb Plan: Keflex twice a day. Keep the foot elevated. Blood sugars need to be controlled. Coding Level of Care Code Est Pt Level 4 (64858) Complex EM visit Add On G2211 Diagnoses Uncontrolled diabetes mellitus E11.65 Cellulitis of foot L03.119
[2024-01-19 13:51] VITALS: BP 120/58; PULSE 81; O2SAT 98; BMI 23.6
== END 2024-01-19 15:29 | disposition home or self-care (01) ==
PROVIDERS: PCP Internal Medicine; Visit Provider Internal Medicine
DX: E11.65 Type 2 diabetes mellitus with hyperglycemia (principal); L03.119 Cellulitis of unspecified part of limb
CPT/HCPCS: 99214; G2211

== ENCOUNTER 2024-02-16 10:41 | Outpatient (REF) | payer OTHER, SELFPAY ==
[2024-02-16 10:51] LABS: MANUAL DIFF FLAG NO
[2024-02-16 11:42] LABS: Basophils Percent Auto 0.6 % (0-2); Eosinophils Absolute Auto 0.2 X10*3/uL (0.0-0.4); Eosinophils Percent Auto 3.9 % (0-4); Hematocrit 31.6 % (37.0-47.0); Hemoglobin 10.7 g/dl (12.0-16.0); Imm Gran Abs Auto 0.01 X10*3/uL (0.00-0.03); Imm Gran Pct Auto 0.2 % (0.0-0.4); Mean Corpuscular HGB Conc 33.9 g/dl (31.0-35.0); Mean Corpuscular Hemoglobin 29.2 pg (27.0-33.0); Mean Corpuscular Volume 86.3 fL (80.0-98.0); Mean Platelet Volume 11.8 fL (9.4-12.3); Monocytes Absolute Auto 0.3 X10*3/uL (0.1-1.2); Monocytes Percent Auto 6.7 % (2-11); Neutrophils Absolute Auto 3.1 x10*3/uL (2.0-8.3); Neutrophils Percent Auto 67.6 % (45-73); Platelet Count 252 X10*3/uL (160-400); Red Blood Count 3.66 X10*6/uL (4.20-5.50); Red Cell Distribution Width 11.5 % (11.0-16.0); White Blood Count 4.6 X10*3/uL (4.8-10.8)
[2024-02-16 12:18] LABS: Alanine Aminotransferase 18 U/L (0-31); Alkaline Phosphatase 76 U/L (39-117); Anion Gap 13 (12-20); Aspartate Amino Transferase 22 U/L (5-31); Bilirubin Total 0.4 mg/dL (0.0-1.0); Blood Urea Nitrogen 33 mg/dL (9-16); Calcium 9.7 mg/dL (8.4-10.2); Carbon Dioxide 28 mmol/L (22-29); Chloride 102 mmol/L (96-108); Estimated Glomerular Filt Rate 22; Glucose Random 261 mg/dL (60-115); Potassium 3.4 mmol/L (3.3-5.1); Sodium 140 mmol/L (135-145); Total Protein 7.4 g/dL (6.5-8.0)
== END 2024-02-16 10:42 | disposition home or self-care (01) ==
LOC: HO.LAB 10:41
PROVIDERS: PCP Internal Medicine; Visit Provider Internal Medicine Hypertension Specialist
DX: N18.30 Chronic kidney disease, stage 3 unspecified (principal); N18.9 Chronic kidney disease, unspecified
CPT/HCPCS: 36415; 80053; 85025

== ENCOUNTER 2024-02-20 10:51 | Outpatient (AMB) | payer OTHER, SELFPAY ==
[2024-02-20 10:55] VITALS: BP 154/52; PULSE 79; O2SAT 95; BMI 24.0
--- NOTE | 2024-02-20 10:55 | HO.NEPHOV_ITS ---
Vital Signs 02/20/24 10:55 02/20/24 11:07 Height 5 ft 4 in Weight 140 lb BMI 24.0 BP 154/52 H 140/60 H Blood Pressure Location Rt brachial Rt brachial Position Sitting Sitting Pulse 79 Pulse Source Pulse Oximeter Pulse Oximetry (%) 95 Oxygen Delivery Method Room Air Intake Visit Reasons: F/U Intake Note: Independent Crop Consultant declined filled out sheet and scanned into patient chart. Independent Crop Consultant Required: Yes Independent Crop Consultant Services: Independent Crop Consultant Offered & Declined Accompanied by: Grand Child Allergies lisinopril Allergy (Verified 02/20/24 10:57) Unknown HPI Comments Details: 72-year-old female with a history significant for hypertension, and diabetes mellitus. She is here for evaluation of CKD Grand daughter helped with translation 02/20/24 Toe nail fungus with superinfection Completed antibiotics- Amoxicillin - 2 weeks ago Blood sugar is still sub optimal - 392 last night !!! PFSH Medical History Swelling of mandible HTN (hypertension) Diabetes Surgical History History of cataract surgery History of bladder surgery History of total hysterectomy History of tonsillectomy Family History Father Hypertension Diabetes Hx of leg amputation Mother Myocardial infarction Diabetes Hypertension Sister Breast cancer Brother Diabetes Maternal Aunt Bone cancer Social History Household Members: Children and Other Household Members Other:: daughter, grandkids, , 6 total Housing: Apartment Do you presently have visiting nurse or other home services: No Alcohol intake: never Patient Tobacco Use Status: Never used Tobacco e-Cigarette/Vaping Use: Never Used Second Hand Smoke Exposure: No service: No Current occupational status: retired Current occupation: rt hand Cognitive needs: Yes (cane) Hearing needs: No Vision needs: Yes (Glasses) Physical Exam Vital Signs: Last Vital Signs Pulse 79 02/20/24 10:55 BP 140/60 H 02/20/24 11:07 Pulse Ox 95 02/20/24 10:55 Oxygen Delivery Method Room Air 02/20/24 10:55 BMI result Body Mass Index 24.0 Const General: comfortable; No acute distress Orientation/consciousness: patient oriented x3 Eyes General: appearance normal, both eyes and all related structures Visual Pratt: normal visual pratt by confrontation Neck Neck: Yes supple and Yes no JVD Resp Effort & Inspection: normal respiratory effort and respiratory effort not decreased Auscultation: rhonchi Cardio Palpation: no palpable S3 and no palpable S4 Heart sounds: no rubs GI Inspection: Yes normal to inspection Palpation (GI): Soft to palpation Percussion: Yes normal to percussion Auscultation: normal bowel sounds General: Yes no CVA tenderness Back/Spine/Pelvis Back: no CVA tenderness Skin General skin exam: no petechiae and no purpura Neuro General: patient oriented x3 and no focal motor deficits Extrem General: No clubbing and No edema Results Reviewed Nephrology Results: Hgb 10.7 g/dl (12.0-16.0) L 02/16/24 WBC 4.6 X10*3/uL (4.8-10.8) L 02/16/24 Plt Count 252 X10*3/uL (160-400) 02/16/24 Sodium 140 mmol/L (135-145) 02/16/24 Potassium 3.4 mmol/L (3.3-5.1) 02/16/24 Chloride 102 mmol/L (96-108) 02/16/24 Carbon Dioxide 28 mmol/L (22-29) 02/16/24 BUN 33 mg/dL (9-16) H 02/16/24 Creatinine 2.16 mg/dL (0.5-1.4) H 02/16/24 Calcium 9.7 mg/dL (8.4-10.2) 02/16/24 Urine Protein 100 (2+) mg/dL (Neg-Trace) H 12/08/23 Renal US 10/13/23 Assessment & Plan Assessment & Plan (1) Diabetes: Code(s): E11.9 - Type 2 diabetes mellitus without complications Category: Medical Plan Elderly woman with CKD most likely due to underlying diabetic hypertensive kidney disease. Renal functions close to baseline. Goal is to slow the progression of renal disease. Continue to avoid nephrotoxic agents. Maintain blood pressure less than 130/80. Of note there is a differential in blood pressure readings in both upper extremities. Discussed low salt diet Maintain A1C < 7% Discussed importance of tight control of blood sugar Will refer to Endocrine She would benefit from SGLT-2 inhibitors Orders: Orders Basic Metabolic Panel 4 Weeks N18.9 - Chronic kidney disease, unspecified Creatinine Urine 4 Weeks N18.9 - Chronic kidney disease, unspecified UA and rflx microscopic 4 Weeks N18.9 - Chronic kidney disease, unspecified Total Protein Urine Random 4 Weeks N18.9 - Chronic kidney disease, unspecified Complete Blood Count Auto Diff 4 Weeks N18.9 - Chronic kidney disease, unspecified Referrals Endocrinology Referral E11.9 - Type 2 diabetes mellitus without complications Medications: Discontinued cephalexin Discontinued Reason: Patient Completed Course 500 mg PO BID 14 caps 0RF Coding Level of Care Code Est Pt Level 4 (28132) Diagnoses Diabetes E11.9
[2024-02-20 11:07] VITALS: BP 140/60
== END 2024-02-20 11:11 | disposition home or self-care (01) ==
PROVIDERS: Visit Provider Internal Medicine Hypertension Specialist
DX: E11.9 Type 2 diabetes mellitus without complications (principal)
CPT/HCPCS: 99214

== ENCOUNTER → 2024-02-20 10:51 | Outpatient (BNVA) | payer OTHER, SELFPAY | PROVIDERS: Visit Provider Internal Medicine Hypertension Specialist | DX: E11.9 Type 2 diabetes mellitus without complications (principal) | CPT/HCPCS: 99212 ==

== ENCOUNTER 2024-02-23 15:00 | Outpatient (AMB) | payer MEDICARE, OTHER, SELFPAY ==
[2024-02-23 15:02] VITALS: BP 138/64; PULSE 85; BMI 24.0
--- NOTE | 2024-02-23 15:02 | A.OFFVIS_ITS ---
Vital Signs 02/23/24 15:02 Height 5 ft 4 in Weight 140 lb BMI 24.0 BP 138/64 Blood Pressure Location Rt brachial Position Sitting Pulse 85 Pulse Source Pulse Oximeter Intake Visit Reasons: Type 2 DM/CONFIRMED Intake Note: New Patient presents today for to establish treatment for Type 2 Diabetes Mellitus: Last Diabetic eye exam was on: 11/2023 Last Podiatry exam was on: Does not see a Health Care Marketing Manager Most recent HbA1c: 7.4%, 12/02/2023 Random Glucose- 164 mg/dL, Today Derrick Boat Operator Required: No Derrick Boat Operator Services: Derrick Boat Operator Offered & Declined Accompanied by: Grand Child Allergies lisinopril Allergy (Verified 02/23/24 15:08) Unknown HPI Comments Details: 72-year-old female with insulin dependent diabetes presenting for follow up Medical history: CKD, hypertension Current medications: Basaglar 30, Novolog 30 TID. Previously was on metformin with better control but CKD worsened. She reports medication compliance. Reports very high blood glucose for past 2 months. 12/02/23 A1C 7.4% micro/macrovascular: CKD, neuropathy Referring to podiatry Eye exam, 11/2023 ROS CONSTITUTIONAL: Denies weight loss, fever and chills. HEENT: Denies changes in vision and hearing. RESPIRATORY: Denies SOB and cough. CV: Denies palpitations and CP GI: Denies abdominal pain, nausea, vomiting and diarrhea. : Denies dysuria and urinary frequency. MSK: Denies new myalgia and joint pain. SKIN: Denies rash and pruritus. NEUROLOGICAL: Denies headache PSYCHIATRIC: Denies recent changes in mood. PHYSICAL EXAM: GENERAL: Alert and oriented x 3. NAD EYES: EOMI. Anicteric. HENT: Moist mucous membranes. No scleral icterus. No cervical lymphadenopathy. LUNGS: Clear to auscultation bilaterally. CARDIOVASCULAR: Regular rate and rhythm. No murmur. No JVD. ABDOMEN: Soft, non-tender +bs EXTREMITIES: No edema. Non-tender. SKIN: No rashes or lesions. Tinea unguium. NEUROLOGIC: No focal neurological deficits. CN II-XII grossly intact PSYCHIATRIC: Cooperative. Appropriate mood and affect [facility] Medical History Swelling of mandible HTN (hypertension) Diabetes Surgical History History of cataract surgery History of bladder surgery History of total hysterectomy History of tonsillectomy Family History Father Hypertension Diabetes Hx of leg amputation Mother Myocardial infarction Diabetes Hypertension Sister Breast cancer Brother Diabetes Maternal Aunt Bone cancer Social History Household Members: Children and Other Household Members Other:: daughter, grandkids, , 6 total Housing: Apartment Do you presently have visiting nurse or other home services: No Alcohol intake: never Patient Tobacco Use Status: Never used Tobacco e-Cigarette/Vaping Use: Never Used Second Hand Smoke Exposure: No service: No Current occupational status: retired Current occupation: rt hand Cognitive needs: Yes (cane) Hearing needs: No Vision needs: Yes (Glasses) Physical Exam Vital Signs: Last Vital Signs Pulse 85 02/23/24 15:02 BP 138/64 02/23/24 15:02 BMI result Body Mass Index 24.0 Results Reviewed Results Reviewed: Laboratory Last Values Glucose (Clinic) 164 mg/dL (60-115) H 02/23/24 15:10 Assessment & Plan Assessment & Plan (1) Uncontrolled diabetes mellitus: Code(s): E11.65 - Type 2 diabetes mellitus with hyperglycemia Category: Medical Qualifiers: Diabetes mellitus type: type 2 Glycemic state: with hyperglycemia Qualified Code(s): E11.65 - Type 2 diabetes mellitus with hyperglycemia Plan: Download of one touch meter did not work Would like to start CGM given poor glucose control at the moment-sent pending insurance approval. May have to switch Continue 50 units basaglar, 30 TID novolog. Add Jardiance, ozempic 0.25mg weekly. Monitor blood glucose frequently Return in six weeks with A1C prior Referred to podiatry. (2) Tinea unguium: Code(s): B35.1 - Tinea unguium Category: Medical Plan: referral podiatry (3) CKD (chronic kidney disease): Code(s): N18.9 - Chronic kidney disease, unspecified Category: Medical Qualifiers: Chronic kidney disease stage: unspecified stage Qualified Code(s): N18.9 - Chronic kidney disease, unspecified Plan: continue nephrology follow up Orders: Orders Hemoglobin A1c 5 Weeks . - Type 2 diabetes mellitus with hyperglycemia Microalbumin, Random (w Creat) 5 Weeks . - Type 2 diabetes mellitus with hyperglycemia Comprehensive Met. Panel 5 Weeks - Type 2 diabetes mellitus with hyperglycemia UA CC w/rflx Micro + Cult 5 Weeks - Type 2 diabetes mellitus with hyperglycemia Referrals Podiatry Referral B35.1 - Tinea unguium, - Type 2 diabetes mellitus with hyperglycemia Medications: New empagliflozin (Jardiance) 10 mg PO DAILY 90 tabs 3RF Ozempic (semaglutide) for 4 weeks 0.25 mg (0.368 mL) subcut QWEEK 3 mL 3RF NS Changed From blood-glucose sensor (FreeStyle Song 3 Sensor device) As directed 1 ea 0RF E11.9 - Type 2 diabetes mellitus without complications To FreeStyle Song 3 Sensor (blood-glucose sensor) As directed for 14 days 6 ea 3RF NS E11.9 - Type 2 diabetes mellitus without complications From insulin glargine (Basaglar KwikPen U-100 Insulin) 30 units (0.3 mL) subcut DAILY 90 days 27 mL 1RF To insulin glargine (Basaglar KwikPen U-100 Insulin) 50 units (0.5 mL) subcut DAILY 45 mL 1RF 90 days Refilled blood-glucose meter,continuous (FreeStyle Song 3 [place]) As directed 1 ea 0RF E11.9 - Type 2 diabetes mellitus without complications Coding Level of Care Code Est Pt Level 5 (98059) Complex EM visit Add On G2211 Diagnoses Uncontrolled type 2 diabetes mellitus with hyperglycemia Diabetes mellitus type: type 2 Glycemic state: with hyperglycemia Tinea unguium B35.1 Chronic kidney disease, unspecified CKD stage N18.9 Chronic kidney disease stage: unspecified stage
[2024-02-23 15:14] LABS: Glucose, Whole Blood 164 mg/dL (60-115)
== END 2024-02-23 15:46 | disposition home or self-care (01) ==
PROVIDERS: PCP Internal Medicine; Visit Provider Internal Medicine
DX: E11.65 Type 2 diabetes mellitus with hyperglycemia (principal); B35.1 Tinea unguium; E11.22 Type 2 diabetes mellitus with diabetic chronic kidney disease; N18.9 Chronic kidney disease, unspecified
CPT/HCPCS: 99214; G2211

== ENCOUNTER → 2024-02-23 15:00 | Outpatient (BNVA) | payer MEDICARE, SELFPAY | PROVIDERS: PCP Internal Medicine; Visit Provider Internal Medicine | DX: E11.22 Type 2 diabetes mellitus with diabetic chronic kidney disease (principal); N18.9 Chronic kidney disease, unspecified; B35.1 Tinea unguium | CPT/HCPCS: 82947; 99212 ==

== ENCOUNTER 2024-03-01 18:29 | Inpatient (IN) | payer MEDICARE, MEDICAID, SELFPAY ==
--- NOTE | ~2024-03-01 | US_ITS ---
EXAMINATION: Bilateral LOWER EXTREMITY DUPLEX CLINICAL INFORMATION: Diabetes COMPARISON: None TECHNIQUE: Real-time ultrasound and Doppler techniques (integrating B-mode 2-D vascular images, Doppler spectral analysis and color flow Doppler imaging) were utilized to interrogate the lower extremities. FINDINGS: RIGHT LEG: Common femoral artery: 151 cm/s, triphasic Profunda femoris artery: 113 cm/s, biphasic Superficial femoral artery (proximal): 210 cm/s, monophasic Superficial femoral artery (mid): 218 cm/s, monophasic Superficial femoral artery (distal): 201 cm/s, monophasic Proximal popliteal artery: 149 cm/s, monophasic Posterior tibial artery: Occluded LEFT LEG: Common femoral artery: 177 cm/s, triphasic Profunda femoris artery: 133 cm/s, biphasic Superficial femoral artery (proximal): 121 cm/s, biphasic Superficial femoral artery (mid): 55 cm/s, monophasic Superficial femoral artery (distal): 41 cm/s, monophasic Popliteal artery: 37 cm/s, monophasic Posterior tibial artery: Occluded US/US arterial duplex LE BI IMPRESSION: 1. Moderate stenoses throughout the right SFA. 2. Mild stenosis of the right popliteal artery. 3. Mild stenoses of the left common femoral artery and proximal SFA. 4. Moderate stenosis from the mid SFA through the popliteal artery. 5. Occluded posterior tibial arteries bilaterally.
--- NOTE | ~2024-03-01 | XR_ITS ---
EXAMINATION: XR TOES, LEFT CLINICAL INFORMATION: Left great toe swollen COMPARISON: 05/03/2021 TECHNIQUE: 3 views of the left toes were obtained. FINDINGS: Erosive changes of the distal aspect of the left first toe are seen concerning for osteomyelitis. There is associated soft tissue swelling in this region. No acute fracture or dislocation. XR/XR toe LT min 2V IMPRESSION: Erosive changes of the distal aspect of the left first toe are seen concerning for osteomyelitis. There is associated soft tissue swelling in this region.
[2024-03-01 19:06] VITALS: BP 160/69; PULSE 89; RESP 16; TEMP 37.1; O2SAT 98; BMI 26.7
[2024-03-01 21:06] LABS: MANUAL DIFF FLAG NO
[2024-03-01 21:11] LABS: Basophils Percent Auto 0.5 % (0-2); Eosinophils Absolute Auto 0.2 X10*3/uL (0.0-0.4); Eosinophils Percent Auto 3.4 % (0-4); Hematocrit 32.1 % (37.0-47.0); Hemoglobin 11.1 g/dl (12.0-16.0); Imm Gran Abs Auto 0.02 X10*3/uL (0.00-0.03); Imm Gran Pct Auto 0.3 % (0.0-0.4); Lymphocytes Absolute Auto 1.3 X10*3/uL (1.2-4.9); Lymphocytes Percent Auto 20.5 % (20-40); Mean Corpuscular HGB Conc 34.6 g/dl (31.0-35.0); Mean Corpuscular Hemoglobin 29.4 pg (27.0-33.0); Mean Corpuscular Volume 84.9 fL (80.0-98.0); Mean Platelet Volume 10.8 fL (9.4-12.3); Monocytes Absolute Auto 0.6 X10*3/uL (0.1-1.2); Monocytes Percent Auto 9.8 % (2-11); Neutrophils Absolute Auto 4.2 x10*3/uL (2.0-8.3); Neutrophils Percent Auto 65.5 % (45-73); Platelet Count 277 X10*3/uL (160-400); Red Blood Count 3.78 X10*6/uL (4.20-5.50); Red Cell Distribution Width 11.4 % (11.0-16.0); White Blood Count 6.4 X10*3/uL (4.8-10.8)
[2024-03-01 21:21] LABS: Alanine Aminotransferase 14 U/L (0-31); Albumin Level 4.1 g/dL (3.5-5.0); Alkaline Phosphatase 78 U/L (39-117); Anion Gap 15 (12-20); Aspartate Amino Transferase 22 U/L (5-31); Bilirubin Total 0.3 mg/dL (0.0-1.0); Blood Urea Nitrogen 39 mg/dL (9-16); Calcium 9.8 mg/dL (8.4-10.2); Carbon Dioxide 28 mmol/L (22-29); Chloride 100 mmol/L (96-108); Creatinine Clr Calc Pharmacy 20.2; Estimated Glomerular Filt Rate 23; Glucose Random 126 mg/dL (60-115); Potassium 3.2 mmol/L (3.3-5.1); Sodium 140 mmol/L (135-145); Total Protein 7.6 g/dL (6.5-8.0)
[2024-03-01 22:53] VITALS: BP 153/54; PULSE 76; RESP 18; O2SAT 95
--- NOTE | 2024-03-01 22:56 | PC.NURSE ---
re-vitaled pt, pt SpO2 89% ra in triage, pt 95% on RA in exam room- no apparent distress
--- NOTE | 2024-03-01 23:25 | ED_ITS ---
HPI - General Adult General Chief complaint: General Medical Stated complaint: left toe swelling ? infection Time Seen by Provider: 03/01/24 23:06 Source: patient and family Mode of arrival: ambulatory Limitations: no limitations History of Present Illness ED Provider: Dr. Mckenna Thrasher HPI narrative: Patient comes to the emergency room accompanied by her daughter. For the last 2 months, patient has had an ulcer on her toenail of the great toe of the left foot. Patient states that initially it was red and swollen, patient was given a course of antibiotics, failed, then the antibiotics were changed . Patient finished her 2nd course of antibiotics couple of weeks ago. Patient states that the ulcer is not getting any better. The redness is not as bad as it used to be. However, the pain is getting much worse, and the patient is concerned that the antibiotics are not helping. Patient denies any fever or chills. Related Data Home Medications ?Medication ?Instructions ?Recorded ?Confirmed aspirin 81 mg tablet,delayed 81 mg PO DAILY 12/01/23 12/01/23 release gabapentin 400 mg capsule 400 mg PO Q12H 12/01/23 12/01/23 insulin glargine-yfgn 100 unit/mL unit subcut 02/20/24 (3 mL) subcutaneous pen rosuvastatin 5 mg tablet 5 mg PO DAILY 02/20/24 Previous Rx's ?Medication ?Instructions ?Recorded blood sugar diagnostic (OneTouch #100 ea 03/21/23 Ultra Test strips) blood-glucose meter (OneTouch #1 ea 03/21/23 Ultra2 Meter) lancets 30 gauge (OneTouch #200 ea 03/21/23 UltraSoft 2 Lancet) albuterol sulfate 90 mcg/actuation 1 puff PO QID PRN shortness of 04/07/23 aerosol inhaler breath or wheezing #18 ea amlodipine 10 mg tablet 10 mg PO DAILY #90 tabs 10/26/23 hydrochlorothiazide 25 mg tablet 25 mg PO DAILY #90 tabs 10/31/23 citalopram 10 mg tablet 20 mg (2 x 10 mg) PO DAILY #90 tabs 12/27/23 insulin aspart U-100 100 unit/mL 30 unit (0.3 mL) subcut TID 90 01/27/24 (3 mL) subcutaneous pen (NovoVisualnest days #81 mL FlexPen U-100 Insulin aspart) FreeStyle Song 3 Sensor #6 ea 02/23/24 (blood-glucose sensor) Ozempic 0.25 mg or 0.5 mg (2 mg/3 0.25 mg (0.368 mL) subcut QWEEK #3 02/23/24 mL) subcutaneous pen injector mL (semaglutide) blood-glucose meter,continuous #1 ea 02/23/24 (FreeStyle Song 3 [place]) empagliflozin 10 mg tablet 10 mg PO DAILY #90 tabs 02/23/24 (Jardiance) insulin glargine 100 unit/mL (3 50 unit (0.5 mL) subcut DAILY 90 02/23/24 mL) subcutaneous pen (Basaglar days #45 mL KwikPen U-100 Insulin) Allergies Allergy/AdvReac Type Severity Reaction Status Date / Time lisinopril AdvReac Unknown Verified 03/01/24 19:12 Review of Systems 2 Review of Systems: Constitutional : No Weight loss, No Fever, No Chills, No Night Sweats, No Fatigue, No Malaise ENT/Mouth : No Hearing loss, No Ear Pain, No Nasal Congestion, No Sinus Pain, No Hoarseness, No sore throat, No Rhinorrhea, No Swallowing Difficulty Eyes: No Eye Pain, No Swelling, No Redness, No Foreign Body, No Discharge, No Vision Changes Cardiovascular : No Chest Pain, No SOB, No Dyspnea on Exertion, No Orthopnea, No Edema, No Palpitations Respiratory : No Cough, No Sputum, No Wheezing, No Smoke Exposure, No Dyspnea Gastrointestinal : No Nausea, No Vomiting, No Diarrhea, No Constipation, No abdominal Pain, No Hematochezia, No Melena Genitourinary : no irregular bleeding, No Dysuria, No Urinary Frequency, No Hematuria, No Urinary Incontinence, No Urgency, No Flank Pain, No Urinary Flow Changes, No Hesitancy Musculoskeletal : No joint pain, No Myalgias, No Joint Swelling Skin : Complaining of an unhealed ulcer in the toenail of the great toe on the left foot, worsening pain and swelling Neuro : No Weakness, No Numbness, No Paresthesias, No Loss of Consciousness, No Dizziness, No Headache Psych : No Anxiety/Panic, No Depression, No SI/HI/AH/VH, No Social Issues, Heme/Lymph: No Bruising, No Bleeding,No Lymphadenopathy Endocrine : No Polyuria, No Polydipsia, No Temperature Intolerance [facility] Past Medical History Medical History (Updated 03/01/24 @ 23:32 by Mckenna Thrasher MD) CKD (chronic kidney disease) HTN (hypertension) Diabetes Surgical History History of cataract surgery History of bladder surgery History of total hysterectomy History of tonsillectomy Family History Family History Father Hypertension Diabetes Hx of leg amputation Mother Myocardial infarction Diabetes Hypertension Sister Breast cancer Brother Diabetes Maternal Aunt Bone cancer Social History Social History Household Members: Children and Other Household Members Other:: daughter, grandkids, , 6 total Housing: Apartment Do you presently have visiting nurse or other home services: No Alcohol intake: never Patient Tobacco Use Status: Never used Tobacco Smoked in Last 30 Days: No e-Cigarette/Vaping Use: Never Used Second Hand Smoke Exposure: No Advance Directives: Yes Advance Directives on File: Yes Advance Directives Date on File: 12/05/23 service: No Current occupational status: retired Current occupation: rt hand Cognitive needs: Yes (cane) Hearing needs: No Vision needs: Yes (Glasses) Physical Exam ED Vital Signs: Vital Signs - 24 hr 03/01/24 19:06 03/01/24 22:53 Temperature 98.8 F Pulse Rate 89 76 Respiratory Rate 16 18 Blood Pressure 160/69 H 153/54 H Pulse Oximetry 89 L 95 Oxygen Delivery Method Room Air BMI result Body Mass Index 26.7 Const Other: Appearance: Alert. Oriented X3. No acute distress. Eyes: Pupils equal, round and reactive to light. ENT: Pharynx normal. Neck: Normal inspection. Neck supple. No lymph nodes noted. No crepitus CVS: Normal heart rate and rhythm. Pulses normal. Normal S1 and S2 Respiratory: No respiratory distress. Breath sounds normal. No Wheezing. No rales Abdomen: Soft and nontender. No rigidity. No distention. Skin: Skin warm and dry. Normal skin color. Normal skin turgor. There is a 5 mm x 5 mm ulcer on the toenail of the greater toe. There is also an unstageable 3 mm x 4 mm ulcer at the distal tip of the 2nd toe on the left foot Very tender to palpation, see pictures below Extremities: No lower extremity edema. No Lacerations. No Rash Neuro: Oriented X 3. No motor deficit. No sensory deficit. Moving all extremities. No slurred speech. CN 2 through 12 grossly intact Psych: calm, cooperative, normal affect Medical Decision Making Medical Decision Making [facility] Narrative: -my interpretation of labs: Patient's white blood cell count at baseline, chemistry at baseline, chemistry 2.12 which is chronic. -my interpretation of x-ray of the left foot: There is obvious erosion at the distal tip of the greater toe -patient has no fever no chills, no episodes of hypotension, sepsis is not suspected -patient being giving IV fluids, Zosyn, vancomycin -discussed with the patient and her family that patient needs to be admitted, p.o. antibiotics will not help. Both agree with plan -I discussed the patient with Dr. Zhao from the Medicine team, patient being admitted Differential Diagnosis Differential Diagnoses: The differential diagnosis associated with the presentation includes (Osteomyelitis, unstageable ulcer, contusion, cellulitis) Admission/Observation Consideration of admission/observation: Escalation of care including admission/observation considered Consult Healthcare Provider Management of the patient was discussed with: Hospitalist Lab Data [facility] Lab Attestation statement: I reviewed the patient's lab results. 03/01/24 20:56 03/01/24 20:56 Labs: Lab Results 03/01/24 Range/Units 20:56 WBC 6.4 (4.8-10.8) X10*3/uL RBC 3.78 L (4.20-5.50) X10*6/uL Hgb 11.1 L (12.0-16.0) g/dl Hct 32.1 L (37.0-47.0) % MCV 84.9 (80.0-98.0) fL MCH 29.4 (27.0-33.0) pg MCHC 34.6 (31.0-35.0) g/dl RDW 11.4 (11.0-16.0) % Plt Count 277 (160-400) X10*3/uL MPV 10.8 (9.4-12.3) fL Immature Gran % (Auto) 0.3 (0.0-0.4) % Neut % (Auto) 65.5 (45-73) % Lymph % (Auto) 20.5 (20-40) % Sullivan % (Auto) 9.8 (2-11) % Eos % (Auto) 3.4 (0-4) % Baso % (Auto) 0.5 (0-2) % Lymph # (Auto) 1.3 (1.2-4.9) X10*3/uL Sullivan # (Auto) 0.6 (0.1-1.2) X10*3/uL Eos # (Auto) 0.2 (0.0-0.4) X10*3/uL Baso # (Auto) 0.0 (0.0-0.2) X10*3/uL Abs Immat Gran (auto) 0.02 (0.00-0.03) X10*3/uL Absolute Neuts (auto) 4.2 (2.0-8.3) x10*3/uL Absolute Nucleated RBC 0.000 (0.0-0.012) X10*3/uL Nucleated RBC % (auto) 0.0 (0.0-0.2) /100WBC Sodium 140 (135-145) mmol/L Potassium 3.2 L (3.3-5.1) mmol/L Chloride 100 (96-108) mmol/L Carbon Dioxide 28 (22-29) mmol/L Anion Gap 15 (12-20) BUN 39 H (9-16) mg/dL Creatinine 2.12 H (0.5-1.4) mg/dL Estim Creat Clear Calc 20.2 Estimated GFR 23 Random Glucose 126 H (60-115) mg/dL Calcium 9.8 (8.4-10.2) mg/dL Total Bilirubin 0.3 (0.0-1.0) mg/dL AST 22 (5-31) U/L ALT 14 (0-31) U/L Alkaline Phosphatase 78 (39-117) U/L Total Protein 7.6 (6.5-8.0) g/dL Albumin 4.1 (3.5-5.0) g/dL Independent Interpretation I performed an independent interpretation of an: Plain X-Ray Radiology Impression Discussion of test interpretation with radiology: I have reviewed the radiologist's reading. Radiologist Impression: Erosive changes of the distal aspect of the left first toe are seen concerning for osteomyelitis. There is associated soft tissue swelling in this region. No acute fracture or dislocation. XR/XR toe LT min 2V IMPRESSION: Erosive changes of the distal aspect of the left first toe are seen concerning for osteomyelitis. There is associated soft tissue swelling in this region. Independent Historian Clinical information obtained from an independent historian. History obtained from or confirmed by: Other (Patient's daughter) Critical Care Time Critical Care Time Critical Care Time: Yes Total Critical Care Time: 45 Attestation: I have personally provided critical care time. Time includes review of lab data, radiology results, discussion with consultants, and monitoring for potential decompensation. Intervention performed as documented. Discharge Plan Discharge Clinical Impression: Acute osteomyelitis of toe Patient Disposition: Admitted As Inpatient Prescriptions: No Action (DME) blood-glucose meter [OneTouch Ultra2 Meter] Misc See Rx Instructions .Route Qty: 1 0RF Rx Instructions: test 3 times per day (DME) OneTouch Ultra Test Strip See Rx Instructions .Route Qty: 100 8RF Rx Instructions: test 3 times per day (DME) lancets [OneTouch UltraSoft 2 Lancet] 30 gauge misc See Rx Instructions .Route Qty: 200 5RF Rx Instructions: test 3 times per day albuterol sulfate 90 mcg/actuation HFA aerosol inhaler 1 puff PO QID PRN (Reason: shortness of breath or wheezing) Qty: 18 3RF amlodipine 10 mg tablet 10 mg PO DAILY Qty: 90 1RF hydrochlorothiazide 25 mg tablet 25 mg PO DAILY Qty: 90 1RF citalopram 10 mg tablet 20 mg PO DAILY Qty: 90 1RF insulin aspart U-100 [Novolog FlexPen U-100 Insulin] 100 unit/mL (3 mL) insulin pen 30 unit subcut TID 90 Days Qty: 81 1RF aspirin 81 mg Tablet,Delayed Release (Dr/Ec) 81 mg PO DAILY gabapentin 400 mg capsule 400 mg PO Q12H rosuvastatin 5 mg tablet 5 mg PO DAILY insulin glargine-yfgn 100 unit/mL (3 mL) insulin pen subcut (DME) FreeStyle Song 3 [place] Misc See Rx Instructions .Route Qty: 1 0RF Rx Instructions: As directed (DME) FreeStyle Song 3 Sensor Device See Rx Instructions .Route Qty: 6 3RF Rx Instructions: As directed for 14 days Ozempic 0.25 mg or 0.5 mg (2 mg/3 mL) pen injector 0.25 mg subcut QWEEK Qty: 3 3RF Rx Instructions: for 4 weeks Jardiance 10 mg tablet 10 mg PO DAILY Qty: 90 3RF insulin glargine [Basaglar KwikPen U-100 Insulin] 100 unit/mL (3 mL) insulin pen 50 unit subcut DAILY 90 Days Qty: 45 1RF Print Language: Polish
[2024-03-01 23:39] LABS: C Reactive Protein 0.92 mg/dL (< or = 0.50)
--- NOTE | 2024-03-01 23:54 | P.HPHOSP_ITS ---
History of Present Illness Date of Service: 03/01/24 Chief Complaint: left first toe pain 73F PMH DM, htn, ckd III, mild intermittent asthma, mood disorder presented with left toe pain. patient reports about 2 months of left first toe infection on toenail. ertyhema, purulence. has undergone 2 courses of po antibiotics with moderate improvement each time, but without resolution and followed by recurrence. now appears dry and crusted over, however, with worsening pain so came to ED. in ED no signs of sepsis, xray of toe showed Erosive changes of the distal aspect concerning for osteomyelitis. denies fever, chills, sob. Review of Systems 2 Review of Systems: Yes all other systems are reviewed and are negative [facility] Medical History CKD (chronic kidney disease) HTN (hypertension) Diabetes Family History Father Hypertension Diabetes Hx of leg amputation Mother Myocardial infarction Diabetes Hypertension Sister Breast cancer Brother Diabetes Maternal Aunt Bone cancer Surgical History History of cataract surgery History of bladder surgery History of total hysterectomy History of tonsillectomy Social History Household Members: Children and Other Household Members Other:: daughter, grandkids, , 6 total Housing: Apartment Do you presently have visiting nurse or other home services: No Alcohol intake: never Patient Tobacco Use Status: Never used Tobacco Smoked in Last 30 Days: No e-Cigarette/Vaping Use: Never Used Second Hand Smoke Exposure: No Advance Directives: Yes Advance Directives on File: Yes Advance Directives Date on File: 12/05/23 service: No Current occupational status: retired Current occupation: rt hand Cognitive needs: Yes (cane) Hearing needs: No Vision needs: Yes (Glasses) Meds Allergies Allergy/AdvReac Type Severity Reaction Status Date / Time lisinopril AdvReac Unknown Verified 03/01/24 19:12 Active Medications: Current Medications Acetaminophen (Acetaminophen 325 Mg Tablet) 650 mg PO Q6H PRN PRN Reason: Pain, Mild (Pain Scale 1-3), fever or headache Calcium Carbonate (Calcium Carbonate 750 Mg Tab.Chew) 750 mg PO Q4H PRN PRN Reason: Heartburn Glucose (Glucose Gel 15 Gm Gel..Gram.) 15 gm PO Q15M PRN; Protocol PRN Reason: per Hypoglycemia Standing Ord. Heparin Sodium (Porcine) (Heparin Sodium,Porcine 5,000 Unit/Ml Vial) 5,000 unit SUBCUT Q12H [place] Vancomycin HCl 1,500 mg/ (Sodium Chloride) 500 mls @ 333.333 mls/hr IV ONCE ONE Stop: 03/02/24 00:43 Sodium Chloride (Ns) 1,000 mls @ 999 mls/hr IVCONT .Q1H1M ONE Stop: 03/02/24 00:15 Vancomycin HCl 1,000 mg/ (Sodium Chloride) 270 mls @ 270 mls/hr IV Q24H [facility] Piperacillin Sod/Tazobactam (Sod 3.375 gm/ Sodium Chloride) 50 mls @ 100 mls/hr IV Q6H [facility] Dextrose (D10) 250 mls @ 750 mls/hr IV Q15M PRN; Protocol PRN Reason: per Hypoglycemia Standing Ord. Insulin Glargine (Insulin Glargine,Hum.Rec.Anlog 100 Unit/Ml 10 Ml Vial) 20 unit SUBCUT BEDTIME [facility] Insulin Human Lispro (Insulin Lispro 100 Unit/Ml 3 Ml Vial) 0 unit SUBCUT QIDACHS [facility]; Protocol Insulin Human Lispro (Insulin Lispro 100 Unit/Ml 3 Ml Vial) 5 unit SUBCUT QIDACHS [facility] Magnesium Hydroxide (Milk Of Magnesia 30 Ml Oral.Susp) 30 ml PO DAILY PRN PRN Reason: Constipation Melatonin (Melatonin 3 Mg Tablet) 6 mg PO BEDTIME PRN PRN Reason: Insomnia Pharmacy Consult (Consult Rx Vancomycin Dosing) 1 each MISCELLANE DAILY PRN PRN Reason: Consult order Pharmacy Consult (Consult Rx Vancomycin Dosing) 1 each MISCELLANE DAILY PRN PRN Reason: Consult order Sodium Chloride (0.9 % Sodium Chloride Flush 3 Ml Syringe) [address] [facility] Home Medications ?Medication ?Instructions ?Recorded ?Confirmed ?Last Taken ?Type aspirin 81 mg tablet,delayed 81 mg PO DAILY 12/01/23 12/01/23 Unknown History release gabapentin 400 mg capsule 400 mg PO Q12H 12/01/23 12/01/23 Unknown History insulin glargine-yfgn 100 unit/mL unit subcut 02/20/24 Unknown History (3 mL) subcutaneous pen rosuvastatin 5 mg tablet 5 mg PO DAILY 02/20/24 Unknown History Physical Exam 2 Vital Signs and Narrative: Vital Signs: Last Vital Signs Temp 98.8 F 03/01/24 19:06 Pulse 76 03/01/24 22:53 Resp 18 03/01/24 22:53 BP 153/54 H 03/01/24 22:53 Pulse Ox 95 03/01/24 22:53 O2 Del Method Room Air 03/01/24 19:06 BMI result Body Mass Index 26.7 General: AO X 3, no acute distress Resp: CTA bilateral, no accessory muscles used CVS: S1,S2,RRR GI: soft, non tender, non distended Neuro: motor grossly intact, alert Psych: appropriate affect, appropriate insight Results Labs 03/01/24 20:56 03/01/24 20:56 Labs: Laboratory Results - last 24 hr 03/01/24 20:56 MCV 84.9 MCH 29.4 MCHC 34.6 RDW 11.4 Plt Count 277 MPV 10.8 Immature Gran % (Auto) 0.3 Neut % (Auto) 65.5 Lymph % (Auto) 20.5 Burt % (Auto) 9.8 Eos % (Auto) 3.4 Baso % (Auto) 0.5 Lymph # (Auto) 1.3 Burt # (Auto) 0.6 Eos # (Auto) 0.2 Baso # (Auto) 0.0 Abs Immat Gran (auto) 0.02 Absolute Neuts (auto) 4.2 Absolute Nucleated RBC 0.000 Nucleated RBC % (auto) 0.0 Anion Gap 15 Estim Creat Clear Calc 20.2 Estimated GFR 23 Random Glucose 126 H Calcium 9.8 Total Bilirubin 0.3 AST 22 ALT 14 Alkaline Phosphatase 78 C-Reactive Protein 0.92 H Total Protein 7.6 Albumin 4.1 Imaging Radiologist's Impressions: Impressions Toe X-Ray 03/01/24 19:29 IMPRESSION: Erosive changes of the distal aspect of the left first toe are seen concerning for osteomyelitis. There is associated soft tissue swelling in this region. Assessment and Plan (1) Acute osteomyelitis of toe: Status: Acute Plan 73F PMH DM, htn, ckd III, mild intermittent asthma, mood disorder presented with left toe pain acute om of left 1st toe due to DM (no sepsis) vanc, zosyn arterial doppler id and vascular eval DM basal bolus insulin CKD III stable htn amlodipine, hctz mood disorder lexapro dvt prophylaxis - hep sq full code paitent with bone infection requiring iv abx and further imaging and specialist eval, therefore expected to require atleast 2 midnights inpatient Quality Stroke Does the patient have a stroke diagnosis?: No VTE Prior VTE?: No VTE Risk Level:: Medical - moderate - high VTE Device Contraindication: Treatment Not Indicated VTE Drug Contraindication: N/A - Med Ordered
[2024-03-01 23:59] LABS: Erythrocyte Sedimentation Rate 34 MM/HR (0-20)
[2024-03-02] VITALS (7 sets, daily range): BP systolic 106–166; BP diastolic 51–79; PULSE 79–85; RESP 16–18; TEMP 36.2–36.8; O2SAT 91–98; BMI 26.7
[2024-03-02] MEDS: Potassium Chloride Packet 20 MEQ PACKET 40 MEQ PO (00:02)
[2024-03-02 00:17] LABS: Lactic Acid 1.2 mmol/L (0.5-2.0)
[2024-03-02] MEDS: Piperacillin Sodium/Tazobactam 3.375 GM in 0.9 % Sodium Chloride 50 ML IV (00:17)
[2024-03-02] MEDS: 0.9 % Sodium Chloride 1,000 ML 999 ML IVCONT (00:17)
[2024-03-02] MEDS: 0.9 % Sodium Chloride Flush 3 ML SYRINGE IVFLUSH ×4 (00:49→22:28)
[2024-03-02] MEDS: vancomycin HCL 1,500 MG in 0.9 % Sodium Chloride 500 ML 333.33 MG IV (00:50)
--- NOTE | 2024-03-02 00:50 | PC.NURSE ---
Pt reports all over body itching after zosyn administration, no hives/redness noted. Pt ambulated independently to with cane, reported itching improved. Provider Mikhail made aware, new order of benadryl PRN.
[2024-03-02] MEDS: diphenhydrAMINE HCL 50 MG/ML VIAL 25 MG IVPUSH (01:59)
--- NOTE | 2024-03-02 02:06 | PC.NURSE ---
Pt reports all over head itching, currently receiving vanco, no redness or rash noted. Pt given PRN per SEP.
[2024-03-02 05:51] LABS: Hematocrit 29.9 % (37.0-47.0); Hemoglobin 10.2 g/dl (12.0-16.0); Mean Corpuscular HGB Conc 34.1 g/dl (31.0-35.0); Mean Corpuscular Hemoglobin 29.1 pg (27.0-33.0); Mean Corpuscular Volume 85.2 fL (80.0-98.0); Mean Platelet Volume 10.9 fL (9.4-12.3); Platelet Count 233 X10*3/uL (160-400); Red Blood Count 3.51 X10*6/uL (4.20-5.50); Red Cell Distribution Width 11.5 % (11.0-16.0)
[2024-03-02 06:09] LABS: Anion Gap 13 (12-20); Blood Urea Nitrogen 33 mg/dL (9-16); Carbon Dioxide 26 mmol/L (22-29); Chloride 106 mmol/L (96-108); Estimated Glomerular Filt Rate 27; Glucose Fasting 178 mg/dL (60-99); Potassium 3.2 mmol/L (3.3-5.1); Sodium 142 mmol/L (135-145)
[2024-03-02] MEDS: Piperacillin Sodium/Tazobactam 2.25 GM in 0.9 % Sodium Chloride 50 ML IV ×3 (06:34→18:33)
--- NOTE | 2024-03-02 06:39 | PHA.PROG ---
Admission Date/Time: March 01, 2024 23:50 Indication: Bone and joint Weight in k.1 kg Adjusted body weight in Kg: [place] body weight in Kg: Obesity Dosing Indication % IBW: Serum Creatinine - Last 168 Hours 03/01/24 03/02/24 20:56 05:34 Creatinine 2.12 H 1.86 H Estimated CrCl and GFR - Last 168 Hours 03/01/24 03/02/24 20:56 05:34 Estim Creat Clear Calc 20.2 23.0 Estimated GFR 23 27 Vancomycin Loading Dose: 1500mg x 1 Current Vancomycin Dosing Regimen: 750mg Q24H Vancomycin Monitoring using AUC goal of 400 - 600 range with trough as surrogate marker: 529mg/L Date and Time for next Vancomycin Level to be drawn: random 03/03 @2100 Pharmacist Comments on Vancomycin Plan: Predicted trough of 17.9mg/L; renal function unstable so getting a level after 2 doses Vancomycin dosing will take advantage of [employer]oom[employer] as a clinical decision support tool that uses Bayesian modeling to calculate individual patient's pharmacokinetic parameters and forecast the patient's drug concentration time course with the target goal AUC 24 range of 400 - 600 mg/L/hr.
[2024-03-02 07:54] LABS: Glucose, Whole Blood 211 mg/dL (60-115)
--- NOTE | 2024-03-02 07:56 | PC.NURSE ---
Per admitting provider, give sliding scale and set 5 unit insulin, RN verified this is correct order.
[2024-03-02] MEDS: Insulin Lispro 100 UNIT/ML 3 ML VIAL SUBCUT ×6 (08:26→17:06)
[2024-03-02] MEDS: amLODIPine Besylate 10 MG TABLET PO (08:27)
[2024-03-02] MEDS: Escitalopram Oxalate 10 MG TABLET PO (08:27)
[2024-03-02] MEDS: hydroCHLOROthiazide 25 MG TABLET PO (08:28)
[2024-03-02] MEDS: Gabapentin 400 MG CAPSULE PO ×2 (08:28→22:30)
[2024-03-02] MEDS: Potassium Chloride ER 20 MEQ TAB.ER.PRT 40 MEQ PO (08:29)
[2024-03-02] MEDS: Heparin Sodium,Porcine 5,000 UNIT/ML VIAL 5000 UNIT SUBCUT ×2 (08:30→22:29)
[2024-03-02] MEDS: Aspirin Enteric Coated 81 MG TABLET.DR PO (08:31)
--- NOTE | 2024-03-02 09:01 | PC.NURSE ---
Pt alert and oriented, breathing even and unlabored. Reports some minor pain in left big toe. Took morning meds with no issues.
--- NOTE | 2024-03-02 09:14 | P.PNIM_ITS ---
Subjective Subjective Date of Service: 03/02/24 Interval History: f/u on OM no fever, pain is controlled Physical Exam 2 Vital Signs: Vital Signs: Last Vital Signs Temp 98.3 F 03/02/24 05:57 Pulse 79 03/02/24 05:57 Resp 18 03/02/24 05:57 BP 143/60 H 03/02/24 08:28 Pulse Ox 98 03/02/24 05:57 O2 Del Method Room Air 03/02/24 05:57 BMI result Body Mass Index 26.7 Const: Other: General: AO X 3, no acute distress Resp: CTA bilateral CVS: S1,S2,RRR GI: +BS, NT, no distention Neuro: motor grossly intact Psych: appropriate affect Skin: Skin warm and dry. Normal skin color. Normal skin turgor. There is a 5 mm x 5 mm ulcer on the toenail of the greater toe. There is also an unstageable 3 mm x 4 mm ulcer at the distal tip of the 2nd toe on the left foot Very tender to palpation, see pictures below Extremities: No lower extremity edema. No Lacerations. No Rash Neuro: Oriented X 3. No motor deficit. No sensory deficit. Moving all extremities. No slurred speech. CN 2 through 12 grossly intact Psych: calm, cooperative, normal affect Objective Data Active Medications Acetaminophen (Acetaminophen 325 Mg Tablet) 650 mg PO Q6H PRN PRN Reason: Pain, Mild (Pain Scale 1-3), fever or headache Albuterol Sulfate (Albuterol Sulfate 90 Mcg 8 Gm Inhaler) 2 puff INHALE RQ4H PRN PRN Reason: sob Amlodipine Besylate (Amlodipine Besylate 10 Mg Tablet) 10 mg PO DAILY [facility]; Protocol Last Admin: 03/02/24 08:27 Dose: 10 mg Documented By: VIVI Aspirin (Aspirin Enteric Coated 81 Mg Tablet.Dr) 81 mg PO DAILY [facility] Last Admin: 03/02/24 08:31 Dose: 81 mg Documented By: VIVI Calcium Carbonate (Calcium Carbonate 750 Mg Tab.Chew) 750 mg PO Q4H PRN PRN Reason: Heartburn Diphenhydramine HCl (Diphenhydramine Hcl 50 Mg/Ml Vial) 25 mg IVPUSH Q6H PRN PRN Reason: itchy Last Admin: 03/02/24 01:59 Dose: 25 mg Documented By: CHARLI Escitalopram Oxalate (Escitalopram Oxalate 10 Mg Tablet) 10 mg PO DAILY [facility] Last Admin: 03/02/24 08:27 Dose: 10 mg Documented By: VIVI Gabapentin (Gabapentin 400 Mg Capsule) 400 mg PO BID [facility] Last Admin: 03/02/24 08:28 Dose: 400 mg Documented By: VIVI Glucose (Glucose Gel 15 Gm Gel..Gram.) 15 gm PO Q15M PRN; Protocol PRN Reason: per Hypoglycemia Standing Ord. Heparin Sodium (Porcine) (Heparin Sodium,Porcine 5,000 Unit/Ml Vial) 5,000 unit SUBCUT Q12H [facility] Last Admin: 03/02/24 08:30 Dose: 5,000 unit Documented By: VIVI Hydrochlorothiazide (Hydrochlorothiazide 25 Mg Tablet) 25 mg PO DAILY [facility]; Protocol Last Admin: 03/02/24 08:28 Dose: 25 mg Documented By: VIVI Dextrose (D10) 250 mls @ 750 mls/hr IV Q15M PRN; Protocol PRN Reason: per Hypoglycemia Standing Ord. Piperacillin Sod/Tazobactam (Sod 2.25 gm/ Sodium Chloride) 50 mls @ 100 mls/hr IV Q6H [facility] Last Infusion: 03/02/24 07:43 Dose: Infused Documented By: VIVI Vancomycin HCl 750 mg/ Sodium (Chloride) 265 mls @ 265 mls/hr IV Q24H [facility] Insulin Glargine (Insulin Glargine,Hum.Rec.Anlog 100 Unit/Ml 10 Ml Vial) 20 unit SUBCUT BEDTIME [facility] Insulin Human Lispro (Insulin Lispro 100 Unit/Ml 3 Ml Vial) 0 unit SUBCUT QIDACHS [facility]; Protocol Last Admin: 03/02/24 08:26 Dose: 4 unit Documented By: VIVI Insulin Human Lispro (Insulin Lispro 100 Unit/Ml 3 Ml Vial) 5 unit SUBCUT QIDACHS [facility] Last Admin: 03/02/24 08:26 Dose: 5 unit Documented By: VIVI Magnesium Hydroxide (Milk Of Magnesia 30 Ml Oral.Susp) 30 ml PO DAILY PRN PRN Reason: Constipation Melatonin (Melatonin 3 Mg Tablet) 6 mg PO BEDTIME PRN PRN Reason: Insomnia Pharmacy Consult (Consult Rx Vancomycin Dosing) 1 each MISCELLANE DAILY PRN PRN Reason: Consult order Sodium Chloride (0.9 % Sodium Chloride Flush 3 Ml Sy[facility]) [facility] Last Admin: 03/02/24 08:26 Dose: 3 ml Documented By: VIVI Labs 03/02/24 05:34 03/02/24 05:34 Labs: Laboratory Results - last 24 hr 03/01/24 03/01/24 03/02/24 20:56 23:50 05:34 MCV 84.9 85.2 MCH 29.4 29.1 MCHC 34.6 34.1 RDW 11.4 11.5 Plt Count 277 233 MPV 10.8 10.9 Immature Gran % (Auto) 0.3 Neut % (Auto) 65.5 Lymph % (Auto) 20.5 Mcleod % (Auto) 9.8 Eos % (Auto) 3.4 Baso % (Auto) 0.5 Lymph # (Auto) 1.3 Mcleod # (Auto) 0.6 Eos # (Auto) 0.2 Baso # (Auto) 0.0 Abs Immat Gran (auto) 0.02 Absolute Neuts (auto) 4.2 Absolute Nucleated RBC 0.000 0.000 Nucleated RBC % (auto) 0.0 0.0 ESR 34 H Anion Gap 15 13 Estim Creat Clear Calc 20.2 23.0 Estimated GFR 23 27 POC Glucose Random Glucose 126 H Fasting Glucose 178 H Lactic Acid 1.2 Calcium 9.8 9.0 D Total Bilirubin 0.3 AST 22 ALT 14 Alkaline Phosphatase 78 C-Reactive Protein 0.92 H Total Protein 7.6 Albumin 4.1 03/02/24 07:38 MCV MCH MCHC RDW Plt Count MPV Immature Gran % (Auto) Neut % (Auto) Lymph % (Auto) Mcleod % (Auto) Eos % (Auto) Baso % (Auto) Lymph # (Auto) Mcleod # (Auto) Eos # (Auto) Baso # (Auto) Abs Immat Gran (auto) Absolute Neuts (auto) Absolute Nucleated RBC Nucleated RBC % (auto) ESR Anion Gap Estim Creat Clear Calc Estimated GFR POC Glucose 211 H Random Glucose Fasting Glucose Lactic Acid Calcium Total Bilirubin AST ALT Alkaline Phosphatase C-Reactive Protein Total Protein Albumin Assessment and Plan (1) Acute osteomyelitis of toe: Status: Acute Plan 73F PMH DM, htn, ckd III, mild intermittent asthma, mood disorder presented with left toe pain and osteomylitis (OM) acute om of left 1st toe due to DM (no sepsis) vanc, zosyn arterial doppler id and vascular eval blood culture spending DM Lantus, pre-meal + SSI Hypokalemia--oral replacement CKD III stable htn amlodipine, hctz mood disorder lexapro dvt prophylaxis - hep sq full code paitent with bone infection requiring iv abx and further imaging and specialist eval, therefore expected to require atleast 2 midnights inpatient Quality Stroke Does the patient have a stroke diagnosis?: No VTE Prior VTE?: No VTE Risk Level:: Medical - moderate - high VTE Device Contraindication: Treatment Not Indicated VTE Drug Contraindication: N/A - Med Ordered
--- NOTE | 2024-03-02 09:28 | PC.NURSE ---
Pt taken to ultrasound
--- NOTE | 2024-03-02 10:15 | P.CONGS_ITS ---
History of Present Illness Consult details Consult date: 03/02/24 Reason for consult: wound care Narrative: 73-year-old female with a longstanding history of diabetes presented to the emergency room with nonhealing ulcer of the left 2nd toe. In addition she had some discomfort on the left great toe. She was subsequently worked up in the emergency room. And on x-ray was concerning for osteomyelitis. She was started on vanco Zosyn. She now presents to us for vascular evaluation. Review of Systems 2 Review of Systems: Yes all other systems are reviewed and are negative Constitutional: Constitutional: Reports no additional constitutional complaints ENT: Reports Normal hearing present Cardiovascular: Cardiovascular: Denies chest pain, Denies chest pain at rest, Denies chest pain with activity and Denies pedal edema Respiratory: Respiratory: Denies cough Gastrointestinal: Gastrointestinal: Denies abdominal pain Musculoskeletal: Musculoskeletal: Denies abnormal gait, Denies muscle cramps and Denies radiating pain into limb Integumentary/Breasts: Skin/Breast: Denies skin ulcer and Denies wounds Neurologic: Reports Normal hearing present and Denies abnormal gait Psychiatric: Psychiatric: Reports no additional psychiatric complaints PMFSH Past Medical History Medical History CKD (chronic kidney disease) HTN (hypertension) Diabetes Family History Family History Father Hypertension Diabetes Hx of leg amputation Mother Myocardial infarction Diabetes Hypertension Sister Breast cancer Brother Diabetes Maternal Aunt Bone cancer Surgical History Surgical History History of cataract surgery History of bladder surgery History of total hysterectomy History of tonsillectomy Social History Social History Household Members: Children and Other Household Members Other:: daughter, grandkids, , 6 total Housing: Apartment Do you presently have visiting nurse or other home services: No Alcohol intake: never Patient Tobacco Use Status: Never used Tobacco Smoked in Last 30 Days: No e-Cigarette/Vaping Use: Never Used Second Hand Smoke Exposure: No Advance Directives: Yes Advance Directives on File: Yes Advance Directives Date on File: 12/05/23 Nutrition Risks: No Nutritional Risk service: No Current occupational status: retired Current occupation: rt hand Cognitive needs: Yes (cane) Hearing needs: No Vision needs: Yes (Glasses) Meds Allergies Allergy/AdvReac Type Severity Reaction Status Date / Time lisinopril AdvReac Unknown Verified 03/01/24 19:12 Active Medications: Current Medications Acetaminophen (Acetaminophen 325 Mg Tablet) 650 mg PO Q6H PRN PRN Reason: Pain, Mild (Pain Scale 1-3), fever or headache Albuterol Sulfate (Albuterol Sulfate 90 Mcg 8 Gm Inhaler) 2 puff INHALE RQ4H PRN PRN Reason: sob Amlodipine Besylate (Amlodipine Besylate 10 Mg Tablet) 10 mg PO DAILY [facility]; Protocol Last Admin: 03/02/24 08:27 Dose: 10 mg Aspirin (Aspirin Enteric Coated 81 Mg Tablet.Dr) 81 mg PO DAILY [facility] Last Admin: 03/02/24 08:31 Dose: 81 mg Calcium Carbonate (Calcium Carbonate 750 Mg Tab.Chew) 750 mg PO Q4H PRN PRN Reason: Heartburn Diphenhydramine HCl (Diphenhydramine Hcl 50 Mg/Ml Vial) 25 mg IVPUSH Q6H PRN PRN Reason: itchy Last Admin: 03/02/24 01:59 Dose: 25 mg Escitalopram Oxalate (Escitalopram Oxalate 10 Mg Tablet) 10 mg PO DAILY [facility] Last Admin: 03/02/24 08:27 Dose: 10 mg Gabapentin (Gabapentin 400 Mg Capsule) 400 mg PO BID [facility] Last Admin: 03/02/24 08:28 Dose: 400 mg Glucose (Glucose Gel 15 Gm Gel..Gram.) 15 gm PO Q15M PRN; Protocol PRN Reason: per Hypoglycemia Standing Ord. Heparin Sodium (Porcine) (Heparin Sodium,Porcine 5,000 Unit/Ml Vial) 5,000 unit SUBCUT Q12H [facility] Last Admin: 03/02/24 08:30 Dose: 5,000 unit Hydrochlorothiazide (Hydrochlorothiazide 25 Mg Tablet) 25 mg PO DAILY [facility]; Protocol Last Admin: 03/02/24 08:28 Dose: 25 mg Dextrose (D10) 250 mls @ 750 mls/hr IV Q15M PRN; Protocol PRN Reason: per Hypoglycemia Standing Ord. Piperacillin Sod/Tazobactam (Sod 2.25 gm/ Sodium Chloride) 50 mls @ 100 mls/hr IV Q6H [facility] Last Infusion: 03/02/24 07:43 Dose: Infused Vancomycin HCl 750 mg/ Sodium (Chloride) 265 mls @ 265 mls/hr IV Q24H [facility] Insulin Glargine (Insulin Glargine,Hum.Rec.Anlog 100 Unit/Ml 10 Ml Vial) 20 unit SUBCUT BEDTIME [facility] Insulin Human Lispro (Insulin Lispro 100 Unit/Ml 3 Ml Vial) 0 unit SUBCUT QIDACHS [facility]; Protocol Last Admin: 03/02/24 08:26 Dose: 4 unit Insulin Human Lispro (Insulin Lispro 100 Unit/Ml 3 Ml Vial) 5 unit SUBCUT QIDACHS [facility] Last Admin: 03/02/24 08:26 Dose: 5 unit Magnesium Hydroxide (Milk Of Magnesia 30 Ml Oral.Susp) 30 ml PO DAILY PRN PRN Reason: Constipation Melatonin (Melatonin 3 Mg Tablet) 6 mg PO BEDTIME PRN PRN Reason: Insomnia Pharmacy Consult (Consult Rx Vancomycin Dosing) 1 each MISCELLANE DAILY PRN PRN Reason: Consult order Sodium Chloride (0.9 % Sodium Chloride Flush 3 Ml Syringe) 3 ml IVFLUSH [facility] Last Admin: 03/02/24 08:26 Dose: 3 ml Home Medications ?Medication ?Instructions ?Recorded ?Confirmed ?Last Taken ?Type aspirin 81 mg tablet,delayed 81 mg PO DAILY 12/01/23 12/01/23 Unknown History release gabapentin 400 mg capsule 400 mg PO Q12H 12/01/23 12/01/23 Unknown History insulin glargine-yfgn 100 unit/mL unit subcut 02/20/24 Unknown History (3 mL) subcutaneous pen rosuvastatin 5 mg tablet 5 mg PO DAILY 02/20/24 Unknown History Physical Exam 2 Vital Signs: Vital Signs: Last Vital Signs Temp 98.3 F 03/02/24 05:57 Pulse 79 03/02/24 05:57 Resp 18 03/02/24 05:57 BP 143/60 H 03/02/24 08:28 Pulse Ox 98 03/02/24 05:57 O2 Del Method Room Air 03/02/24 05:57 BMI result Body Mass Index 26.7 Const: General: cooperative, healthy appearing and comfortable O rientation/consciousness: oriented to person, oriented to place and oriented to time HEENT: Head: Yes normal to inspection Neck: Neck: Yes normal visual inspection Carotids: no bruits Chest: Chest palpation & inspection: normal inspection of the chest Resp: Effort & Inspection: normal respiratory effort and able to speak in complete sentences Auscultation: clear to auscultation bilaterally, no crackles, no rales, no rhonchi and no wheezes Cardio: Other: Bilateral DP signals Rate: regular rate Rhythm: regular rhythm Heart sounds: S1 normal heart sound present and S2 normal heart sound present Bruits: no carotid bruits GI: Inspection: Yes normal to inspection Skin: Other: Left 2nd toe tip dry eschar Wounds: no wounds Hair: normal Neuro: General: oriented to person, oriented to place and oriented to time Cranial nerves: Yes CN's II-XII intact bilaterally and Yes Normal hearing present Cognition (Neuro): normal cognition Motor exam (neuro): 5/5 motor strength present throughout Extrem: Other: venous exam: No significant superficial varicosities or spider telangiectasias, minimal edema General: No clubbing, No cyanosis and No edema Psych: Appearance: grossly normal Mental Status: mental status grossly normal Speech and movement: Normal speech and movement present Results Labs 03/02/24 05:34 03/02/24 05:34 Labs: Abnormal lab results 03/01/24 03/02/24 03/02/24 Range/Units 20:56 05:34 07:38 RBC 3.78 L 3.51 L (4.20-5.50) X10*6/uL Hgb 11.1 L 10.2 L (12.0-16.0) g/dl Hct 32.1 L 29.9 L (37.0-47.0) % ESR 34 H (0-20) MM/HR Potassium 3.2 L 3.2 L (3.3-5.1) mmol/L BUN 39 H 33 H (9-16) mg/dL Creatinine 2.12 H 1.86 H (0.5-1.4) mg/dL POC Glucose 211 H (60-115) mg/dL Random Glucose 126 H (60-115) mg/dL Fasting Glucose 178 H (60-99) mg/dL C-Reactive Protein 0.92 H (< or = 0.50) mg/dL Short CBC 03/01/24 03/02/24 Range/Units 20:56 05:34 WBC 6.4 6.0 (4.8-10.8) X10*3/uL Hgb 11.1 L 10.2 L (12.0-16.0) g/dl Hct 32.1 L 29.9 L (37.0-47.0) % Plt Count 277 233 (160-400) X10*3/uL BMP 03/01/24 03/02/24 20:56 05:34 Sodium 140 142 Potassium 3.2 L 3.2 L Chloride 100 106 Carbon Dioxide 28 26 BUN 39 H 33 H Creatinine 2.12 H 1.86 H Calcium 9.8 9.0 D Liver Function 03/01/24 Range/Units 20:56 Total Bilirubin 0.3 (0.0-1.0) mg/dL AST 22 (5-31) U/L ALT 14 (0-31) U/L Alkaline Phosphatase 78 (39-117) U/L Albumin 4.1 (3.5-5.0) g/dL All other labs normal. Assessment and Plan (1) PAD (peripheral artery disease): Status: Acute Plan In short patient has an element of peripheral vascular disease. She does have longstanding history of diabetes. I did see her while she was down in ultrasound and initial ultrasound did have the impression significant calcification throughout the vessel especially concerning for SFA disease. Would treat the osteomyelitis with antibiotics per Infectious Disease. As far as her peripheral vascular disease at the current time it does appear to be stable. She can follow up with us as an outpatient for further endovascular intervention. Thank you for allowing us to assist in her care. If there are any questions or concerns please do not hesitate to contact us. Procedures Date of Service Date of Service: 03/02/24
[2024-03-02 11:40] LABS: Glucose, Whole Blood 241 mg/dL (60-115)
[2024-03-02 16:49] LABS: Glucose, Whole Blood 157 mg/dL (60-115)
--- NOTE | 2024-03-02 17:32 | PHA.MEDREC ---
Pharmacy Consult ? Medication Reconciliation Pharmacy has completed the medication reconciliation. Spoke to patient (via synchronizer) and confirmed medication list. Patient said she doesn't take aspirin 81 mg, she takes citalopram 10 mg daily (not 20 mg). She uses novolog 30 units tidac, basaglar 50 units daily and she injects ozempic weekly on tuesday. She last took her medications this morning (03/02/2024),
[2024-03-02 20:15] LABS: Glucose, Whole Blood 90 mg/dL (60-115)
[2024-03-02] MEDS: vancomycin HCL 750 MG in 0.9 % Sodium Chloride 250 ML 265 MG IV (22:28)
[2024-03-02] MEDS: Insulin Glargine,Hum.rec.anlog 100 UNIT/ML 10 ML VIAL 20 UNIT SUBCUT (22:28)
[2024-03-03] MEDS: Piperacillin Sodium/Tazobactam 2.25 GM in 0.9 % Sodium Chloride 50 ML IV ×4 (00:05→18:36)
[2024-03-03 04:00] VITALS: BP 130/59; PULSE 79; RESP 16; TEMP 36.4; O2SAT 93
[2024-03-03] MEDS: Acetaminophen 325 MG TABLET 650 MG PO ×2 (04:08→16:28)
[2024-03-03 07:23] LABS: Creatinine Clr Calc Pharmacy 22.5; Estimated Glomerular Filt Rate 26
[2024-03-03 07:33] VITALS: BP 147/67; PULSE 74; RESP 16; TEMP 36.6; O2SAT 94
[2024-03-03 07:40] LABS: Glucose, Whole Blood 127 mg/dL (60-115)
[2024-03-03 08:18] LABS: Anion Gap 14 (12-20)
[2024-03-03 08:20] LABS: Blood Urea Nitrogen 31 mg/dL (9-16); Calcium 9.3 mg/dL (8.4-10.2); Carbon Dioxide 26 mmol/L (22-29); Chloride 104 mmol/L (96-108); Glucose Random 116 mg/dL (60-115); Potassium 3.3 mmol/L (3.3-5.1); Sodium 141 mmol/L (135-145)
--- NOTE | 2024-03-03 08:27 | P.PNIM_ITS ---
Subjective Subjective Date of Service: 03/03/24 Interval History: f/u on OM no fever, pain is controlled Physical Exam 2 Vital Signs: Vital Signs: Last Vital Signs Temp 97.9 F 03/03/24 07:33 Pulse 74 03/03/24 07:33 Resp 16 03/03/24 07:33 BP 147/67 H 03/03/24 07:33 Pulse Ox 94 03/03/24 07:33 O2 Del Method Room Air 03/03/24 07:33 BMI result Body Mass Index 26.7 Const: Other: General: AO X 3, no acute distress Resp: CTA bilateral CVS: S1,S2,RRR GI: +BS, NT, no distention Neuro: motor grossly intact Psych: appropriate affect Skin: Skin warm and dry. Normal skin color. Normal skin turgor. There is a 5 mm x 5 mm ulcer on the toenail of the greater toe. There is also an unstageable 3 mm x 4 mm ulcer at the distal tip of the 2nd toe on the left foot Very tender to palpation, see pictures below Extremities: No lower extremity edema. No Lacerations. No Rash Neuro: Oriented X 3. No motor deficit. No sensory deficit. Moving all extremities. No slurred speech. CN 2 through 12 grossly intact Psych: calm, cooperative, normal affect Objective Data Active Medications Acetaminophen (Acetaminophen 325 Mg Tablet) 650 mg PO Q6H PRN PRN Reason: Pain, Mild (Pain Scale 1-3), fever or headache Last Admin: 03/03/24 04:08 Dose: 650 mg Documented By: ALLEN Albuterol Sulfate (Albuterol Sulfate 90 Mcg 8 Gm Inhaler) 2 puff INHALE RQ4H PRN PRN Reason: sob Albuterol Sulfate (Albuterol Sulfate 90 Mcg 8 Gm Inhaler) 2 puff INHALE QID PRN PRN Reason: shortness of breath or wheezing Amlodipine Besylate (Amlodipine Besylate 10 Mg Tablet) 10 mg PO DAILY [facility]; Protocol Last Admin: 03/02/24 08:27 Dose: 10 mg Documented By: VIVI Atorvastatin Calcium (Atorvastatin Calcium 20 Mg Tablet) 20 mg PO DAILY [facility] Calcium Carbonate (Calcium Carbonate 750 Mg Tab.Chew) 750 mg PO Q4H PRN PRN Reason: Heartburn Diphenhydramine HCl (Diphenhydramine Hcl 50 Mg/Ml Vial) 25 mg IVPUSH Q6H PRN PRN Reason: itchy Last Admin: 03/02/24 01:59 Dose: 25 mg Documented By: CHARLI Empagliflozin (Empagliflozin 10 Mg Tablet) 10 mg PO DAILY [facility] Escitalopram Oxalate (Escitalopram Oxalate 5 Mg Tablet) 5 mg PO DAILY [facility] Gabapentin (Gabapentin 400 Mg Capsule) 400 mg PO BID [facility] Last Admin: 03/02/24 22:30 Dose: 400 mg Documented By: ALLEN Gabapentin (Gabapentin 400 Mg Capsule) 400 mg PO Q12H [facility] Glucose (Glucose Gel 15 Gm Gel..Gram.) 15 gm PO Q15M PRN; Protocol PRN Reason: per Hypoglycemia Standing Ord. Heparin Sodium (Porcine) (Heparin Sodium,Porcine 5,000 Unit/Ml Vial) 5,000 unit SUBCUT Q12H [facility] Last Admin: 03/02/24 22:29 Dose: 5,000 unit Documented By: ALLEN Hydrochlorothiazide (Hydrochlorothiazide 25 Mg Tablet) 25 mg PO DAILY [facility]; Protocol Last Admin: 03/02/24 08:28 Dose: 25 mg Documented By: VIVI Dextrose (D10) 250 mls @ 750 mls/hr IV Q15M PRN; Protocol PRN Reason: per Hypoglycemia Standing Ord. Piperacillin Sod/Tazobactam (Sod 2.25 gm/ Sodium Chloride) 50 mls @ 100 mls/hr IV Q6H [facility] Last Infusion: 03/03/24 06:51 Dose: Infused Documented By: ALLEN Insulin Glargine (Insulin Glargine,Hum.Rec.Anlog 100 Unit/Ml 10 Ml Vial) 20 unit SUBCUT BEDTIME [facility] Last Admin: 03/02/24 22:28 Dose: 20 unit Documented By: ALLEN Insulin Human Lispro (Insulin Lispro 100 Unit/Ml 3 Ml Vial) 0 unit SUBCUT QIDACHS [facility]; Protocol Last Admin: 03/03/24 08:08 Dose: Not Given Documented By: ALLEN Non-Admin Reason: held for BS 127 Insulin Human Lispro (Insulin Lispro 100 Unit/Ml 3 Ml Vial) 5 unit SUBCUT QIDACHS [facility] Last Admin: 03/03/24 08:08 Dose: Not Given Documented By: ALLEN Non-Admin Reason: held for BS 127 Magnesium Hydroxide (Milk Of Magnesia 30 Ml Oral.Susp) 30 ml PO DAILY PRN PRN Reason: Constipation Melatonin (Melatonin 3 Mg Tablet) 6 mg PO BEDTIME PRN PRN Reason: Insomnia Sodium Chloride (0.9 % Sodium Chloride Flush 3 Ml Syringe) 3 ml IVFLUSH QSHIFT [facility] Last Admin: 03/02/24 22:28 Dose: 3 ml Documented By: ALLEN Labs 03/02/24 05:34 03/03/24 05:44 Labs: Laboratory Results - last 24 hr 03/02/24 03/02/24 03/02/24 11:20 16:30 20:12 Anion Gap Estim Creat Clear Calc Estimated GFR POC Glucose 241 H 157 H 90 Random Glucose Calcium 03/03/24 03/03/24 05:44 07:37 Anion Gap 14 Estim Creat Clear Calc 22.5 Estimated GFR 26 POC Glucose 127 H Random Glucose 116 H Calcium 9.3 Microbiology Microbiology Results: Microbiology 03/01/24 23:42 Blood Culture - Preliminary Blood - Venous No growth after 24 hours. 03/01/24 23:50 Blood Culture - Preliminary Blood - Venous No growth after 24 hours. Assessment and Plan (1) Acute osteomyelitis of toe: Status: Acute Plan 73F PMH DM, htn, ckd III, mild intermittent asthma, mood disorder presented with left toe pain and osteomylitis (OM) acute om of left 1st toe due to DM (no sepsis) zenon valverde. DC vanco id and vascular eval blood culture spending DM Lantus, pre-meal + SSI Hypokalemia--oral replacement CKD III stable Peripheral arterial disease 1. Moderate stenoses throughout the right SFA. 2. Mild stenosis of the right popliteal artery. 3. Mild stenoses of the left common femoral artery and proximal SFA. 4. Moderate stenosis from the mid SFA through the popliteal artery. 5. Occluded posterior tibial arteries bilaterally. Outpatient f/u with Dr. Rossi htn amlodipine, hctz mood disorder lexapro dvt prophylaxis - hep sq full code paitent with bone infection requiring iv abx and further imaging and specialist eval, therefore expected to require atleast 2 midnights inpatient Quality Stroke Does the patient have a stroke diagnosis?: No VTE Prior VTE?: No VTE Risk Level:: Medical - moderate - high VTE Device Contraindication: Treatment Not Indicated VTE Drug Contraindication: N/A - Med Ordered
[2024-03-03] MEDS: Escitalopram Oxalate 5 MG TABLET PO (08:31)
[2024-03-03] MEDS: hydroCHLOROthiazide 25 MG TABLET PO (08:31)
[2024-03-03] MEDS: Atorvastatin Calcium 20 MG TABLET PO (08:31)
[2024-03-03] MEDS: Empagliflozin 10 MG TABLET PO (08:31)
[2024-03-03] MEDS: Heparin Sodium,Porcine 5,000 UNIT/ML VIAL 5000 UNIT SUBCUT ×2 (08:31→21:34)
[2024-03-03] MEDS: Gabapentin 400 MG CAPSULE PO ×2 (08:31→21:32)
[2024-03-03] MEDS: amLODIPine Besylate 10 MG TABLET PO (08:31)
[2024-03-03] MEDS: 0.9 % Sodium Chloride Flush 3 ML SYRINGE IVFLUSH ×3 (09:26→21:34)
[2024-03-03 11:34] LABS: Glucose, Whole Blood 210 mg/dL (60-115)
[2024-03-03] MEDS: Insulin Lispro 100 UNIT/ML 3 ML VIAL SUBCUT ×3 (12:42→21:33)
[2024-03-03 15:16] VITALS: BP 166/70; PULSE 75; RESP 16; TEMP 36.2; O2SAT 95
[2024-03-03] MEDS: Doxycycline Hyclate 100 MG in 0.9 % Sodium Chloride 250 ML 166.67 MG IV (15:27)
[2024-03-03 16:31] LABS: Glucose, Whole Blood 125 mg/dL (60-115)
[2024-03-03 19:11] VITALS: BP 132/67; PULSE 74; RESP 16; TEMP 36.1; O2SAT 93
[2024-03-03 20:14] LABS: Glucose, Whole Blood 208 mg/dL (60-115)
[2024-03-03] MEDS: Insulin Glargine,Hum.rec.anlog 100 UNIT/ML 10 ML VIAL 20 UNIT SUBCUT (21:33)
[2024-03-04] MEDS: Piperacillin Sodium/Tazobactam 2.25 GM in 0.9 % Sodium Chloride 50 ML IV ×4 (00:03→18:13)
--- NOTE | 2024-03-04 00:32 | W.PM.IDCN ---
History of Present Illness Data of Consult Service Date: 03/02/24 Requesting physician: Vinicio Martinez Primary Care Provider: Miguel Johnson MD HPI Reason for consult: left great OM She presents with redness and discomfort left great toe for last three months. She has no fever or chills. She has ulcer present. She was given Keflex 01/18by PCP and no improvement. She has DM. Review of Systems Review of Systems: Yes all other systems are reviewed and are negative [facility] Past Medical History Medical History CKD (chronic kidney disease) HTN (hypertension) Diabetes Family History Family History Father Hypertension Diabetes Hx of leg amputation Mother Myocardial infarction Diabetes Hypertension Sister Breast cancer Brother Diabetes Maternal Aunt Bone cancer Family history: reviewed and not pertinent Surgical History Surgical History History of cataract surgery History of bladder surgery History of total hysterectomy History of tonsillectomy Social History Social History Household Members: Children Household Members Other:: daughter, grandkids, , 6 total Housing: Apartment Housing Other:: first floor. 4 steps to get in Do you presently have visiting nurse or other home services: No Alcohol intake: never Patient Tobacco Use Status: Never used Tobacco e-Cigarette/Vaping Use: Never Used Second Hand Smoke Exposure: No Advance Directives Date on File: 12/05/23 service: No Current occupational status: retired Current occupation: rt hand Cognitive needs: Yes (cane) Hearing needs: No Vision needs: Yes (Glasses) Meds Allergies Allergy/AdvReac Type Severity Reaction Status Date / Time lisinopril AdvReac Unknown Verified 03/01/24 19:12 Active Medications: Current Medications Acetaminophen (Acetaminophen 325 Mg Tablet) 650 mg PO Q6H PRN PRN Reason: Pain, Mild (Pain Scale 1-3), fever or headache Last Admin: 03/03/24 16:28 Dose: 650 mg Albuterol Sulfate (Albuterol Sulfate 90 Mcg 8 Gm Inhaler) 2 puff INHALE RQ4H PRN PRN Reason: sob Albuterol Sulfate (Albuterol Sulfate 90 Mcg 8 Gm Inhaler) 2 puff INHALE QID PRN PRN Reason: shortness of breath or wheezing Amlodipine Besylate (Amlodipine Besylate 10 Mg Tablet) 10 mg PO DAILY [facility]; Protocol Last Admin: 03/03/24 08:31 Dose: 10 mg Atorvastatin Calcium (Atorvastatin Calcium 20 Mg Tablet) 20 mg PO DAILY [facility] Last Admin: 03/03/24 08:31 Dose: 20 mg Calcium Carbonate (Calcium Carbonate 750 Mg Tab.Chew) 750 mg PO Q4H PRN PRN Reason: Heartburn Diphenhydramine HCl (Diphenhydramine Hcl 50 Mg/Ml Vial) 25 mg IVPUSH Q6H PRN PRN Reason: itchy Last Admin: 03/02/24 01:59 Dose: 25 mg Empagliflozin (Empagliflozin 10 Mg Tablet) 10 mg PO DAILY [facility] Last Admin: 03/03/24 08:31 Dose: 10 mg Escitalopram Oxalate (Escitalopram Oxalate 5 Mg Tablet) 5 mg PO DAILY [facility] Last Admin: 03/03/24 08:31 Dose: 5 mg Gabapentin (Gabapentin 400 Mg Capsule) 400 mg PO BID [facility] Last Admin: 03/03/24 21:32 Dose: 400 mg Glucose (Glucose Gel 15 Gm Gel..Gram.) 15 gm PO Q15M PRN; Protocol PRN Reason: per Hypoglycemia Standing Ord. Heparin Sodium (Porcine) (Heparin Sodium,Porcine 5,000 Unit/Ml Vial) 5,000 unit SUBCUT Q12H [facility] Last Admin: 03/03/24 21:34 Dose: 5,000 unit Hydrochlorothiazide (Hydrochlorothiazide 25 Mg Tablet) 25 mg PO DAILY [facility]; Protocol Last Admin: 03/03/24 08:31 Dose: 25 mg Dextrose (D10) 250 mls @ 750 mls/hr IV Q15M PRN; Protocol PRN Reason: per Hypoglycemia Standing Ord. Piperacillin Sod/Tazobactam (Sod 2.25 gm/ Sodium Chloride) 50 mls @ 100 mls/hr IV Q6H [facility] Last Admin: 03/04/24 00:03 Dose: 100 mls/hr Doxycycline Hyclate 100 mg/ (Sodium Chloride) 250 mls @ 166.67 mls/hr IV Q12H [facility] Last Infusion: 03/03/24 17:04 Dose: Infused Insulin Glargine (Insulin Glargine,Hum.Rec.Anlog 100 Unit/Ml 10 Ml Vial) 20 unit SUBCUT BEDTIME [facility] Last Admin: 03/03/24 21:33 Dose: 20 unit Insulin Human Lispro (Insulin Lispro 100 Unit/Ml 3 Ml Vial) 0 unit SUBCUT QIDACHS [facility]; Protocol Last Admin: 03/03/24 21:33 Dose: 4 unit Insulin Human Lispro (Insulin Lispro 100 Unit/Ml 3 Ml Vial) 5 unit SUBCUT QIDACHS [facility] Last Admin: 03/03/24 21:32 Dose: Not Given Magnesium Hydroxide (Milk Of Magnesia 30 Ml Oral.Susp) 30 ml PO DAILY PRN PRN Reason: Constipation Melatonin (Melatonin 3 Mg Tablet) 6 mg PO BEDTIME PRN PRN Reason: Insomnia Sodium Chloride (0.9 % Sodium Chloride Flush 3 Ml Syringe) [facility] Last Admin: 03/03/24 21:34 Dose: 3 ml Home Medications ?Medication ?Instructions ?Recorded ?Confirmed ?Last Taken ?Type gabapentin 400 mg capsule 400 mg PO Q12H 12/01/23 03/02/24 03/02/24 History rosuvastatin 5 mg tablet 5 mg PO DAILY 02/20/24 03/02/24 03/02/24 History albuterol sulfate 90 mcg/actuation 2 puff PO QID PRN shortness of 03/02/24 03/02/24 Unknown History aerosol inhaler breath or wheezing citalopram 10 mg tablet 10 mg PO DAILY 03/02/24 03/02/24 03/02/24 History semaglutide 0.25 mg or 0.5 mg (2 0.25 mg subcut TU 03/02/24 03/02/24 02/28/24 History mg/3 mL) subcutaneous pen injector (Ozempic) Physical Exam Vital Signs: Vital Signs: Last Vital Signs Temp 97 F 03/03/24 19:11 Pulse 74 03/03/24 19:11 Resp 16 03/03/24 19:11 BP 132/67 03/03/24 19:11 Pulse Ox 93 03/03/24 19:11 O2 Del Method Room Air 03/03/24 15:16 BMI result Body Mass Index 26.7 Const: General: cooperative HEENT: Head: Yes normal to inspection Face and sinus: Yes normal facial exam Mouth: Normal oral and palatal mucosa present Teeth and gingiva: dentition normal Eyes: General: appearance normal, both eyes and all related structures Pupils: Equal, round and reactive pupils present Resp: Effort & Inspection: normal respiratory effort Cardio: Rate: regular rate Rhythm: regular rhythm GI: Palpation (GI): Soft to palpation and nontender : General: Yes no CVA tenderness Back/Spine/Pelvis: Back: no CVA tenderness Skin: General skin exam: no rashes or lesions noted Neuro: General: moves all extremities Cranial nerves: Yes Equal, round and reactive pupils present Extrem: Other: left toe chronic scabbing dorsum Psych: Appearance: grossly normal Results Labs 03/02/24 05:34 03/03/24 05:44 Labs: BMP 03/03/24 05:44 Sodium 141 Potassium 3.3 Chloride 104 Carbon Dioxide 26 BUN 31 H Creatinine 1.90 H Calcium 9.3 Microbiology Microbiology Results: Microbiology 03/01/24 23:42 Blood - Venous Blood Culture - Preliminary No growth after 24 hours. 03/01/24 23:50 Blood - Venous Blood Culture - Preliminary No growth after 24 hours. Assessment and Plan (1) PAD (peripheral artery disease): Status: Acute (2) Acute osteomyelitis of toe: Status: Acute Plan Await cultures blood. Probable Ertapenem or Daptomycin six weeks. Vascualar eval in not done.
[2024-03-04 04:00] VITALS: BP 114/54; PULSE 76; RESP 16; TEMP 36.6; O2SAT 96
[2024-03-04] MEDS: Doxycycline Hyclate 100 MG in 0.9 % Sodium Chloride 250 ML 166.67 MG IV ×2 (05:25→15:24)
[2024-03-04 07:32] VITALS: BP 174/71; PULSE 77; RESP 16; TEMP 36.4; O2SAT 95
[2024-03-04] MEDS: Empagliflozin 10 MG TABLET PO (07:43)
[2024-03-04] MEDS: Atorvastatin Calcium 20 MG TABLET PO (07:43)
[2024-03-04] MEDS: Heparin Sodium,Porcine 5,000 UNIT/ML VIAL 5000 UNIT SUBCUT ×2 (07:43→20:30)
[2024-03-04] MEDS: Gabapentin 400 MG CAPSULE PO ×2 (07:43→20:31)
[2024-03-04] MEDS: hydroCHLOROthiazide 25 MG TABLET PO (07:43)
[2024-03-04] MEDS: amLODIPine Besylate 10 MG TABLET PO (07:43)
[2024-03-04] MEDS: Escitalopram Oxalate 5 MG TABLET PO (07:44)
[2024-03-04] MEDS: 0.9 % Sodium Chloride Flush 3 ML SYRINGE IVFLUSH ×3 (07:44→20:32)
[2024-03-04 07:55] LABS: Glucose, Whole Blood 136 mg/dL (60-115)
[2024-03-04 09:24] VITALS: BP 156/67
[2024-03-04 11:34] LABS: Glucose, Whole Blood 239 mg/dL (60-115)
[2024-03-04] MEDS: Insulin Lispro 100 UNIT/ML 3 ML VIAL SUBCUT ×4 (12:03→20:32)
--- NOTE | 2024-03-04 12:21 | P.PNIM_ITS ---
Subjective Subjective Date of Service: 03/04/24 Interval History: This history was taken in Portuguese from the patient. C/o L great toe pain No fever/chills Review of Systems Review of Systems: Yes all other systems are reviewed and are negative Physical Exam 2 Vital Signs: Vital Signs: Last Vital Signs Temp 97.6 F 03/04/24 07:32 Pulse 77 03/04/24 07:32 Resp 16 03/04/24 07:32 BP 156/67 H 03/04/24 09:24 Pulse Ox 95 03/04/24 07:32 O2 Del Method Room Air 03/04/24 07:32 BMI result Body Mass Index 26.7 Gen: in no acute distress HEENT: sclera anicteric, moist mucus membranes Neck: supple Lungs: clear to auscultation bilaterally Heart: regular rate and rhythm, no murmurs Abd: soft, non-tender, non-distended Ext: no edema Skin: warm/well-perfused, ulcer on L great toenail and another one on L 2nd toe tip Neuro: alert and oriented x3, no focal findings Psych: appropriate affect Objective Data Active Medications Acetaminophen (Acetaminophen 325 Mg Tablet) 650 mg PO Q6H PRN PRN Reason: Pain, Mild (Pain Scale 1-3), fever or headache Last Admin: 03/03/24 16:28 Dose: 650 mg Documented By: NILAM Albuterol Sulfate (Albuterol Sulfate 90 Mcg 8 Gm Inhaler) 2 puff INHALE RQ4H PRN PRN Reason: sob Amlodipine Besylate (Amlodipine Besylate 10 Mg Tablet) 10 mg PO DAILY [facility]; Protocol Last Admin: 03/04/24 07:43 Dose: 10 mg Documented By: NILAM Atorvastatin Calcium (Atorvastatin Calcium 20 Mg Tablet) 20 mg PO DAILY [facility] Last Admin: 03/04/24 07:43 Dose: 20 mg Documented By: NILAM Calcium Carbonate (Calcium Carbonate 750 Mg Tab.Chew) 750 mg PO Q4H PRN PRN Reason: Heartburn Diphenhydramine HCl (Diphenhydramine Hcl 50 Mg/Ml Vial) 25 mg IVPUSH Q6H PRN PRN Reason: itchy Last Admin: 03/02/24 01:59 Dose: 25 mg Documented By: CHARLI Empagliflozin (Empagliflozin 10 Mg Tablet) 10 mg PO DAILY [facility] Last Admin: 03/04/24 07:43 Dose: 10 mg Documented By: NILAM Escitalopram Oxalate (Escitalopram Oxalate 5 Mg Tablet) 5 mg PO DAILY [facility] Last Admin: 03/04/24 07:44 Dose: 5 mg Documented By: NILAM Gabapentin (Gabapentin 400 Mg Capsule) 400 mg PO BID [facility] Last Admin: 03/04/24 07:43 Dose: 400 mg Documented By: NILAM Glucose (Glucose Gel 15 Gm Gel..Gram.) 15 gm PO Q15M PRN; Protocol PRN Reason: per Hypoglycemia Standing Ord. Heparin Sodium (Porcine) (Heparin Sodium,Porcine 5,000 Unit/Ml Vial) 5,000 unit SUBCUT Q12H [facility] Last Admin: 03/04/24 07:43 Dose: 5,000 unit Documented By: NILAM Hydrochlorothiazide (Hydrochlorothiazide 25 Mg Tablet) 25 mg PO DAILY [facility]; Protocol Last Admin: 03/04/24 07:43 Dose: 25 mg Documented By: NILAM Dextrose (D10) 250 mls @ 750 mls/hr IV Q15M PRN; Protocol PRN Reason: per Hypoglycemia Standing Ord. Piperacillin Sod/Tazobactam (Sod 2.25 gm/ Sodium Chloride) 50 mls @ 100 mls/hr IV Q6H [facility] Last Infusion: 03/04/24 08:12 Dose: Infused Documented By: NILAM Doxycycline Hyclate 100 mg/ (Sodium Chloride) 250 mls @ 166.67 mls/hr IV Q12H [facility] Last Infusion: 03/04/24 06:59 Dose: Infused Documented By: NILAM Insulin Glargine (Insulin Glargine,Hum.Rec.Anlog 100 Unit/Ml 10 Ml Vial) 20 unit SUBCUT BEDTIME [facility] Last Admin: 03/03/24 21:33 Dose: 20 unit Documented By: ALLEN Insulin Human Lispro (Insulin Lispro 100 Unit/Ml 3 Ml Vial) 0 unit SUBCUT QIDACHS [facility]; Protocol Last Admin: 03/04/24 12:03 Dose: 4 unit Documented By: NILAM Insulin Human Lispro (Insulin Lispro 100 Unit/Ml 3 Ml Vial) 5 unit SUBCUT QIDACHS [facility] Last Admin: 03/04/24 12:03 Dose: 5 unit Documented By: NILAM Magnesium Hydroxide (Milk Of Magnesia 30 Ml Oral.Susp) 30 ml PO DAILY PRN PRN Reason: Constipation Melatonin (Melatonin 3 Mg Tablet) 6 mg PO BEDTIME PRN PRN Reason: Insomnia Sodium Chloride (0.9 % Sodium Chloride Flush 3 Ml Syringe) 3 ml IVFLUSH QSHIFT [facility] Last Admin: 03/04/24 07:44 Dose: 3 ml Documented By: NILAM Labs 03/02/24 05:34 03/03/24 05:44 Labs: Laboratory Results - last 24 hr 03/03/24 03/03/24 03/04/24 16:22 19:55 07:37 POC Glucose 125 H 208 H 136 H 03/04/24 11:16 POC Glucose 239 H Microbiology Microbiology Results: Microbiology 03/01/24 23:42 Blood Culture - Preliminary Blood - Venous No growth after 48 hours. 03/01/24 23:50 Blood Culture - Preliminary Blood - Venous No growth after 48 hours. Assessment and Plan (1) Acute osteomyelitis of toe: Status: Acute Plan d2 73yo F with DM2, HTN, CKD3 presenting with L great toe pain and found to have osteomyelitis acute diabetic toe osteomyelitis - ID consulted, plan 6 wk IV ertapenem, PICC tomorrow, BCx negative, currently on doxy + pip-pola PAD - arterial Duplex 11/30: 1. Moderate stenoses throughout the right SFA. 2. Mild stenosis of the right popliteal artery. 3. Mild stenoses of the left common femoral artery and proximal SFA. 4. Moderate stenosis from the mid SFA through the popliteal artery. 5. Occluded posterior tibial arteries bilaterally. - plan outpatient f/u with Dr. Enid Franks - repleted CKD3 - SCr stable at baseline DM2 - basal-bolus insulin + Jardiance neuropathy - gabapentin HTN - amlodipine + HCTZ mood disorder - escitalopram VTE ppx - UFH dispo - anticipate home with VNA In my clinical judgment, the patient requires continued inpatient hospitalization for the following reasons: IV ABX Total time managing care of this patient today: 35 minutes. Quality Stroke Does the patient have a stroke diagnosis?: No VTE Prior VTE?: No VTE Risk Level:: Medical - moderate - high VTE Device Contraindication: Treatment Not Indicated VTE Drug Contraindication: N/A - Med Ordered
[2024-03-04] MEDS: Acetaminophen 325 MG TABLET 650 MG PO (12:51)
--- NOTE | 2024-03-04 14:36 | MHC.CM.PN ---
CM MET WITH PT WITH THE ASSISTANCE OF A BANK RUNNER PT LIVES WITH HER DAUGHTER SHE ATTENDS [employer] M-F [id number] PT USES A CANE AND HAS GRAB BARS IN HER BATHROOM SHE SAYS SHE HAS A HCP AT HOME NAMING HER DAUGHTER, COPY REQUESTED PCP: SHANI LUX DELIVERED DCP: HOME, RESUME DAY PRO[employer] DAUGHTER TO TRANSPORT
[2024-03-04 15:14] VITALS: BP 138/72; PULSE 74; RESP 16; TEMP 36.3; O2SAT 94
[2024-03-04 16:37] LABS: Glucose, Whole Blood 127 mg/dL (60-115)
[2024-03-04 19:31] VITALS: BP 164/68; PULSE 75; RESP 18; TEMP 36.2; O2SAT 95
[2024-03-04 20:31] LABS: Glucose, Whole Blood 241 mg/dL (60-115)
[2024-03-04] MEDS: Insulin Glargine,Hum.rec.anlog 100 UNIT/ML 10 ML VIAL 20 UNIT SUBCUT (20:31)
[2024-03-05] MEDS: Piperacillin Sodium/Tazobactam 2.25 GM in 0.9 % Sodium Chloride 50 ML IV ×3 (00:36→13:26)
[2024-03-05] MEDS: Acetaminophen 325 MG TABLET 650 MG PO (01:13)
[2024-03-05] MEDS: Doxycycline Hyclate 100 MG in 0.9 % Sodium Chloride 250 ML 166.67 MG IV (03:58)
[2024-03-05 04:00] VITALS: BP 145/68; PULSE 84; RESP 16; TEMP 36.1; O2SAT 96
[2024-03-05 07:34] VITALS: BP 150/66; PULSE 73; RESP 16; TEMP 36.1; O2SAT 96
[2024-03-05 07:46] LABS: Glucose, Whole Blood 129 mg/dL (60-115)
[2024-03-05] MEDS: Empagliflozin 10 MG TABLET PO (09:16)
[2024-03-05] MEDS: Heparin Sodium,Porcine 5,000 UNIT/ML VIAL 5000 UNIT SUBCUT (09:16)
[2024-03-05] MEDS: Escitalopram Oxalate 5 MG TABLET PO (09:16)
[2024-03-05] MEDS: 0.9 % Sodium Chloride Flush 3 ML SYRINGE IVFLUSH ×2 (09:16→17:01)
[2024-03-05] MEDS: Gabapentin 400 MG CAPSULE PO (09:16)
[2024-03-05] MEDS: Atorvastatin Calcium 20 MG TABLET PO (09:16)
[2024-03-05 09:19] VITALS: BP 146/63
[2024-03-05] MEDS: amLODIPine Besylate 10 MG TABLET PO (09:19)
[2024-03-05] MEDS: hydroCHLOROthiazide 25 MG TABLET PO (09:19)
--- NOTE | 2024-03-05 09:41 | W.MHC.F2F ---
Service Date Service Date: 03/05/24 Encounter Date of encounter: 03/05/24 Reasons for Services Signs and symptoms assessed: osteomyelitis requiring IV ABX via PICC Reason for penitentiary: administration of IV, SQ, or IM injection, central line care, medication management, medication treatment and teach disease management MD Overseeing Care: Miguel Johnson Homebound: Leaving the home is medically contraindicated at this time without the asist of a device and/or another person due th the listed conditions above and below. Reason homebound: immunosuppression / infection risk Certification: Based on the above findings, I certify that this patient is confined to the home and needs intermittent penitentiary care, physical therapy and/or speech therapy, or continues to need occupational therapy. The patient is under my care, and I have initiated the establishment of the plan of care. The patient will be followed by a physician who will periodically review the plan of care. Time Spent With Patient Time: Total time managing care of this patient today ____ minutes.
--- NOTE | 2024-03-05 10:47 | PM.CNNEP ---
History of Present Illness Reason for Consult Consult date: 03/05/24 Chief Complaint Chief complaint: dfu History of Present Illness Narrative: 73 with DM, htn, ckd III who follows Dr Novoa presented to the hospital with left toe pain. At that time patient reported left first toe infection of toenail with erthyema & purulence. She has undergone 2 courses of po antibiotics with moderate improvement each time, but without resolution followed by recurrence. SInce she had worsening pain she came to ED. in ED no signs of sepsis, xray of toe showed Erosive changes of the distal aspect concerning for osteomyelitis. She denies fever, chills, sob. She was diagnosed with osteomyelitis and had been getting antibiotics. She is in need of a PICC line as well. She feels improved. She had MELANIE during the hospitalization which is better. Nephrology has been consulted to assist in a clinical care during her current hospital stay. Review of Systems Review of Systems Yes all other systems are reviewed and are negative PMFSH Past Medical History Medical History CKD (chronic kidney disease) HTN (hypertension) Diabetes Family History Family History Father Hypertension Diabetes Hx of leg amputation Mother Myocardial infarction Diabetes Hypertension Sister Breast cancer Brother Diabetes Maternal Aunt Bone cancer Family history: reviewed and not pertinent Surgical History Surgical History History of cataract surgery History of bladder surgery History of total hysterectomy History of tonsillectomy Social History Social History Household Members: Children Household Members Other:: daughter, grandkids, , 6 total Housing: Apartment Housing Other:: first floor. 4 steps to get in Do you presently have visiting nurse or other home services: No Alcohol intake: never Patient Tobacco Use Status: Never used Tobacco e-Cigarette/Vaping Use: Never Used Second Hand Smoke Exposure: No Advance Directives Date on File: 12/05/23 service: No Current occupational status: retired Current occupation: rt hand Cognitive needs: Yes (cane) Hearing needs: No Vision needs: Yes (Glasses) Meds Allergies Allergy/AdvReac Type Severity Reaction Status Date / Time lisinopril AdvReac Unknown Verified 03/01/24 19:12 Active Medications: Current Medications Acetaminophen (Acetaminophen 325 Mg Tablet) 650 mg PO Q6H PRN PRN Reason: Pain, Mild (Pain Scale 1-3), fever or headache Last Admin: 03/05/24 01:13 Dose: 650 mg Albuterol Sulfate (Albuterol Sulfate 90 Mcg 8 Gm Inhaler) 2 puff INHALE RQ4H PRN PRN Reason: sob Amlodipine Besylate (Amlodipine Besylate 10 Mg Tablet) 10 mg PO DAILY [facility]; Protocol Last Admin: 03/05/24 09:19 Dose: 10 mg Atorvastatin Calcium (Atorvastatin Calcium 20 Mg Tablet) 20 mg PO DAILY [facility] Last Admin: 03/05/24 09:16 Dose: 20 mg Calcium Carbonate (Calcium Carbonate 750 Mg Tab.Chew) 750 mg PO Q4H PRN PRN Reason: Heartburn Diphenhydramine HCl (Diphenhydramine Hcl 50 Mg/Ml Vial) 25 mg IVPUSH Q6H PRN PRN Reason: itchy Last Admin: 03/02/24 01:59 Dose: 25 mg Empagliflozin (Empagliflozin 10 Mg Tablet) 10 mg PO DAILY [facility] Last Admin: 03/05/24 09:16 Dose: 10 mg Escitalopram Oxalate (Escitalopram Oxalate 5 Mg Tablet) 5 mg PO DAILY [facility] Last Admin: 03/05/24 09:16 Dose: 5 mg Gabapentin (Gabapentin 400 Mg Capsule) 400 mg PO BID [facility] Last Admin: 03/05/24 09:16 Dose: 400 mg Glucose (Glucose Gel 15 Gm Gel..Gram.) 15 gm PO Q15M PRN; Protocol PRN Reason: per Hypoglycemia Standing Ord. Heparin Sodium (Porcine) (Heparin Sodium,Porcine 5,000 Unit/Ml Vial) 5,000 unit SUBCUT Q12H [facility] Last Admin: 03/05/24 09:16 Dose: 5,000 unit Hydrochlorothiazide (Hydrochlorothiazide 25 Mg Tablet) 25 mg PO DAILY [facility]; Protocol Last Admin: 03/05/24 09:19 Dose: 25 mg Dextrose (D10) 250 mls @ 750 mls/hr IV Q15M PRN; Protocol PRN Reason: per Hypoglycemia Standing Ord. Piperacillin Sod/Tazobactam (Sod 2.25 gm/ Sodium Chloride) 50 mls @ 100 mls/hr IV Q6H [facility] Last Infusion: 08/12/24 07:08 Dose: Infused Doxycycline Hyclate 100 mg/ (Sodium Chloride) 250 mls @ 166.67 mls/hr IV Q12H [facility] Last Infusion: 03/05/24 05:48 Dose: Infused Insulin Glargine (Insulin Glargine,Hum.Rec.Anlog 100 Unit/Ml 10 Ml Vial) 20 unit SUBCUT BEDTIME [facility] Last Admin: 03/04/24 20:31 Dose: 20 unit Insulin Human Lispro (Insulin Lispro 100 Unit/Ml 3 Ml Vial) 0 unit SUBCUT QIDACHS [facility]; Protocol Last Admin: 03/05/24 07:55 Dose: Not Given Insulin Human Lispro (Insulin Lispro 100 Unit/Ml 3 Ml Vial) 5 unit SUBCUT QIDACHS [facility] Last Admin: 03/05/24 07:55 Dose: Not Given Magnesium Hydroxide (Milk Of Magnesia 30 Ml Oral.Susp) 30 ml PO DAILY PRN PRN Reason: Constipation Melatonin (Melatonin 3 Mg Tablet) 6 mg PO BEDTIME PRN PRN Reason: Insomnia Sodium Chloride (0.9 % Sodium Chloride Flush 3 Ml Syringe) 3 ml IVFLUSH QSHIFT [facility] Last Admin: 03/05/24 09:16 Dose: 3 ml Home Medications ?Medication ?Instructions ?Recorded ?Confirmed ?Last Taken ?Type gabapentin 400 mg capsule 400 mg PO Q12H 12/01/23 03/02/24 03/02/24 History rosuvastatin 5 mg tablet 5 mg PO DAILY 02/20/24 03/02/24 03/02/24 History albuterol sulfate 90 mcg/actuation 2 puff PO QID PRN shortness of 03/02/24 03/02/24 Unknown History aerosol inhaler breath or wheezing citalopram 10 mg tablet 10 mg PO DAILY 03/02/24 03/02/24 03/02/24 History semaglutide 0.25 mg or 0.5 mg (2 0.25 mg subcut TU 03/02/24 03/02/24 02/28/24 History mg/3 mL) subcutaneous pen injector (Ozempic) Physical Exam Vital Signs: Last Vital Signs Temp 97.0 F 03/05/24 07:34 Pulse 73 03/05/24 07:34 Resp 16 03/05/24 07:34 BP 146/63 H 03/05/24 09:19 Pulse Ox 96 03/05/24 07:34 O2 Del Method Room Air 03/05/24 07:34 BMI result Body Mass Index 26.7 Const General: no acute distress Eyes EOM: EOMs intact bilaterally Neck Neck: Yes supple Resp Auscultation: diminished lung sounds Cardio Rate: regular rate GI Palpation (GI): Soft to palpation Neuro General: moves all extremities Results Lab Results 03/02/24 05:34 03/03/24 05:44 Lab results: Chemistry 03/03/24 05:44 Sodium 141 Potassium 3.3 Carbon Dioxide 26 BUN 31 H Creatinine 1.90 H Calcium 9.3 Assessment and Plan (1) CKD stage 3b, GFR 30-44 ml/min: Status: Acute (2) HTN (hypertension): Qualifiers: Hypertension type: primary hypertension Qualified Code(s): I10 - Essential (primary) hypertension Status: Acute Plan Cristal had mild acute kidney injury due to compromised renal perfusion from osteomyelitis. No recent suspect any obstructive uropathy. Differential diagnosis was rupa infectious GN Rupa infectious GN unlikely given improvement in serum creatinine. Hold hydrochlorothiazide She can have PICC line for antibiotics. Continue rest of her current management Needs follow-up with us in the office in 6 weeks' time. Procedures Date of Service Date of Service: 03/05/24
--- NOTE | 2024-03-05 11:38 | PM.DS ---
DS: Providers Provider Date of Service: 03/05/24 Date of admission: 03/01/24 23:50 Primary care physician: Miguel Johnson MD Consults: 03/01/24 23:47 Consult to Infectious Diseases Routine Consulting Provider: [facility] Reason for consultation: ?left 1st toe om Consult to Vascular Surgery Routine Consulting Provider: [facility] V[facility] Reason for consultation: left first toe recurrent dfu 03/03/24 03:22 Consult to Wound Care Routine Reason for consultation: dm ulcer lt great toe and lt 2nd toe 03/05/24 07:28 Consult to Nephrology Stat Consulting Provider: [facility] Reason for consultation: CKD3- needs to be cleared for PICC line DS: Diagnosis Discharge Diagnosis (1) CKD stage 3b, GFR 30-44 ml/min: Status: Acute (2) Acute osteomyelitis of toe: Status: Acute (3) PAD (peripheral artery disease): Status: Acute (4) Diabetic foot ulcer with osteomyelitis: Status: Acute DS: Summary Hospital Course Hospital Course: From the history and physical by the admitting hospitalist, Mgiuelito Mikhail, 03/01/24: 73F PMH DM, htn, ckd III, mild intermittent asthma, mood disorder presented with left toe pain. patient reports about 2 months of left first toe infection on toenail. ertyhema, purulence. has undergone 2 courses of po antibiotics with moderate improvement each time, but without resolution and followed by recurrence. now appears dry and crusted over, however, with worsening pain so came to ED. in ED no signs of sepsis, xray of toe showed Erosive changes of the distal aspect concerning for osteomyelitis. denies fever, chills, sob. 73yo F with DM2, HTN, CKD3 presenting with L great toe pain and found to have osteomyelitis without bacteremia. She was treated with vancomycin [then doxycycline] and piperacillin-tazobactam for 4 days. Infectious Disease was consulted. PICC was placed and she was discharged on 38 more days of parenteral antibiotic therapy with ertapanem. She should follow up with ID in 1 week. Arterial Duplex showed moderate SFA stenoses and she should follow up with [facility] Vascular Surgery as an outpatient and take aspirin and continue statin. SCr remained at baseline; HCTZ was discontinued at the suggestion of the consulting engineering program analyst. Time Attestation Discharge Coordination Time (in mins): 45 Quality: Safe Use of Opioids Does Pt have an Active Cancer Diagnosis on the Problem List?: No Quality: Stroke Does the patient have a stroke diagnosis?: No Physical Exam Vital Signs: Vital Signs: Last Vital Signs Temp 97.0 F 03/05/24 07:34 Pulse 73 03/05/24 07:34 Resp 16 03/05/24 07:34 BP 146/63 H 03/05/24 09:19 Pulse Ox 96 03/05/24 07:34 O2 Del Method Room Air 03/05/24 07:34 BMI result Body Mass Index 26.7 Gen: in no acute distress HEENT: sclera anicteric, moist mucus membranes Neck: supple Lungs: clear to auscultation bilaterally Heart: regular rate and rhythm, no murmurs Abd: soft, non-tender, non-distended Ext: no edema Skin: warm/well-perfused, ulcer on L great toenail and another one on L 2nd toe tip Neuro: alert and oriented x3, no focal findings Psych: appropriate affect DS: Data Data Completed and Pending Completed studies during hospitalization [Text1]: Laboratory Results WBC 6.0 X10*3/uL (4.8-10.8) 03/02/24 05:34 RBC 3.51 X10*6/uL (4.20-5.50) L 03/02/24 05:34 Hgb 10.2 g/dl (12.0-16.0) L 03/02/24 05:34 Hct 29.9 % (37.0-47.0) L 03/02/24 05:34 MCV 85.2 fL (80.0-98.0) 03/02/24 05:34 MCH 29.1 pg (27.0-33.0) 03/02/24 05:34 MCHC 34.1 g/dl (31.0-35.0) 03/02/24 05:34 RDW 11.5 % (11.0-16.0) 03/02/24 05:34 Plt Count 233 X10*3/uL (160-400) 03/02/24 05:34 MPV 10.9 fL (9.4-12.3) 03/02/24 05:34 Immature Gran % (Auto) 0.3 % (0.0-0.4) 03/01/24 20:56 Neut % (Auto) 65.5 % (45-73) 03/01/24 20:56 Lymph % (Auto) 20.5 % (20-40) 03/01/24 20:56 [place] % (Auto) 9.8 % (2-11) 03/01/24 20:56 Eos % (Auto) 3.4 % (0-4) 03/01/24 20:56 Baso % (Auto) 0.5 % (0-2) 03/01/24 20:56 Lymph # (Auto) 1.3 X10*3/uL (1.2-4.9) 03/01/24 20:56 [place] # (Auto) 0.6 X10*3/uL (0.1-1.2) 03/01/24 20:56 Eos # (Auto) 0.2 X10*3/uL (0.0-0.4) 03/01/24 20:56 Baso # (Auto) 0.0 X10*3/uL (0.0-0.2) 03/01/24 20:56 Abs Immat Gran (auto) 0.02 X10*3/uL (0.00-0.03) 03/01/24 20:56 Absolute Neuts (auto) 4.2 x10*3/uL (2.0-8.3) 03/01/24 20:56 Absolute Nucleated RBC 0.000 X10*3/uL (0.0-0.012) 03/02/24 05:34 Nucleated RBC % (auto) 0.0 /100WBC (0.0-0.2) 03/02/24 05:34 ESR 34 MM/HR (0-20) H 03/01/24 20:56 Sodium 141 mmol/L (135-145) 03/03/24 05:44 Potassium 3.3 mmol/L (3.3-5.1) 03/03/24 05:44 Chloride 104 mmol/L (96-108) 03/03/24 05:44 Carbon Dioxide 26 mmol/L (22-29) 03/03/24 05:44 Anion Gap 14 (12-20) 03/03/24 05:44 BUN 31 mg/dL (9-16) H 03/03/24 05:44 Creatinine 1.90 mg/dL (0.5-1.4) H 03/03/24 05:44 Estim Creat Clear Calc 22.5 03/03/24 05:44 Estimated GFR 26 03/03/24 05:44 POC Glucose 220 mg/dL (60-115) H 03/05/24 11:33 Random Glucose 116 mg/dL (60-115) H 03/03/24 05:44 Fasting Glucose 178 mg/dL (60-99) H 03/02/24 05:34 Lactic Acid 1.2 mmol/L (0.5-2.0) 03/01/24 23:50 Calcium 9.3 mg/dL (8.4-10.2) 03/03/24 05:44 Total Bilirubin 0.3 mg/dL (0.0-1.0) 03/01/24 20:56 AST 22 U/L (5-31) 03/01/24 20:56 ALT 14 U/L (0-31) 03/01/24 20:56 Alkaline Phosphatase 78 U/L (39-117) 03/01/24 20:56 C-Reactive Protein 0.92 mg/dL (< or = 0.50) H 03/01/24 20:56 Total Protein 7.6 g/dL (6.5-8.0) 03/01/24 20:56 Albumin 4.1 g/dL (3.5-5.0) 03/01/24 20:56 Impressions Toe X-Ray 03/01/24 19:29 IMPRESSION: Erosive changes of the distal aspect of the left first toe are seen concerning for osteomyelitis. There is associated soft tissue swelling in this region. Duplex Scan Lower Extremity Artery 03/02/24 10:25 IMPRESSION: 1. Moderate stenoses throughout the right SFA. 2. Mild stenosis of the right popliteal artery. 3. Mild stenoses of the left common femoral artery and proximal SFA. 4. Moderate stenosis from the mid SFA through the popliteal artery. 5. Occluded posterior tibial arteries bilaterally. Discharge Plan Discharge Anticipated Discharge Date/Time: 03/05/24 17:42 Patient Disposition: Home Health Service Discharge Diagnosis: Osteomyelitis Peripheral arterial disease Referrals: Oneida Sarah MD [Physician] - 1 Week Tomi Rossi MD [Physician] - 2 Weeks Miguel Johnson MD [Primary Care Provider] - 1 Week Discharge Medications: New ertapenem 1 gram recon soln 1 g IV DAILY Qty: 38 0RF oxycodone 5 mg tablet 5 mg PO Q6H PRN (Reason: severe pain (scale score 7-10)) Qty: 18 0RF Rx Instructions: Partial Fill upon patient request. aspirin 81 mg tablet,delayed release (DR/EC) 81 mg PO DAILY Qty: 30 0RF Continued (DME) blood-glucose meter [OneTouch Ultra2 Meter] [facility] [place] [facility] See Rx Instructions .Route Qty: 1 0RF Rx Instructions: test 3 times per day (DME) OneTouch Ultra Test Strip See Rx Instructions .Route Qty: 100 8RF Rx Instructions: test 3 times per day (DME) lancets [OneTouch UltraSoft 2 Lancet] 30 gauge misc See Rx Instructions .Route Qty: 200 5RF Rx Instructions: test 3 times per day amlodipine 10 mg tablet 10 mg PO DAILY Qty: 90 1RF insulin aspart U-100 [Novolog FlexPen U-100 Insulin] 100 unit/mL (3 mL) insulin pen 30 unit subcut TID 90 Days Qty: 81 1RF Rx Instructions: BEFORE MEALS gabapentin 400 mg capsule 400 mg PO Q12H albuterol sulfate 90 mcg/actuation HFA aerosol inhaler 2 puff PO QID PRN (Reason: shortness of breath or wheezing) Ozempic 0.25 mg or 0.5 mg (2 mg/3 mL) pen injector 0.25 mg subcut TU Rx Instructions: for 4 weeks citalopram 10 mg tablet 10 mg PO DAILY rosuvastatin 5 mg tablet 5 mg PO DAILY (DME) FreeStyle Song 3 [place] Misc See Rx Instructions .Route Qty: 1 0RF Rx Instructions: As directed (DME) FreeStyle Song 3 Sensor Device See Rx Instructions .Route Qty: 6 3RF Rx Instructions: As directed for 14 days Jardiance 10 mg tablet 10 mg PO DAILY Qty: 90 3RF insulin glargine [Basaglar KwikPen U-100 Insulin] 100 unit/mL (3 mL) insulin pen 50 unit subcut DAILY 90 Days Qty: 45 1RF Discontinued hydrochlorothiazide 25 mg tablet 25 mg PO DAILY Qty: 90 1RF Discharge Orders: Discharge Order (Routine); Ordered 03/05/24 Ordered By: Chanel Guan Diet: Diabetic diet Activity on Discharge: As tolerated Stand Alone Forms: Patient Portal Discharge page Print Language: [place] Care Plan Goals: Cure infection Health Concerns: Osteomyelitis Peripheral arterial disease Plan of Treatment: Ertapenem 1 gram IV via PICC line for 38 days, end date 04/13/24, after which please remove PICC line weekly labs while on ertapenem: CBCd, BUN/Cr follow up with Dr Sarah [Infectious Disease] in 1 week follow up with Dr Rossi [Vascular Surgery] in 2 weeks stop hydrocholorothiazide [HCTZ] take aspirin [ASA] 81 mg daily Please follow up with your primary care doctor within 1 week. Return to the hospital if you experience recurrent or worsening symptoms. Assessment: See Discharge Summary.
[2024-03-05 11:39] LABS: Glucose, Whole Blood 220 mg/dL (60-115)
[2024-03-05] MEDS: Insulin Lispro 100 UNIT/ML 3 ML VIAL SUBCUT (11:50)
--- NOTE | 2024-03-05 12:23 | HO.WOUND ---
Wound Consult: Initial 73yr old? female admitted to [facility] on 03/01/24 - See progress notes and H&P for detailed history.? Wound consult placed for Left Great toe and 2nd toe wound POA. Patient agreeable to assessment and photo documentation.? Chart review reveals patient was seen by Dr. Rossi this admission and re recommends outpt follow up with him. See his note for details or assessment and findings. Left great Toe Left 2nd toe Etiology: ?Diabetic VS Arterial Wound Wound Bed: dry scabs vs dry eschar - no lifting and attached to wound bed Drainage / Odor: None Edges: ? attached and irregular but well defined Rupa wound: Intact cool toes no erythema noted, no Palpable pedal pulse noted direct care team aware ? No Induration, Fluctuance or Warmth noted Pain: mild pain reported Goals of Treatment: ? Keep stable and dry with betadine application Recommendations: 1. Turn and Reposition every 2 hours and as needed for patient comfort.? Use pillows or wedges to support off loading positions. 2. Off Load all bony prominences with use of pillows and heel boots if needed.? Apply Preventative foams where needed. ? 3. Monitor for incontinence and moisture control, use barrier creams when needed for prevention and treatment. 4. Provide adequate and supplemental nutrition.? 5. Order or Continue low air loss mattress. 6. When applicable maintain blood glucose levels per Providers order. 7. Left Great Toe and 2nd toe - Hanna with Betadine daily. Leave open to air. At time of discharge and prior to shoe application may cover with dry gauze. Re-consult wound care Nurse for wound deterioration or wound changes.
[2024-03-05 15:50] VITALS: BP 153/96; PULSE 82; RESP 20; TEMP 36.3; O2SAT 98
--- NOTE | 2024-03-05 16:27 | HO.PICC ---
PICC Line Insertion NPICC Diagnosis: Osteomyelitis Indication: 6wks ABT Pertinent Labs: Reviewed Technique: Following informed consent including risks, benefits and alternatives and using sterile technique including cap and mask, sterile gown, glove and drape, the right arm was prepped and draped in the usual sterile fashion of full barrier technique with CHG. Following completion of [place] Protocol the skin and soft tissues were anesthetized with 1% Lidocaine plain. Using ultrasound guidance, right basilic vein access was obtained. Over an 0.018 wire through peel-away sheath, a 4FR single lumen PASV PICC line was positioned. Catheter length is 38cm internal length, 0cm external length, for a total trimmed length of 39cm. The procedure was performed in [facility]. Tip verification was performed by Melanie Campoverde with Sherlock 3CG. Tip located in SVC. Ultrasound was used to document vein patency and for needle entry. A formal ultrasound picture and cardiac rhythm strip was recorded. Vascular Maintenance Shop Manager has released the line for use and it is currently dressed with a StatLock, Tegaderm, and CHG disc. Verification has been performed for blood return and line patency. Arm Circumference: 29cm Equipment: [facility] PowerPICC SOLO catheter with Sherlock 3CG Catheter Type: 4FR single lumen PASV PICC Lot #: [id number]
[2024-03-05 16:49] LABS: Glucose, Whole Blood 112 mg/dL (60-115)
[2024-03-05] MEDS: Ertapenem Sodium 1 GM in 0.9 % Sodium Chloride 50 ML IV (16:59)
== END 2024-03-05 18:21 | disposition home health service (06) | DRG 638 ==
LOC: HO.ED 23:32 → HO.EDOVER 23:56 → HO.S3 03-02 08:44
PROVIDERS: Internal Medicine; Physician Assistant Medical; Admitting Provider Internal Medicine; Emergency Provider Emergency Medicine; PCP Internal Medicine; Visit Provider Family Medicine
DX: E11.69 Type 2 diabetes mellitus with other specified complication (principal); M86.172 Other acute osteomyelitis, left ankle and foot; E11.22 Type 2 diabetes mellitus with diabetic chronic kidney disease; I12.9 Hypertensive chronic kidney disease with stage 1 through stage 4 chronic kidney disease, or unspecified chronic kidney disease; J45.20 Mild intermittent asthma, uncomplicated; E87.6 Hypokalemia; F39 Unspecified mood [affective] disorder; N18.32 Chronic kidney disease, stage 3b; E11.51 Type 2 diabetes mellitus with diabetic peripheral angiopathy without gangrene; I70.245 Atherosclerosis of native arteries of left leg with ulceration of other part of foot; L97.529 Non-pressure chronic ulcer of other part of left foot with unspecified severity; Z79.4 Long term (current) use of insulin; Z79.899 Other long term (current) drug therapy
CPT/HCPCS: 36415; 36573; 73660; 80048; 80053; 82565; 82947; 83605; 85025; 85027; 85652; 86140; 87040; 93925; 99285; C1751; J1200; J1335; J1644; J2543; J3370; J3371

== ENCOUNTER → 2024-03-01 23:50 | Outpatient (BNV) | payer OTHER, SELFPAY | PROVIDERS: Admitting Provider Internal Medicine; Emergency Provider Emergency Medicine; PCP Internal Medicine; Visit Provider Internal Medicine | DX: N18.32 Chronic kidney disease, stage 3b (principal); M86.179 Other acute osteomyelitis, unspecified ankle and foot; I73.9 Peripheral vascular disease, unspecified; E11.621 Type 2 diabetes mellitus with foot ulcer; E11.69 Type 2 diabetes mellitus with other specified complication; L97.509 Non-pressure chronic ulcer of other part of unspecified foot with unspecified severity; M86.9 Osteomyelitis, unspecified | CPT/HCPCS: 99222; 99232; 99239; G0180 ==

== ENCOUNTER → 2024-03-01 23:50 | Outpatient (BNV) | payer MEDICARE, MEDICAID, SELFPAY | PROVIDERS: Admitting Provider Internal Medicine; Emergency Provider Emergency Medicine; PCP Internal Medicine; Visit Provider Internal Medicine | DX: I73.9 Peripheral vascular disease, unspecified (principal); M86.179 Other acute osteomyelitis, unspecified ankle and foot | CPT/HCPCS: 99222 ==

== ENCOUNTER → 2024-03-01 23:50 | Outpatient (BNV) | payer MEDICARE, MEDICAID, SELFPAY | PROVIDERS: Admitting Provider Internal Medicine; Emergency Provider Emergency Medicine; PCP Internal Medicine; Visit Provider Internal Medicine Nephrology | DX: I12.9 Hypertensive chronic kidney disease with stage 1 through stage 4 chronic kidney disease, or unspecified chronic kidney disease (principal); E11.22 Type 2 diabetes mellitus with diabetic chronic kidney disease; N18.32 Chronic kidney disease, stage 3b | CPT/HCPCS: 99223 ==

== ENCOUNTER → 2024-03-01 23:50 | Outpatient (BNV) | payer MEDICARE, MEDICAID, SELFPAY | PROVIDERS: Admitting Provider Internal Medicine; Emergency Provider Emergency Medicine; PCP Internal Medicine; Visit Provider Surgery Vascular Surgery | DX: I73.9 Peripheral vascular disease, unspecified (principal) | CPT/HCPCS: 99222 ==

== ENCOUNTER 2024-03-14 15:03 | Outpatient (AMB) | payer MEDICARE, SELFPAY ==
--- NOTE | 2024-03-14 15:08 | A.OFFVIS_ITS ---
Intake Visit Reasons: reff ER list/toe osteo ertapenem piccend 04/13/2024 Allergies lisinopril Adverse Reaction (Verified 03/25/24 16:56) Unknown HPI HPI reff ER list/toe osteo ertapenem piccend 04/13/2024: Details: She continues on Ertapenem. She is tolerating with no complaints. [facility] Medical History CKD (chronic kidney disease) HTN (hypertension) Diabetes Surgical History History of cataract surgery History of bladder surgery History of total hysterectomy History of tonsillectomy Family History Father Hypertension Diabetes Hx of leg amputation Mother Myocardial infarction Diabetes Hypertension Sister Breast cancer Brother Diabetes Maternal Aunt Bone cancer Social History Household Members: Family Household Members Other:: daughter, grandkids, , 6 total Housing: House Housing Other:: first floor. 4 steps to get in Do you presently have visiting nurse or other home services: Yes Unable to assess alcohol history related to: Unknown Alcohol intake: never Patient Tobacco Use Status: Never used Tobacco e-Cigarette/Vaping Use: Never Used Second Hand Smoke Exposure: No Advance Directives Date on File: 12/05/23 service: No Current occupational status: retired Current occupation: rt hand Cognitive needs: Yes (cane) Hearing needs: No Vision needs: Yes (Glasses) Review of Systems Const All systems reviewed & are unremarkable except as noted in HPI and below Physical Exam Const Other: General: cooperative HEENT Head: Yes normal to inspection Face and sinus: Yes normal facial exam Mouth: Normal oral and palatal mucosa present Teeth and gingiva: dentition normal Eyes General: appearance normal, both eyes and all related structures Pupils: Equal, round and reactive pupils present Resp Effort & Inspection: normal respiratory effort Cardio Rate: regular rate Rhythm: regular rhythm GI Palpation (GI): Soft to palpation and nontender General: Yes no CVA tenderness Back/Spine/Pelvis Back: no CVA tenderness Skin General skin exam: no rashes or lesions noted Neuro General: moves all extremities Cranial nerves: Yes Equal, round and reactive pupils present Extrem General: Yes normal to inspection Psych Appearance: grossly normal Assessment & Plan Assessment & Plan (1) Diabetic foot ulcer with osteomyelitis: Comment: Area is looking improved on foot. Code(s): E11.621 - Type 2 diabetes mellitus with foot ulcer; E11.69 - Type 2 diabetes mellitus with other specified complication; L97.509 - Non-pressure chronic ulcer of other part of unspecified foot with unspecified severity; M86.9 - Osteomyelitis, unspecified Category: Medical Plan: Would follow ,see again before done with IV antibiotics. Continue Ertapenem. Orders: Orders 2 Complete Blood Count Auto Diff 03/14/24 E11.621 - Type 2 diabetes mellitus with foot ulcer, E11.69 - Type 2 diabetes mellitus with other specified complication, L97.509 - Non-pressure chronic ulcer of other part of unspecified foot with unspecified severity, M86.9 - Osteomyelitis, unspecified Basic Metabolic Panel 03/14/24 E11.621 - Type 2 diabetes mellitus with foot ulcer, E11.69 - Type 2 diabetes mellitus with other specified complication, L97.509 - Non-pressure chronic ulcer of other part of unspecified foot with unspecified severity, M86.9 - Osteomyelitis, unspecified Complete Blood Count Auto Diff 7 Days E11.621 - Type 2 diabetes mellitus with foot ulcer, E11.69 - Type 2 diabetes mellitus with other specified complication, L97.509 - Non-pressure chronic ulcer of other part of unspecified foot with unspecified severity, M86.9 - Osteomyelitis, unspecified Liver Panel 03/14/24 E11.621 - Type 2 diabetes mellitus with foot ulcer, E11.69 - Type 2 diabetes mellitus with other specified complication, L97.509 - Non- pressure chronic ulcer of other part of unspecified foot with unspecified severity, M86.9 - Osteomyelitis, unspecified Basic Metabolic Panel 14 Days E11.621 - Type 2 diabetes mellitus with foot ulcer, E11.69 - Type 2 diabetes mellitus with other specified complication, L97.509 - Non-pressure chronic ulcer of other part of unspecified foot with unspecified severity, M86.9 - Osteomyelitis, unspecified Complete Blood Count Auto Diff 14 Days E11.621 - Type 2 diabetes mellitus with foot ulcer, E11.69 - Type 2 diabetes mellitus with other specified complication, L97.509 - Non-pressure chronic ulcer of other part of unspecified foot with unspecified severity, M86.9 - Osteomyelitis, unspecified Basic Metabolic Panel 21 Days E11.621 - Type 2 diabetes mellitus with foot ulcer, E11.69 - Type 2 diabetes mellitus with other specified complication, L97.509 - Non-pressure chronic ulcer of other part of unspecified foot with unspecified severity, M86.9 - Osteomyelitis, unspecified Complete Blood Count Auto Diff 21 Days E11.621 - Type 2 diabetes mellitus with foot ulcer, E11.69 - Type 2 diabetes mellitus with other specified complication, L97.509 - Non-pressure chronic ulcer of other part of unspecified foot with unspecified severity, M86.9 - Osteomyelitis, unspecified Coding Level of Care Code Est Pt Level 3 (18281) Diagnoses Diabetic foot ulcer with osteomyelitis E11.621; E11.69; L97.509; M86.9
== END 2024-03-14 16:05 | disposition home or self-care (01) ==
LOC: HO.HID 15:03
PROVIDERS: PCP Internal Medicine; Visit Provider Internal Medicine
DX: E11.621 Type 2 diabetes mellitus with foot ulcer (principal); E11.69 Type 2 diabetes mellitus with other specified complication; L97.509 Non-pressure chronic ulcer of other part of unspecified foot with unspecified severity; M86.9 Osteomyelitis, unspecified
CPT/HCPCS: 99213

== ENCOUNTER → 2024-03-14 15:03 | Outpatient (BNVA) | payer MEDICARE, SELFPAY | PROVIDERS: PCP Internal Medicine; Visit Provider Internal Medicine | DX: E11.621 Type 2 diabetes mellitus with foot ulcer (principal); E11.69 Type 2 diabetes mellitus with other specified complication; L97.519 Non-pressure chronic ulcer of other part of right foot with unspecified severity; M86.9 Osteomyelitis, unspecified | CPT/HCPCS: 99212 ==

== ENCOUNTER 2024-03-19 12:15 | Outpatient (REF) | payer MEDICARE, SELFPAY ==
[2024-03-19 12:18] LABS: MANUAL DIFF FLAG NO
[2024-03-19 12:22] LABS: Basophils Percent Auto 0.9 % (0-2); Eosinophils Absolute Auto 0.2 X10*3/uL (0.0-0.4); Eosinophils Percent Auto 4.6 % (0-4); Hematocrit 32.7 % (37.0-47.0); Hemoglobin 11.1 g/dl (12.0-16.0); Imm Gran Abs Auto 0.01 X10*3/uL (0.00-0.03); Imm Gran Pct Auto 0.2 % (0.0-0.4); Lymphocytes Absolute Auto 0.8 X10*3/uL (1.2-4.9); Lymphocytes Percent Auto 16.7 % (20-40); Mean Corpuscular HGB Conc 33.9 g/dl (31.0-35.0); Mean Corpuscular Hemoglobin 29.1 pg (27.0-33.0); Mean Corpuscular Volume 85.8 fL (80.0-98.0); Mean Platelet Volume 10.8 fL (9.4-12.3); Monocytes Absolute Auto 0.3 X10*3/uL (0.1-1.2); Monocytes Percent Auto 5.7 % (2-11); Neutrophils Absolute Auto 3.3 x10*3/uL (2.0-8.3); Neutrophils Percent Auto 71.9 % (45-73); Platelet Count 295 X10*3/uL (160-400); Red Blood Count 3.81 X10*6/uL (4.20-5.50); Red Cell Distribution Width 11.2 % (11.0-16.0); White Blood Count 4.6 X10*3/uL (4.8-10.8)
[2024-03-19 12:45] LABS: Blood Urea Nitrogen 27 mg/dL (9-16); Estimated Glomerular Filt Rate 26
== END 2024-03-19 12:16 | disposition home or self-care (01) ==
LOC: HO.HVNA 12:15
PROVIDERS: Visit Provider Internal Medicine
DX: B99.9 Unspecified infectious disease (principal)
CPT/HCPCS: 36415; 82565; 84520; 85025

== ENCOUNTER 2024-03-20 10:31 | Outpatient (AMB) | payer MEDICARE, SELFPAY ==
--- NOTE | 2024-03-20 10:36 | MHC.OFFVIS ---
Vital Signs 03/20/24 10:44 Height 5 ft 1 in Weight 140 lb BMI 26.4 Intake Visit Reasons: Hospital Follow up PAD/ toe wound Intake Note: Cristal is a 73 year old female who presents to the office today for a hospital follow up PA/ toe wound. Pt states she is very off balance. Pt states she is in a little discomfort in her left foot. Pt denies any discharge from her wound. Accompanied by: Grand Child Allergies lisinopril Adverse Reaction (Verified 03/20/24 10:38) Unknown HPI HPI Hospital Follow up PAD/ toe wound: Details: Very pleasant 73-year-old female presents for routine follow-up from the hospital for nonhealing left foot ulcer. She reports it is doing significantly better with antibiotics and local wound care. She had had noninvasive testing in the hospital. She now presents to us for vascular evaluation. [facility] Medical History CKD (chronic kidney disease) HTN (hypertension) Diabetes Surgical History History of cataract surgery History of bladder surgery History of total hysterectomy History of tonsillectomy Family History Father Hypertension Diabetes Hx of leg amputation Mother Myocardial infarction Diabetes Hypertension Sister Breast cancer Brother Diabetes Maternal Aunt Bone cancer Social History Household Members: Children Household Members Other:: daughter, grandkids, , 6 total Housing: Apartment Housing Other:: first floor. 4 steps to get in Do you presently have visiting nurse or other home services: No Alcohol intake: never Patient Tobacco Use Status: Never used Tobacco e-Cigarette/Vaping Use: Never Used Second Hand Smoke Exposure: No Advance Directives Date on File: 12/05/23 service: No Current occupational status: retired Current occupation: rt hand Cognitive needs: Yes (cane) Hearing needs: No Vision needs: Yes (Glasses) Review of Systems Const All systems reviewed & are unremarkable except as noted in HPI and below Reports no additional complaints ENT Reports Normal hearing present Card Denies chest pain, Denies chest pain at rest, Denies chest pain with activity and Denies pedal edema Resp Denies cough GI Denies abdominal pain Musc Denies abnormal gait, Denies muscle cramps and Denies radiating pain into limb Skin/Breast Denies skin ulcer and Denies wounds Neuro Reports Normal hearing present and Denies abnormal gait Psych Reports no additional complaints Physical Exam Vital Signs: BMI result Body Mass Index 26.4 Const General: cooperative, healthy appearing and comfortable Orientation/consciousness: oriented to person, oriented to place and oriented to time HEENT Head: Yes normal to inspection Neck Neck: Yes normal visual inspection Carotids: no bruits Chest Chest palpation & inspection: normal inspection of the chest Resp Effort & Inspection: normal respiratory effort and able to speak in complete sentences Auscultation: clear to auscultation bilaterally, no crackles, no rales, no rhonchi and no wheezes Cardio Other: Bilateral DP signals Rate: regular rate Rhythm: regular rhythm Heart sounds: S1 normal heart sound present and S2 normal heart sound present Bruits: no carotid bruits Peripheral pulses: Peripheral pulses 2+ throughout GI Inspection: Yes normal to inspection Skin Other: Left 2nd toe nonhealing ulcer Wounds: no wounds Hair: normal Neuro General: oriented to person, oriented to place and oriented to time Cranial nerves: Yes CN's II-XII intact bilaterally and Yes Normal hearing present Cognition (Neuro): normal cognition Motor exam (neuro): 5/5 motor strength present throughout Extrem Other: venous exam: No significant superficial varicosities or spider telangiectasias, minimal edema General: No clubbing, No cyanosis and No edema Psych Appearance: grossly normal Mental Status: mental status grossly normal Speech and movement: Normal speech and movement present Results Reviewed Results Reviewed: Noninvasive testing dated 03/02/2024 was reviewed and concern of SFA disease. Assessment & Plan Assessment & Plan (1) PAD (peripheral artery disease): Code(s): I73.9 - Peripheral vascular disease, unspecified Category: Medical Plan: Patient notes leg pain when walking distances. I have discussed the pathophysiology of peripheral vascular disease with the patient. I have also discussed risk factor modification. I have reviewed the patient's arterial testing which reveals left SFA disease. the patient would benefit from a left leg endovascular peripheral angiogram with possible angioplasty, stent, and/or atherectomy. This has been discussed in detail with the patient along with risks, benefits, and complications. This includes but is not limited to bleeding, infection, heart attack, need for emergent surgical repair, limb ischemia, blood vessel damage, bleeding, puncture, kidney injury, bruising, allergic reaction, and skin reaction. The patient demonstrates a clear understanding. We will schedule for the next appropriate time. Thank you for allowing us to assist in this patient's care. Please note a longitudinal relationship has been created with the patient and we have been following and surveillance this chronic condition. Coding Level of Care Code Est Pt Level 4 (87782) Complex EM visit Add On G2211 Diagnoses PAD (peripheral artery disease) I73.9
[2024-03-20 10:44] VITALS: BMI 26.4
== END 2024-03-20 11:12 | disposition home or self-care (01) ==
PROVIDERS: PCP Internal Medicine; Visit Provider Surgery Vascular Surgery
DX: I73.9 Peripheral vascular disease, unspecified (principal)
CPT/HCPCS: 99214; G2211

== ENCOUNTER → 2024-03-20 10:31 | Outpatient (BNVA) | payer MEDICARE, SELFPAY | PROVIDERS: PCP Internal Medicine; Visit Provider Surgery Vascular Surgery | DX: I73.9 Peripheral vascular disease, unspecified (principal) | CPT/HCPCS: 99212 ==

== ENCOUNTER 2024-03-25 16:45 | Inpatient (IN) | payer MEDICARE, MEDICAID, SELFPAY ==
--- NOTE | ~2024-03-25 | CT_ITS ---
EXAMINATION: CT HEAD WITHOUT IV CONTRAST CLINICAL INFORMATION: Encephalopathy COMPARISON: CT head without contrast 03/25/2024 TECHNIQUE: Contiguous axial imaging was performed from the skull base to vertex without intravenous contrast. Sagittal and coronal reformatted images were obtained. This CT examination was performed using dose optimization techniques as appropriate, variously including the following: * Automated exposure control * Adjustment of mA and/or kV according to patient size (this includes techniques or standardized protocols for targeted exams where dose is matched to indication/reason for exam; i.e. extremities or head) Use of iterative reconstruction technique DLP: 1276 mGy-cm FINDINGS: No acute osseous or soft tissue abnormality. Mastoids are clear. Aerosolized secretions in the left sphenoid sinus. There is no evidence of acute intracranial hemorrhage or territorial infarction. No abnormal mass effect or midline shift is seen. [place] to white matter differentiation is well preserved. No extra-axial fluid collections are identified. No hydrocephalus. Proportional prominence of the ventricles and sulcal spaces related to volume loss. Patchy periventricular and deep white matter hypoattenuation is consistent with moderate small vessel ischemic changes. Small chronic infarct in the right occipital lobe. Chronic lacunar infarcts in left basal ganglia. CT/CT head/brain wo IV con IMPRESSION: No acute intracranial abnormality including hemorrhage, mass effect, hydrocephalus, or acute territorial edematous infarction. Electronically signed by: Khanh Ricci MD 03/26/2024 12:55 PM EDT
--- NOTE | ~2024-03-25 | XR_ITS ---
EXAMINATION: XR CHEST CLINICAL INFORMATION: Unresponsive. COMPARISON: None available. TECHNIQUE: Frontal view of the chest was obtained. FINDINGS: The lungs are hyperexpanded but clear. The heart size is enlarged with increased pulmonary vascularity just a mild congestion. No gross bony abnormality is seen. XR/XR chest 1V IMPRESSION: Mild cardiomegaly with pulmonary vascular congestion Electronically signed by: Arsalan Montano MD 03/25/2024 06:10 PM EDT
--- NOTE | ~2024-03-25 | CT_ITS ---
EXAMINATION: CT HEAD WITHOUT IV CONTRAST, CT CERVICAL SPINE WITHOUT IV CONTRAST INDICATION INFORMATION: AMS COMPARISON: None TECHNIQUE: Separate noncontrast CT examinations of the head and cervical spine were performed. Coronal and sagittal images were created for each examination at the technologist workstation. This CT examination was performed using dose optimization techniques as appropriate, variously including the following: *Automated exposure control *Adjustment of mA and/or kV according to patient size (this includes techniques or standardized protocols for targeted exams where dose is matched to indication/reason for exam; i.e. extremities or head) *Use of iterative reconstruction technique DLP: 1052 mGy-cm FINDINGS: Head: No acute osseous or soft tissue abnormality. The mastoid air cells and visualized portions of the paranasal sinuses are well aerated. There is no evidence of acute intracranial hemorrhage or territorial infarction. No abnormal mass effect or midline shift is seen. [place] to white matter differentiation is well preserved. No extra-axial fluid collections are identified. No hydrocephalus. Proportional prominence of the ventricles and sulcal spaces is consistent with mild volume loss. Mild ex vacuo dilatation of the left frontal horn. Patchy periventricular and deep white matter hypoattenuation is consistent with moderate small vessel ischemic changes. Chronic left basal ganglia lacunar infarct and small chronic right occipital lobe infarct. Cervical spine: There is no evidence of acute cervical spine fracture. Vertebral bodies remain normal in height. Alignment is maintained. Advanced degenerative disc disease at C5-C6. Mild multilevel facet arthropathy. No pre- or paravertebral soft tissue abnormality is identified. Visualized portions of the lung apices are unremarkable. The thyroid gland is unremarkable. CT/CT cervical spine wo IV con IMPRESSION: 1. No acute intracranial abnormality. 2. Moderate chronic microangiopathy. Small chronic right occipital infarct and left basal ganglia lacunar infarct. 3. No cervical spine fracture or traumatic malalignment. Electronically signed by: Khanh Ricci MD 03/25/2024 06:43 PM EDT
--- NOTE | ~2024-03-25 | CT_ITS ---
EXAMINATION: CT CHEST, ABDOMEN AND PELVIS WITHOUT CONTRAST. CLINICAL INFORMATION: Please Assess Any Infection. COMPARISON: 08/24/2019 CT scan. TECHNIQUE: Multidetector volumetric imaging was performed from the thoracic inlet through the pubic symphysis without intravenous contrast. Sagittal and coronal reformatted images were obtained on the technologist workstation. This CT examination was performed using dose optimization techniques as appropriate, variously including the following: *Automated exposure control *Adjustment of mA and/or kV according to patient size (this includes techniques or standardized protocols for targeted exams where dose is matched to indication/reason for exam; i.e. extremities or head) *Use of iterative reconstruction technique DLP: 825 mGy-cm FINDINGS: CHEST: Lungs: Bibasilar dependent markings more suggestive of atelectatic change. No dense consolidation or air bronchograms. Coarsened calcification within the right middle lobe likely representing chronic postinfectious or postinflammatory change. Mediastinum: Extensive vascular calcification within the aorta and coronary vessels. Calcification within the mitral annular region. Right arm PICC line tip extending to the cavoatrial junction. Coronary Artery Calcification: Significant Pericardium/Pleura: No significant effusion. No pleural mass or thickening. Chest Wall/Axilla: Unremarkable. ABDOMEN/PELVIS: Peritoneal Space:No significant free air or free fluid identified. Liver, Gallbladder, Biliary Tree: The non contrast liver is normal in size, shape, and attenuation. No focal hepatic lesion or biliary ductal dilatation is present. The gallbladder is unremarkable with no evidence of radiopaque gallstones, gallbladder wall thickening, or obvious pericholecystic inflammatory changes. Pancreas: Unremarkable. Spleen: Unremarkable. Adrenal Glands: Unremarkable. Kidneys and Ureters: The kidneys are normal in size, shape, and attenuation. No hydronephrosis, hydroureter, or perinephric stranding. No calculi. Bladder: Unremarkable. Gastrointestinal Tract: Colon is redundant with scattered colonic diverticulosis but new evidence for diverticulitis. Prominent stool seen within the rectum. No colonic or rectal wall thickening. Normal-appearing appendix in the right lower quadrant. Visualized small bowel unremarkable. Abdominal Wall: There is a stable fluid attenuation structure in the left lower quadrant anterior abdominal wall which is slightly decreased from the [address] CT scan. This elliptical structure measures approximately 7.6 cm in length. No evidence for herniation. Lymphovascular Structures: Extensive vascular calcification. No bulky adenopathy. Pelvic Viscera: Relapse and Osseus Structures: Multilevel degenerative changes in the spine but no acute bony abnormality. CT/CT abdomen pelvis wo IV con IMPRESSION: Chronic appearing changes as described above. I do not appreciate any acute intra-abdominal process. Basilar airspace disease more likely due to atelectasis Electronically signed by: Clive Barber MD 03/26/2024 02:10 PM EDT RP
[2024-03-25 16:48] VITALS: BP 92/60; BP 99/53; PULSE 93; RESP 14; TEMP 36; O2SAT 95; O2SAT 96; BMI 28.0
--- NOTE | 2024-03-25 17:05 | PC.NURSE ---
Pt. is on monitor technician at this time.
[2024-03-25 17:08] LABS: Glucose, Whole Blood 88 mg/dL (60-115)
--- NOTE | 2024-03-25 17:24 | ECG_ITS ---
Test Reason : UNRESPONSIVE EPISODE Blood Pressure : / mmHG Vent. Rate : 087 BPM Atrial Rate : 087 BPM P-R Int : 192 ms QRS Dur : 092 ms QT Int : 428 ms P-R-T Axes : 043 -03 006 degrees QTc Int : 515 ms Normal sinus rhythm Nonspecific T wave abnormality Prolonged QT Abnormal ECG When compared with ECG of 01-DEC-2023 15:15, Nonspecific T wave abnormality now evident in Inferior leads Referred By: Anais Pleitez Electronically Signed By:MARINO ARTIS
--- NOTE | 2024-03-25 17:26 | ED.GENADULT ---
HPI - General Adult General Chief complaint: Seizure Stated complaint: 2 seizures, hypoglycemic for ems now bgl of 126 Time Seen by Provider: 03/25/24 17:26 Source: patient, family (patient's granddaughter) and EMS Mode of arrival: EMS Limitations: altered mental status History of Present Illness ED Provider: Anais Pleitez PA-C HPI narrative: Patient is a 73 year old assigned female at with a history of dementia, PAD, CKD, DM, and HTN presenting to the emergency department today after an unintentional insulin overdose. Patient's granddaughter states that the patient told her to give her 50 units of Novalog. However, the patient shortly after became less responsive and had shaking motions like a seizure. Related Data Home Medications ?Medication ?Instructions ?Recorded ?Confirmed rosuvastatin 5 mg tablet 5 mg PO DAILY 02/20/24 03/02/24 albuterol sulfate 90 mcg/actuation 2 puff PO QID PRN shortness of 03/02/24 03/02/24 aerosol inhaler breath or wheezing citalopram 10 mg tablet 10 mg PO DAILY 03/02/24 03/02/24 semaglutide 0.25 mg or 0.5 mg (2 0.25 mg subcut TU 03/02/24 03/02/24 mg/3 mL) subcutaneous pen injector (Ozempic) Previous Rx's ?Medication ?Instructions ?Recorded blood sugar diagnostic (OneTouch #100 ea 03/21/23 Ultra Test strips) blood-glucose meter (OneTouch #1 ea 03/21/23 Ultra2 Meter) lancets 30 gauge (OneTouch #200 ea 03/21/23 UltraSoft 2 Lancet) amlodipine 10 mg tablet 10 mg PO DAILY #90 tabs 10/26/23 insulin aspart U-100 100 unit/mL 30 unit (0.3 mL) subcut TID 90 01/27/24 (3 mL) subcutaneous pen (NovoOrder Mapper #81 mL FlexPen U-100 Insulin aspart) FreeStyle Song 3 Sensor #6 ea 02/23/24 (blood-glucose sensor) blood-glucose meter,continuous #1 ea 02/23/24 (FreeStyle Song 3 [place]) empagliflozin 10 mg tablet 10 mg PO DAILY #90 tabs 02/23/24 (Jardiance) insulin glargine 100 unit/mL (3 50 unit (0.5 mL) subcut DAILY 90 02/23/24 mL) subcutaneous pen (aglar days #45 mL KwikPen U-100 Insulin) aspirin 81 mg tablet,delayed 81 mg PO DAILY #30 tabs 03/05/24 release ertapenem 1 gram solution for 1 g IV DAILY #38 ea 03/05/24 injection gabapentin 400 mg capsule 400 mg PO BID #120 caps 03/16/24 Allergies Allergy/AdvReac Type Severity Reaction Status Date / Time lisinopril AdvReac Unknown Verified 03/25/24 16:56 Review of Systems Review of Systems: Yes Unobtainable due to mental status PMFSH Past Medical History Attestation statement: The following information was validated with the patient. (all information validated with the patient's granddaughter) Source: old records reviewed, obtained from family (patient's grand daughter provided additional history and confirmed the history provided by the patient.) and nursing notes reviewed Medical History CKD (chronic kidney disease) HTN (hypertension) Diabetes Surgical History History of cataract surgery History of bladder surgery History of total hysterectomy History of tonsillectomy Family History Family History Father Hypertension Diabetes Hx of leg amputation Mother Myocardial infarction Diabetes Hypertension Sister Breast cancer Brother Diabetes Maternal Aunt Bone cancer Social History Social History Household Members: Children Household Members Other:: daughter, grandkids, , 6 total Housing: Apartment Housing Other:: first floor. 4 steps to get in Do you presently have visiting nurse or other home services: No Unable to assess alcohol history related to: Unknown Alcohol intake: never Patient Tobacco Use Status: Never used Tobacco e-Cigarette/Vaping Use: Never Used Second Hand Smoke Exposure: No Use of substances other than those prescribed or required for medical reasons: Unknown Advance Directives: Yes Advance Directives on File: Yes Advance Directives Date on File: 12/05/23 service: No Current occupational status: retired Current occupation: rt hand Cognitive needs: Yes (cane) Hearing needs: No Vision needs: Yes (Glasses) Physical Exam ED Vital Signs: Vital Signs - 24 hr 03/25/24 16:48 03/25/24 17:48 03/25/24 18:16 Temperature 96.8 F Pulse Rate 93 84 93 Respiratory Rate 14 14 18 Blood Pressure 99/53 L 115/67 98/43 L Pulse Oximetry 95 92 97 Oxygen Delivery Method Nasal Cannula Nasal Cannula Nasal Cannula Oxygen Flow Rate 2 BMI result Body Mass Index 28.0 Const General: lethargic Nutritional Appearance: cachectic Orientation/consciousness: lethargic Limitations: altered mental status HENMT Head: Yes normal to inspection and Yes atraumatic General nose exam: Normal external nose present, no nasal discharge noted and no epistaxis Face and sinus: Yes normal facial exam, No abrasion and No laceration Mouth: Normal oral and palatal mucosa present, no drooling and no muffled voice Eyes General: appearance normal, both eyes and all related structures Periorbital: periorbital findings normal Eyelids: Yes eyelids normal Conjunctivae: conjunctivae normal Pupils: Equal, round and reactive pupils present Neck Neck: Yes normal visual inspection, Yes full ROM and Yes no lymphadenopathy Chest Chest palpation & inspection: normal inspection of the chest Resp Effort & Inspection: normal respiratory effort Cardio Rate: regular rate Rhythm: regular rhythm GI Inspection: Yes normal to inspection Palpation (GI): Soft to palpation, not firm, no guarding and not rigid Neuro Cranial nerves: Yes Equal, round and reactive pupils present Extrem General: Yes normal to inspection, Yes full ROM and Yes capillary refill normal Medications Administered Discontinued Medications Generic Name Dose Route Start Last Admin Trade Name Freq PRN Reason Stop Dose Admin Dextrose 25 gm 03/25/24 19:15 03/25/24 19:14 Dextrose 50 % 25 Gm/50 Ml Syringe IVPUSH 03/25/24 19:16 25 gm ONCE ONE Administration Dextrose/Lactated Ringer's 1,000 mls @ 200 mls/hr 03/25/24 17:30 03/25/24 17:40 D5lr IVCONT 100 mls/hr .Q5H INGA Administration Medical Decision Making Medical Decision Making [facility] Narrative: Patient is a 73 year old assigned female at with a history of DM, CKD, osteomyelitis of a toe with a PICC line in place for continued IV ABX, and HTN presenting to the emergency department today with an altered mental status after insulin use. Patient's physical exam showed a lethargic / confused individual who was protecting her own airway and arousable to verbal stimuli. Patient's blood work showed a sodium of 147, potassium of 3.0, BUN of 23, CR of 2.20, glucose of 53, and a WBC count of 13.8. Patient's EKG was unremarkable. Patient's chest x-ray showed no acute process but did show mild cardiomegaly and pulmonary venous congestion. Patient's head and c-spine CTs were negative. I staffed this patient with my attending physician, Dr. Diggs. He recommended giving 200ml/hr of D5 + LR. Patient was on that for some time however, she continued to have a low blood sugar. An amp of D50 was given. I spoke to the hospitalist who recommended ICU admission. I spoke to the credit card interviewer, Dr. Moreira, who agreed to admission in the ICU. I explained my physical exam findings as well as all test results to the patient and the patient's granddaughter. I answered all questions asked by the patient's granddaughter. Patient's granddaughter verbalized agreement and understanding with this treatment plan and admission to the ICU. Differential Diagnosis Differential Diagnoses: The differential diagnosis associated with the presentation includes Hypoglycemia Insulin overdose Admission/Observation Consideration of admission/observation: Escalation of care including admission/observation considered Patient admitted to the ICU Consult Healthcare Provider Management of the patient was discussed with: Hospitalist (spoke to the hospitalist team as noted in the MDM Rationale portion of this note.) and Hospice Massage Therapist (spoke to the credit card interviewer as noted in the MDM Rationale portion of this note.) Lab Data [facility] Lab Attestation statement: I reviewed the patient's lab results. My interpretation of these results are in the MDM Rationale portion of this note. 03/25/24 17:46 03/25/24 17:46 Labs: Lab Results 03/25/24 03/25/24 03/25/24 Range/Units 16:55 17:46 19:05 WBC 13.8 H (4.8-10.8) X10*3/uL RBC 3.37 L (4.20-5.50) X10*6/uL Hgb 9.9 L (12.0-16.0) g/dl Hct 28.9 L (37.0-47.0) % MCV 85.8 (80.0-98.0) fL MCH 29.4 (27.0-33.0) pg MCHC 34.3 (31.0-35.0) g/dl RDW 11.3 (11.0-16.0) % Plt Count 236 (160-400) X10*3/uL MPV 10.6 (9.4-12.3) fL Immature Gran % (Auto) 0.4 (0.0-0.4) % Neut % (Auto) 85.8 H (45-73) % Lymph % (Auto) 5.7 L (20-40) % [place] % (Auto) 6.4 (2-11) % Eos % (Auto) 1.4 (0-4) % Baso % (Auto) 0.3 (0-2) % Lymph # (Auto) 0.8 L (1.2-4.9) X10*3/uL [place] # (Auto) 0.9 (0.1-1.2) X10*3/uL Eos # (Auto) 0.2 (0.0-0.4) X10*3/uL Baso # (Auto) 0.0 (0.0-0.2) X10*3/uL Abs Immat Gran (auto) 0.06 H (0.00-0.03) X10*3/uL Absolute Neuts (auto) 11.9 H (2.0-8.3) x10*3/uL Absolute Nucleated RBC 0.000 (0.0-0.012) X10*3/uL Nucleated RBC % (auto) 0.0 (0.0-0.2) /100WBC Sodium 147 H (135-145) mmol/L Potassium 3.0 L (3.3-5.1) mmol/L Chloride 111 H (96-108) mmol/L Carbon Dioxide 25 (22-29) mmol/L Anion Gap 14 (12-20) BUN 23 H (9-16) mg/dL Creatinine 2.20 H (0.5-1.4) mg/dL Estim Creat Clear Calc 20.0 Estimated GFR 22 POC Glucose 88 52 L* (60-115) mg/dL Random Glucose 53 L* (60-115) mg/dL Calcium 9.5 (8.4-10.2) mg/dL Magnesium 2.2 (1.6-2.6) mg/dL Total Bilirubin 0.2 (0.0-1.0) mg/dL AST 23 (5-31) U/L ALT 15 (0-31) U/L Alkaline Phosphatase 66 (39-117) U/L Troponin I High Sens 31.2 H D (<3.5-17.0) ng/L Total Protein 7.0 (6.5-8.0) g/dL Albumin 3.8 (3.5-5.0) g/dL Influenza Type A (PCR) NEGATIVE (Negative) Influenza Type B (PCR) NEGATIVE (Negative) RSV RNA Qual (PCR) NEGATIVE (Negative) SARS-CoV-2 RNA (RT-PCR) NEGATIVE (Negative) Independent Interpretation I performed an independent interpretation of an: EKG, Plain X-Ray and CT Scan Interpretation: My interpretation is in agreement with the radiologist's impression of these imaging studies. EXAMINATION: XR CHEST CLINICAL INFORMATION: Unresponsive. COMPARISON: None available. TECHNIQUE: Frontal view of the chest was obtained. FINDINGS: The lungs are hyperexpanded but clear. The heart size is enlarged with increased pulmonary vascularity just a mild congestion. No gross bony abnormality is seen. XR/XR chest 1V IMPRESSION: Mild cardiomegaly with pulmonary vascular congestion Electronically signed by: Arsalan Montano MD 03/25/2024 06:10 PM EDT RP Dictated By: Arsalan Montano MD Signed By: Electronically signed by Arsalan Montano MD 03/25/24 0230 EXAMINATION: CT HEAD WITHOUT IV CONTRAST, CT CERVICAL SPINE WITHOUT IV CONTRAST INDICATION INFORMATION: AMS COMPARISON: None TECHNIQUE: Separate noncontrast CT examinations of the head and cervical spine were performed. Coronal and sagittal images were created for each examination at the technologist workstation. This CT examination was performed using dose optimization techniques as appropriate, variously including the following: *Automated exposure control *Adjustment of mA and/or kV according to patient size (this includes techniques or standardized protocols for targeted exams where dose is matched to indication/reason for exam; i.e. extremities or head) *Use of iterative reconstruction technique DLP: 1052 mGy-cm FINDINGS: Head: No acute osseous or soft tissue abnormality. The mastoid air cells and visualized portions of the paranasal sinuses are well aerated. There is no evidence of acute intracranial hemorrhage or territorial infarction. No abnormal mass effect or midline shift is seen. [place] to white matter differentiation is well preserved. No extra-axial fluid collections are identified. No hydrocephalus. Proportional prominence of the ventricles and sulcal spaces is consistent with mild volume loss. Mild ex vacuo dilatation of the left frontal horn. Patchy periventricular and deep white matter hypoattenuation is consistent with moderate small vessel ischemic changes. Chronic left basal ganglia lacunar infarct and small chronic right occipital lobe infarct. Cervical spine: There is no evidence of acute cervical spine fracture. Vertebral bodies remain normal in height. Alignment is maintained. Advanced degenerative disc disease at C5-C6. Mild multilevel facet arthropathy. No pre- or paravertebral soft tissue abnormality is identified. Visualized portions of the lung apices are unremarkable. The thyroid gland is unremarkable. CT/CT head/brain wo IV con IMPRESSION: 1. No acute intracranial abnormality. 2. Moderate chronic microangiopathy. Small chronic right occipital infarct and left basal ganglia lacunar infarct. 3. No cervical spine fracture or traumatic malalignment. Electronically signed by: Khanh Ricci MD 03/25/2024 06:43 PM EDT Dictated By: Khanh Ricci Signed By: Electronically signed by Khanh Ricci 03/25/24 1843 Vent. Rate: 087 BPM Atrial Rate: 087 BPM P-R Int: 192 ms QRS Dur: 092 ms QT Int: 428 ms P-R-T Axes: 043 -03 006 degrees QTc Int: 515 ms Normal sinus rhythm Prolonged QT Abnormal ECG When compared with ECG of 01-DEC-2023 15:15, Nonspecific T wave abnormality now evident in Inferior leads DD/ [id number] Radiology Impression Discussion of test interpretation with radiology: I have reviewed the radiologist's reading. Independent Historian Clinical information obtained from an independent historian. History obtained from or confirmed by: EMS (EMS provided additional history and confirmed the history provided by the patient's granddaughter) and Other (Patient's granddaughter provided additional history and confirmed the history provided by EMS.) Chronic Conditions Patient?s care impacted by: Diabetes and Hypertension Critical Care Time Critical Care Time Critical Care Time: Yes Total Critical Care Time: 62 Attestation: I spent 62 minutes of Critical Care Time with this patient. This does not include time spent on separately reported billable procedures. Discharge Plan Discharge Clinical Impression: Hypoglycemia, Accidental overdose of insulin Patient Disposition: Admitted As Inpatient
[2024-03-25] MEDS: Dextrose 5 % and Lactated Ring 1,000 ML 100 ML IVCONT (17:40)
[2024-03-25 17:48] VITALS: BP 115/67; PULSE 84; RESP 14; O2SAT 92
[2024-03-25 17:51] LABS: MANUAL DIFF FLAG NO
[2024-03-25 17:54] LABS: Basophils Percent Auto 0.3 % (0-2); Eosinophils Absolute Auto 0.2 X10*3/uL (0.0-0.4); Eosinophils Percent Auto 1.4 % (0-4); Hematocrit 28.9 % (37.0-47.0); Hemoglobin 9.9 g/dl (12.0-16.0); Imm Gran Abs Auto 0.06 X10*3/uL (0.00-0.03); Imm Gran Pct Auto 0.4 % (0.0-0.4); Lymphocytes Absolute Auto 0.8 X10*3/uL (1.2-4.9); Lymphocytes Percent Auto 5.7 % (20-40); Mean Corpuscular HGB Conc 34.3 g/dl (31.0-35.0); Mean Corpuscular Hemoglobin 29.4 pg (27.0-33.0); Mean Corpuscular Volume 85.8 fL (80.0-98.0); Mean Platelet Volume 10.6 fL (9.4-12.3); Monocytes Absolute Auto 0.9 X10*3/uL (0.1-1.2); Monocytes Percent Auto 6.4 % (2-11); Neutrophils Absolute Auto 11.9 x10*3/uL (2.0-8.3); Neutrophils Percent Auto 85.8 % (45-73); Platelet Count 236 X10*3/uL (160-400); Red Blood Count 3.37 X10*6/uL (4.20-5.50); Red Cell Distribution Width 11.3 % (11.0-16.0); White Blood Count 13.8 X10*3/uL (4.8-10.8)
[2024-03-25 18:12] LABS: Alanine Aminotransferase 15 U/L (0-31); Albumin Level 3.8 g/dL (3.5-5.0); Alkaline Phosphatase 66 U/L (39-117); Anion Gap 14 (12-20); Aspartate Amino Transferase 23 U/L (5-31); Bilirubin Total 0.2 mg/dL (0.0-1.0); Blood Urea Nitrogen 23 mg/dL (9-16); Calcium 9.5 mg/dL (8.4-10.2); Carbon Dioxide 25 mmol/L (22-29); Chloride 111 mmol/L (96-108); Estimated Glomerular Filt Rate 22; Glucose Random 53 mg/dL (60-115); Magnesium 2.2 mg/dL (1.6-2.6); Sodium 147 mmol/L (135-145)
[2024-03-25 18:16] VITALS: BP 98/43; PULSE 93; RESP 18; O2SAT 97
[2024-03-25 18:16] LABS: Troponin-I High Sensitivity 31.2 ng/L (<3.5-17.0)
--- NOTE | 2024-03-25 18:16 | PC.NURSE ---
Rate of D5 LR increased to 200mL/hr per FAVIAN Roblero.
[2024-03-25] MEDS: Dextrose 50 % 25 GM/50 ML SYRINGE IVPUSH (19:14)
[2024-03-25 19:15] LABS: Glucose, Whole Blood 52 mg/dL (60-115)
--- NOTE | 2024-03-25 19:18 | PC.NURSE ---
assumed care of pt at 1900. pt is asleep on stretcher not responsive to questions. NSR on groundwater monitoring technician. respirations even and unlabored. family at bedside. D5/LR running @ 200ml/hr. repeat poc 52. FAVIAN Vesta aware. 1amp dextrose iv push administered per sep.
[2024-03-25 19:44] LABS: Influenza A PCR NEGATIVE (Negative); Influenza B PCR NEGATIVE (Negative); Resp Syncy Virus RNA Qual PCR NEGATIVE (Negative); SARS COV2 PCR INHOUSE NEGATIVE (Negative)
[2024-03-25] MEDS: Dextrose 10 % 1,000 ML 100 ML IVCONT (20:28)
[2024-03-25 20:29] LABS: Glucose, Whole Blood 129 mg/dL (60-115)
[2024-03-25 20:31] VITALS: BP 121/61; PULSE 88; RESP 13; TEMP 36.4; O2SAT 96; BMI 27.8
[2024-03-25 20:37] LABS: Appearance Urine Clear; Color Urine Yellow; Glucose Urine UA >=1000 mg/dL (Negative); Leukocyte Esterase Urine Negative (Negative); Nitrite Urine Negative (Negative); PH 6.5 (5.0-9.0); UMIC TRIGGER UACC YES; Urine Blood Negative (Negative); Urine Ketones Negative (Negative); Urine Protein 300 (3+) mg/dL (Neg-Trace)
--- NOTE | 2024-03-25 20:38 | PC.NURSE ---
16fr adhikari catheter placed with 500cc urine output - sample collected and sent to lab. pt still very sleepy, lethargic, not answering questions however responsive to painful stimuli. vitals stable on monitor technician, 2L O2 via NC w / end tidal monitoring. report given to Maty [facility] ICU
[2024-03-25 20:41] LABS: Bacteria Urine None Seen (None Seen); Hyaline Casts Urine 0-2 /LPF (0-2); RBC Urine 0-2 /HPF (0-2); Squamous Epithelial Cell Urine 0-2 /HPF (0-2); WBC Urine 0-5 /HPF (0-5)
--- NOTE | 2024-03-25 20:59 | P.HPCC_ITS ---
History of Present Illness Date of Service: 03/25/24 Attending physician on admission: Florian Linares Chief Complaint: hypoglycemia/ accidental Novolog OD HPI: ?The patient is a 73-year-old female with underlying history of hypertension, diabetes, chronic kidney disease stage 3 to 4, asthma, mood disorder, left 1st toe osteomyelitis currently on treatment with ertapenem and as an outpatient after recently being admitted and discharged from this hospital on 03/01/2024, she has a PICC line and was to receive that time 38 more days of antibiotics, however by now she should only have 15 more days of it. ?Patient came to emergency room with complaints of possible seizure-like activity and hypoglycemia after unintentionally receiving 50 mg of NovoLog administered by the granddaughter, the patient has shortly become less responsive she had shaking like motions, she received D10 in the ambulance, on arrival the patient was noted to be borderline hypotensive with blood pressure of 99/53, blood sugar of 126 otherwise stable vital signs. Workup was significant for white count of 13.8 creatinine of 2.2, blood glucose of 53, patient was given D5 followed by an amp D50 for her where she continued to decrease. ?Head /cervical spine CT revealed no intracranial pathology, fracture or traumatic misalignment.? Chest x-ray revealed mild cardiomegaly and pulmonary vascular congestion.? Given the patient's ongoing hypoglycemia, patient was admitted to the ICU for close monitoring. Currently patient is somnolent, unable to answer questions other than yes and no. Review of Systems 2 Review of Systems: Unable to obtain [facility] Past Medical History Medical History CKD (chronic kidney disease) HTN (hypertension) Diabetes Family History Family History Father Hypertension Diabetes Hx of leg amputation Mother Myocardial infarction Diabetes Hypertension Sister Breast cancer Brother Diabetes Maternal Aunt Bone cancer Surgical History Surgical History History of cataract surgery History of bladder surgery History of total hysterectomy History of tonsillectomy Social History Social History Household Members: Children Household Members Other:: daughter, grandkids, , 6 total Housing: Apartment Housing Other:: first floor. 4 steps to get in Do you presently have visiting nurse or other home services: No Unable to assess alcohol history related to: Unknown Alcohol intake: never Patient Tobacco Use Status: Never used Tobacco e-Cigarette/Vaping Use: Never Used Second Hand Smoke Exposure: No Use of substances other than those prescribed or required for medical reasons: Unknown Advance Directives: Yes Advance Directives on File: Yes Advance Directives Date on File: 12/05/23 Nutrition Risks: No Nutritional Risk service: No Current occupational status: retired Current occupation: rt hand Cognitive needs: Yes (cane) Hearing needs: No Vision needs: Yes (Glasses) Meds Allergies Allergy/AdvReac Type Severity Reaction Status Date / Time lisinopril AdvReac Unknown Verified 03/25/24 16:56 Active Medications: Current Medications Dextrose (D10) 1,000 mls @ 100 mls/hr IVCONT .Q10H INGA Last Admin: 03/25/24 20:28 Dose: 100 mls/hr Meropenem 500 mg/ Sodium (Chloride) 50 mls @ 100 mls/hr IV Q12H INGA Potassium Chloride (Potassium Chloride/H20) 10 meq in 100 mls @ 100 mls/hr IV Q1H INGA Stop: 03/25/24 22:59 Home Medications ?Medication ?Instructions ?Recorded ?Confirmed ?Last Taken ?Type rosuvastatin 5 mg tablet 5 mg PO DAILY 02/20/24 03/02/24 03/02/24 History albuterol sulfate 90 mcg/actuation 2 puff PO QID PRN shortness of 03/02/24 03/02/24 Unknown History aerosol inhaler breath or wheezing citalopram 10 mg tablet 10 mg PO DAILY 03/02/24 03/02/24 03/02/24 History semaglutide 0.25 mg or 0.5 mg (2 0.25 mg subcut TU 03/02/24 03/02/24 02/28/24 History mg/3 mL) subcutaneous pen injector (Ozempic) Physical Exam 2 Vital Signs: Vital Signs: Last Vital Signs Temp 97.6 F 03/25/24 20:31 Pulse 88 03/25/24 20:31 Resp 13 03/25/24 20:31 BP 121/61 03/25/24 20:31 Pulse Ox 96 03/25/24 20:31 O2 Del Method Nasal Cannula 03/25/24 20:31 O2 Flow Rate 2 03/25/24 20:31 Oxygen Flow Rate 2 03/25/24 16:48 BMI result Body Mass Index 27.8 Sepsis PHYSICAL EXAM done at 09:10 p.m. VS: ?121/61, 88, 13, 96% 2 L nasal cannula, 97.6. General:? Alert oriented x3 no acute distress.? Speaking full sentences, short yes and no, requires a lot of prompting? Speech is well articulated, thought process is coherent.? Following all commands. Skin: ?Left great toenail has a distal black spot without any discharge, distal phalanx of left 2nd toe has a dry round wound without any surrounding erythema, no had no to touch, no drainage. ?Intact, no lesions, edema, erythema, clubbing or cyanosis.? No ulcers. HEENT:? Head is normocephalic, atraumatic, pupils equal round reactive to light Cardiac:? Clear S1-S2, no murmurs rubs or gallops. Pulmonary:? Coarse lung sounds at the bases with fine crackles, no wheezes or rales. Abdomen:? Protuberant, positive bowel sounds in all 4 quadrants.? Soft, nontender, no rebound or guarding.? Musculoskeletal:? Able to move upper and lower extremities upon request at the major joints, no calf tenderness, no edema, no crepitus, no asymmetry. Neurologic:? As above, No focal deficits noted. Vascular:? 2+ pulses upper and lower extremities distally. ?Capillary refill less than 2 seconds upper and lower extremities bilaterally Results Labs 03/25/24 17:46 03/25/24 17:46 Labs: Laboratory Results - last 24 hr 03/25/24 03/25/24 03/25/24 16:55 17:46 19:05 MCV 85.8 MCH 29.4 MCHC 34.3 RDW 11.3 Plt Count 236 MPV 10.6 Immature Gran % (Auto) 0.4 Neut % (Auto) 85.8 H Lymph % (Auto) 5.7 L [place] % (Auto) 6.4 Eos % (Auto) 1.4 Baso % (Auto) 0.3 Lymph # (Auto) 0.8 L [place] # (Auto) 0.9 Eos # (Auto) 0.2 Baso # (Auto) 0.0 Abs Immat Gran (auto) 0.06 H Absolute Neuts (auto) 11.9 H Absolute Nucleated RBC 0.000 Nucleated RBC % (auto) 0.0 Anion Gap 14 Estim Creat Clear Calc 20.0 Estimated GFR 22 POC Glucose 88 52 L* Random Glucose 53 L* Calcium 9.5 Magnesium 2.2 Total Bilirubin 0.2 AST 23 ALT 15 Alkaline Phosphatase 66 Troponin I High Sens 31.2 H D Total Protein 7.0 Albumin 3.8 Urine Color Urine Appearance Urine pH Ur Specific [place] Urine Protein Urine Glucose (UA) Urine Ketones Urine Blood Urine Nitrite Ur Leukocyte Esterase Urine RBC Urine WBC Ur Squamous Epith Cells Urine Bacteria Hyaline Casts Influenza Type A (PCR) NEGATIVE Influenza Type B (PCR) NEGATIVE RSV RNA Qual (PCR) NEGATIVE SARS-CoV-2 RNA (RT-PCR) NEGATIVE 03/25/24 03/25/24 20:26 20:30 MCV MCH MCHC RDW Plt Count MPV Immature Gran % (Auto) Neut % (Auto) Lymph % (Auto) [place] % (Auto) Eos % (Auto) Baso % (Auto) Lymph # (Auto) [place] # (Auto) Eos # (Auto) Baso # (Auto) Abs Immat Gran (auto) Absolute Neuts (auto) Absolute Nucleated RBC Nucleated RBC % (auto) Anion Gap Estim Creat Clear Calc Estimated GFR POC Glucose 129 H Random Glucose Calcium Magnesium Total Bilirubin AST ALT Alkaline Phosphatase Troponin I High Sens Total Protein Albumin Urine Color Yellow Urine Appearance Clear Urine pH 6.5 Ur Specific [place] 1.020 Urine Protein 300 (3+) H Urine Glucose (UA) >=1000 H Urine Ketones Negative Urine Blood Negative Urine Nitrite Negative Ur Leukocyte Esterase Negative Urine RBC 0-2 Urine WBC 0-5 Ur Squamous Epith Cells 0-2 Urine Bacteria None Seen Hyaline Casts 0-2 Influenza Type A (PCR) Influenza Type B (PCR) RSV RNA Qual (PCR) SARS-CoV-2 RNA (RT-PCR) Imaging Radiologist's Impressions: Impressions Chest X-Ray 03/25/24 17:25 IMPRESSION: Mild cardiomegaly with pulmonary vascular congestion Electronically signed by: Arsalan Montano MD 03/25/2024 06:10 PM EDT RP Head CT 03/25/24 17:25 IMPRESSION: 1. No acute intracranial abnormality. 2. Moderate chronic microangiopathy. Small chronic right occipital infarct and left basal ganglia lacunar infarct. 3. No cervical spine fracture or traumatic malalignment. Electronically signed by: Khanh Ricci MD 03/25/2024 06:43 PM EDT RP Cervical Spine CT 03/25/24 17:59 IMPRESSION: 1. No acute intracranial abnormality. 2. Moderate chronic microangiopathy. Small chronic right occipital infarct and left basal ganglia lacunar infarct. 3. No cervical spine fracture or traumatic malalignment. Electronically signed by: Khanh Ricci MD 03/25/2024 06:43 PM EDT RP Assessment and Plan (1) Accidental overdose of insulin: Status: Acute (2) Hypoglycemia: Status: Acute Plan ASSESSMENT : 1. Accidental insulin overdose 2. Ongoing hypoglycemia due to above 3. Stable chronic kidney disease stage 3 4. Reactive versus infective leukocytosis 5. Stable anemia of chronic disease 6. Acute hypokalemia likely due to intracellular shift 7. Glucosuria and proteinuria 8. Chronic Left foot toe osteomyelitis currently on treatment PLAN OF CARE: Patient will be admitted to ICU, monitor vital signs, I and O's, will discontinue D5 for the patient already shows vascular congestion and will place her on low-dose D10, check blood sugars every 1 hour, recheck chemistry in 6 hours, replete potassium, given leukocytosis and hypotension will add blood cultures and order lactic acid to rule out the possibility of underlying evolving sepsis. ?In the meantime will continue with meropenem IV daily.? Repeat labs in the morning, seizure precautions and will add prolactin level, if any seizure activities noted while in the ICU, an EEG will be ordered and neuro consult although there is no clear evidence that a true seizure happened. Patient did not receive 30 mL per kg of fluids given risk of further CHF as she already shows pulmonary edema on x-ray and sounds congested on exam.? Lactic acid is elevated, will give her albumin 133 mL/hour x2. GI PROPHYLAXIS: ?IV ppi DVT PROPHYLAXIS:? Heparin subQ Critical care time used for critical evaluation of this patient, diagnosis, treatment and coordination of care, review her records and documentation TOTAL CRITICAL CARE TIME?? 90 MIN . discussion and coordination with consultants, completely separate from any procedures performed. Patient's care was discussed in detail with Dr. Moreira, she ?is aware of all the above as well as the plan of care for this patient.
[2024-03-25 21:02] LABS: Glucose, Whole Blood 110 mg/dL (60-115)
[2024-03-25 21:36] LABS: Lactic Acid 1.7 mmol/L (0.5-2.0)
[2024-03-25] MEDS: Potassium Chloride/H20 10 MEQ/100 ML PIGGYBACK 100 MEQ IV ×2 (21:38→22:37)
[2024-03-25 21:40] LABS: Alanine Aminotransferase 16 U/L (0-31); Albumin Level 4.1 g/dL (3.5-5.0); Alkaline Phosphatase 72 U/L (39-117); Anion Gap 16 (12-20); Aspartate Amino Transferase 25 U/L (5-31); Bilirubin Total 0.3 mg/dL (0.0-1.0); Blood Urea Nitrogen 23 mg/dL (9-16); Calcium 9.8 mg/dL (8.4-10.2); Carbon Dioxide 22 mmol/L (22-29); Chloride 110 mmol/L (96-108); Creatinine Clr Calc Pharmacy 21.7; Estimated Glomerular Filt Rate 24; Glucose Random 120 mg/dL (60-115); Potassium 3.4 mmol/L (3.3-5.1); Sodium 145 mmol/L (135-145); Total Protein 7.6 g/dL (6.5-8.0)
[2024-03-25 21:54] VITALS: BP 129/83; PULSE 90; RESP 13; TEMP 35.7; O2SAT 97
[2024-03-25 22:02] LABS: Glucose, Whole Blood 131 mg/dL (60-115)
[2024-03-25] MEDS: Heparin Sodium,Porcine 5,000 UNIT/ML VIAL 5000 UNIT SUBCUT (22:37)
[2024-03-25 23:00] VITALS: BP 121/75; PULSE 91; RESP 13; TEMP 36; O2SAT 97
[2024-03-25 23:08] LABS: Glucose, Whole Blood 142 mg/dL (60-115)
[2024-03-26] VITALS (24 sets, daily range): BP systolic 94–129; BP diastolic 51–81; PULSE 88–112; RESP 13–25; TEMP 36.5–37.4; O2SAT 90–98; BMI 27.8
[2024-03-26 00:11] LABS: Glucose, Whole Blood 142 mg/dL (60-115)
[2024-03-26 01:17] LABS: Glucose, Whole Blood 117 mg/dL (60-115)
[2024-03-26] MEDS: ondansetron HCL 4 MG/2 ML VIAL IVPUSH (02:25)
[2024-03-26 02:49] LABS: Glucose, Whole Blood 118 mg/dL (60-115)
[2024-03-26 03:21] LABS: Glucose, Whole Blood 112 mg/dL (60-115)
[2024-03-26 04:23] LABS: Glucose, Whole Blood 119 mg/dL (60-115)
[2024-03-26 04:59] LABS: MANUAL DIFF FLAG NO
[2024-03-26 05:01] LABS: Basophils Percent Auto 0.3 % (0-2); Eosinophils Absolute Auto 0.1 X10*3/uL (0.0-0.4); Eosinophils Percent Auto 1.3 % (0-4); Hematocrit 30.1 % (37.0-47.0); Hemoglobin 10.2 g/dl (12.0-16.0); Imm Gran Abs Auto 0.03 X10*3/uL (0.00-0.03); Imm Gran Pct Auto 0.4 % (0.0-0.4); Lymphocytes Absolute Auto 0.8 X10*3/uL (1.2-4.9); Lymphocytes Percent Auto 10.1 % (20-40); Mean Corpuscular HGB Conc 33.9 g/dl (31.0-35.0); Mean Corpuscular Hemoglobin 28.9 pg (27.0-33.0); Mean Corpuscular Volume 85.3 fL (80.0-98.0); Mean Platelet Volume 10.9 fL (9.4-12.3); Monocytes Absolute Auto 0.5 X10*3/uL (0.1-1.2); Monocytes Percent Auto 6.5 % (2-11); Neutrophils Absolute Auto 6.1 x10*3/uL (2.0-8.3); Neutrophils Percent Auto 81.4 % (45-73); Platelet Count 260 X10*3/uL (160-400); Red Blood Count 3.53 X10*6/uL (4.20-5.50); Red Cell Distribution Width 11.3 % (11.0-16.0); White Blood Count 7.5 X10*3/uL (4.8-10.8)
[2024-03-26 05:05] LABS: Glucose, Whole Blood 118 mg/dL (60-115)
[2024-03-26 05:22] LABS: Alanine Aminotransferase 15 U/L (0-31); Albumin Level 3.7 g/dL (3.5-5.0); Alkaline Phosphatase 67 U/L (39-117); Anion Gap 15 (12-20); Aspartate Amino Transferase 27 U/L (5-31); Bilirubin Total 0.3 mg/dL (0.0-1.0); Blood Urea Nitrogen 19 mg/dL (9-16); Calcium 9.6 mg/dL (8.4-10.2); Carbon Dioxide 23 mmol/L (22-29); Chloride 108 mmol/L (96-108); Creatinine Clr Calc Pharmacy 25.2; Estimated Glomerular Filt Rate 29; Glucose Random 114 mg/dL (60-115); Magnesium 2.1 mg/dL (1.6-2.6); Phosphorus 3.3 mg/dL (2.7-4.5); Potassium 3.6 mmol/L (3.3-5.1); Sodium 142 mmol/L (135-145); Total Protein 7.1 g/dL (6.5-8.0)
[2024-03-26] MEDS: Pantoprazole Sodium 40 MG/10 ML VIAL IVPUSH (05:36)
[2024-03-26 06:06] LABS: Glucose, Whole Blood 114 mg/dL (60-115)
[2024-03-26 07:28] LABS: Glucose, Whole Blood 103 mg/dL (60-115)
--- NOTE | 2024-03-26 07:51 | P.PNCC_ITS ---
Subjective Subjective Date of Service: 03/26/24 Interval History: admitted overnight to ICU for refractory hypoglycemia in setting of multiple and erroneous anti-glycemic medications Critical Care Time (minutes): 60 Physical Exam 2 Vital Signs: Vital Signs: Last Vital Signs Temp 99.3 F 03/26/24 06:00 Pulse 89 03/26/24 07:00 Resp 13 03/26/24 07:00 BP 116/71 03/26/24 07:00 Pulse Ox 98 03/26/24 07:00 O2 Del Method Nasal Cannula wit h Capnography 03/26/24 07:00 O2 Flow Rate 2 03/26/24 07:00 Oxygen Flow Rate 2 03/25/24 16:48 BMI result Body Mass Index 27.8 Const: General: cooperative, healthy appearing, comfortable, no acute distress, well developed, alert, awake and Physically active HEENT: Head: Yes normal to inspection, Yes normocephalic and Yes atraumatic Eyes: General: appearance normal, both eyes and all related structures Neck: Neck: Yes normal visual inspection, Yes full ROM, Yes no meningeal signs, Yes trachea midline and Yes supple Chest: Chest palpation & inspection: normal inspection of the chest Resp: Other: no appreciable rales, rhonchi, wheezing Effort & Inspection: normal respiratory effort Cardio: Rate: regular rate Rhythm: regular rhythm GI: Inspection: Yes normal to inspection, No Abdominal wall edema and No distended Palpation (GI): Soft to palpation, not firm, nontender, no guarding and not rigid Skin: General skin exam: no rashes or lesions noted Neuro: General: tone normal, moves all extremities, no meningeal signs and no focal motor deficits Extrem: General: Yes normal to inspection, Yes full ROM, Yes capillary refill normal and Yes no joint enlargement Psych: Appearance: grossly normal Objective Data Labs 03/26/24 04:37 03/26/24 04:37 Labs: Laboratory Results - last 24 hr 03/25/24 03/25/24 03/25/24 16:55 17:46 19:05 WBC 13.8 H RBC 3.37 L Hgb 9.9 L Hct 28.9 L MCV 85.8 MCH 29.4 MCHC 34.3 RDW 11.3 Plt Count 236 MPV 10.6 Immature Gran % (Auto) 0.4 Neut % (Auto) 85.8 H Lymph % (Auto) 5.7 L [place] % (Auto) 6.4 Eos % (Auto) 1.4 Baso % (Auto) 0.3 Lymph # (Auto) 0.8 L [place] # (Auto) 0.9 Eos # (Auto) 0.2 Baso # (Auto) 0.0 Abs Immat Gran (auto) 0.06 H Absolute Neuts (auto) 11.9 H Absolute Nucleated RBC 0.000 Nucleated RBC % (auto) 0.0 Sodium 147 H Potassium 3.0 L Chloride 111 H Carbon Dioxide 25 Anion Gap 14 BUN 23 H Creatinine 2.20 H Estim Creat Clear Calc 20.0 Estimated GFR 22 POC Glucose 88 52 L* Random Glucose 53 L* Lactic Acid Calcium 9.5 Phosphorus Magnesium 2.2 Total Bilirubin 0.2 AST 23 ALT 15 Alkaline Phosphatase 66 Troponin I High Sens 31.2 H D Total Protein 7.0 Albumin 3.8 Urine Color Urine Appearance Urine pH Ur Specific [place] Urine Protein Urine Glucose (UA) Urine Ketones Urine Blood Urine Nitrite Ur Leukocyte Esterase Urine RBC Urine WBC Ur Squamous Epith Cells Urine Bacteria Hyaline Casts Influenza Type A (PCR) NEGATIVE Influenza Type B (PCR) NEGATIVE RSV RNA Qual (PCR) NEGATIVE SARS-CoV-2 RNA (RT-PCR) NEGATIVE 03/25/24 03/25/24 03/25/24 20:26 20:30 20:59 WBC RBC Hgb Hct MCV MCH MCHC RDW Plt Count MPV Immature Gran % (Auto) Neut % (Auto) Lymph % (Auto) [place] % (Auto) Eos % (Auto) Baso % (Auto) Lymph # (Auto) [place] # (Auto) Eos # (Auto) Baso # (Auto) Abs Immat Gran (auto) Absolute Neuts (auto) Absolute Nucleated RBC Nucleated RBC % (auto) Sodium Potassium Chloride Carbon Dioxide Anion Gap BUN Creatinine Estim Creat Clear Calc Estimated GFR POC Glucose 129 H 110 Random Glucose Lactic Acid Calcium Phosphorus Magnesium Total Bilirubin AST ALT Alkaline Phosphatase Troponin I High Sens Total Protein Albumin Urine Color Yellow Urine Appearance Clear Urine pH 6.5 Ur Specific [place] 1.020 Urine Protein 300 (3+) H Urine Glucose (UA) >=1000 H Urine Ketones Negative Urine Blood Negative Urine Nitrite Negative Ur Leukocyte Esterase Negative Urine RBC 0-2 Urine WBC 0-5 Ur Squamous Epith Cells 0-2 Urine Bacteria None Seen Hyaline Casts 0-2 Influenza Type A (PCR) Influenza Type B (PCR) RSV RNA Qual (PCR) SARS-CoV-2 RNA (RT-PCR) 03/25/24 03/25/24 03/25/24 21:18 21:58 23:04 WBC RBC Hgb Hct MCV MCH MCHC RDW Plt Count MPV Immature Gran % (Auto) Neut % (Auto) Lymph % (Auto) [place] % (Auto) Eos % (Auto) Baso % (Auto) Lymph # (Auto) [place] # (Auto) Eos # (Auto) Baso # (Auto) Abs Immat Gran (auto) Absolute Neuts (auto) Absolute Nucleated RBC Nucleated RBC % (auto) Sodium 145 Potassium 3.4 Chloride 110 H Carbon Dioxide 22 Anion Gap 16 BUN 23 H Creatinine 2.02 H Estim Creat Clear Calc 21.7 Estimated GFR 24 POC Glucose 131 H 142 H Random Glucose 120 H Lactic Acid 1.7 Calcium 9.8 Phosphorus Magnesium Total Bilirubin 0.3 AST 25 ALT 16 Alkaline Phosphatase 72 Troponin I High Sens Total Protein 7.6 Albumin 4.1 Urine Color Urine Appearance Urine pH Ur Specific [place] Urine Protein Urine Glucose (UA) Urine Ketones Urine Blood Urine Nitrite Ur Leukocyte Esterase Urine RBC Urine WBC Ur Squamous Epith Cells Urine Bacteria Hyaline Casts Influenza Type A (PCR) Influenza Type B (PCR) RSV RNA Qual (PCR) SARS-CoV-2 RNA (RT-PCR) 03/26/24 03/26/24 03/26/24 00:08 01:14 02:16 WBC RBC Hgb Hct MCV MCH MCHC RDW Plt Count MPV Immature Gran % (Auto) Neut % (Auto) Lymph % (Auto) [place] % (Auto) Eos % (Auto) Baso % (Auto) Lymph # (Auto) [place] # (Auto) Eos # (Auto) Baso # (Auto) Abs Immat Gran (auto) Absolute Neuts (auto) Absolute Nucleated RBC Nucleated RBC % (auto) Sodium Potassium Chloride Carbon Dioxide Anion Gap BUN Creatinine Estim Creat Clear Calc Estimated GFR POC Glucose 142 H 117 H 118 H Random Glucose Lactic Acid Calcium Phosphorus Magnesium Total Bilirubin AST ALT Alkaline Phosphatase Troponin I High Sens Total Protein Albumin Urine Color Urine Appearance Urine pH Ur Specific [place] Urine Protein Urine Glucose (UA) Urine Ketones Urine Blood Urine Nitrite Ur Leukocyte Esterase Urine RBC Urine WBC Ur Squamous Epith Cells Urine Bacteria Hyaline Casts Influenza Type A (PCR) Influenza Type B (PCR) RSV RNA Qual (PCR) SARS-CoV-2 RNA (RT-PCR) 03/26/24 03/26/24 03/26/24 03:18 04:20 04:37 WBC 7.5 RBC 3.53 L Hgb 10.2 L Hct 30.1 L MCV 85.3 MCH 28.9 MCHC 33.9 RDW 11.3 Plt Count 260 MPV 10.9 Immature Gran % (Auto) 0.4 Neut % (Auto) 81.4 H Lymph % (Auto) 10.1 L [place] % (Auto) 6.5 Eos % (Auto) 1.3 Baso % (Auto) 0.3 Lymph # (Auto) 0.8 L [place] # (Auto) 0.5 Eos # (Auto) 0.1 Baso # (Auto) 0.0 Abs Immat Gran (auto) 0.03 Absolute Neuts (auto) 6.1 Absolute Nucleated RBC 0.000 Nucleated RBC % (auto) 0.0 Sodium 142 Potassium 3.6 Chloride 108 Carbon Dioxide 23 Anion Gap 15 BUN 19 H Creatinine 1.73 H Estim Creat Clear Calc 25.2 Estimated GFR 29 POC Glucose 112 119 H Random Glucose 114 Lactic Acid Calcium 9.6 Phosphorus 3.3 Magnesium 2.1 Total Bilirubin 0.3 AST 27 ALT 15 Alkaline Phosphatase 67 Troponin I High Sens Total Protein 7.1 Albumin 3.7 Urine Color Urine Appearance Urine pH Ur Specific [place] Urine Protein Urine Glucose (UA) Urine Ketones Urine Blood Urine Nitrite Ur Leukocyte Esterase Urine RBC Urine WBC Ur Squamous Epith Cells Urine Bacteria Hyaline Casts Influenza Type A (PCR) Influenza Type B (PCR) RSV RNA Qual (PCR) SARS-CoV-2 RNA (RT-PCR) 03/26/24 03/26/24 03/26/24 05:01 06:02 07:25 WBC RBC Hgb Hct MCV MCH MCHC RDW Plt Count MPV Immature Gran % (Auto) Neut % (Auto) Lymph % (Auto) [place] % (Auto) Eos % (Auto) Baso % (Auto) Lymph # (Auto) [place] # (Auto) Eos # (Auto) Baso # (Auto) Abs Immat Gran (auto) Absolute Neuts (auto) Absolute Nucleated RBC Nucleated RBC % (auto) Sodium Potassium Chloride Carbon Dioxide Anion Gap BUN Creatinine Estim Creat Clear Calc Estimated GFR POC Glucose 118 H 114 103 Random Glucose Lactic Acid Calcium Phosphorus Magnesium Total Bilirubin AST ALT Alkaline Phosphatase Troponin I High Sens Total Protein Albumin Urine Color Urine Appearance Urine pH Ur Specific [place] Urine Protein Urine Glucose (UA) Urine Ketones Urine Blood Urine Nitrite Ur Leukocyte Esterase Urine RBC Urine WBC Ur Squamous Epith Cells Urine Bacteria Hyaline Casts Influenza Type A (PCR) Influenza Type B (PCR) RSV RNA Qual (PCR) SARS-CoV-2 RNA (RT-PCR) Progress Note: A&P Assessment and plan (1) Hypoglycemia: Status: Acute (2) Diabetes: Status: Acute (3) Diabetic osteomyelitis: Status: Acute Plan Patient is a 73 Y F with asthma, hypertension, insulin-dependent diabetes mellitus, and recent diagnosis osteomyelitis L toe, presenting to emergency department on 03/25 w/ hypoglycemia c/b encephalopathy in setting of multiple and erroneous insulin administration N: encephalopathy, improving CV: no acute issues; to monitor R: 2 L NC, wean as tolerated; asthma, albuterol as needed GI: NPO while encephalopathic; advance diet as tolerated : acute renal insufficiency; to monitor H: no acute issues; chemical DVT prophylaxis ID: recent diagnosis osteomyelitis L toe, ertapenem E: diabetes mellitus, c/b hypoglycemia, D10 gtt, wean as tolerated; to follow-up pro-insulin, TSH/T4 P: no acute issues Quality Stroke Does the patient have a stroke diagnosis?: No VTE Prior VTE?: No VTE Risk Level:: Medical - moderate - high VTE Device Contraindication: N/A - Device Ordered VTE Drug Contraindication: N/A - Med Ordered
[2024-03-26 08:03] LABS: Glucose, Whole Blood 120 mg/dL (60-115)
[2024-03-26 09:04] LABS: Glucose, Whole Blood 113 mg/dL (60-115)
[2024-03-26] MEDS: Ertapenem Sodium 0.5 GM in 0.9 % Sodium Chloride 50 ML IV (09:20)
[2024-03-26 10:07] LABS: TSH reflex Free T4 2.23 uIU/mL (0.32-4.0)
[2024-03-26 10:19] LABS: Glucose, Whole Blood 123 mg/dL (60-115)
[2024-03-26] MEDS: Heparin Sodium,Porcine 5,000 UNIT/ML VIAL 5000 UNIT SUBCUT ×2 (10:30→22:16)
--- NOTE | 2024-03-26 11:08 | W.MHC.ACPN ---
Advanced Care Planning Note Advanced Care Planning Note Discussed with: patient and family member(s) Time spent (in minutes): 15 Narrative: I introduced myself to Ms. Hinson's daughter and healthcare proxy, Ms. Garduno; I offered updates and clarifications; Ms. Garduno expressed understanding of Ms. Hinson's ED and ICU course; we discussed Ms. Hinson's goals of care; Ms. Garduno stated Ms. Hinson has discussed her wishes at length with Ms. Garduno in the past, and re-iterated that she would not want CPR, invasive nor non-invasive ventilation; a MOLST form was filled and signed as well Problems Discussed (1) Hypoglycemia: (2) Diabetes: (3) Diabetic osteomyelitis:
[2024-03-26 11:10] LABS: Glucose, Whole Blood 113 mg/dL (60-115)
--- NOTE | 2024-03-26 11:29 | MHC.CM.PN ---
Addendum entered by Nancy Pinto 03/26/24 11:36: PER CHART REVIEW, PT ATTENDS [facility] PROGRAM TUE-TUESDAY 8A-4 PM. DESPITE THIS FINDING, CM WILL STILL REFER TO [facility] TO ASSESS. Original Note: IMM DELIVERED. DAUGHTER AT BEDSIDE AND PROVIDES INFORMATION PT IS TIRED. PT IS [place]AYSI[place] SPEAKING. ACTIVE WITH [facility] FOR IV ABT RX. PT LIVES WITH DAUGHTER WHO ASSISTS BUT WOULD LIKE MORE HELP IN THE HOME. REFERRAL SENT TO [facility]. + HCP ON FILE. PCP DR. ANDUJAR DP: HOME WITH RESUMPTION OF [facility] AND NEW REFERRAL TO [facility]. DAUGHTER WILL TRANSPORT. CM WILL CONTINUE TO FOLLOW FOR ANY CHANGE TO DC PLAN/NEEDS.
[2024-03-26 12:15] LABS: Glucose, Whole Blood 107 mg/dL (60-115)
[2024-03-26 13:17] LABS: Glucose, Whole Blood 117 mg/dL (60-115)
[2024-03-26 14:09] LABS: Glucose, Whole Blood 112 mg/dL (60-115)
--- NOTE | 2024-03-26 15:00 | MHC.SL.SWA ---
Speech Pathologist Impression: Risk of Aspiration Due to: Lethargy Dysphasia Diet Status: Liquid Consistency and Strategies for Safe Swallow: Liquid Intake Recommendation: Thin Liquid Intake Strategies: Unrestricted Solid Food Consistency: Dietary Recommendations: Regular Additional Modifications to Solid Foods: Patient is able to feed self independently. May eat somewhat slowly due to careful and thorough chewing of food. Oral Medication Intake: Whole with Liquid Please contact the pharmacy regarding appropriate crushable or liquid drug formulations that are available whenever modified delivery is recommended. Compensatory Strategies and Precautions to be Taken for Safe Swallow: Sitting Upright (90 deg) Liquids from Cup Liquids from Straw Small Bites and Sips Alternate Liquids/Solids Supervision While Eating and Drinking for Safe Swallow: None Needed Foods to Avoid: Swallowing Recommended Treatments: Recommendation for Speech: NA:Typical Evaluation Comment: Patient presents with all aspects of oral motor function and all aspects of swallow WFL. Patient had c/o bit tongue and also noted to chew slowly and carefully, but not due to motoric issues. Recommend UPGRADE from NPO to REGULAR diet with THIN liquids, pills whole with liquid. Patient can be independent at meals. MD/RD notified of recommendations by secure text, RN in person. No further FURNACE MAINTENANCE service recommended at this time as all WFL/on least restrictive diet/no medical indication of dysphagia. Will D/C service, please recontact if additional concerns arise. Frequency/Duration: Date Range for Service Req: Timeline to reassess: Healthcare Liaison Clinican/Clinical Fellow: No Supervisory Statement: I have reviewed and agree with the student/clinical fellow's documentation: N/A Speech Language Pathologist: Becky Yarbrough M.A., CCC-FURNACE MAINTENANCE
[2024-03-26 15:53] LABS: Glucose, Whole Blood 122 mg/dL (60-115)
--- NOTE | 2024-03-26 16:19 | PHA.MEDREC ---
Pharmacy Consult ? Medication Reconciliation Pharmacy has completed the medication reconciliation.Med rec completed, spoke with patients daughter and compared with recent discharge notes and [harmacy claim history. Pharmacy had filled citalopram as 2 (10 mg) tablets, but daughter confirmed she only takes 1 (10 mg) tablet daily
[2024-03-26] MEDS: polyethylene glycoL 3350 17 GM POWD.PACK PO (16:27)
[2024-03-26 16:39] LABS: Glucose, Whole Blood 114 mg/dL (60-115)
[2024-03-26 18:01] LABS: Glucose, Whole Blood 169 mg/dL (60-115)
[2024-03-26 19:05] LABS: Anion Gap 15 (12-20); Blood Urea Nitrogen 17 mg/dL (9-16); Calcium 9.7 mg/dL (8.4-10.2); Carbon Dioxide 26 mmol/L (22-29); Chloride 106 mmol/L (96-108); Creatinine Clr Calc Pharmacy 24.1; Estimated Glomerular Filt Rate 27; Glucose Random 159 mg/dL (60-115); Magnesium 2.1 mg/dL (1.6-2.6); Phosphorus 3.2 mg/dL (2.7-4.5); Potassium 3.6 mmol/L (3.3-5.1); Sodium 143 mmol/L (135-145)
[2024-03-26 19:20] LABS: Glucose, Whole Blood 144 mg/dL (60-115)
[2024-03-26 20:30] LABS: Glucose, Whole Blood 166 mg/dL (60-115)
[2024-03-26 22:02] LABS: Glucose, Whole Blood 125 mg/dL (60-115)
[2024-03-27] VITALS (16 sets, daily range): BP systolic 97–127; BP diastolic 51–78; PULSE 76–103; RESP 14–25; TEMP 36.5–37.7; O2SAT 89–96; BMI 25.5
[2024-03-27 00:03] LABS: Glucose, Whole Blood 111 mg/dL (60-115)
[2024-03-27 02:06] LABS: Glucose, Whole Blood 127 mg/dL (60-115)
[2024-03-27 03:55] LABS: Glucose, Whole Blood 115 mg/dL (60-115)
[2024-03-27 05:18] LABS: MANUAL DIFF FLAG NO
[2024-03-27 05:20] LABS: Basophils Percent Auto 0.7 % (0-2); Eosinophils Absolute Auto 0.3 X10*3/uL (0.0-0.4); Eosinophils Percent Auto 5.9 % (0-4); Hematocrit 30.7 % (37.0-47.0); Hemoglobin 10.2 g/dl (12.0-16.0); Imm Gran Abs Auto 0.02 X10*3/uL (0.00-0.03); Imm Gran Pct Auto 0.4 % (0.0-0.4); Lymphocytes Absolute Auto 1.1 X10*3/uL (1.2-4.9); Lymphocytes Percent Auto 23.1 % (20-40); Mean Corpuscular HGB Conc 33.2 g/dl (31.0-35.0); Mean Corpuscular Hemoglobin 29.1 pg (27.0-33.0); Mean Corpuscular Volume 87.7 fL (80.0-98.0); Mean Platelet Volume 10.6 fL (9.4-12.3); Monocytes Absolute Auto 0.4 X10*3/uL (0.1-1.2); Monocytes Percent Auto 9.4 % (2-11); Neutrophils Absolute Auto 2.8 x10*3/uL (2.0-8.3); Neutrophils Percent Auto 60.5 % (45-73); Platelet Count 245 X10*3/uL (160-400); Red Cell Distribution Width 11.3 % (11.0-16.0); White Blood Count 4.6 X10*3/uL (4.8-10.8)
[2024-03-27 05:36] LABS: Albumin Level 3.5 g/dL (3.5-5.0)
[2024-03-27 05:41] LABS: Anion Gap 13 (12-20); Blood Urea Nitrogen 18 mg/dL (9-16); Calcium 9.5 mg/dL (8.4-10.2); Carbon Dioxide 26 mmol/L (22-29); Chloride 107 mmol/L (96-108); Creatinine Clr Calc Pharmacy 23.9; Estimated Glomerular Filt Rate 27; Glucose Random 116 mg/dL (60-115); Magnesium 2.2 mg/dL (1.6-2.6); Phosphorus 3.7 mg/dL (2.7-4.5); Potassium 3.7 mmol/L (3.3-5.1); Sodium 142 mmol/L (135-145)
[2024-03-27] MEDS: Pantoprazole Sodium 40 MG/10 ML VIAL IVPUSH (06:28)
--- NOTE | 2024-03-27 06:37 | PC.NURSE ---
Rea catheter removed 03/27/2024 at 0630. Due to void at 1230.
[2024-03-27 07:45] LABS: Glucose, Whole Blood 128 mg/dL (60-115)
--- NOTE | 2024-03-27 07:48 | ECG_ITS ---
Test Reason : qtc Blood Pressure : / mmHG Vent. Rate : 083 BPM Atrial Rate : 083 BPM P-R Int : 158 ms QRS Dur : 086 ms QT Int : 386 ms P-R-T Axes : 016 004 038 degrees QTc Int : 453 ms Normal sinus rhythm Normal ECG When compared with ECG of 25-MAR-2024 17:36, QT has shortened Nonspecific T wave abnormality is no longer Present Referred By: Ester Moreira Electronically Signed By:MARINO ARTIS
[2024-03-27] MEDS: Ertapenem Sodium 0.5 GM in 0.9 % Sodium Chloride 50 ML IV (08:13)
--- NOTE | 2024-03-27 08:59 | PM.CCPN ---
Subjective Subjective Date of Service: 03/27/24 Interval History: no significant overnight events; now off D10 gtt Critical Care Time (minutes): 60 Physical Exam Vital Signs: Vital Signs: Last Vital Signs Temp 97.7 F 03/27/24 04:00 Pulse 88 03/27/24 08:00 Resp 15 03/27/24 08:00 BP 114/60 03/27/24 08:00 Pulse Ox 93 03/27/24 08:00 O2 Del Method Room Air 03/27/24 08:00 O2 Flow Rate 1 03/26/24 20:00 Oxygen Flow Rate 2 03/25/24 16:48 BMI result Body Mass Index 25.5 Const: General: cooperative, healthy appearing, comfortable, no acute distress, well developed, alert, awake and Physically active Orientation/consciousness: patient oriented x3 HEENT: Head: Yes normal to inspection, Yes normocephalic and Yes atraumatic Eyes: General: appearance normal, both eyes and all related structures Neck: Neck: Yes normal visual inspection, Yes full ROM, Yes no meningeal signs, Yes trachea midline and Yes supple Chest: Chest palpation & inspection: normal inspection of the chest Resp: Other: no appreciable rales, rhonchi, wheezing Effort & Inspection: normal respiratory effort Cardio: Rate: regular rate Rhythm: regular rhythm GI: Inspection: Yes normal to inspection, No Abdominal wall edema and No distended Palpation (GI): Soft to palpation, not firm, nontender, no guarding and not rigid Skin: General skin exam: no rashes or lesions noted Neuro: General: patient oriented x3, tone normal, moves all extremities, no meningeal signs and no focal motor deficits Extrem: General: Yes normal to inspection, Yes full ROM, Yes capillary refill normal and Yes no clubbing, cyanosis or edema Psych: Appearance: grossly normal Objective Data Labs 03/27/24 04:35 03/27/24 04:35 Labs: Laboratory Results - last 24 hr 03/26/24 03/26/24 03/26/24 08:48 09:01 10:14 WBC RBC Hgb Hct MCV MCH MCHC RDW Plt Count MPV Immature Gran % (Auto) Neut % (Auto) Lymph % (Auto) [place] % (Auto) Eos % (Auto) Baso % (Auto) Lymph # (Auto) [place] # (Auto) Eos # (Auto) Baso # (Auto) Abs Immat Gran (auto) Absolute Neuts (auto) Absolute Nucleated RBC Nucleated RBC % (auto) Sodium Potassium Chloride Carbon Dioxide Anion Gap BUN Creatinine Estim Creat Clear Calc Estimated GFR POC Glucose 113 123 H Random Glucose Calcium Phosphorus Magnesium Albumin TSH 2.23 03/26/24 03/26/24 03/26/24 11:07 12:11 13:14 WBC RBC Hgb Hct MCV MCH MCHC RDW Plt Count MPV Immature Gran % (Auto) Neut % (Auto) Lymph % (Auto) [place] % (Auto) Eos % (Auto) Baso % (Auto) Lymph # (Auto) [place] # (Auto) Eos # (Auto) Baso # (Auto) Abs Immat Gran (auto) Absolute Neuts (auto) Absolute Nucleated RBC Nucleated RBC % (auto) Sodium Potassium Chloride Carbon Dioxide Anion Gap BUN Creatinine Estim Creat Clear Calc Estimated GFR POC Glucose 113 107 117 H Random Glucose Calcium Phosphorus Magnesium Albumin TSH 03/26/24 03/26/24 03/26/24 14:05 15:50 16:35 WBC RBC Hgb Hct MCV MCH MCHC RDW Plt Count MPV Immature Gran % (Auto) Neut % (Auto) Lymph % (Auto) [place] % (Auto) Eos % (Auto) Baso % (Auto) Lymph # (Auto) [place] # (Auto) Eos # (Auto) Baso # (Auto) Abs Immat Gran (auto) Absolute Neuts (auto) Absolute Nucleated RBC Nucleated RBC % (auto) Sodium Potassium Chloride Carbon Dioxide Anion Gap BUN Creatinine Estim Creat Clear Calc Estimated GFR POC Glucose 112 122 H 114 Random Glucose Calcium Phosphorus Magnesium Albumin TSH 03/26/24 03/26/24 03/26/24 17:54 18:43 19:16 WBC RBC Hgb Hct MCV MCH MCHC RDW Plt Count MPV Immature Gran % (Auto) Neut % (Auto) Lymph % (Auto) [place] % (Auto) Eos % (Auto) Baso % (Auto) Lymph # (Auto) [place] # (Auto) Eos # (Auto) Baso # (Auto) Abs Immat Gran (auto) Absolute Neuts (auto) Absolute Nucleated RBC Nucleated RBC % (auto) Sodium 143 Potassium 3.6 Chloride 106 Carbon Dioxide 26 Anion Gap 15 BUN 17 H Creatinine 1.82 H Estim Creat Clear Calc 24.1 Estimated GFR 27 POC Glucose 169 H 144 H Random Glucose 159 H Calcium 9.7 Phosphorus 3.2 Magnesium 2.1 Albumin TSH 03/26/24 03/26/24 03/26/24 20:26 21:58 23:54 WBC RBC Hgb Hct MCV MCH MCHC RDW Plt Count MPV Immature Gran % (Auto) Neut % (Auto) Lymph % (Auto) [place] % (Auto) Eos % (Auto) Baso % (Auto) Lymph # (Auto) [place] # (Auto) Eos # (Auto) Baso # (Auto) Abs Immat Gran (auto) Absolute Neuts (auto) Absolute Nucleated RBC Nucleated RBC % (auto) Sodium Potassium Chloride Carbon Dioxide Anion Gap BUN Creatinine Estim Creat Clear Calc Estimated GFR POC Glucose 166 H 125 H 111 Random Glucose Calcium Phosphorus Magnesium Albumin TSH 03/27/24 03/27/24 03/27/24 02:02 03:51 04:35 WBC 4.6 L RBC 3.50 L Hgb 10.2 L Hct 30.7 L MCV 87.7 MCH 29.1 MCHC 33.2 RDW 11.3 Plt Count 245 MPV 10.6 Immature Gran % (Auto) 0.4 Neut % (Auto) 60.5 Lymph % (Auto) 23.1 [place] % (Auto) 9.4 Eos % (Auto) 5.9 H Baso % (Auto) 0.7 Lymph # (Auto) 1.1 L [place] # (Auto) 0.4 Eos # (Auto) 0.3 Baso # (Auto) 0.0 Abs Immat Gran (auto) 0.02 Absolute Neuts (auto) 2.8 Absolute Nucleated RBC 0.000 Nucleated RBC % (auto) 0.0 Sodium 142 Potassium 3.7 Chloride 107 Carbon Dioxide 26 Anion Gap 13 BUN 18 H Creatinine 1.83 H Estim Creat Clear Calc 23.9 Estimated GFR 27 POC Glucose 127 H 115 Random Glucose 116 H Calcium 9.5 Phosphorus 3.7 Magnesium 2.2 Albumin 3.5 TSH 03/27/24 07:42 WBC RBC Hgb Hct MCV MCH MCHC RDW Plt Count MPV Immature Gran % (Auto) Neut % (Auto) Lymph % (Auto) [place] % (Auto) Eos % (Auto) Baso % (Auto) Lymph # (Auto) [place] # (Auto) Eos # (Auto) Baso # (Auto) Abs Immat Gran (auto) Absolute Neuts (auto) Absolute Nucleated RBC Nucleated RBC % (auto) Sodium Potassium Chloride Carbon Dioxide Anion Gap BUN Creatinine Estim Creat Clear Calc Estimated GFR POC Glucose 128 H Random Glucose Calcium Phosphorus Magnesium Albumin TSH Microbiology Microbiology Results: Microbiology 03/25/24 21:18 Blood - Venous Blood Culture - Preliminary No growth after 24 hours. 03/25/24 21:18 Blood - Venous Blood Culture - Preliminary No growth after 24 hours. Progress Note: A&P Assessment and plan (1) Accidental overdose of insulin: Status: Acute (2) Hypoglycemia: Status: Acute (3) Diabetes: Status: Acute (4) Osteomyelitis: Status: Acute Plan Patient is a 73 Y F with asthma, hypertension, insulin-dependent diabetes mellitus, and recent diagnosis osteomyelitis L toe, presenting to emergency department on 03/25 w/ hypoglycemia c/b encephalopathy in setting of multiple and erroneous insulin administration N: encephalopathy, resolved CV: no acute issues; to monitor R: 2 L NC, wean as tolerated; asthma, albuterol as needed GI: regular diet : acute renal insufficiency; to monitor renal indices H: no acute issues; chemical DVT prophylaxis ID: recent diagnosis osteomyelitis L toe, ertapenem E: diabetes mellitus, c/b hypoglycemia, s/p D10 gtt P: no acute issues Quality Stroke Does the patient have a stroke diagnosis?: No VTE Prior VTE?: No VTE Risk Level:: Medical - moderate - high VTE Device Contraindication: N/A - Device Ordered VTE Drug Contraindication: N/A - Med Ordered
[2024-03-27] MEDS: Heparin Sodium,Porcine 5,000 UNIT/ML VIAL 5000 UNIT SUBCUT ×2 (09:28→21:18)
[2024-03-27 11:12] LABS: Glucose, Whole Blood 179 mg/dL (60-115)
[2024-03-27 15:57] LABS: Glucose, Whole Blood 163 mg/dL (60-115)
[2024-03-27 17:30] LABS: Glucose, Whole Blood 152 mg/dL (60-115)
[2024-03-27 19:09] LABS: Glucose, Whole Blood 132 mg/dL (60-115)
[2024-03-28] VITALS (8 sets, daily range): BP systolic 99–160; BP diastolic 55–72; PULSE 80–85; RESP 18–20; TEMP 36.2–37; O2SAT 92–96
[2024-03-28 06:19] LABS: MANUAL DIFF FLAG NO
[2024-03-28 06:28] LABS: Basophils Absolute Auto 0.1 X10*3/uL (0.0-0.2); Eosinophils Absolute Auto 0.3 X10*3/uL (0.0-0.4); Eosinophils Percent Auto 6.3 % (0-4); Hematocrit 31.1 % (37.0-47.0); Hemoglobin 10.7 g/dl (12.0-16.0); Imm Gran Abs Auto 0.02 X10*3/uL (0.00-0.03); Imm Gran Pct Auto 0.4 % (0.0-0.4); Lymphocytes Absolute Auto 1.1 X10*3/uL (1.2-4.9); Lymphocytes Percent Auto 22.1 % (20-40); Mean Corpuscular HGB Conc 34.4 g/dl (31.0-35.0); Mean Corpuscular Hemoglobin 29.2 pg (27.0-33.0); Mean Platelet Volume 10.7 fL (9.4-12.3); Monocytes Absolute Auto 0.4 X10*3/uL (0.1-1.2); Monocytes Percent Auto 7.2 % (2-11); Neutrophils Absolute Auto 3.2 x10*3/uL (2.0-8.3); Platelet Count 246 X10*3/uL (160-400); Red Blood Count 3.66 X10*6/uL (4.20-5.50); Red Cell Distribution Width 10.9 % (11.0-16.0); White Blood Count 5.1 X10*3/uL (4.8-10.8)
[2024-03-28 06:46] LABS: Anion Gap 14 (12-20); Blood Urea Nitrogen 21 mg/dL (9-16); Calcium 9.6 mg/dL (8.4-10.2); Carbon Dioxide 25 mmol/L (22-29); Chloride 103 mmol/L (96-108); Creatinine Clr Calc Pharmacy 23.1; Estimated Glomerular Filt Rate 27; Glucose Random 132 mg/dL (60-115); Magnesium 2.1 mg/dL (1.6-2.6); Phosphorus 3.7 mg/dL (2.7-4.5); Potassium 3.8 mmol/L (3.3-5.1); Sodium 138 mmol/L (135-145)
[2024-03-28 06:58] LABS: Glucose, Whole Blood 132 mg/dL (60-115)
--- NOTE | 2024-03-28 07:48 | ECG_ITS ---
Test Reason : qtc check Blood Pressure : / mmHG Vent. Rate : 083 BPM Atrial Rate : 083 BPM P-R Int : 176 ms QRS Dur : 092 ms QT Int : 382 ms P-R-T Axes : 025 002 024 degrees QTc Int : 448 ms Normal sinus rhythm Normal ECG When compared with ECG of 27-MAR-2024 06:59, No significant change was found Referred By: Ester Moreira Electronically Signed By:MARINO ARTIS
--- NOTE | 2024-03-28 07:49 | P.CDIM_ITS ---
PROVIDER RESPONSE TEXT: To clarify, the appropriate diagnosis supported by the clinical indicators: Toxic metabolic QUERY TEXT: PHYSICIAN'S DOCUMENTATION REQUEST Date of Query: 03/27/2024 10:10 AM EDT Patient Name: Cristal Johnson Admit Date: 03/25/2024 Dear Ester Moreira MD, A review of the medical record indicates additional documentation may be needed. Please review below and update the documentation accordingly. Clinical Indicators: Per Critical Care Progress Note 03/26/24: hypoglycemia c/b encephalopathy in setting of multiple and erroneous insulin administration Based on the above, please further specify, in the Progress Notes, the known or suspected type of the documented encephalopathy: Metabolic Septic Toxic Toxic metabolic Hypertensive Anoxic Alcoholic Hepatic (reported as hepatic failure and needs further specificity as to acute, subacute, or chronic) Due to a specified condition (such as UTI, hyponatremia, CVA, etc.) Other (explain) Clinically unable to determine (explain) Thank you, Shalonda Mahmood RN Use of terms such as suspected, likely, concern for, or probable (associated with a specific diagnosi s that is being evaluated, monitored, or treated as if it exists) are acceptable and can be coded in the inpatient se tting, when documented at the time of discharge. Please use your independent medical judgment in providing your response. THIS QUERY IS PART OF THE PERMANENT MEDICAL RECORD
[2024-03-28] MEDS: Heparin Sodium,Porcine 5,000 UNIT/ML VIAL 5000 UNIT SUBCUT ×2 (09:33→22:09)
[2024-03-28 10:48] LABS: Glucose, Whole Blood 204 mg/dL (60-115)
[2024-03-28] MEDS: Insulin Lispro 100 UNIT/ML 3 ML VIAL SUBCUT (11:14)
[2024-03-28] MEDS: Ertapenem Sodium 0.5 GM in 0.9 % Sodium Chloride 50 ML IV (11:14)
--- NOTE | 2024-03-28 12:07 | MHC.CM.PN ---
EMR REVIEWED, PT W/HYPOGLYCEMIA AND ICU STEPDOWN, ANTIC PT WILL DC IN 1-2 DAYS, PLAN CONT'S TO BE FOR PT TO RETURN HOME W/RESUMP OF DAY PROGRAM M-F/[facility] AND NEW REF TO [facility], CM WILL CONT TO FOLLOW DC NEEDS.
[2024-03-28 16:18] LABS: Glucose, Whole Blood 118 mg/dL (60-115)
[2024-03-28 21:59] LABS: Glucose, Whole Blood 133 mg/dL (60-115)
[2024-03-28] MEDS: traMADoL HCL 50 MG TABLET 25 MG PO (22:10)
[2024-03-29] VITALS (8 sets, daily range): BP systolic 68–143; BP diastolic 51–72; PULSE 73–95; RESP 18–20; TEMP 36.4–37.1; O2SAT 92–95
[2024-03-29 06:39] LABS: MANUAL DIFF FLAG NO
[2024-03-29 06:52] LABS: Basophils Percent Auto 0.9 % (0-2); Eosinophils Absolute Auto 0.3 X10*3/uL (0.0-0.4); Eosinophils Percent Auto 7.3 % (0-4); Hematocrit 30.7 % (37.0-47.0); Hemoglobin 10.7 g/dl (12.0-16.0); Imm Gran Abs Auto 0.01 X10*3/uL (0.00-0.03); Imm Gran Pct Auto 0.2 % (0.0-0.4); Lymphocytes Percent Auto 21.8 % (20-40); Mean Corpuscular HGB Conc 34.9 g/dl (31.0-35.0); Mean Corpuscular Hemoglobin 29.6 pg (27.0-33.0); Mean Platelet Volume 10.6 fL (9.4-12.3); Monocytes Absolute Auto 0.5 X10*3/uL (0.1-1.2); Monocytes Percent Auto 9.7 % (2-11); Neutrophils Absolute Auto 2.8 x10*3/uL (2.0-8.3); Neutrophils Percent Auto 60.1 % (45-73); Platelet Count 241 X10*3/uL (160-400); Red Blood Count 3.61 X10*6/uL (4.20-5.50); White Blood Count 4.6 X10*3/uL (4.8-10.8)
[2024-03-29 06:59] LABS: Glucose, Whole Blood 146 mg/dL (60-115)
[2024-03-29 07:02] LABS: Anion Gap 15 (12-20); Blood Urea Nitrogen 23 mg/dL (9-16); Calcium 9.6 mg/dL (8.4-10.2); Carbon Dioxide 24 mmol/L (22-29); Chloride 103 mmol/L (96-108); Creatinine Clr Calc Pharmacy 22.1; Estimated Glomerular Filt Rate 26; Glucose Random 154 mg/dL (60-115); Magnesium 2.2 mg/dL (1.6-2.6); Phosphorus 4.3 mg/dL (2.7-4.5); Potassium 3.7 mmol/L (3.3-5.1); Sodium 138 mmol/L (135-145)
--- NOTE | 2024-03-29 07:48 | ECG_ITS ---
Test Reason : QTC Monitoring Blood Pressure : / mmHG Vent. Rate : 081 BPM Atrial Rate : 081 BPM P-R Int : 184 ms QRS Dur : 082 ms QT Int : 390 ms P-R-T Axes : 040 -07 027 degrees QTc Int : 453 ms Normal sinus rhythm Normal ECG When compared with ECG of 28-MAR-2024 08:22, No significant change was found Referred By: Ester Moreira Electronically Signed By:MARINO ARTIS
[2024-03-29] MEDS: Ertapenem Sodium 0.5 GM in 0.9 % Sodium Chloride 50 ML IV (09:19)
[2024-03-29] MEDS: Heparin Sodium,Porcine 5,000 UNIT/ML VIAL 5000 UNIT SUBCUT ×2 (09:19→21:56)
[2024-03-29 10:52] LABS: Glucose, Whole Blood 173 mg/dL (60-115)
--- NOTE | 2024-03-29 11:48 | MHC.CM.PN ---
Addendum entered by Becky Powell RN 03/29/24 13:10: CM RECEIVED MESSAGE FROM DR. ANAYA'S OFFICE REQUESTING CM LET PT KNOW SHE SHOULD NOT TAKE HER OZEMPIC PRIOR TO OUTPT ANGIOGRAM on 04/04, CM MET W/PT VIA MANAGER MSW TO LET HER KNOW, PT OZ, CM WILL CONTACT PT'S DTR ALESSIA TO UPDATE HER WELL AND INSTRUCTIONS HAVE BEEN ADDED TO PRINTABLE DC. Original Note: PER HOSPITALIST ANTIC PT WILL DC HOME W/RESUMP OF [facility]/DAY PROGRAM AND NEW REFERRAL TO [facility], PTS DTR FOR TRANSPORT
--- NOTE | 2024-03-29 13:44 | HO.PM.IMPN ---
Subjective Subjective Date of Service: 03/29/24 Interval History: Seen and examined this morning Follow-up for hypo glycemia History obtained with the assistance of a continuing education dean Patient reports feeling dizzy upon ambulation, not much of an appetite No other symptoms Review of Systems Review of Systems: Yes all other systems are reviewed and are negative Constitutional Constitutional: Denies chills and Denies fever(s) Cardiovascular Cardiovascular: Denies chest pain, Denies palpitations and Denies dyspnea Respiratory Respiratory: Denies cough and Denies dyspnea Endocrine Endocrine: Denies palpitations Physical Exam Vital Signs: Vital Signs: Last Vital Signs Temp 97.6 F 03/29/24 10:56 Pulse 77 03/29/24 10:56 Resp 18 03/29/24 10:56 BP 98/61 03/29/24 10:56 Pulse Ox 95 03/29/24 10:56 O2 Del Method Room Air 03/29/24 10:56 O2 Flow Rate 1 03/26/24 20:00 Oxygen Flow Rate 2 03/25/24 16:48 BMI result Body Mass Index 25.5 Const: General: cooperative, comfortable, no acute distress, alert and awake Nutritional Appearance: average body habitus Orientation/consciousness: oriented to person and oriented to place Resp: Effort & Inspection: normal respiratory effort, able to speak in complete sentences, no respiratory distress and no use of accessory muscles Cardio: Rate: regular rate GI: Inspection: No distended Palpation (GI): Soft to palpation and nontender Skin: Other: left foot - dry ulcer great toe, no open wound, no drainage Neuro: General: oriented to person, oriented to place, moves all extremities and CN's II-XI intact bilaterally Objective Data Active Medications Acetaminophen (Acetaminophen 325 Mg Tablet) 650 mg PO Q6H PRN PRN Reason: Pain, Mild (Pain Scale 1-3) Albuterol Sulfate (Albuterol Sulfate 90 Mcg 8 Gm Inhaler) 2 puff INHALE RQ6H PRN PRN Reason: Wheezing Glucose (Glucose Gel 15 Gm Gel..Gram.) 15 gm PO Q15M PRN; Protocol PRN Reason: per Hypoglycemia Standing Ord. Heparin Sodium (Porcine) (Heparin Sodium,Porcine 5,000 Unit/Ml Vial) 5,000 unit SUBCUT Q12H [facility] Last Admin: 03/29/24 09:19 Dose: 5,000 unit Documented By: MANDI Ertapenem 0.5 gm/ Sodium (Chloride) 50 mls @ 100 mls/hr IV DAILY [facility] Last Infusion: 03/29/24 10:34 Dose: Infused Documented By: MANDI Dextrose (D10) 250 mls @ 750 mls/hr IV Q15M PRN; Protocol PRN Reason: per Hypoglycemia Standing Ord. Insulin Human Lispro (Insulin Lispro 100 Unit/Ml 3 Ml Vial) 0 unit SUBCUT QIDACHS [facility]; Protocol Last Admin: 03/29/24 11:21 Dose: Not Given Documented By: MANDI Non-Admin Reason: No Insulin Coverage Tramadol HCl (Tramadol Hcl 50 Mg Tablet) 25 mg PO Q6H PRN PRN Reason: Pain, Moderate(Pain Scale 4-6) Last Admin: 03/28/24 22:10 Dose: 25 mg Documented By: JAMIE Labs 03/29/24 06:15 03/29/24 06:15 Labs: Laboratory Results - last 24 hr 03/28/24 03/28/24 03/29/24 16:14 21:54 06:15 MCV 85.0 MCH 29.6 MCHC 34.9 RDW 11.0 Plt Count 241 MPV 10.6 Immature Gran % (Auto) 0.2 Neut % (Auto) 60.1 Lymph % (Auto) 21.8 [place] % (Auto) 9.7 Eos % (Auto) 7.3 H Baso % (Auto) 0.9 Lymph # (Auto) 1.0 L [place] # (Auto) 0.5 Eos # (Auto) 0.3 Baso # (Auto) 0.0 Abs Immat Gran (auto) 0.01 Absolute Neuts (auto) 2.8 Absolute Nucleated RBC 0.000 Nucleated RBC % (auto) 0.0 Anion Gap 15 Estim Creat Clear Calc 22.1 Estimated GFR 26 POC Glucose 118 H 133 H Random Glucose 154 H Calcium 9.6 Phosphorus 4.3 Magnesium 2.2 03/29/24 03/29/24 06:55 10:49 MCV MCH MCHC RDW Plt Count MPV Immature Gran % (Auto) Neut % (Auto) Lymph % (Auto) [place] % (Auto) Eos % (Auto) Baso % (Auto) Lymph # (Auto) [place] # (Auto) Eos # (Auto) Baso # (Auto) Abs Immat Gran (auto) Absolute Neuts (auto) Absolute Nucleated RBC Nucleated RBC % (auto) Anion Gap Estim Creat Clear Calc Estimated GFR POC Glucose 146 H 173 H Random Glucose Calcium Phosphorus Magnesium Assessment and Plan (1) Osteomyelitis: Status: Acute (2) Hypoglycemia: Status: Acute Plan This is a 73-year-old female admitted to ICU on March 25 for hypoglycemia treated with D10 drip and downgraded from the ICU on 03/27 insulin requiring type 2 diabetes with symptomatic hypoglycemia due to error in insulin administration at home Has been off all diabetic medication, blood sugar has been controlled, no further episodes of hypoglycemia We will continue to hold all diabetic medication, continue sliding scale Check hemoglobin A1c Has outpatient procedure scheduled with Dr. Rossi, hold Ozempic until after procedure Dizziness Patient reports dizziness upon standing We will check orthostatic blood pressures Physical therapy evaluation pending Acute metabolic encephalopathy Due to hypoglycemia Resolved diabetic foot ulcer with osteo discharged in February with IV ertapenem to end 04/13 Continue IV ertapenem PVD outpatient follow up with vascular surgery, planned procedure for next week mood Resume SSRI HLD resume statin MELANIE on CKD4 back to baseline Hypokalemia Resolved dvt ppx - heparin dispo - seen by PT rec STR, walker Quality Stroke Does the patient have a stroke diagnosis?: No VTE Prior VTE?: No VTE Risk Level:: Medical - moderate - high VTE Device Contraindication: N/A - Device Ordered VTE Drug Contraindication: N/A - Med Ordered
[2024-03-29 13:53] LABS: Estimated Average Glucose 148 mg/dL; Hemoglobin A1c % 6.8 % (<6.0)
[2024-03-29 16:07] LABS: Glucose, Whole Blood 170 mg/dL (60-115)
[2024-03-29] MEDS: Atorvastatin Calcium 20 MG TABLET PO (16:11)
[2024-03-29] MEDS: ondansetron HCL 4 MG/2 ML VIAL IVPUSH (16:11)
[2024-03-29] MEDS: Lactated Ringers 1,000 ML 100 ML IVCONT (17:10)
[2024-03-29 20:31] LABS: Glucose, Whole Blood 152 mg/dL (60-115)
[2024-03-30] VITALS (9 sets, daily range): BP systolic 104–154; BP diastolic 55–82; PULSE 72–95; RESP 18–20; TEMP 36.1–37.1; O2SAT 94–96
[2024-03-30 06:13] LABS: MANUAL DIFF FLAG NO
[2024-03-30 06:41] LABS: Anion Gap 13 (12-20); Blood Urea Nitrogen 20 mg/dL (9-16); Calcium 9.4 mg/dL (8.4-10.2); Carbon Dioxide 25 mmol/L (22-29); Chloride 105 mmol/L (96-108); Creatinine Clr Calc Pharmacy 23.6; Estimated Glomerular Filt Rate 28; Glucose Random 137 mg/dL (60-115); Phosphorus 3.8 mg/dL (2.7-4.5); Potassium 3.9 mmol/L (3.3-5.1); Sodium 139 mmol/L (135-145)
[2024-03-30 06:43] LABS: Basophils Percent Auto 0.7 % (0-2); Eosinophils Absolute Auto 0.3 X10*3/uL (0.0-0.4); Eosinophils Percent Auto 6.4 % (0-4); Hematocrit 30.7 % (37.0-47.0); Hemoglobin 10.4 g/dl (12.0-16.0); Imm Gran Abs Auto 0.01 X10*3/uL (0.00-0.03); Imm Gran Pct Auto 0.2 % (0.0-0.4); Lymphocytes Absolute Auto 0.9 X10*3/uL (1.2-4.9); Lymphocytes Percent Auto 20.6 % (20-40); Mean Corpuscular HGB Conc 33.9 g/dl (31.0-35.0); Mean Corpuscular Volume 85.5 fL (80.0-98.0); Mean Platelet Volume 10.8 fL (9.4-12.3); Monocytes Absolute Auto 0.5 X10*3/uL (0.1-1.2); Monocytes Percent Auto 10.7 % (2-11); Neutrophils Absolute Auto 2.6 x10*3/uL (2.0-8.3); Neutrophils Percent Auto 61.4 % (45-73); Platelet Count 228 X10*3/uL (160-400); Red Blood Count 3.59 X10*6/uL (4.20-5.50); White Blood Count 4.2 X10*3/uL (4.8-10.8)
[2024-03-30 07:43] LABS: Glucose, Whole Blood 135 mg/dL (60-115)
[2024-03-30] MEDS: Ertapenem Sodium 0.5 GM in 0.9 % Sodium Chloride 50 ML IV (08:59)
[2024-03-30] MEDS: Escitalopram Oxalate 5 MG TABLET PO (08:59)
[2024-03-30] MEDS: Heparin Sodium,Porcine 5,000 UNIT/ML VIAL 5000 UNIT SUBCUT ×2 (08:59→21:52)
[2024-03-30] MEDS: Atorvastatin Calcium 20 MG TABLET PO (08:59)
[2024-03-30 11:25] LABS: Glucose, Whole Blood 164 mg/dL (60-115)
--- NOTE | 2024-03-30 12:53 | MHC.CM.PN ---
PT rec. STR for pt. CM met with pt. with esl professor to discuss STR. Pt. seemed vague about this, said OK. Call place to dtr, Left message to discuss. Referrals made, [facility] accepting. CM to continue to follow for DC needs.
--- NOTE | 2024-03-30 15:49 | P.PNIM_ITS ---
Subjective Subjective Date of Service: 03/30/24 Interval History: Seen and examined this morning Follow-up for hypoglycemia, orthostatic hypotension no further hypoglycemia Dizziness has resolved, ambulating without dizziness Review of Systems Review of Systems: Yes all other systems are reviewed and are negative Constitutional Constitutional: Denies chills and Denies fever(s) ENT Ears, Nose, Mouth, and Throat: Denies dizziness Cardiovascular Cardiovascular: Denies chest pain, Denies palpitations and Denies dyspnea Respiratory Respiratory: Denies cough and Denies dyspnea Gastrointestinal Gastrointestinal: Denies abdominal pain Neurologic Neurologic: Denies dizziness Endocrine Endocrine: Denies palpitations Physical Exam 2 Vital Signs: Vital Signs: Last Vital Signs Temp 97.4 F 03/30/24 11:12 Pulse 73 03/30/24 12:37 Resp 18 03/30/24 11:12 BP 154/69 H 03/30/24 12:37 Pulse Ox 96 03/30/24 12:37 O2 Del Method Room Air 03/30/24 11:12 O2 Flow Rate 1 03/26/24 20:00 Oxygen Flow Rate 2 03/25/24 16:48 BMI result Body Mass Index 25.5 Const: General: cooperative, comfortable, no acute distress, alert and awake Nutritional Appearance: average body habitus Orientation/consciousness: o riented to person and oriented to place Resp: Effort & Inspection: normal respiratory effort, able to speak in complete sentences, no respiratory distress and no use of accessory muscles Cardio: Rate: regular rate GI: Inspection: No distended Palpation (GI): Soft to palpation and nontender Skin: Other: left foot - dry ulcer great toe, no open wound, no drainage Neuro: General: oriented to person, oriented to place, moves all extremities and CN's II-XI intact bilaterally Objective Data Active Medications Acetaminophen (Acetaminophen 325 Mg Tablet) 650 mg PO Q6H PRN PRN Reason: Pain, Mild (Pain Scale 1-3) Albuterol Sulfate (Albuterol Sulfate 90 Mcg 8 Gm Inhaler) 2 puff INHALE RQ6H PRN PRN Reason: Wheezing Albuterol Sulfate (Albuterol Sulfate 90 Mcg 8 Gm Inhaler) 2 puff INHALE QID PRN PRN Reason: shortness of breath or wheezing Atorvastatin Calcium (Atorvastatin Calcium 20 Mg Tablet) 20 mg PO DAILY [facility] Last Admin: 03/30/24 08:59 Dose: 20 mg Documented By: DANILO Escitalopram Oxalate (Escitalopram Oxalate 5 Mg Tablet) 5 mg PO DAILY [facility] Last Admin: 03/30/24 08:59 Dose: 5 mg Documented By: DANILO Glucose (Glucose Gel 15 Gm Gel..Gram.) 15 gm PO Q15M PRN; Protocol PRN Reason: per Hypoglycemia Standing Ord. Heparin Sodium (Porcine) (Heparin Sodium,Porcine 5,000 Unit/Ml Vial) 5,000 unit SUBCUT Q12H [facility] Last Admin: 03/30/24 08:59 Dose: 5,000 unit Documented By: DANILO Ertapenem 0.5 gm/ Sodium (Chloride) 50 mls @ 100 mls/hr IV DAILY [facility] Last Infusion: 03/30/24 10:17 Dose: Infused Documented By: DANILO Dextrose (D10) 250 mls @ 750 mls/hr IV Q15M PRN; Protocol PRN Reason: per Hypoglycemia Standing Ord. Insulin Human Lispro (Insulin Lispro 100 Unit/Ml 3 Ml Vial) 0 unit SUBCUT QIDACHS [facility]; Protocol Last Admin: 03/30/24 12:49 Dose: Not Given Documented By: DANILO Non-Admin Reason: No Insulin Coverage Ondansetron HCl (Ondansetron Hcl 4 Mg/2 Ml Vial) 4 mg IVPUSH Q8H PRN PRN Reason: Nausea and Vomiting Last Admin: 03/29/24 16:11 Dose: 4 mg Documented By: MANDI Labs 03/30/24 05:57 03/30/24 05:57 Labs: Laboratory Results - last 24 hr 03/29/24 03/29/24 03/30/24 16:01 20:27 05:57 MCV 85.5 MCH 29.0 MCHC 33.9 RDW 11.0 Plt Count 228 MPV 10.8 Immature Gran % (Auto) 0.2 Neut % (Auto) 61.4 Lymph % (Auto) 20.6 [place] % (Auto) 10.7 Eos % (Auto) 6.4 H Baso % (Auto) 0.7 Lymph # (Auto) 0.9 L [place] # (Auto) 0.5 Eos # (Auto) 0.3 Baso # (Auto) 0.0 Abs Immat Gran (auto) 0.01 Absolute Neuts (auto) 2.6 Absolute Nucleated RBC 0.000 Nucleated RBC % (auto) 0.0 Anion Gap 13 Estim Creat Clear Calc 23.6 Estimated GFR 28 POC Glucose 170 H 152 H Random Glucose 137 H Calcium 9.4 Phosphorus 3.8 Magnesium 2.0 03/30/24 03/30/24 07:24 11:13 MCV MCH MCHC RDW Plt Count MPV Immature Gran % (Auto) Neut % (Auto) Lymph % (Auto) [place] % (Auto) Eos % (Auto) Baso % (Auto) Lymph # (Auto) [place] # (Auto) Eos # (Auto) Baso # (Auto) Abs Immat Gran (auto) Absolute Neuts (auto) Absolute Nucleated RBC Nucleated RBC % (auto) Anion Gap Estim Creat Clear Calc Estimated GFR POC Glucose 135 H 164 H Random Glucose Calcium Phosphorus Magnesium Assessment and Plan (1) Accidental overdose of insulin: Status: Acute (2) Orthostatic hypotension: Status: Acute (3) Osteomyelitis: Status: Acute Plan This is a 73-year-old female admitted to ICU on March 25 for hypoglycemia treated with D10 drip and downgraded from the ICU on 03/27 insulin requiring type 2 diabetes with symptomatic hypoglycemia due to error in insulin administration at home Has been off all diabetic medication, blood sugar has been controlled, no further episodes of hypoglycemia continue to hold all diabetic medication, continue sliding scale - has not required any insulin coverage hemoglobin A1c 6.8% Has outpatient procedure scheduled with Dr. Rossi, hold Ozempic until after procedure likely d/c with only jardiance, no insulin Dizziness due to orthostatic hypotension resolved with IVF Acute metabolic encephalopathy Due to hypoglycemia Resolved diabetic foot ulcer with osteo discharged in February with IV ertapenem to end 04/13 Continue IV ertapenem PVD outpatient follow up with vascular surgery, planned procedure for next week mood Resume SSRI HLD resume statin MELANIE on CKD4 renal function back to baseline Hypokalemia Resolved HTN hold norvasc, resume as bp allows dvt ppx - heparin dispo - seen by PT rec STR will need insurance authorization Requires ongoing inpatient stay for management of orthostatic hypotension, safe disposition Quality Stroke Does the patient have a stroke diagnosis?: No VTE Prior VTE?: No VTE Risk Level:: Medical - moderate - high VTE Device Contraindication: N/A - Device Ordered VTE Drug Contraindication: N/A - Med Ordered
[2024-03-30 16:20] LABS: Glucose, Whole Blood 145 mg/dL (60-115)
[2024-03-30 20:06] LABS: Glucose, Whole Blood 128 mg/dL (60-115)
[2024-03-30] MEDS: Acetaminophen 325 MG TABLET 650 MG PO (21:56)
[2024-03-31] VITALS (8 sets, daily range): BP systolic 108–148; BP diastolic 59–78; PULSE 71–84; RESP 18; TEMP 36.1–37.6; O2SAT 93–97
[2024-03-31 07:16] LABS: Glucose, Whole Blood 130 mg/dL (60-115)
[2024-03-31] MEDS: Ertapenem Sodium 0.5 GM in 0.9 % Sodium Chloride 50 ML IV (08:00)
[2024-03-31] MEDS: Escitalopram Oxalate 5 MG TABLET PO (08:07)
[2024-03-31] MEDS: Atorvastatin Calcium 20 MG TABLET PO (08:07)
[2024-03-31] MEDS: Heparin Sodium,Porcine 5,000 UNIT/ML VIAL 5000 UNIT SUBCUT ×2 (08:13→22:05)
[2024-03-31 11:36] LABS: Glucose, Whole Blood 207 mg/dL (60-115)
[2024-03-31] MEDS: Insulin Lispro 100 UNIT/ML 3 ML VIAL SUBCUT (12:33)
--- NOTE | 2024-03-31 13:42 | P.PNIM_ITS ---
Subjective Subjective Date of Service: 03/31/24 Interval History: seen and examined this morning follow up for hypoglycemia No overnight events History obtained with the assistance of a hospital personnel director no recurrent hypoglycemia no dizziness Review of Systems Review of Systems: Yes all other systems are reviewed and are negative Constitutional Constitutional: Denies chills ENT Ears, Nose, Mouth, and Throat: Denies dizziness Neurologic Neurologic: Denies dizziness Physical Exam 2 Vital Signs: Vital Signs: Last Vital Signs Temp 97.0 F 03/31/24 11:15 Pulse 71 03/31/24 11:15 Resp 18 03/31/24 11:15 BP 141/66 H 03/31/24 11:15 Pulse Ox 96 03/31/24 11:15 O2 Del Method Room Air 03/31/24 11:15 O2 Flow Rate 1 03/26/24 20:00 Oxygen Flow Rate 2 03/25/24 16:48 BMI result Body Mass Index 25.5 Const: General: cooperative, comfortable, no acute distress, alert and awake Nutritional Appearance: average body habitus Orientation/consciousness: o riented to person and oriented to place Resp: Effort & Inspection: normal respiratory effort, able to speak in complete sentences, no respiratory distress and no use of accessory muscles Cardio: Rate: regular rate GI: Inspection: No distended Palpation (GI): Soft to palpation and nontender Skin: Other: left foot - dry ulcer great toe, no open wound, no drainage Neuro: General: oriented to person, oriented to place, moves all extremities and CN's II-XI intact bilaterally Objective Data Active Medications Acetaminophen (Acetaminophen 325 Mg Tablet) 650 mg PO Q6H PRN PRN Reason: Pain, Mild (Pain Scale 1-3) Last Admin: 03/30/24 21:56 Dose: 650 mg Documented By: ANNE-MARIE Albuterol Sulfate (Albuterol Sulfate 90 Mcg 8 Gm Inhaler) 2 puff INHALE RQ6H PRN PRN Reason: Wheezing Albuterol Sulfate (Albuterol Sulfate 90 Mcg 8 Gm Inhaler) 2 puff INHALE QID PRN PRN Reason: shortness of breath or wheezing Atorvastatin Calcium (Atorvastatin Calcium 20 Mg Tablet) 20 mg PO DAILY [facility] Last Admin: 03/31/24 08:07 Dose: 20 mg Documented By: MANDI Escitalopram Oxalate (Escitalopram Oxalate 5 Mg Tablet) 5 mg PO DAILY [facility] Last Admin: 03/31/24 08:07 Dose: 5 mg Documented By: MANDI Glucose (Glucose Gel 15 Gm Gel..Gram.) 15 gm PO Q15M PRN; Protocol PRN Reason: per Hypoglycemia Standing Ord. Heparin Sodium (Porcine) (Heparin Sodium,Porcine 5,000 Unit/Ml Vial) 5,000 unit SUBCUT Q12H [facility] Last Admin: 03/31/24 08:13 Dose: 5,000 unit Documented By: MANDI Ertapenem 0.5 gm/ Sodium (Chloride) 50 mls @ 100 mls/hr IV DAILY [facility] Last Infusion: 03/31/24 08:32 Dose: Infused Documented By: MANDI Dextrose (D10) 250 mls @ 750 mls/hr IV Q15M PRN; Protocol PRN Reason: per Hypoglycemia Standing Ord. Insulin Human Lispro (Insulin Lispro 100 Unit/Ml 3 Ml Vial) 0 unit SUBCUT QIDACHS [facility]; Protocol Last Admin: 03/31/24 12:33 Dose: 2 unit Documented By: MANDI Ondansetron HCl (Ondansetron Hcl 4 Mg/2 Ml Vial) 4 mg IVPUSH Q8H PRN PRN Reason: Nausea and Vomiting Last Admin: 03/29/24 16:11 Dose: 4 mg Documented By: MANDI Labs 03/30/24 05:57 03/30/24 05:57 Labs: Laboratory Results - last 24 hr 03/30/24 03/30/24 03/31/24 16:17 20:02 07:05 POC Glucose 145 H 128 H 130 H 03/31/24 11:20 POC Glucose 207 H Microbiology Microbiology Results: Microbiology 03/25/24 21:18 Blood Culture - Final Blood - Venous No growth after 5 days. 03/25/24 21:18 Blood Culture - Final Blood - Venous No growth after 5 days. Assessment and Plan (1) Orthostatic hypotension: Status: Acute (2) Diabetic osteomyelitis: Status: Acute Plan This is a 73-year-old female admitted to ICU on March 25 for hypoglycemia treated with D10 drip and downgraded from the ICU on 03/27 insulin requiring type 2 diabetes with symptomatic hypoglycemia due to error in insulin administration at home Has been off all diabetic medication, blood sugar has been controlled, no further episodes of hypoglycemia continue to hold all diabetic medication, continue sliding scale - has not required any insulin coverage hemoglobin A1c 6.8% Has outpatient procedure scheduled with Dr. Rossi, hold Ozempic until after procedure likely d/c with only jardiance, no insulin Dizziness due to orthostatic hypotension resolved with IVF Acute metabolic encephalopathy Due to hypoglycemia Resolved diabetic foot ulcer with osteo discharged in February with IV ertapenem to end 04/13 Continue IV ertapenem PVD outpatient follow up with vascular surgery, planned procedure for next week mood Resume SSRI HLD resume statin MELANIE on CKD4 renal function back to baseline Hypokalemia Resolved HTN hold norvasc, resume as bp allows dvt ppx - heparin dispo - seen by PT rec STR will need insurance authorization Requires ongoing inpatient stay for management of orthostatic hypotension, safe disposition Quality Stroke Does the patient have a stroke diagnosis?: No VTE Prior VTE?: No VTE Risk Level:: Medical - moderate - high VTE Device Contraindication: N/A - Device Ordered VTE Drug Contraindication: N/A - Med Ordered
[2024-03-31 21:38] LABS: Glucose, Whole Blood 183 mg/dL (60-115)
[2024-03-31] MEDS: Acetaminophen 325 MG TABLET 650 MG PO (23:56)
[2024-04-01 03:51] VITALS: BP 135/64; PULSE 74; RESP 18; TEMP 36.6; O2SAT 95
[2024-04-01 07:41] LABS: Glucose, Whole Blood 157 mg/dL (60-115)
[2024-04-01 07:44] VITALS: BP 114/65; PULSE 82; RESP 18; TEMP 37.1; O2SAT 98
[2024-04-01] MEDS: Escitalopram Oxalate 5 MG TABLET PO (08:06)
[2024-04-01] MEDS: Atorvastatin Calcium 20 MG TABLET PO (08:06)
[2024-04-01] MEDS: Ertapenem Sodium 0.5 GM in 0.9 % Sodium Chloride 50 ML IV (08:06)
[2024-04-01] MEDS: Heparin Sodium,Porcine 5,000 UNIT/ML VIAL 5000 UNIT SUBCUT ×2 (08:06→20:24)
[2024-04-01 11:04] VITALS: BP 109/74; PULSE 76; RESP 18; TEMP 36.4; O2SAT 96
[2024-04-01 11:17] LABS: Glucose, Whole Blood 196 mg/dL (60-115)
--- NOTE | 2024-04-01 14:21 | P.PNIM_ITS ---
Subjective Subjective Date of Service: 04/01/24 Interval History: seen and examined this morning follow up for hypoglycemia, orthostatic hypotension no overnight events no specific complaints Review of Systems Review of Systems: Yes all other systems are reviewed and are negative Constitutional Constitutional: Denies fever(s) Cardiovascular Cardiovascular: Denies chest pain Gastrointestinal Gastrointestinal: Denies abdominal pain Physical Exam 2 Vital Signs: Vital Signs: Last Vital Signs Temp 97.6 F 04/01/24 11:04 Pulse 76 04/01/24 11:04 Resp 18 04/01/24 11:04 BP 109/74 04/01/24 11:04 Pulse Ox 96 04/01/24 11:04 O2 Del Method Room Air 04/01/24 11:04 O2 Flow Rate 1 03/26/24 20:00 Oxygen Flow Rate 2 03/25/24 16:48 BMI result Body Mass Index 25.5 Const: General: cooperative, comfortable, no acute distress, alert and awake Nutritional Appearance: average body habitus Orientation/consciousness: o riented to person and oriented to place Resp: Effort & Inspection: normal respiratory effort, able to speak in complete sentences, no respiratory distress and no use of accessory muscles Cardio: Rate: regular rate GI: Inspection: No distended Palpation (GI): Soft to palpation and nontender Skin: Other: left foot - dry ulcer great toe, no open wound, no drainage Neuro: General: oriented to person, oriented to place, moves all extremities and CN's II-XI intact bilaterally Objective Data Active Medications Acetaminophen (Acetaminophen 325 Mg Tablet) 650 mg PO Q6H PRN PRN Reason: Pain, Mild (Pain Scale 1-3) Last Admin: 03/31/24 23:56 Dose: 650 mg Documented By: ANNE-MARIE Albuterol Sulfate (Albuterol Sulfate 90 Mcg 8 Gm Inhaler) 2 puff INHALE RQ6H PRN PRN Reason: Wheezing Albuterol Sulfate (Albuterol Sulfate 90 Mcg 8 Gm Inhaler) 2 puff INHALE QID PRN PRN Reason: shortness of breath or wheezing Atorvastatin Calcium (Atorvastatin Calcium 20 Mg Tablet) 20 mg PO DAILY [facility] Last Admin: 04/01/24 08:06 Dose: 20 mg Documented By: MANDI Escitalopram Oxalate (Escitalopram Oxalate 5 Mg Tablet) 5 mg PO DAILY [facility] Last Admin: 04/01/24 08:06 Dose: 5 mg Documented By: MANDI Glucose (Glucose Gel 15 Gm Gel..Gram.) 15 gm PO Q15M PRN; Protocol PRN Reason: per Hypoglycemia Standing Ord. Heparin Sodium (Porcine) (Heparin Sodium,Porcine 5,000 Unit/Ml Vial) 5,000 unit SUBCUT Q12H [facility] Last Admin: 04/01/24 08:06 Dose: 5,000 unit Documented By: MANDI Ertapenem 0.5 gm/ Sodium (Chloride) 50 mls @ 100 mls/hr IV DAILY [facility] Last Infusion: 04/01/24 09:49 Dose: Infused Documented By: MANDI Dextrose (D10) 250 mls @ 750 mls/hr IV Q15M PRN; Protocol PRN Reason: per Hypoglycemia Standing Ord. Insulin Human Lispro (Insulin Lispro 100 Unit/Ml 3 Ml Vial) 0 unit SUBCUT QIDACHS [facility]; Protocol Last Admin: 04/01/24 11:31 Dose: Not Given Documented By: MANDI Non-Admin Reason: No Insulin Coverage Ondansetron HCl (Ondansetron Hcl 4 Mg/2 Ml Vial) 4 mg IVPUSH Q8H PRN PRN Reason: Nausea and Vomiting Last Admin: 03/29/24 16:11 Dose: 4 mg Documented By: MANDI Labs 03/30/24 05:57 03/30/24 05:57 Labs: Laboratory Results - last 24 hr 03/31/24 04/01/24 04/01/24 21:33 07:33 11:10 POC Glucose 183 H 157 H 196 H Assessment and Plan (1) Osteomyelitis: Status: Acute Plan This is a 73-year-old female admitted to ICU on March 25 for hypoglycemia treated with D10 drip and downgraded from the ICU on 03/27 insulin requiring type 2 diabetes with symptomatic hypoglycemia due to error in insulin administration at home Has been off all diabetic medication, blood sugar has been controlled, no further episodes of hypoglycemia continue to hold all diabetic medication, continue sliding scale - has not required any insulin coverage hemoglobin A1c 6.8% Has outpatient procedure scheduled with Dr. Rossi, hold Ozempic until after procedure likely d/c with only jardiance, no insulin Dizziness due to orthostatic hypotension resolved with IVF Acute metabolic encephalopathy Due to hypoglycemia Resolved diabetic foot ulcer with osteo discharged in February with IV ertapenem to end 04/13 Continue IV ertapenem PVD outpatient follow up with vascular surgery, planned procedure for next week mood Resume SSRI HLD resume statin MELANIE on CKD4 renal function back to baseline Hypokalemia Resolved HTN bp stable off meds hold norvasc, resume as bp allows dvt ppx - heparin dispo - seen by PT rec STR will need insurance authorization Requires ongoing inpatient stay for management of orthostatic hypotension, safe disposition Quality Stroke Does the patient have a stroke diagnosis?: No VTE Prior VTE?: No VTE Risk Level:: Medical - moderate - high VTE Device Contraindication: N/A - Device Ordered VTE Drug Contraindication: N/A - Med Ordered
[2024-04-01 15:35] VITALS: BP 138/80; PULSE 77; RESP 18; TEMP 37.2; O2SAT 95
[2024-04-01 15:53] LABS: Glucose, Whole Blood 141 mg/dL (60-115)
[2024-04-01 19:26] VITALS: BP 96/55; PULSE 77; RESP 15; TEMP 36.6; O2SAT 96
[2024-04-01 20:02] LABS: Glucose, Whole Blood 215 mg/dL (60-115)
[2024-04-01] MEDS: Insulin Lispro 100 UNIT/ML 3 ML VIAL SUBCUT (20:23)
[2024-04-01] MEDS: Acetaminophen 325 MG TABLET 650 MG PO (20:24)
[2024-04-01 23:49] VITALS: BP 118/63; PULSE 86; RESP 13; TEMP 36.4; O2SAT 95
[2024-04-02 03:32] VITALS: BP 108/61; PULSE 78; RESP 14; TEMP 36.6; O2SAT 94
[2024-04-02 07:57] VITALS: BP 96/60; PULSE 78; RESP 19; TEMP 36.6; O2SAT 95
[2024-04-02 08:05] LABS: Glucose, Whole Blood 149 mg/dL (60-115)
[2024-04-02] MEDS: Atorvastatin Calcium 20 MG TABLET PO (08:43)
[2024-04-02] MEDS: Escitalopram Oxalate 5 MG TABLET PO (08:43)
[2024-04-02] MEDS: Heparin Sodium,Porcine 5,000 UNIT/ML VIAL 5000 UNIT SUBCUT ×2 (08:44→21:13)
[2024-04-02] MEDS: Ertapenem Sodium 0.5 GM in 0.9 % Sodium Chloride 50 ML IV (08:46)
--- NOTE | 2024-04-02 10:38 | MHC.CM.PN ---
EMR reviewed and per MD rounds, pt is medically cleared for discharge pending STR placement. Per [facility], they gave their last female bed up over the weekend. SNF referral expanded in [facility], and multiple bed offers received. This CM met with pt and her daughter present at bedside with the assistance of a conference interpreter to review bed offers. Pt and her daughter have agreed upon [facility] as their first choice. This CM has communicated the bed acceptance to [facility] and requested they go for insurance auth.
[2024-04-02 11:40] LABS: Glucose, Whole Blood 189 mg/dL (60-115)
--- NOTE | 2024-04-02 11:44 | P.PNIM_ITS ---
Subjective Subjective Date of Service: 04/02/24 Interval History: seen and examined this morning follow up for hypoglycemia, orthostatic hypotension no overnight events no specific complaints Review of Systems Review of Systems: Yes all other systems are reviewed and are negative Constitutional Constitutional: Denies fever(s) Cardiovascular Cardiovascular: Denies chest pain Gastrointestinal Gastrointestinal: Denies abdominal pain Physical Exam 2 Vital Signs: Vital Signs: Last Vital Signs Temp 97.8 F 04/02/24 07:57 Pulse 78 04/02/24 07:57 Resp 19 04/02/24 07:57 BP 96/60 04/02/24 07:57 Pulse Ox 95 04/02/24 07:57 O2 Del Method Room Air 04/02/24 07:57 O2 Flow Rate 1 03/26/24 20:00 Oxygen Flow Rate 2 03/25/24 16:48 BMI result Body Mass Index 25.5 Appearing in no acute distress lung sounds are clear to auscultation heart regular rate rhythm, clear S1, S2 positive bowel sounds, abdomen is soft, nontender neuro patient is alert x3, no focal deficits Objective Data Active Medications Acetaminophen (Acetaminophen 325 Mg Tablet) 650 mg PO Q6H PRN PRN Reason: Pain, Mild (Pain Scale 1-3) Last Admin: 04/01/24 20:24 Dose: 650 mg Documented By: PING Albuterol Sulfate (Albuterol Sulfate 90 Mcg 8 Gm Inhaler) 2 puff INHALE RQ6H PRN PRN Reason: Wheezing Albuterol Sulfate (Albuterol Sulfate 90 Mcg 8 Gm Inhaler) 2 puff INHALE QID PRN PRN Reason: shortness of breath or wheezing Atorvastatin Calcium (Atorvastatin Calcium 20 Mg Tablet) 20 mg PO DAILY [facility] Last Admin: 04/02/24 08:43 Dose: 20 mg Documented By: PUMA Escitalopram Oxalate (Escitalopram Oxalate 5 Mg Tablet) 5 mg PO DAILY [facility] Last Admin: 04/02/24 08:43 Dose: 5 mg Documented By: PUMA Glucose (Glucose Gel 15 Gm Gel..Gram.) 15 gm PO Q15M PRN; Protocol PRN Reason: per Hypoglycemia Standing Ord. Heparin Sodium (Porcine) (Heparin Sodium,Porcine 5,000 Unit/Ml Vial) 5,000 unit SUBCUT Q12H [facility] Last Admin: 04/02/24 08:44 Dose: 5,000 unit Documented By: PUMA Ertapenem 0.5 gm/ Sodium (Chloride) 50 mls @ 100 mls/hr IV DAILY [facility] Last Infusion: 04/02/24 10:19 Dose: Infused Documented By: PUMA Dextrose (D10) 250 mls @ 750 mls/hr IV Q15M PRN; Protocol PRN Reason: per Hypoglycemia Standing Ord. Insulin Human Lispro (Insulin Lispro 100 Unit/Ml 3 Ml Vial) 0 unit SUBCUT QIDACHS [facility]; Protocol Last Admin: 04/02/24 08:06 Dose: Not Given Documented By: PUMA Non-Admin Reason: No Insulin Coverage Ondansetron HCl (Ondansetron Hcl 4 Mg/2 Ml Vial) 4 mg IVPUSH Q8H PRN PRN Reason: Nausea and Vomiting Last Admin: 03/29/24 16:11 Dose: 4 mg Documented By: MANDI Labs 03/30/24 05:57 03/30/24 05:57 Labs: Laboratory Results - last 24 hr 04/01/24 04/01/24 04/02/24 15:50 19:58 08:02 POC Glucose 141 H 215 H 149 H 04/02/24 11:30 POC Glucose 189 H Assessment and Plan (1) Osteomyelitis: Status: Acute Plan This is a 73-year-old female admitted to ICU on March 25 for hypoglycemia treated with D10 drip and downgraded from the ICU on 03/27 Type 2 diabetes with symptomatic hypoglycemia due to error in insulin administration at home Has been off all diabetic medication, blood sugar has been controlled, no further episodes of hypoglycemia continue to hold all diabetic medication, continue sliding scale - has not required any insulin coverage hemoglobin A1c 6.8% Has outpatient procedure scheduled with Dr. Rossi, hold Ozempic until after procedure d/c with only jardiance, no insulin Dizziness due to orthostatic hypotension resolved with IVF Acute metabolic encephalopathy Due to hypoglycemia Resolved diabetic foot ulcer with osteo discharged in February with IV ertapenem to end 04/13 Continue IV ertapenem PVD outpatient follow up with vascular surgery, planned procedure for next week mood Resume SSRI HLD resume statin MELANIE on CKD4 renal function back to baseline Hypokalemia Resolved HTN bp stable off meds hold norvasc, resume as bp allows dvt ppx - heparin Attending Dr. Lloyd dispo - seen by PT rec STR will need insurance authorization Requires ongoing inpatient stay for management of orthostatic hypotension, safe disposition Quality Stroke Does the patient have a stroke diagnosis?: No VTE Prior VTE?: No VTE Risk Level:: Medical - moderate - high VTE Device Contraindication: N/A - Device Ordered VTE Drug Contraindication: N/A - Med Ordered
[2024-04-02 11:54] VITALS: BP 101/53; PULSE 78; RESP 19; TEMP 37.1; O2SAT 97
[2024-04-02 12:23] LABS: Glucose, Whole Blood 142 mg/dL (60-115)
[2024-04-02 16:12] VITALS: BP 97/61; PULSE 82; RESP 18; TEMP 36.3; O2SAT 97
[2024-04-02] MEDS: Acetaminophen 325 MG TABLET 650 MG PO (16:15)
[2024-04-02 16:42] LABS: Glucose, Whole Blood 183 mg/dL (60-115)
[2024-04-02 19:37] VITALS: BP 108/70; PULSE 75; RESP 20; TEMP 36.4; O2SAT 96
[2024-04-02] MEDS: traMADoL HCL 50 MG TABLET 25 MG PO (19:51)
[2024-04-02] MEDS: Docusate Sodium 100 MG CAPSULE 200 MG PO (20:04)
[2024-04-02 21:03] LABS: Glucose, Whole Blood 160 mg/dL (60-115)
[2024-04-02 23:47] VITALS: BP 98/56; PULSE 71; RESP 20; TEMP 36.6; O2SAT 94
[2024-04-03 03:55] VITALS: BP 102/60; PULSE 74; RESP 20; TEMP 36.6; O2SAT 95
[2024-04-03 06:58] LABS: Glucose, Whole Blood 153 mg/dL (60-115)
[2024-04-03 07:04] VITALS: BP 117/64; PULSE 77; RESP 18; TEMP 36.6; O2SAT 93
--- NOTE | 2024-04-03 09:19 | MHC.CM.PN ---
PT MEDICALLY CLEARED FOR DC, SNF AWAITING INSURANCE AUTH AND NOTIFIED PT'S GDTR [facility] WILL TRANSPORT PT TO ANY APPT'S WHILE SHE IS IN STR.
[2024-04-03] MEDS: Escitalopram Oxalate 5 MG TABLET PO (09:28)
[2024-04-03] MEDS: Heparin Sodium,Porcine 5,000 UNIT/ML VIAL 5000 UNIT SUBCUT (09:29)
[2024-04-03] MEDS: Ertapenem Sodium 0.5 GM in 0.9 % Sodium Chloride 50 ML IV (09:29)
[2024-04-03] MEDS: Atorvastatin Calcium 20 MG TABLET PO (09:45)
[2024-04-03 10:53] VITALS: BP 112/58; PULSE 77; RESP 18; TEMP 36.7; O2SAT 93
[2024-04-03 10:53] LABS: Glucose, Whole Blood 226 mg/dL (60-115)
[2024-04-03] MEDS: Insulin Lispro 100 UNIT/ML 3 ML VIAL SUBCUT (11:50)
--- NOTE | 2024-04-03 12:02 | HO.PM.IMPN ---
Subjective Subjective Date of Service: 04/03/24 Interval History: seen and examined this morning follow up for hypoglycemia, orthostatic hypotension no overnight events no specific complaints Review of Systems Review of Systems: Yes all other systems are reviewed and are negative Constitutional Constitutional: Denies fever(s) Cardiovascular Cardiovascular: Denies chest pain Gastrointestinal Gastrointestinal: Denies abdominal pain Physical Exam Vital Signs: Vital Signs: Last Vital Signs Temp 98.1 F 04/03/24 10:53 Pulse 77 04/03/24 10:53 Resp 18 04/03/24 10:53 BP 112/58 L 04/03/24 10:53 Pulse Ox 93 04/03/24 10:53 O2 Del Method Room Air 04/03/24 10:53 O2 Flow Rate 1 03/26/24 20:00 Oxygen Flow Rate 2 03/25/24 16:48 BMI result Body Mass Index 25.5 Appearing in no acute distress lung sounds are clear to auscultation heart regular rate rhythm, clear S1, S2 positive bowel sounds, abdomen is soft, nontender neuro patient is alert x3, no focal deficits Objective Data Active Medications Acetaminophen (Acetaminophen 325 Mg Tablet) 650 mg PO Q6H PRN PRN Reason: Pain, Mild (Pain Scale 1-3) Last Admin: 04/02/24 16:15 Dose: 650 mg Documented By: NIKHIL Albuterol Sulfate (Albuterol Sulfate 90 Mcg 8 Gm Inhaler) 2 puff INHALE RQ6H PRN PRN Reason: Wheezing Albuterol Sulfate (Albuterol Sulfate 90 Mcg 8 Gm Inhaler) 2 puff INHALE QID PRN PRN Reason: shortness of breath or wheezing Atorvastatin Calcium (Atorvastatin Calcium 20 Mg Tablet) 20 mg PO DAILY [facility] Last Admin: 04/03/24 09:45 Dose: 20 mg Documented By: PUMA Escitalopram Oxalate (Escitalopram Oxalate 5 Mg Tablet) 5 mg PO DAILY [facility] Last Admin: 04/03/24 09:28 Dose: 5 mg Documented By: PUMA Glucose (Glucose Gel 15 Gm Gel..Gram.) 15 gm PO Q15M PRN; Protocol PRN Reason: per Hypoglycemia Standing Ord. Heparin Sodium (Porcine) (Heparin Sodium,Porcine 5,000 Unit/Ml Vial) 5,000 unit SUBCUT Q12H [facility] Last Admin: 04/03/24 09:29 Dose: 5,000 unit Documented By: PUMA Ertapenem 0.5 gm/ Sodium (Chloride) 50 mls @ 100 mls/hr IV DAILY [facility] Last Infusion: 04/03/24 10:15 Dose: Infused Documented By: PUMA Dextrose (D10) 250 mls @ 750 mls/hr IV Q15M PRN; Protocol PRN Reason: per Hypoglycemia Standing Ord. Insulin Human Lispro (Insulin Lispro 100 Unit/Ml 3 Ml Vial) 0 unit SUBCUT QIDACHS [facility]; Protocol Last Admin: 04/03/24 11:50 Dose: 2 unit Documented By: PUMA Ondansetron HCl (Ondansetron Hcl 4 Mg/2 Ml Vial) 4 mg IVPUSH Q8H PRN PRN Reason: Nausea and Vomiting Last Admin: 03/29/24 16:11 Dose: 4 mg Documented By: MANDI Tramadol HCl (Tramadol Hcl 50 Mg Tablet) 25 mg PO Q6H PRN PRN Reason: Pain, Moderate(Pain Scale 4-6) Last Admin: 04/02/24 19:51 Dose: 25 mg Documented By: [facility] Labs 03/30/24 05:57 03/30/24 05:57 Labs: Laboratory Results - last 24 hr 03/31/24 04/02/24 04/02/24 15:59 16:37 20:59 POC Glucose 142 H 183 H 160 H 04/03/24 04/03/24 06:54 10:49 POC Glucose 153 H 226 H Assessment and Plan (1) Osteomyelitis: Status: Acute Plan This is a 73-year-old female admitted to ICU on March 25 for hypoglycemia treated with D10 drip and downgraded from the ICU on 03/27 Type 2 diabetes with symptomatic hypoglycemia due to error in insulin administration at home Has been off all diabetic medication, blood sugar has been controlled, no further episodes of hypoglycemia continue to hold all diabetic medication, continue sliding scale - has not required any insulin coverage hemoglobin A1c 6.8% Has outpatient procedure scheduled with Dr. Rossi, hold Ozempic until after procedure d/c with only jardiance, no insulin Dizziness due to orthostatic hypotension resolved with IVF Acute metabolic encephalopathy Due to hypoglycemia Resolved diabetic foot ulcer with osteo discharged in February with IV ertapenem to end 04/13 Continue IV ertapenem PVD outpatient follow up with vascular surgery, planned procedure for next week mood Resume SSRI HLD resume statin MELANIE on CKD4 renal function back to baseline Hypokalemia Resolved HTN bp stable off meds hold norvasc, resume as bp allows dvt ppx - heparin Attending Dr. Gabino rodriguezo - seen by PT rec STR, waiting for insurance authorization Requires ongoing inpatient stay for management of orthostatic hypotension, safe disposition Quality Stroke Does the patient have a stroke diagnosis?: No VTE Prior VTE?: No VTE Risk Level:: Medical - moderate - high VTE Device Contraindication: N/A - Device Ordered VTE Drug Contraindication: N/A - Med Ordered
--- NOTE | 2024-04-03 14:19 | MHC.CM.PN ---
IMM 04/03/24, CM CONTACTED PT'S GDTR/HCP LIANNE AT NUMBER ON FILE, PT MEDICALLY CLEARED FOR DC TO [facility] FOR [facility] FOR BLS TRANSPORT AT 6:30PM, IMM TO BE LEFT AT BEDSIDE PER DISCUSSION.
--- NOTE | 2024-04-03 15:40 | P.DS_ITS ---
DS: Providers Provider Date of Service: 04/03/24 Date of admission: 03/25/24 19:56 Primary care physician: Miguel Johnson MD DS: Diagnosis Discharge Diagnosis (1) Osteomyelitis: Status: Acute DS: Summary Hospital Course Hospital Course: History and physical as per admitting provider. The patient is a 73-year-old female with underlying history of hypertension, diabetes, chronic kidney disease stage 3 to 4, asthma, mood disorder, left 1st toe osteomyelitis currently on treatment with ertapenem and as an outpatient after recently being admitted and discharged from this hospital on 03/01/2024, she has a PICC line and was to receive that time 38 more days of antibiotics, however by now she should only have 15 more days of it. ?Patient came to emergency room with complaints of possible seizure-like activity and hypoglycemia after unintentionally receiving 50 mg of NovoLog administered by the granddaughter, the patient has shortly become less responsive she had shaking like motions, she received D10 in the ambulance, on arrival the patient was noted to be borderline hypotensive with blood pressure of 99/53, blood sugar of 126 otherwise stable vital signs. Workup was significant for white count of 13.8 creatinine of 2.2, blood glucose of 53, patient was given D5 followed by an amp D50 for her where she continued to decrease. ?Head /cervical spine CT revealed no intracranial pathology, fracture or traumatic misalignment.? Chest x-ray revealed mild cardiomegaly and pulmonary vascular congestion.? Given the patient's ongoing hypoglycemia, patient was admitted to the ICU for close monitoring. Currently patient is somnolent, unable to answer questions other than yes and no. 73-year-old woman treated for symptomatic hypoglycemia due to in the air and insulin administration at home. All of her diabetic medications initially were held and patient has had no further episodes of hypoglycemia, A1c 6.8. Sliding scale was ordered. She also had some dizziness with orthostatic hypotension but was treated with IV fluids and resolved. The acute metabolic encephalopathy was likely secondary to hypoglycemia that has also resolved and patient is back to baseline, patient has not required much insulin administration. She has a history of diabetic foot ulcer with osteomyelitis and has been on IV ertapenem to end on 04/13/2024. We will continue Lantus at half the dose at bedtime and order sliding scale. Peripheral vascular disease. Outpatient vascular surgery canceled due to this hospitalization, patient to follow up with vascular surgery office to reschedule Mental health. Continue SSRI Hyperlipidemia. Continue statin MELANIE on CKD stage 4. Renal function at baseline Hypokalemia. Repleted and resolved Hypertension. Stable BP, continue Norvasc Time Attestation Discharge Coordination Time (in mins): 37 Quality: Safe Use of Opioids Does Pt have an Active Cancer Diagnosis on the Problem List?: No Quality: Stroke Does the patient have a stroke diagnosis?: No Physical Exam Vital Signs: Vital Signs: Last Vital Signs Temp 98.1 F 04/03/24 10:53 Pulse 77 04/03/24 10:53 Resp 18 04/03/24 10:53 BP 112/58 L 04/03/24 10:53 Pulse Ox 93 04/03/24 10:53 O2 Del Method Room Air 04/03/24 10:53 O2 Flow Rate 1 03/26/24 20:00 Oxygen Flow Rate 2 03/25/24 16:48 BMI result Body Mass Index 25.5 Appearing in no acute distress head is normocephalic atraumatic eyes pupils are PERRLA sclera is anicteric mouth throat mucous membranes are intact and moist neck is supple no lymphadenopathy, no JVD noted lung sounds are clear to auscultation heart regular rate rhythm, clear S1, S2 positive bowel sounds, abdomen is soft, nontender neuro patient is alert x3, no focal deficits DS: Data Data Completed and Pending Completed studies during hospitalization [Text1]: Procedures Insertion of Infusion Device into Superior Vena Cava, Percutaneous Approach (03/01/24) Ultrasonography of Superior Vena Cava, Guidance (03/01/24) Labs on day of discharge: Laboratory Results - last 24 hr 04/02/24 04/02/24 04/03/24 16:37 20:59 06:54 POC Glucose 183 H 160 H 153 H 04/03/24 10:49 POC Glucose 226 H Discharge Plan Discharge Anticipated Discharge Date/Time: 04/03/24 14:52 Patient Disposition: Xfer SNF Discharge Diagnosis: Hypoglycemia Orthostatic hypotension Acute metabolic encephalopathy Referrals: [facility] [Other] - 1 Week (A REFERRAL HAS BEEN PLACED ON 03/29 TO [facility], PLEASE FOLLOW UP BY CALLING [phone] IF YOU DO NOT HERE FROM THEM NEXT WEEK. ) [facility] [Outside] - 1 Week (SHORT TERM REHAB) [facility] [Outside] - 1 Day ([facility] OF [facility]) Tomi Rossi MD [Physician] - 1 Week (PT ACTIVE W/[facility] FOR [facility] AND PLAN TO RESUME AFTER STR) Miguel Johnson MD [Primary Care Provider] - 1 Week Discharge Medications: New alcohol swabs Pads, Medicated 1 pad TOPICAL QIDACHS Qty: 100 0RF Rx Instructions: Use four times a day or as directed. insulin lispro [Humalog KwikPen Insulin] 100 unit/mL insulin pen 0 sliding scale dose SUBCUT QIDACHS Qty: 15 0RF Rx Instructions: Blood Sugar: <150 - 0 units 151-200 - 2 units 201-250 - 4 units 251-300 - 6 units 301-350 - 8 units >350 - 10 units Continued (DME) blood-glucose meter [OneTouch Ultra2 Meter] Misc See Rx Instructions .Route Qty: 1 0RF Rx Instructions: test 3 times per day (DME) OneTouch Ultra Test Strip See Rx Instructions .Route Qty: 100 8RF Rx Instructions: test 3 times per day (DME) lancets [OneTouch UltraSoft 2 Lancet] 30 gauge misc See Rx Instructions .Route Qty: 200 5RF Rx Instructions: test 3 times per day amlodipine 10 mg tablet 10 mg PO DAILY Qty: 90 1RF gabapentin 400 mg capsule 400 mg PO BID Qty: 120 1RF albuterol sulfate 90 mcg/actuation HFA aerosol inhaler 2 puff PO QID PRN (Reason: shortness of breath or wheezing) citalopram 10 mg tablet 10 mg PO DAILY ertapenem 1 gram recon soln 1 g IV DAILY Qty: 38 0RF aspirin 81 mg tablet,delayed release (DR/EC) 81 mg PO DAILY Qty: 30 0RF rosuvastatin 5 mg tablet 5 mg PO DAILY (DME) FreeStyle Song 3 Delphi Misc See Rx Instructions .Route Qty: 1 0RF Rx Instructions: As directed (DME) FreeStyle Song 3 Sensor Device See Rx Instructions .Route Qty: 6 3RF Rx Instructions: As directed for 14 days Jardiance 10 mg tablet 10 mg PO DAILY Qty: 90 3RF Changed insulin glargine [Basaglar KwikPen U-100 Insulin] 100 unit/mL (3 mL) insulin pen 25 unit subcut BEDTIME Qty: 15 0RF Held Ozempic 0.25 mg or 0.5 mg (2 mg/3 mL) pen injector 0.25 mg subcut TU Hold Instructions: Resume on 04/10/24. Hold for vascular procedure Rx Instructions: for 4 weeks Discontinued insulin aspart U-100 [Novolog FlexPen U-100 Insulin] 100 unit/mL (3 mL) insulin pen 30 unit subcut TIDWM Rx Instructions: BEFORE MEALS Discharge Orders: Discharge Order (Routine); Ordered 04/03/24 Ordered By: Yanely Martinez Diet: Advance to usual diet Activity on Discharge: As tolerated Stand Alone Forms: Patient Portal Discharge page Print Language: [place] Care Plan Goals: Transfer to short-term rehab for physical therapy Continue IV ertapenem for diabetic foot ulcer with osteomyelitis, end date 04/13/2024 Health Concerns: Hypoglycemia Orthostatic hypotension Acute metabolic encephalopathy Plan of Treatment: Follow-up with primary care provider as needed Take all medications as prescribed Assessment: See discharge summary
[2024-04-03 16:00] VITALS: BP 129/63; PULSE 86; RESP 18; TEMP 36.1; O2SAT 97
[2024-04-03 16:22] LABS: Glucose, Whole Blood 153 mg/dL (60-115)
== END 2024-04-03 19:30 | disposition skilled nursing facility (03) | DRG 918 ==
LOC: HO.ED 17:53 → HO.EDOVER 20:04 → HO.ICU 20:24 → HO.IMC 03-27 12:42
PROVIDERS: Hospitalist; Internal Medicine Critical Care Medicine; Nurse Practitioner Family; Physician Assistant Medical; Admitting Provider Physician Assistant Medical; Emergency Provider Emergency Medicine Emergency Medical Services; PCP Internal Medicine; Visit Provider Nurse Practitioner Acute Care
DX: T38.3X1A Poisoning by insulin and oral hypoglycemic [antidiabetic] drugs, accidental (unintentional), initial encounter (principal); M86.672 Other chronic osteomyelitis, left ankle and foot; N18.4 Chronic kidney disease, stage 4 (severe); N17.9 Acute kidney failure, unspecified; I95.1 Orthostatic hypotension; I12.9 Hypertensive chronic kidney disease with stage 1 through stage 4 chronic kidney disease, or unspecified chronic kidney disease; D63.1 Anemia in chronic kidney disease; E87.6 Hypokalemia; E11.621 Type 2 diabetes mellitus with foot ulcer; L97.529 Non-pressure chronic ulcer of other part of left foot with unspecified severity; E11.69 Type 2 diabetes mellitus with other specified complication; E11.22 Type 2 diabetes mellitus with diabetic chronic kidney disease; E11.649 Type 2 diabetes mellitus with hypoglycemia without coma; Z20.822 Contact with and (suspected) exposure to COVID-19; E11.65 Type 2 diabetes mellitus with hyperglycemia; E11.51 Type 2 diabetes mellitus with diabetic peripheral angiopathy without gangrene; Z79.4 Long term (current) use of insulin; Z79.82 Long term (current) use of aspirin; Z79.899 Other long term (current) drug therapy
CPT/HCPCS: 0241U; 36415; 70450; 71045; 71250; 72125; 74176; 80048; 80053; 81001; 82040; 82947; 83036; 83605; 83735; 84100; 84206; 84443; 84484; 85025; 87040; 92610; 93005; 97116; 97162; 97530; 99284; J1335; J1644; J2405; J2470; J3480; J7120

== ENCOUNTER → 2024-03-25 19:56 | Outpatient (BNV) | payer MEDICARE, SELFPAY | PROVIDERS: Admitting Provider Physician Assistant Medical; Emergency Provider Emergency Medicine Emergency Medical Services; PCP Internal Medicine; Visit Provider Physician Assistant Medical | DX: E11.649 Type 2 diabetes mellitus with hypoglycemia without coma (principal); E11.9 Type 2 diabetes mellitus without complications; M86.9 Osteomyelitis, unspecified; T38.3X1A Poisoning by insulin and oral hypoglycemic [antidiabetic] drugs, accidental (unintentional), initial encounter | CPT/HCPCS: 99291 ==

== ENCOUNTER → 2024-03-25 19:56 | Outpatient (BNV) | payer MEDICARE, SELFPAY | PROVIDERS: Admitting Provider Physician Assistant Medical; Emergency Provider Emergency Medicine Emergency Medical Services; PCP Internal Medicine; Visit Provider Physician Assistant Medical | DX: M86.9 Osteomyelitis, unspecified (principal) | CPT/HCPCS: 99232; 99239 ==

== ENCOUNTER 2024-04-16 13:36 | Outpatient (AMB) | payer MEDICARE, SELFPAY ==
[2024-04-16 13:45] VITALS: PULSE 76; TEMP 36.4; O2SAT 98
--- NOTE | 2024-04-16 13:45 | A.OFFVIS_ITS ---
Vital Signs 3 04/16/24 13:45 Weight 137 lb Pulse 76 Pulse Source Pulse Oximeter Temp 97.6 F Temp Source Oral Pulse Oximetry (%) 98 Oxygen Delivery Method Room Air Intake Visit Reasons: follow up ertapenem/toe/end picc 04/13 Seed Analyst Required: Yes Seed Analyst Services: Seed Analyst Present Seed Analyst Name: Kari Martinez CMA Information Interpreted: clinical only Allergies lisinopril Adverse Reaction (Verified 04/16/24 13:45) Unknown HPI HPI follow up ertapenem/toe/end picc 04/13: Details: She is following up left toe infection and has been taking IV Ertapenem and last date is 04/13. She says she feels toe is getting better. [facility] Medical History CKD (chronic kidney disease) HTN (hypertension) Diabetes Surgical History History of cataract surgery History of bladder surgery History of total hysterectomy History of tonsillectomy Family History Father Hypertension Diabetes Hx of leg amputation Mother Myocardial infarction Diabetes Hypertension Sister Breast cancer Brother Diabetes Maternal Aunt Bone cancer Social History Household Members: Family Household Members Other:: daughter, grandkids, , 6 total Housing: House Housing Other:: first floor. 4 steps to get in Do you presently have visiting nurse or other home services: Yes Unable to assess alcohol history related to: Unknown Alcohol intake: never Patient Tobacco Use Status: Never used Tobacco e-Cigarette/Vaping Use: Never Used Second Hand Smoke Exposure: No Advance Directives Date on File: 12/05/23 service: No Current occupational status: retired Current occupation: rt hand Cognitive needs: Yes (cane) Hearing needs: No Vision needs: Yes (Glasses) Review of Systems Const All systems reviewed & are unremarkable except as noted in HPI and below Physical Exam Vital Signs: Last Vital Signs Temp 97.6 F 04/16/24 13:45 Pulse 76 04/16/24 13:45 Pulse Ox 98 04/16/24 13:45 Oxygen Delivery Method Room Air 04/16/24 13:45 Const Other: General: cooperative Orientation/consciousness: patient oriented x3 HEENT Head: Yes normal to inspection Mouth: Normal oral and palatal mucosa present Eyes General: appearance normal, both eyes and all related structures Pupils: Equal, round and reactive pupils present Resp Effort & Inspection: normal respiratory effort Cardio Rate: regular rate Rhythm: regular rhythm GI Palpation (GI): Soft to palpation and nontender General: Yes no CVA tenderness Back/Spine/Pelvis Back: no CVA tenderness Skin General skin exam: no rashes or lesions noted Neuro General: patient oriented x3 Cranial nerves: Yes CN's II-XII intact bilaterally and Yes Equal, round and reactive pupils present Extrem Other: foot some improvement Psych Appearance: grossly normal Assessment & Plan Assessment & Plan (1) Diabetic foot ulcer with osteomyelitis: Comment: Area is looking improved on foot. Code(s): E11.621 - Type 2 diabetes mellitus with foot ulcer; E11.69 - Type 2 diabetes mellitus with other specified complication; L97.509 - Non-pressure chronic ulcer of other part of unspecified foot with unspecified severity; M86.9 - Osteomyelitis, unspecified Category: Medical Plan: Would give one month Doxycycline. Follow up prn need. Coding Level of Care Code Est Pt Level 3 (47312) Diagnoses Diabetic foot ulcer with osteomyelitis E11.621; E11.69; L97.509; M86.9
== END 2024-04-16 14:03 | disposition home or self-care (01) ==
LOC: HO.HID 13:36
PROVIDERS: PCP Internal Medicine; Visit Provider Internal Medicine
DX: E11.621 Type 2 diabetes mellitus with foot ulcer (principal); E11.69 Type 2 diabetes mellitus with other specified complication; L97.509 Non-pressure chronic ulcer of other part of unspecified foot with unspecified severity; M86.9 Osteomyelitis, unspecified
CPT/HCPCS: 99213

== ENCOUNTER → 2024-04-16 13:36 | Outpatient (BNVA) | payer MEDICARE, SELFPAY | PROVIDERS: PCP Internal Medicine; Visit Provider Internal Medicine | DX: E11.621 Type 2 diabetes mellitus with foot ulcer (principal); L97.519 Non-pressure chronic ulcer of other part of right foot with unspecified severity; E11.69 Type 2 diabetes mellitus with other specified complication; M86.9 Osteomyelitis, unspecified | CPT/HCPCS: 99212 ==

== ENCOUNTER → 2024-04-19 09:59 | Outpatient (BNVA) | payer MEDICARE, SELFPAY | PROVIDERS: PCP Internal Medicine; Visit Provider Surgery Vascular Surgery ==

== ENCOUNTER 2024-04-23 08:48 | Outpatient (AMB) | payer MEDICARE, SELFPAY ==
--- NOTE | 2024-04-23 08:52 | MHC.PC.OV ---
Vital Signs 04/23/24 08:53 Height 5 ft 1 in Weight 134 lb BMI 25.3 BP 136/60 Blood Pressure Location Rt brachial Position Sitting Pulse 57 Pulse Source Pulse Oximeter Pulse Oximetry (%) 98 Oxygen Delivery Method Room Air Intake Visit Reasons: Annual Physical Exam - Rsched from 04/19 Intake Note: Patient here for an annual physical exam Range Ecologist Required: No Accompanied by: Grand Child Allergies lisinopril Adverse Reaction (Verified 04/24/24 14:55) Unknown Medication List - Last Reconciled 04/23/24 by Miguel Johnson MD albuterol sulfate 90 mcg/actuation 2 puffs PO QID PRN alcohol swabs 1 pad topical QIDACHS amlodipine 10 mg PO DAILY aspirin 81 mg PO DAILY blood sugar diagnostic (YDreams - InformáticaTouch Ultra Test strips) test 3 times per day blood-glucose meter (OneTouch Ultra2 Meter) test 3 times per day blood-glucose meter,continuous (FreeStyle Song 3 Gratis) As directed citalopram 10 mg PO DAILY empagliflozin (Jardiance) 10 mg PO DAILY ertapenem 1 g IV DAILY erythromycin 0.5 inches ophthalmic (eye) TID FreeStyle Song 3 Sensor (blood-glucose sensor) As directed for 14 days NS gabapentin 400 mg PO BID insulin glargine (Basaglar KwikPen U-100 Insulin) 25 units (0.25 mL) subcut BEDTIME insulin lispro (Humalog KwikPen (U-100) Insulin) Blood Sugar: <150 - 0 units 151-200 - 2 units 201-250 - 4 units 251-300 - 6 units 301-350 - 8 units >350 - 10 units lancets (YDreams - InformáticaTouch UltraSoft 2 Lancet) test 3 times per day rosuvastatin 5 mg PO DAILY semaglutide (Ozempic) 0.25 mg subcut TU Tobacco use date assessed: 01/19/24 Fall risk assessment: No Falls in past year Last assessed Fall Risk: 04/23/24 Dental Screening Dental Screen Date: 01/19/24 HPI Annual Physical Exam - Rsched from 04/19 HPI Details 73-year-old female presents to the office requesting an annual physical. He had a day should patient is complaining of redness in the left eye since this morning. Increased tearing. No changes in vision. [facility] Medical History (Updated 04/24/24 @ 14:56 by Miguel Johnson MD) PAD (peripheral artery disease) Acute osteomyelitis of toe CKD (chronic kidney disease) HTN (hypertension) Diabetes Surgical History History of cataract surgery History of bladder surgery History of total hysterectomy History of tonsillectomy Family History Father Hypertension Diabetes Hx of leg amputation Mother Myocardial infarction Diabetes Hypertension Sister Breast cancer Brother Diabetes Maternal Aunt Bone cancer Social History Household Members: Family Household Members Other:: daughter, grandkids, , 6 total Housing: House Housing Other:: first floor. 4 steps to get in Do you presently have visiting nurse or other home services: Yes Unable to assess alcohol history related to: Unknown Alcohol intake: never Patient Tobacco Use Status: Never used Tobacco e-Cigarette/Vaping Use: Never Used Second Hand Smoke Exposure: No Advance Directives Date on File: 12/05/23 service: No Current occupational status: retired Current occupation: rt hand Cognitive needs: Yes (cane) Hearing needs: No Vision needs: Yes (Glasses) Questionnaire PHQ-9 Over the last 2 weeks, how often have you been bothered by any of the following problems? 1. Little interest or pleasure in doing things: several days 2. Feeling down, depressed, or hopeless: several days 3. Trouble falling or staying asleep, or sleeping too much: not at all 4. Feeling tired or having little energy: several days 5. Poor appetite or overeating: several days 6. Feeling bad about yourself - or that you are a failure or have let yourself or your family down: not at all 7. Trouble concentrating on things, such as reading the newspaper or watching television: several days 8. Moving or speaking so slowly that other people could have noticed. Or the opposite - being so fidgety or restless that you have been moving around a lot more than usual: several days 9. Thoughts that you would be better off or of hurting yourself in some way: not at all Total score: 6 Depression Screening Interpretation: Positive Depression Screening Follow-up: Existing condition and In treatment Depression Screening Done: Yes Source: Developed by Drs. Raymundo Ontiveros, Navin Cazares and colleagues, with an educational gogo from [employer]. Thrive Questionnaire Date Thrive assessed: 03/26/24 I am a: Patient What is your living situation today?: I have a steady place to live Within the past 12 months, did the food you bought not last and you didn't have the money to get more?: Never true Within the past 12 months, did you worry whether your food would run out before you got money to buy more?: Never true Do you have trouble paying for medicines?: No Do you have trouble getting transportation to medical appointments?: No Do you have trouble paying your heating and electricity bill?: No Do you have trouble taking care of your child, family member or friend?: No Do you have trouble with day-to-day activities such as bathing, preparing meals, shopping, managing finances, etc.?: Yes Are you currently unemployed and looking for a job?: No Are you interested in more education?: No Please select the resources that you would like help with: None Currently or been in a relationship where the following occur: No concerns reported THRIVE Score: 0 AUDIT C Alcohol Use Questionnaire (AUDIT-C) 1. How often do you have a drink containing alcohol?: Never Total Score: 0 EMMETT-7 AMB Questionnaire EMMETT-7 Date EMMETT - 7 assessed: 01/19/24 Feeling nervous, anxious, or on edge: 0 = Not at all Not being able to stop or control worryin = Not at all Worrying too much about different things: 0 = Not at all Trouble relaxin = Not at all Being so restless that it is hard to sit still: 0 = Not at all Becoming easily annoyed or irritable: 0 = Not at all Feeling afraid as if something awful might happen: 0 = Not at all Total EMMETT-7 score (0-4 normal; 5-9 mild; 10-14 moderate; 15-21 severe): 0 Source: Developed by Neva Landa Kurt Kroenke and colleagues, with an educational gogo from [employer]. Physical exam (Primary Care) Vital Signs: Last Vital Signs Pulse 57 04/23/24 08:53 BP 136/60 04/23/24 08:53 Pulse Ox 98 04/23/24 08:53 Oxygen Delivery Method Room Air 04/23/24 08:53 Care Plan Goal for BP management: BP is stable. BMI result Body Mass Index 25.3 Tobacco/Smoking Status: Tobacco use Status Tobacco use date assessed 01/19/24 04/23/24 08:52 Patient Tobacco Use Status Never used Tobacco 04/23/24 08:52 e-Cigarette/Vaping Use Never Used 04/23/24 08:52 PHQ-9: PHQ-9 Score PHQ-9: Total score 6 04/23/24 10:06 Depression Screening Interpretation: Positive Depression Screening Follow-up: Existing condition and In treatment Thrive Assessment: Date of Thrive Assessment Date Thrive assessed 03/26/24 04/23/24 08:52 Currently or been in a relationship where the following occur: No concerns reported Const General: cooperative and healthy appearing Nutritional Appearance: well nourished Orientation/consciousness: patient oriented x3 Limitations: no limitations HENMT Head: Yes normal to inspection Eyes Other: Eye: Congested Conjunctiva. Cornea is clear. AC is clear. No digital tenderness. General: appearance normal, both eyes and all related structures Neck Neck: Yes normal visual inspection Chest Chest palpation & inspection: normal palpation of entire chest wall Resp Effort & Inspection: normal respiratory effort Neuro General: patient oriented x3 Coding Level of Care Code Est Pt Level 3 (47355) Est Pt Prev Care >65y(60541) Diagnoses Acute osteomyelitis of toe M86.179 Conjunctivitis H10.9 Annual physical exam Z00.00
[2024-04-23 08:53] VITALS: BP 136/60; PULSE 57; O2SAT 98; BMI 25.3
== END 2024-04-23 09:32 | disposition home or self-care (01) ==
PROVIDERS: PCP Internal Medicine; Visit Provider Internal Medicine
DX: Z00.00 Encounter for general adult medical examination without abnormal findings (principal); M86.172 Other acute osteomyelitis, left ankle and foot; H10.402 Unspecified chronic conjunctivitis, left eye

== ENCOUNTER → 2024-04-23 08:48 | Outpatient (BNVA) | payer MEDICARE, SELFPAY | PROVIDERS: PCP Internal Medicine; Visit Provider Internal Medicine | DX: Z00.01 Encounter for general adult medical examination with abnormal findings (principal); M86.179 Other acute osteomyelitis, unspecified ankle and foot; H10.9 Unspecified conjunctivitis; I10 Essential (primary) hypertension; E11.9 Type 2 diabetes mellitus without complications | CPT/HCPCS: 96127; 99212; 99397 ==

== ENCOUNTER 2024-04-26 09:52 | Outpatient (AMB) | payer MEDICARE, SELFPAY ==
--- NOTE | 2024-04-26 09:56 | MHC.OFFVIS ---
Intake Visit Reasons: ED follow up? Intake Note: Patient was in the emergency room after clipping her toenail, getting an infection and it spreading to her bone. States she has poor circulation in her right leg. Accompanied by: Grand Child Allergies lisinopril Adverse Reaction (Verified 04/26/24 09:58) Unknown HPI HPI ED follow up?: Details: Very pleasant 73-year-old female presents for follow-up regarding nonhealing left lower extremity ulcer. She was actually scheduled for angiogram with us but had uncontrolled blood sugars at that time. At the current time appears to be doing significantly better. She does have home visiting nursing providing her insulin and she appears to be better controlled. She now presents for routine follow-up. Of note she has completed her course of IV antibiotics. [facility] Medical History PAD (peripheral artery disease) Acute osteomyelitis of toe CKD (chronic kidney disease) HTN (hypertension) Diabetes Surgical History History of cataract surgery History of bladder surgery History of total hysterectomy History of tonsillectomy Family History Father Hypertension Diabetes Hx of leg amputation Mother Myocardial infarction Diabetes Hypertension Sister Breast cancer Brother Diabetes Maternal Aunt Bone cancer Social History Household Members: Family Household Members Other:: daughter, grandkids, , 6 total Housing: House Housing Other:: first floor. 4 steps to get in Do you presently have visiting nurse or other home services: Yes Unable to assess alcohol history related to: Unknown Alcohol intake: never Patient Tobacco Use Status: Never used Tobacco e-Cigarette/Vaping Use: Never Used Second Hand Smoke Exposure: No Advance Directives Date on File: 12/05/23 service: No Current occupational status: retired Current occupation: rt hand Cognitive needs: Yes (cane) Hearing needs: No Vision needs: Yes (Glasses) Review of Systems Const All systems reviewed & are unremarkable except as noted in HPI and below Reports no additional complaints ENT Reports Normal hearing present Card Denies chest pain, Denies chest pain at rest, Denies chest pain with activity and Denies pedal edema Resp Denies cough GI Denies abdominal pain Musc Denies abnormal gait, Denies muscle cramps and Denies radiating pain into limb Skin/Breast Denies skin ulcer and Denies wounds Neuro Reports Normal hearing present and Denies abnormal gait Psych Reports no additional complaints Physical Exam Const General: cooperative, healthy appearing and comfortable Orientation/consciousness: oriented to person, oriented to place and oriented to time HEENT Head: Yes normal to inspection Neck Neck: Yes normal visual inspection Carotids: no bruits Chest Chest palpation & inspection: normal inspection of the chest Resp Effort & Inspection: normal respiratory effort and able to speak in complete sentences Auscultation: clear to auscultation bilaterally, no crackles, no rales, no rhonchi and no wheezes Cardio Rate: regular rate Rhythm: regular rhythm Heart sounds: S1 normal heart sound present and S2 normal heart sound present Bruits: no carotid bruits Peripheral pulses: Peripheral pulses 2+ throughout GI Inspection: Yes normal to inspection Skin Other: Left great metatarsal head overlying ulcer Wounds: no wounds Hair: normal Neuro General: oriented to person, oriented to place and oriented to time Cranial nerves: Yes CN's II-XII intact bilaterally and Yes Normal hearing present Cognition (Neuro): normal cognition Motor exam (neuro): 5/5 motor strength present throughout Extrem Other: venous exam: No significant superficial varicosities or spider telangiectasias, minimal edema General: No clubbing, No cyanosis and No edema Psych Appearance: grossly normal Mental Status: mental status grossly normal Speech and movement: Normal speech and movement present Results Reviewed Results Reviewed: Noninvasive arterial testing dated 03/02/2024 was concerning for SFA disease. Assessment & Plan Assessment & Plan (1) PAD (peripheral artery disease): Code(s): I73.9 - Peripheral vascular disease, unspecified Category: Medical Plan: Patient notes leg pain when walking distances. I have discussed the pathophysiology of peripheral vascular disease with the patient. I have also discussed risk factor modification. I have reviewed the patient's arterial testing which reveals left SFA disease. the patient would benefit from a left leg endovascular peripheral angiogram with possible angioplasty, stent, and/or atherectomy. This has been discussed in detail with the patient along with risks, benefits, and complications. This includes but is not limited to bleeding, infection, heart attack, need for emergent surgical repair, limb ischemia, blood vessel damage, bleeding, puncture, kidney injury, bruising, allergic reaction, and skin reaction. The patient demonstrates a clear understanding. We will schedule for the next appropriate time. Thank you for allowing us to assist in this patient's care. Coding Level of Care Code Est Pt Level 4 (30318) Diagnoses PAD (peripheral artery disease) I73.9
== END 2024-04-26 11:08 | disposition home or self-care (01) ==
LOC: HO.HVS 09:52
PROVIDERS: PCP Internal Medicine; Visit Provider Surgery Vascular Surgery
DX: I73.9 Peripheral vascular disease, unspecified (principal)
CPT/HCPCS: 99214

== ENCOUNTER → 2024-04-26 09:52 | Outpatient (BNVA) | payer MEDICARE, SELFPAY | PROVIDERS: PCP Internal Medicine; Visit Provider Surgery Vascular Surgery | DX: I73.9 Peripheral vascular disease, unspecified (principal) | CPT/HCPCS: 99212 ==

== ENCOUNTER 2024-05-09 07:24 | Day surgery (SDC) | payer MEDICARE, SELFPAY ==
[2024-05-09] VITALS (9 sets, daily range): BP systolic 134–154; BP diastolic 52–64; PULSE 62–70; RESP 17; TEMP 36.1–36.4; O2SAT 95–99; BMI 24.1
[2024-05-09 08:28] LABS: MANUAL DIFF FLAG NO
[2024-05-09 08:30] LABS: Basophils Percent Auto 0.6 % (0-2); Eosinophils Absolute Auto 0.2 X10*3/uL (0.0-0.4); Eosinophils Percent Auto 3.7 % (0-4); Hematocrit 32.9 % (37.0-47.0); Hemoglobin 11.6 g/dl (12.0-16.0); Imm Gran Abs Auto 0.03 X10*3/uL (0.00-0.03); Imm Gran Pct Auto 0.6 % (0.0-0.4); Lymphocytes Percent Auto 20.9 % (20-40); Mean Corpuscular HGB Conc 35.3 g/dl (31.0-35.0); Mean Corpuscular Hemoglobin 29.3 pg (27.0-33.0); Mean Corpuscular Volume 83.1 fL (80.0-98.0); Mean Platelet Volume 10.5 fL (9.4-12.3); Monocytes Absolute Auto 0.4 X10*3/uL (0.1-1.2); Monocytes Percent Auto 8.2 % (2-11); Neutrophils Absolute Auto 3.2 x10*3/uL (2.0-8.3); Platelet Count 252 X10*3/uL (160-400); Red Blood Count 3.96 X10*6/uL (4.20-5.50); Red Cell Distribution Width 11.3 % (11.0-16.0); White Blood Count 4.9 X10*3/uL (4.8-10.8)
[2024-05-09 08:45] LABS: Blood Urea Nitrogen 37 mg/dL (9-16); Creatinine Clr Calc Pharmacy 18.3; Estimated Glomerular Filt Rate 22
[2024-05-09 08:46] LABS: Glucose, Whole Blood 257 mg/dL (60-115)
--- NOTE | 2024-05-09 12:25 | P.OP_ITS ---
Operative Note Operative Note Date of Service: 05/09/24 Narrative: Angiogram report from [facility] Preoperative diagnosis: Atherosclerosis of left lower extremity with nonhealing ulcer Postoperative diagnosis: Same Procedure: 1. Ultrasound-guided right common femoral access 2. Aortogram with left lower extremity runoff 3. Left SFA atherectomy and stent placed Surgeon:Tomi Rossi M.D., FACS, RPVI Power Plant Mechanic:None Anesthesia: Local with moderate conscious sedation. Total intraservice moderate sedation time was 78 minutes. I monitored the patient's level of consciousness and physiologic status continuously throughout the procedure. Specimens:none Drains:none Estimated blood loss: Less than 10 ml Implant: Medtronic Impact DCB 5 x 150, 5 x 80; Medtronic stent 5 x 120 Indications: Pleasant 73-year-old diabetic female who had a prior nonhealing left leg ulcer. It has progressively slowly gone on to heal but her left leg has been quite painful for her. She now presents for endovascular intervention. The patient has signed the informed consent after reviewing risks, complications, benefits, and alternatives previously discussed with the patient. The patient was given the opportunity to ask any additional questions or voice any concerns. All questions were answered to the patient's satisfaction. Procedure in detail: Patient was brought to the angiography suite prior to which a time-out was called for patient identification and site verification. Bilateral groins were prepped and draped in the standard surgical fashion. Under ultrasound guidance right common femoral was punctured with micro puncture needle and wire. Subsequently a precision 4 Turkmen sheath was then placed. Bentson wire was advanced to the level of the aorta. 4 Turkmen Flush catheter was brought up and parked at the level of the renal arteries. Aortogram was then undertaken. Catheter was brought down to the level of the iliac bifurcation. Iliacs were subsequently imaged. Catheter was then brought in up and over to the left side SFA. Runoff study was then undertaken. It was recognized that she had significant SFA disease. Her vessels were small in caliber.. In addition she had no significant below-knee runoff there was no named vessel. At this time 5000 units of systemic heparin was administered we used a Glidewire advantage and we were able to traverse the SFA lesion. We subsequently placed an up and over 6 Turkmen sheath. We then 1st plasty the length of the stenotic SFA with a 4 x 100 balloon. There was a focal area that was tight we which we were not able to traverse and we went to a 3 x 40 balloon this opened it up we subsequently placed a spider 5 wire down. We then brought in a Hawk 1 atherectomy device. Multiple unidirectional passes were undertaken throughout the mid SFA. We did improve the luminal diameter but there was still a fair amount of residual stenosis. We then brought in a 5 x 120 stent. Once this was deployed in appropriate position we then plasty the rest of the SFA we started with a 5 x 150 drug coated balloon. This was brought into position in under 3 minutes and insufflated for a total of 3 minutes in duration. There was still some stenotic areas distal to that and we placed a 5 x 80 balloon. This was also drug coated and once again brought into position in under 3 minutes and insufflated for a total of 3 minutes in duration. Completion angiogram demonstrated good result. Catheter wire sheath was brought back to the ipsilateral side. A CELT closure device was then deployed adequate hemostasis was achieved. Patient tolerated the procedure well. Returned to recovery with stable vitals. Interpretation of films: 1. Ultrasound demonstrates appropriate femoral access site. Vessel was patent with minimal stenosis. Needle entry was visualized. Image of ultrasound was saved. 2. Aortogram demonstrates appropriate caliber aorta. Minimal disease. Appropriate take-off of the renals. 3. Iliac images demonstrate no significant disease. Small in caliber 4. Left Leg Common femoral artery: No significant disease Profundus Femoris: No significant disease Superficial femoral artery: Small in caliber high-grade stenosis to near occlusive mid to distal SFA with immediate reconstitution Popliteal artery (p1,p2,p3): Patent but small in caliber occludes beyond the P2 segment Anterior tibial artery: Occluded Peroneal artery: Occluded Posterior tibial artery: Occluded Dorsalis pedis/plantar arch: None C Conclusion: 1. Successful left SFA atherectomy and stent placement. Unfortunately she has no below knee named vessels with need no reconstitution 2. Anticoagulation status: 6 months of aspirin and Plavix This note is constructed using voice recognition software. While every effort has been made to ensure accuracy, senior technologist errors may have been included. Thank you for allowing me to participate in the care of your patient. Yours sincerely, Tomi Rossi MD, FACS, R.P.V.I.
[2024-05-09] MEDS: Clopidogrel Bisulfate 300 MG TABLET PO ×2 (13:15→13:16)
[2024-05-14 09:09] LABS: ACT 219 Celite s (79-173)
== END 2024-05-09 13:59 | disposition home or self-care (01) ==
PROVIDERS: PCP Internal Medicine; Visit Provider Surgery Vascular Surgery
DX: E11.51 Type 2 diabetes mellitus with diabetic peripheral angiopathy without gangrene (principal); L97.829 Non-pressure chronic ulcer of other part of left lower leg with unspecified severity; I70.248 Atherosclerosis of native arteries of left leg with ulceration of other part of lower leg; E11.22 Type 2 diabetes mellitus with diabetic chronic kidney disease; I12.9 Hypertensive chronic kidney disease with stage 1 through stage 4 chronic kidney disease, or unspecified chronic kidney disease; N18.9 Chronic kidney disease, unspecified; M86.171 Other acute osteomyelitis, right ankle and foot; Z79.4 Long term (current) use of insulin; Z88.8 Allergy status to other drugs, medicaments and biological substances
CPT/HCPCS: 36415; 37227; 76937; 82565; 82947; 84520; 85025; 85347; 99152; 99153; C1714; C1725; C1760; C1769; C1876; C1887; C1894; C2623; J1644; J2250; J2310; J3010; Q9967

== ENCOUNTER → 2024-05-09 07:24 | Outpatient (BNV) | payer MEDICARE, SELFPAY | PROVIDERS: PCP Internal Medicine; Visit Provider Surgery Vascular Surgery | DX: I70.238 Atherosclerosis of native arteries of right leg with ulceration of other part of lower leg (principal) | CPT/HCPCS: 37227; 75625; 75710; 76937; 99152 ==

== ENCOUNTER 2024-05-24 14:27 | Outpatient (AMB) | payer MEDICARE, SELFPAY ==
--- NOTE | 2024-05-24 14:29 | A.OFFVIS_ITS ---
Intake Visit Reasons: 2 week follow up angio Intake Note: Patient presents for angio follow up. No complaints. Accompanied by: Daughter Allergies lisinopril Adverse Reaction (Verified 05/24/24 14:31) Unknown HPI HPI 2 week follow up angio: Details: Very pleasant 73-year-old female presents for follow-up status post left lower extremity endovascular intervention. She presents with a daughter and reports that she is doing significantly better. She is ambulating with her walker with much less difficulty. She reports no pain or discomfort in the left lower extremity. She remains on aspirin and Plavix. Now presents for routine postprocedure follow-up. [facility] Medical History PAD (peripheral artery disease) Acute osteomyelitis of toe CKD (chronic kidney disease) HTN (hypertension) Diabetes Surgical History History of cataract surgery History of bladder surgery History of total hysterectomy History of tonsillectomy Family History Father Hypertension Diabetes Hx of leg amputation Mother Myocardial infarction Diabetes Hypertension Sister Breast cancer Brother Diabetes Maternal Aunt Bone cancer Social History Household Members: Family Household Members Other:: daughter, grandkids, , 6 total Housing: House Housing Other:: first floor. 4 steps to get in Do you presently have visiting nurse or other home services: Yes Unable to assess alcohol history related to: Unknown Alcohol intake: never Patient Tobacco Use Status: Never used Tobacco e-Cigarette/Vaping Use: Never Used Second Hand Smoke Exposure: No Advance Directives Date on File: 12/05/23 service: No Current occupational status: retired Current occupation: rt hand Cognitive needs: Yes (cane) Hearing needs: No Vision needs: Yes (Glasses) Review of Systems Const All systems reviewed & are unremarkable except as noted in HPI and below Reports no additional complaints ENT Reports Normal hearing present Card Denies chest pain, Denies chest pain at rest, Denies chest pain with activity and Denies pedal edema Resp Denies cough GI Denies abdominal pain Musc Denies abnormal gait, Denies muscle cramps and Denies radiating pain into limb Skin/Breast Denies skin ulcer and Denies wounds Neuro Reports Normal hearing present and Denies abnormal gait Psych Reports no additional complaints Physical Exam Const General: cooperative, healthy appearing and comfortable Orientation/consciousness: oriented to person, oriented to place and oriented to time HEENT Head: Yes normal to inspection Neck Neck: Yes normal visual inspection Carotids: no bruits Chest Chest palpation & inspection: normal inspection of the chest Resp Effort & Inspection: normal respiratory effort and able to speak in complete sentences Auscultation: clear to auscultation bilaterally, no crackles, no rales, no rhonchi and no wheezes Cardio Other: Bilateral DP signals Rate: regular rate Rhythm: regular rhythm Heart sounds: S1 normal heart sound present and S2 normal heart sound present Bruits: no carotid bruits Peripheral pulses: Peripheral pulses 2+ throughout GI Inspection: Yes normal to inspection Skin Wounds: no wounds Hair: normal Neuro General: oriented to person, oriented to place and oriented to time Cranial nerves: Yes CN's II-XII intact bilaterally and Yes Normal hearing present Cognition (Neuro): normal cognition Motor exam (neuro): 5/5 motor strength present throughout Extrem Other: venous exam: No significant superficial varicosities or spider telangiectasias, minimal edema General: No clubbing, No cyanosis and No edema Psych Appearance: grossly normal Mental Status: mental status grossly normal Speech and movement: Normal speech and movement present Assessment & Plan Assessment & Plan (1) PAD (peripheral artery disease): Comment: 05/09/2024 left SFA atherectomy with stent placement Code(s): I73.9 - Peripheral vascular disease, unspecified Category: Medical Plan: In short patient is doing well status post endovascular intervention. She will remain on 6 months of aspirin and Plavix. She will follow up with us in approximately 3 months with surveillance ultrasound. Thank you for allowing us to assist in her care. If there are any questions or concerns please do not hesitate to contact us Please note a longitudinal relationship has been created with the patient and we have been following and surveillance this chronic condition. Orders: Orders US arterial duplex LE BI 3 Months I73.9 - Peripheral vascular disease, unspecified Coding Level of Care Code Est Pt Level 4 (93890) Complex EM visit Add On G2211 Diagnoses PAD (peripheral artery disease) I73.9
== END 2024-05-24 14:36 | disposition home or self-care (01) ==
LOC: HO.HVS 14:28
PROVIDERS: PCP Internal Medicine; Visit Provider Surgery Vascular Surgery
DX: I73.9 Peripheral vascular disease, unspecified (principal)
CPT/HCPCS: 99214; G2211

== ENCOUNTER → 2024-05-24 14:27 | Outpatient (BNVA) | payer MEDICARE, SELFPAY | PROVIDERS: PCP Internal Medicine; Visit Provider Surgery Vascular Surgery | DX: I73.9 Peripheral vascular disease, unspecified (principal) | CPT/HCPCS: 99212 ==

== ENCOUNTER 2024-06-04 15:01 | Outpatient (REF) | payer OTHER, SELFPAY ==
--- NOTE | ~2024-06-04 | US_ITS ---
EXAMINATION: Noninvasive assessment of the bilateral lower extremities with ARTERIAL DUPLEX and ANKLE BRACHIAL INDICES (ABIs). CLINICAL INFORMATION: Peripheral vascular disease. History of bilateral superficial femoral artery stents TECHNIQUE: Duplex Doppler techniques with waveform analysis and measurement of velocities in the bilateral common femoral, profunda femoris, superficial femoral, popliteal and tibial arteries were performed. Additionally, ankle pulse volume recordings, ankle pressure measurements and ankle brachial indices were obtained of the lower extremity arterial system bilaterally. The study was performed only at rest. COMPARISON: Ultrasound from 03/02/2024 and arteriogram from 05/09/2024 FINDINGS: DIRECT DUPLEX DOPPLER FINDINGS: RIGHT LEG: Common femoral artery: 214 cm/s, phasicity: Biphasic. Mild calcified plaque Profunda femoris artery: 410 cm/s, phasicity: Biphasic Superficial femoral artery (proximal): 67.0 cm/s, phasicity: Biphasic . Calcified plaque Superficial femoral artery (mid): 234 cm/s, phasicity: Biphasic. Calcified plaque Superficial femoral artery (distal): 87.7 cm/s, phasicity: Biphasic. Calcified plaque Popliteal artery: 89.8 cm/s, phasicity: Monophasic. Calcified plaque Posterior tibial artery: Occluded Peroneal artery: 62.8 cm/s, phasicity: Biphasic Anterior tibial artery: 49.3 cm/s, phasicity: Monophasic Dorsalis pedis artery: 28.6 cm/s, phasicity:Monophasic LEFT LEG: Common femoral artery: 222 cm/s, phasicity: Triphasic. Calcified plaque Profunda femoris artery: 410 cm/s, phasicity: Biphasic Superficial femoral artery (proximal): 230 cm/s, phasicity: Biphasic. Calcified plaque Superficial femoral artery (mid), stent: 105 cm/s, phasicity: Triphasic Superficial femoral artery (distal): 212 cm/s, phasicity: Triphasic. Calcified plaque Popliteal artery: 182 cm/s, phasicity: Triphasic. Calcified plaque Posterior tibial artery: 36.4 cm/s, phasicity: Monophasic Peroneal artery: 233 cm/s, phasicity: Monophasic Anterior tibial artery: 64.9 cm/s, phasicity: Triphasic Dorsalis pedis artery: 28.4 cm/s, phasicity: Monophasic ANKLE-BRACHIAL INDEX: Right: 0.87 Left: 0.64 ANKLE PRESSURES: Right: PT 156, DP 134 Left: PT 115, DP 94 ANKLE PVR WAVEFORMS: Right: Abnormal Left: Abnormal US/US arterial duplex BI w/ YENY IMPRESSION: RIGHT LEG: Diffuse atherosclerotic disease with elevated velocities in the common femoral artery and profunda femoris artery consistent with moderate stenosis. Elevated velocity in the mid superficial femoral artery consistent with moderate stenosis. Occluded posterior tibial artery with reconstitution of the anterior tibial artery. LEFT LEG: Diffuse atherosclerotic disease with elevated velocities in the common femoral artery and profunda femoris artery consistent with moderate stenosis. Patent superficial femoral artery stent with elevated velocities in the proximal and distal superficial femoral artery consistent with moderate stenosis. Elevated velocity in the popliteal artery consistent with moderate stenosis. Elevated velocity in the peroneal artery consistent with moderate stenosis. Electronically signed by: Aurelio Lo MD 06/28/2024 09:36 AM [facility]
== END 2024-06-04 15:02 | disposition home or self-care (01) ==
LOC: HO.US 15:01
PROVIDERS: PCP Internal Medicine; Visit Provider Surgery Vascular Surgery
DX: I73.9 Peripheral vascular disease, unspecified (principal)
CPT/HCPCS: 93922; 93925

== ENCOUNTER 2024-08-02 10:30 | Outpatient (AMB) | payer OTHER, SELFPAY ==
--- NOTE | 2024-08-02 10:45 | A.OFFPC_ITS ---
Vital Signs 08/02/24 10:46 Height 5 ft 2 in Weight 135 lb 8 oz BMI 24.8 BP 120/64 Blood Pressure Location Rt brachial Position Sitting Intake Visit Reasons: DM Intake Note: Patient is here to follow up on DM. Fluorescent Solution Mixer Required: Yes Fluorescent Solution Mixer Language: Solid Waste Division Supervisor Name: García (granddaughter) Information Interpreted: non-clinical & clinical Hand Tire Trimmer: Present Accompanied by: Grand Child Allergies lisinopril Adverse Reaction (Verified 08/02/24 10:46) Unknown Tobacco use date assessed: 08/02/24 Fall risk assessment: No Falls in past year Last assessed Fall Risk: 08/02/24 Dental Screening Dental Screen Date: 08/02/24 Did you have a dental visit in the last 12 months?: No Did you have a dental problem in the last 6 months where you did not have access to dental care?: No Was dental information given to patient?: No [facility] Medical History (Updated 08/02/24 @ 13:15 by Tenisha Tripathi PA-C) Diabetes Encounter for colorectal cancer screening using Cologuard test (~05/16/24) PAD (peripheral artery disease) Acute osteomyelitis of toe CKD (chronic kidney disease) HTN (hypertension) Surgical History History of cataract surgery History of bladder surgery History of total hysterectomy History of tonsillectomy Family History Father Hypertension Diabetes Hx of leg amputation Mother Myocardial infarction Diabetes Hypertension Sister Breast cancer Brother Diabetes Maternal Aunt Bone cancer Social History Household Members: Family Household Members Other:: daughter, grandkids, , 6 total Housing: House Housing Other:: first floor. 4 steps to get in Do you presently have visiting nurse or other home services: Yes Unable to assess alcohol history related to: Unknown Alcohol intake: never Patient Tobacco Use Status: Never used Tobacco e-Cigarette/Vaping Use: Never Used Second Hand Smoke Exposure: No Advance Directives Date on File: 12/05/23 service: No Current occupational status: retired Current occupation: rt hand Cognitive needs: Yes (cane) Hearing needs: No Vision needs: Yes (Glasses) Questionnaire PHQ-9 Over the last 2 weeks, how often have you been bothered by any of the following problems? 1. Little interest or pleasure in doing things: not at all 2. Feeling down, depressed, or hopeless: not at all 3. Trouble falling or staying asleep, or sleeping too much: not at all 4. Feeling tired or having little energy: not at all 5. Poor appetite or overeating: not at all 6. Feeling bad about yourself - or that you are a failure or have let yourself or your family down: not at all 7. Trouble concentrating on things, such as reading the newspaper or watching television: not at all 8. Moving or speaking so slowly that other people could have noticed. Or the opposite - being so fidgety or restless that you have been moving around a lot more than usual: not at all 9. Thoughts that you would be better off or of hurting yourself in some way: not at all Total score: 0 Depression Screening Interpretation: Negative Depression Screening Done: Yes Source: Developed by Drs. Raymundo Ontiveros, Neva Russell, Navin Sarah and colleagues, with an educational gogo from [employer]. Thrive Questionnaire Date Thrive assessed: 08/02/24 AUDIT C Alcohol Use Questionnaire (AUDIT-C) 1. How often do you have a drink containing alcohol?: Never Total Score: 0 EMMETT-7 AMB Questionnaire EMMETT-7 Date EMMETT - 7 assessed: 08/02/24 Feeling nervous, anxious, or on edge: 0 = Not at all Not being able to stop or control worryin = Not at all Worrying too much about different things: 0 = Not at all Trouble relaxin = Not at all Being so restless that it is hard to sit still: 0 = Not at all Becoming easily annoyed or irritable: 0 = Not at all Feeling afraid as if something awful might happen: 0 = Not at all Total EMMETT-7 score (0-4 normal; 5-9 mild; 10-14 moderate; 15-21 severe): 0 Source: Developed by Drs. Raymundo Ontiveros, Navin Cazares and colleagues, with an educational gogo from [employer]. Physical exam (Primary Care) Vital Signs: Last Vital Signs BP 120/64 08/02/24 10:46 Care Plan Goal for BP management: BP today at goal at 120/64 BMI result Body Mass Index 24.8 Normal BMI in range. Instructed patient to continue her current diet regimen and exercise Tobacco/Smoking Status: Tobacco use Status Tobacco use date assessed 08/02/24 08/02/24 10:56 Patient Tobacco Use Status Never used Tobacco 08/02/24 10:56 e-Cigarette/Vaping Use Never Used 08/02/24 10:56 PHQ-9: PHQ-9 Score PHQ-9: Total score 0 08/02/24 11:12 Depression Screening Interpretation: Negative Thrive Assessment: Date of Thrive Assessment Date Thrive assessed 08/02/24 08/02/24 10:56 Office Procedures Flu Questionnaire Does the patient have a severe egg allergy?: No Does the patient have severe life threatening allergies?: No Does the patient have a fever or illness today?: No Has the patient ever had Guillain-Chester Syndrome?: No Has the patient ever had any past reaction to a flu shot?: No Results AMB Hemoglobin A1c AMB Hemoglobin A1c 9.0 % Last Edit by MICHAEL Cabrales on 08/02/24 10:57 Immunizations Fluarix Triv [id number] (PF) 45 mcg (15 mcg x 3)/0.5 mL IM syringe Performing Provider: Tenisha Tripathi PA-C [facility] Administered by: Jessica Delong LPN on 08/02/24 11:08 Dose Route Admin Location Dispensed Lot Number Expiration Date [facility] [employer] Inspector 0.5 mL IM Right Deltoid 0.5 mL [id number] 01/21/25 [id number] [employer] VIS Given Date VIS Provided VIS Publication Date 08/02/24 Single Vaccine 21 Eligibility Eligibility Date Funding Source Not [facility] Eligible 08/02/24 Private Results Reviewed Results Reviewed: Laboratory Last Values Hgb A1c (Clinic) 9.0 % (4.0-6.0) H 08/02/24 10:45 Coding Level of Care Code Est Pt Level 4 (83254) Complex EM visit Add On G2211 Diagnoses Diabetes E11.9 CKD stage 3b, GFR 30-44 ml/min N18.32 PAD (peripheral artery disease) I73.9 Uncontrolled type 2 diabetes mellitus with hyperglycemia E11.65 Diabetes mellitus type: type 2 Glycemic state: with hyperglycemia Primary hypertension I10 Hypertension type: primary hypertension Hyperlipidemia E78.5 Diabetic osteomyelitis E11.69; M86.9 Breast cancer screening Z12.39 Assessment & Plan Assessment & Plan (1) Diabetes: Code(s): E11.9 - Type 2 diabetes mellitus without complications Category: Medical Plan: Patient's A1c level is 9.0. Patient is currently on Jardiance 10 mg taking as prescribed daily. Glargine will be increased to 35 units at bedtime and granddaughter to give dose. Granddaughter given letter to give to [facility]. Lispro will be changed to 10 units 3 times a day with meals. Patient will return in 1 month for re-evaluation of glucose levels and instructed to bring glucometer. Condition is stable will continue to monitor. (2) CKD stage 3b, GFR 30-44 ml/min: Code(s): N18.32 - Chronic kidney disease, stage 3b Category: Medical Plan: CKD stage 3. This condition is chronic and stable. Patient is being followed by Nephrology. (3) PAD (peripheral artery disease): Comment: 05/09/2024 left SFA atherectomy with stent placement Code(s): I73.9 - Peripheral vascular disease, unspecified Category: Medical Plan: This condition is chronic and stable. Will continue to monitor. (4) Uncontrolled diabetes mellitus: Code(s): E11.65 - Type 2 diabetes mellitus with hyperglycemia Category: Medical Qualifiers: Diabetes mellitus type: type 2 Glycemic state: with hyperglycemia Qualified Code(s): E11.65 - Type 2 diabetes mellitus with hyperglycemia Plan: See above for changes in diabetes regimen. Will continue to monitor. (5) HTN (hypertension): Code(s): I10 - Essential (primary) hypertension Category: Medical Qualifiers: Hypertension type: primary hypertension Qualified Code(s): I10 - Essential (primary) hypertension Plan: Blood pressure at goal today at 120/64. This condition is chronic and stable. Patient is currently on amlodipine. Will continue to monitor (6) Hyperlipidemia: Code(s): E78.5 - Hyperlipidemia, unspecified Category: Medical Plan: Patient is currently on Crestor 5 mg daily taking as prescribed. This condition is chronic and stable. Will continue to monitor. (7) Diabetic osteomyelitis: Code(s): E11.69 - Type 2 diabetes mellitus with other specified complication; M86.9 - Osteomyelitis, unspecified Category: Medical Plan: Chronic and stable. Will continue to monitor. (8) Breast cancer screening: Code(s): Z12.39 - Encounter for other screening for malignant neoplasm of breast Category: Medical Plan: Will refer patient for mammogram. Will continue to monitor. Plan Plan - Administer Lispro insulin at fixed doses: 10 units in the morning, at lunch, and dinner. - Granddaughter to administer 35 units of evening insulin at a specified later time, preferably 9:00 PM. - Maintain Jardiance intake as prescribed, once daily. - Implement dietary adjustments in line with diabetic management recommendations. - Keep NovoLog on hand as a backup if insurance coverage changes. - Follow through with the revised healthcare screening schedule in 3 months. - mammogram referral placed - patient had negative Cologuard on 05/14/2024 for colon cancer screen Orders: Orders AMB Hemoglobin A1c Today Miguel Johnson MD E11.65 - Type 2 diabetes mellitus with hyperglycemia Influenza [id number] Immunization Today Tenisha Tripathi PA-C Z23 - Encounter for immunization MM screening mammo BI 04/24/24 Tenisha Tripathi PA-C Z12.31 - Encounter for screening mammogram for malignant neoplasm of breast Medications: Changed From insulin glargine (Basaglar KwikPen U-100 Insulin) 25 units (0.25 mL) subcut BEDTIME 15 mL 3RF To insulin glargine (Basaglar KwikPen U-100 Insulin) 35 units (0.35 mL) subcut BEDTIME 15 mL 3RF Tenisha Tripathi PA-C From insulin lispro (Humalog KwikPen (U-100) Insulin) Blood Sugar: <150 - 0 units 151-200 - 2 units 201-250 - 4 units 251-300 - 6 units 301-350 - 8 units >350 - 10 units 15 mL 0RF To insulin lispro (Humalog KwikPen (U-100) Insulin) 10 units (0.1 mL) subcut TIDWMEAL 15 mL 1RF Tenisha Tripathi PA-C Patient Instructions: Patient Instructions - Administer Lispro insulin at fixed doses: 10 units in the morning, at lunch, and dinner. - Granddaughter to administer 35 units of evening insulin at a specified later time, preferably 9:00 PM. - Maintain Jardiance intake as prescribed, once daily. - Implement dietary adjustments in line with diabetic management recommendations. - Keep NovoLog on hand as a backup if insurance coverage changes. - Follow through with the revised healthcare screening schedule in 3 months. Scribe Plan - Not visible on output: History of Present Illness The patient is a 73-year-old female presenting with concerns regarding her diabetes management. She reports elevated glucose levels, recently measuring between 300-400 mg/dL, often occurring after dinner. The patient received insulin treatments scheduled after dinner and at bedtime as administered by a visiting nurse caregiver. However, she indicates this schedule may not be effectively controlling her blood glucose overnight, as her morning glucose readings remain elevated in the 300-400 mg/dL range. Complications in previously prescribed medications included renal implications from metformin, resulting in its discontinuation. Her granddaughter is requesting to assist with managing medication administration in the evening. The patient also takes Jardiance once daily. Recent diabetic dietary planning has not been conducted, and the patient reports struggles with nutritional management. Patient reports she is currently in a day program and she usually receives her morning insulin on a sliding scale of lispro at the day program. The day program was concerned due to the patient's glucose levels are elevated despite using sliding scale. Social History - patient currently at day program - patient lives with her granddaughter/daughter who she raise since she was an infant - patient currently not working - patient walks with a walker Physical Exam Appearance: Alert. Oriented X3. No acute distress. Head: Normal external exam. Normocephalic. Atraumatic. Eyes: Pupils are equal, round, and reactive to light. Extraocular movements intact. Conjunctiva and sclera normal. Eyelids normal. Ears: External auditory canal normal. Tympanic membranes normal. Throat: Pharynx normal. Uvula midline. Moist mucous membranes. Neck: Normal inspection. Neck supple. Full range of motion. No adenopathy. Thyroid Normal. No meningeal signs. No neck mass noted. Cardiovascular: Normal heart rate and rhythm. Heart sound normal. No murmurs noted. Pulses normal throughout. Respiratory: No respiratory distress. Painless inspiration. Breath sounds normal. No wheezes/rales/rhonchi noted. Chest nontender. No accessory muscle usage noted or decreased air movement noted. Abdomen: Soft and nontender. Bowel sounds normal in all 4 quadrants. No distention noted. No organomegaly noted. No visible injury noted. Back: No costovertebral angle tenderness. Full range of motion noted. Skin: Skin warm and dry. Normal skin color. Normal skin turgor. No rashes/lesions/lacerations noted. Extremities: No lower extremity edema. Extremities exhibit normal range of motion. Extremities nontender. Neuro: Oriented X 3. No motor deficit. No sensory deficit. Reflexes normal. Results - Tests: Recent Cologuard test in May 2023 returned negative results for stool DNA mutations. Plan - Administer Lispro insulin at fixed doses: 10 units in the morning, at lunch, and dinner. - Granddaughter to administer 35 units of evening insulin at a specified later time, preferably 9:00 PM. - Maintain Jardiance intake as prescribed, once daily. - Implement dietary adjustments in line with diabetic management recommendations. - Keep NovoLog on hand as a backup if insurance coverage changes. - Follow through with the revised healthcare screening schedule in 3 months. - mammogram referral was placed - patient had negative Cologuard on 05/2024 Patient was informed and verbally consented to the use of an ambient scribe for clinic note documentation during this visit. Discussion Notes During this visit, we discussed the elevated glucose levels and their implications on overall health, including potential cardiovascular risks. I recommended revising insulin administration, allowing the granddaughter to provide the bedtime dose consistently. We addressed previously negative outcomes from metformin and the need for an adaptable insulin regimen without overlap of medications. I consented to inform nursing staff and update the medical plan accordingly. We also emphasized the importance of dietary adjustments and proper communication with visiting medical personnel to ensure balanced care. Follow-up for routine screenings, including mammogram and colonoscopy, was reiterated in the management plan. Patient Instructions - Administer Lispro insulin at fixed doses: 10 units in the morning, at lunch, and dinner. - Granddaughter to administer 35 units of evening insulin at a specified later time, preferably 9:00 PM. - Maintain Jardiance intake as prescribed, once daily. - Implement dietary adjustments in line with diabetic management recommendations. - Keep NovoLog on hand as a backup if insurance coverage changes. - Follow through with the revised healthcare screening schedule.
[2024-08-02 10:46] VITALS: BP 120/64; BMI 24.8
== END 2024-08-02 11:30 | disposition home or self-care (01) ==
PROVIDERS: PCP Internal Medicine; Visit Provider Internal Medicine
DX: Z23 Encounter for immunization (principal); E11.65 Type 2 diabetes mellitus with hyperglycemia

== ENCOUNTER → 2024-08-02 10:30 | Outpatient (BNVA) | payer OTHER, SELFPAY | PROVIDERS: PCP Internal Medicine; Visit Provider Internal Medicine | DX: E11.22 Type 2 diabetes mellitus with diabetic chronic kidney disease (principal); E11.51 Type 2 diabetes mellitus with diabetic peripheral angiopathy without gangrene; E11.65 Type 2 diabetes mellitus with hyperglycemia; E11.69 Type 2 diabetes mellitus with other specified complication; I12.9 Hypertensive chronic kidney disease with stage 1 through stage 4 chronic kidney disease, or unspecified chronic kidney disease; N18.32 Chronic kidney disease, stage 3b; E78.5 Hyperlipidemia, unspecified; M86.9 Osteomyelitis, unspecified; Z23 Encounter for immunization | CPT/HCPCS: 83036; 90471; 90656; 96127; 99212 ==

== ENCOUNTER 2024-08-14 11:04 | Outpatient (AMB) | payer OTHER, SELFPAY ==
--- NOTE | 2024-08-14 11:07 | MHC.OFFVIS ---
Intake Visit Reasons: follow up s/p Arterial 06/04/24 Intake Note: Patient presents for follow up arterial US. No complaints. Accompanied by: Daughter Allergies lisinopril Adverse Reaction (Verified 08/14/24 11:08) Unknown HPI HPI follow up s/p Arterial 06/04/24: Details: Very pleasant 74-year-old female presents for follow-up regarding peripheral vascular disease. She had prior left lower extremity endovascular intervention by us. She reports in general she is doing somewhat better. She does have some generalized pain but overall does feel that her left leg is better. She now presents for surveillance follow-up with arterial ultrasound. [facility] Medical History (Updated 08/02/24 @ 13:15 by Tenisha Tripathi PA-C) Diabetes Encounter for colorectal cancer screening using Cologuard test (~05/16/24) PAD (peripheral artery disease) Acute osteomyelitis of toe CKD (chronic kidney disease) HTN (hypertension) Surgical History History of cataract surgery History of bladder surgery History of total hysterectomy History of tonsillectomy Family History Father Hypertension Diabetes Hx of leg amputation Mother Myocardial infarction Diabetes Hypertension Sister Breast cancer Brother Diabetes Maternal Aunt Bone cancer Social History Household Members: Family Household Members Other:: daughter, grandkids, , 6 total Housing: House Housing Other:: first floor. 4 steps to get in Do you presently have visiting nurse or other home services: Yes Unable to assess alcohol history related to: Unknown Alcohol intake: never Patient Tobacco Use Status: Never used Tobacco e-Cigarette/Vaping Use: Never Used Second Hand Smoke Exposure: No Advance Directives Date on File: 12/05/23 service: No Current occupational status: retired Current occupation: rt hand Cognitive needs: Yes (cane) Hearing needs: No Vision needs: Yes (Glasses) Review of Systems Const All systems reviewed & are unremarkable except as noted in HPI and below Reports no additional complaints ENT Reports Normal hearing present Card Denies chest pain, Denies chest pain at rest, Denies chest pain with activity and Denies pedal edema Resp Denies cough GI Denies abdominal pain Musc Denies abnormal gait, Denies muscle cramps and Denies radiating pain into limb Skin/Breast Denies skin ulcer and Denies wounds Neuro Reports Normal hearing present and Denies abnormal gait Psych Reports no additional complaints Physical Exam Const General: cooperative, healthy appearing and comfortable Orientation/consciousness: oriented to person, oriented to place and oriented to time HEENT Head: Yes normal to inspection Neck Neck: Yes normal visual inspection Carotids: no bruits Chest Chest palpation & inspection: normal inspection of the chest Resp Effort & Inspection: normal respiratory effort and able to speak in complete sentences Auscultation: clear to auscultation bilaterally, no crackles, no rales, no rhonchi and no wheezes Cardio Other: Bilateral DP signals Rate: regular rate Rhythm: regular rhythm Heart sounds: S1 normal heart sound present and S2 normal heart sound present Bruits: no carotid bruits Peripheral pulses: Peripheral pulses 2+ throughout GI Inspection: Yes normal to inspection Skin Wounds: no wounds Hair: normal Neuro General: oriented to person, oriented to place and oriented to time Cranial nerves: Yes CN's II-XII intact bilaterally and Yes Normal hearing present Cognition (Neuro): normal cognition Motor exam (neuro): 5/5 motor strength present throughout Extrem Other: venous exam: No significant superficial varicosities or spider telangiectasias, minimal edema General: No clubbing, No cyanosis and No edema Psych Appearance: grossly normal Mental Status: mental status grossly normal Speech and movement: Normal speech and movement present Results Reviewed Results Reviewed: Noninvasive arterial testing dated 06/04/2024 demonstrates YENY on the right of 0.87 and on the left of 0.64 consistent with some mild to moderate SFA stenosis. Written report and images were reviewed Assessment & Plan Assessment & Plan (1) PAD (peripheral artery disease): Comment: 05/09/2024 left SFA atherectomy with stent placement Code(s): I73.9 - Peripheral vascular disease, unspecified Category: Medical Plan: In short patient has stable claudication. I did review the pathophysiology of peripheral vascular disease with the patient. In addition we did discuss routine conservative measures including a healthy diet and the importance of exercise and ambulation. We did discuss risk factor modification. The patient will continue to to follow-up with surveillance follow-up in approximately 6 months. Thank you for allowing us to participate in this patient's care. If there are any questions or concerns please do not hesitate to contact us. Orders: Orders US arterial duplex LE BI 6 Months I73.9 - Peripheral vascular disease, unspecified Coding Level of Care Code Est Pt Level 4 (67599) Complex EM visit Add On G2211 Diagnoses PAD (peripheral artery disease) I73.9
== END 2024-08-14 11:14 | disposition home or self-care (01) ==
PROVIDERS: PCP Internal Medicine; Visit Provider Surgery Vascular Surgery
DX: I73.9 Peripheral vascular disease, unspecified (principal)
CPT/HCPCS: 99214; G2211

== ENCOUNTER → 2024-08-14 11:04 | Outpatient (BNVA) | payer OTHER, SELFPAY | PROVIDERS: PCP Internal Medicine; Visit Provider Surgery Vascular Surgery | DX: I73.9 Peripheral vascular disease, unspecified (principal) | CPT/HCPCS: 99212 ==

== ENCOUNTER 2024-08-27 11:03 | Outpatient (REF) | payer OTHER, SELFPAY ==
[2024-08-27 11:46] LABS: MANUAL DIFF FLAG NO
[2024-08-27 11:59] LABS: Basophils Absolute Auto 0.1 X10*3/uL (0.0-0.2); Basophils Percent Auto 0.8 % (0-2); Eosinophils Absolute Auto 0.3 X10*3/uL (0.0-0.4); Hematocrit 33.8 % (37.0-47.0); Hemoglobin 11.4 g/dl (12.0-16.0); Imm Gran Abs Auto 0.02 X10*3/uL (0.00-0.03); Imm Gran Pct Auto 0.3 % (0.0-0.4); Lymphocytes Percent Auto 16.9 % (20-40); Mean Corpuscular HGB Conc 33.7 g/dl (31.0-35.0); Mean Corpuscular Hemoglobin 28.6 pg (27.0-33.0); Mean Corpuscular Volume 84.9 fL (80.0-98.0); Mean Platelet Volume 11.3 fL (9.4-12.3); Monocytes Absolute Auto 0.4 X10*3/uL (0.1-1.2); Monocytes Percent Auto 6.5 % (2-11); Neutrophils Absolute Auto 4.2 x10*3/uL (2.0-8.3); Neutrophils Percent Auto 70.5 % (45-73); Platelet Count 259 X10*3/uL (160-400); Red Blood Count 3.98 X10*6/uL (4.20-5.50)
[2024-08-27 12:08] LABS: Appearance Urine Clear; Color Urine Yellow; Glucose Urine UA >=1000 mg/dL (Negative); Leukocyte Esterase Urine Moderate (2+) (Negative); Nitrite Urine Negative (Negative); UMIC TRIGGER UACC YES; Urine Blood Trace (Negative); Urine Ketones Negative (Negative); Urine Protein 100 (2+) mg/dL (Neg-Trace)
[2024-08-27 12:15] LABS: Bacteria Urine 4+ (None Seen); Hyaline Casts Urine 0-2 /LPF (0-2); RBC Urine 0-2 /HPF (0-2); Squamous Epithelial Cell Urine 0-2 /HPF (0-2); UACC Culture Trigger YES; WBC Urine 21-50 /HPF (0-5)
[2024-08-27 12:15] LABS: Estimated Average Glucose 209 mg/dL; Hemoglobin A1C 228.2316 umol/L; Hemoglobin A1c % 8.9 % (<6.0)
[2024-08-27 12:47] LABS: Creatinine Urine 37.07 mg/dL; Total Protein Urine Random 106 mg/dL (<12)
[2024-08-27 12:52] LABS: Creatinine Urine 37.13 mg/dL
[2024-08-27 13:04] LABS: Microalbum/Creatinine Ratio Ur 1963.3 ug/mg cr (<30)
[2024-08-27 13:29] LABS: Alanine Aminotransferase 15 U/L (0-31); Albumin Level 4.1 g/dL (3.5-5.0); Alkaline Phosphatase 71 U/L (39-117); Anion Gap 14 (12-20); Aspartate Amino Transferase 23 U/L (5-31); Bilirubin Total 0.4 mg/dL (0.0-1.0); Blood Urea Nitrogen 42 mg/dL (9-16); Calcium 9.5 mg/dL (8.4-10.2); Carbon Dioxide 27 mmol/L (22-29); Chloride 98 mmol/L (96-108); Estimated Glomerular Filt Rate 25; Glucose Random 392 mg/dL (60-115); Potassium 3.4 mmol/L (3.3-5.1); Sodium 136 mmol/L (135-145)
[2024-08-27 13:41] LABS: Alanine Aminotransferase 18 U/L (0-31); Albumin Level 4.2 g/dL (3.5-5.0); Alkaline Phosphatase 72 U/L (39-117); Anion Gap 14 (12-20); Aspartate Amino Transferase 25 U/L (5-31); Bilirubin Direct 0.1 mg/dL (0.0-0.5); Bilirubin Total 0.4 mg/dL (0.0-1.0); Blood Urea Nitrogen 42 mg/dL (9-16); Calcium 9.4 mg/dL (8.4-10.2); Carbon Dioxide 26 mmol/L (22-29); Chloride 98 mmol/L (96-108); Estimated Glomerular Filt Rate 25; Glucose Random 406 mg/dL (60-115); Potassium 3.2 mmol/L (3.3-5.1); Sodium 135 mmol/L (135-145); Total Protein 8.2 g/dL (6.5-8.0)
== END 2024-08-27 11:04 | disposition home or self-care (01) ==
LOC: HO.LAB 11:03
PROVIDERS: Internal Medicine; Internal Medicine Hypertension Specialist; PCP Internal Medicine; Visit Provider Physician Assistant Medical
DX: N18.9 Chronic kidney disease, unspecified (principal); E11.621 Type 2 diabetes mellitus with foot ulcer; E11.69 Type 2 diabetes mellitus with other specified complication; L97.509 Non-pressure chronic ulcer of other part of unspecified foot with unspecified severity; M86.9 Osteomyelitis, unspecified; E11.65 Type 2 diabetes mellitus with hyperglycemia; R35.0 Frequency of micturition
CPT/HCPCS: 36415; 80048; 80053; 80076; 81001; 81003; 82043; 82248; 82570; 83036; 84156; 85025; 87086; 87088; 87186

== ENCOUNTER → 2024-09-17 14:30 | Outpatient (BNV) | payer OTHER, SELFPAY | PROVIDERS: PCP Internal Medicine; Visit Provider Internal Medicine | DX: Z12.31 Encounter for screening mammogram for malignant neoplasm of breast (principal) | CPT/HCPCS: 77063; 77067 ==

== ENCOUNTER 2024-09-17 14:35 | Outpatient (REF) | payer OTHER, SELFPAY ==
--- OUTSIDE RECORDS SUMMARY | 2024-09-17 16:48 | XMS_ITS | Encounter Summary ---
Author Organization [employer] [facility] Address [address] [place] [address] Care Team Providers Care Transit Planner Name Role Phone Rita Cabrera MD Primary Care Provider Gisela Juarez MD Primary Care Provider Un available Community, Pcp Primary Care Provider Liv Garcia Primary Care Provider Robert oliver Encounter Details Date Type Department Care Team Description 08/22/2015 Release of Information Medical Records [address] [place] [id number] Abstract, Provider Social History Tobacco Use Types Packs/Day Years Used Date Smoking Tobacco: Never Assessed Sex Assigned at Date Recorded Not on file documented as of this encounter Plan of Treatment Not on file documented as of this encounter Visit Diagnoses Not on filedocumented in this encounter Care Teams Transit Planner Relationship Specialty Start Date End Date Rita Cabrera MD PCP - General Internal Medicine 08/25/15 12/01/15 Gisela Howell MD PCP - General Internal Medicine 12/02/1505/16 [facility], Pcp PCP - General Internal Medicine 05/17/19 Liv Cotto PCP - General 02/10/15 08/24/15 documented as of this encounter
--- OUTSIDE RECORDS SUMMARY | 2024-09-17 16:48 | XMS_ITS | Encounter Summary ---
Author Organization [employer] [facility] Address [address] [place] [address] Care Team Providers Care Campground Hand Name Role Phone Gisela Howell MD Primary Care Provider Un available Community, Pcp Primary Care Provider Unavailabl e Encounter Details Date Type Department Care Team Description 12/02/2015 Wellness Visit Medical Records [address] [place] [address] Rita Cabrera MD Social History Tobacco Use Types Packs/Day Years Used Date Smoking Tobacco: Never Alcohol Use Standard Drinks/Week Comments Not Asked 0 (1 standard drink = 0.6 oz pur e alcohol) Sex Assigned at Date Recorded Not on file documented as of this encounter Plan of Treatment Not on file documented as of this encounter Visit Diagnoses Not on filedocumented in this encounter Care Teams Campground Hand Relationship Specialty Start Date End Date Gisela Howell MD PCP - General Internal Medicine 12/02/1505/16 Community, Pcp PCP - General Internal Medicine 05/17/19 documented as of this encounter
--- OUTSIDE RECORDS SUMMARY | 2024-09-17 16:48 | XMS_ITS | Encounter Summary ---
Author Organization [facility] Address [address] [place] [address] Care Team Providers Care Monitor And Storage Bin Tender Name Role Phone Rita Cabrera MD Primary Care Provider Gisela Juarez MD Primary Care Provider Un available Community, Pcp Primary Care Provider Unavailabl e Encounter Details Date Type Department Care Team Description 11/04/2015 Orders Only Podiatry - [place] [address] [place] [address] Finesse Kay, BENJAMIN Social History Tobacco Use Types Packs/Day Years Used Date Smoking Tobacco: Never Alcohol Use Standard Drinks/Week Comments Not Asked 0 (1 standard drink = 0.6 oz pur e alcohol) Sex Assigned at Date Recorded Not on file documented as of this encounter Plan of Treatment Not on file documented as of this encounter Visit Diagnoses Not on filedocumented in this encounter Care Teams Monitor And Storage Bin Tender Relationship Specialty Start Date End Date Rita Cabrera MD PCP - General Internal Medicine 08/25/15 12/01/15 Gisela Howell MD PCP - General Internal Medicine 12/02/1505/16 Community, Pcp PCP - General Internal Medicine 05/17/19 documented as of this encounter
--- OUTSIDE RECORDS SUMMARY | 2024-09-17 16:48 | XMS_ITS | Clinical Summary ---
Author Organization [facility] Address [address] [place] [address] Care Team Providers Care Song Lyricist Name Role Phone Community, Pcp Primary Care Provider Unavailabl e Medications Medication Sig Dispensed Refills Start Date End Date Status gabapentin (NEURONTIN) 300 MG capsule Take 300 mg by mouth 2 times daily. 0 Active aspirin 81 MG tablet Take 81 mg by mouth daily. 0 Active amlodipine (NORVASC) 10 MG tablet Take 10 mg by mouth daily. 0 Active insulin lispro (HUMALOG) 100 UNIT/ML injection 10-30U SC BID AC SLIDING SCALE 10 mL 0 12/19/2015 Active insulin glargine (LANTUS) 100 UNIT/ML injection 45U IN SC IN AM DX E11.9 10 mL 5 12/24/2015 Active lidocaine-prilocaine (EMLA) cream Apply to feet at night 150 g 3 01/15/2016 Active losartan (COZAAR) 100 MG tablet TAKE 1 TABLET BY MOUTH EVERY DAY 90 Tab 0 05/10/2016 Active metformin (GLUCOPHAGE) 850 MG tablet Take 1 Tab by mouth 2 times daily (with meals). 30 Tab 0 07/20/2016 Active fluticasone (FLOVENT HFA) 110 MCG/ACT inhaler Inhale 2 Puffs into the lungs 2 times daily. 0 Active atorvastatin (LIPITOR) 40 MG tablet Take 40 mg by mouth daily. 0 Active hydrochlorothiazide (HYDRODIURIL) 25 MG tablet Take 25 mg by mouth daily. 0 Active citalopram (CELEXA) 20 MG tablet Take 20 mg by mouth daily. 0 Active fluticasone (FLONASE) 50 MCG/ACT nasal sprayIndications:Post nasal drip 2 Sprays by Nasal route daily. 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 06/29/2019 Microalbuminuria 06/29/2019 Chronic kidney disease (CKD), stage III (moderate) 06/29/2019 Hypertension 12/19/2015 GERD (gastroesophageal reflux disease) 0 12/19/2015 Hyperlipidemia 12/19/2015 Type 2 diabetes mellitus with eye manife stations 12/19/2015 Background diabetic retinopathy 11/14/19 16 Onychomycosis 10/20/2015 Family History Medical History Relation Name Comments CA Breast Daughter 1 Hypertension Father hearing loss, D M Hypertension Mother heart disease, stroke, DM CA Breast Sister HTN, heart dise ase, asthma, DM Relation Name Status Comments Daughter 1 Alive breast ca age 3 8 Daughter 2 Alive Daughter 3 Alive Daughter 4 Alive Father DM, HTN, dalia ia Mother CVA Sister Alive breast ca age 5 9 Son 1 Alive Son 2 car accident Social History Tobacco Use Types Packs/Day Years Used Date Smoking Tobacco: Never Smokeless Tobacco: Never Alcohol Use Standard Drinks/Week Comments No 0 (1 standard drink = 0.6 oz pur e alcohol) Sex Assigned at Date Recorded Not on file Last Filed Vital Signs Vital Sign Reading Time Taken Comments Blood Pressure 136/74 05/17/2019 9:02 AM EDT Pulse 82 05/17/2019 9:02 AM EDT Temperature 36.6 ??C (97.9 ??F) 01/15/2016 1:54 PM ED T Respiratory Rate 18 05/17/2019 9:02 AM EDT Oxygen Saturation 99% 05/17/2019 9:02 AM EDT Inhaled Oxygen Concentration - - Weight 60.8 kg (134 lb) 05/17/2019 9:02 AM EDT Height 154.9 cm (5' 1 ) 05/17/2019 9:02 AM EDT Body Mass Index 25.32 05/17/2019 9:02 AM EDT Plan of Treatment Health Maintenance Due Date Last Done Comments Covid-19 Vaccine (#1) 02/02/1951 HEPATITIS C SCREENING 1968 DTAP/TDAP/TD (1 - Tdap) 1969 SHINGLES VACCINE (1 of 2) 2000 PNEUMOCOCCAL VACCINE (1 - PCV) 2015 DIABETES: BLOOD SUGAR CONTRO L TEST (HGBA1C) 03/20/2016 12/19/2015 DIABETES: ANNUAL FOOT EXAM 11/13/2016 11/14/2015, DIABETES: ANNUAL EYE EXAM 11/24/20162015 (External Completion) DEPRESSION SCREEN 12/01/2016 12/02/2015 FALL RISK ASSESSMENT 12/01/2016 12/02/2015 DIABETES/HEART DISEASE: CANELO AL CHOLESTEROL (LDL) 12/18/2016 12/19/2015 DIABETES: ANNUAL URINE PROTE IN TEST (MICROALBUMIN) 12/18/2016 12/19/2015 MAMMOGRAM 12/22/2016 12/23/2015, 07/2015 (External Completion) BONE DENSITY SCREENING 07/28/2017 6 (External Completion of test per patient (Patient reports normal results)) COLON CANCER SCREENING 12/06/2022 3 (External Completion of test per patient (Patient reports normal results)) INFLUENZA (#1) 2024 BMI CHECK/ADVISE 07/25/2024 12/19/2015 Care Teams Song Lyricist Relationship Specialty Start Date End Date Community, Pcp PCP - General Internal Medicine 05/17/19
== END 2024-09-17 14:36 | disposition home or self-care (01) ==
LOC: HO.MAMMO 14:35
PROVIDERS: PCP Internal Medicine; Visit Provider Physician Assistant Medical
DX: Z12.31 Encounter for screening mammogram for malignant neoplasm of breast (principal)
CPT/HCPCS: 77063; 77067

== ENCOUNTER → 2024-11-09 23:59 | Outpatient (BNV) | payer OTHER, SELFPAY | PROVIDERS: PCP Internal Medicine; Visit Provider Internal Medicine | DX: I12.9 Hypertensive chronic kidney disease with stage 1 through stage 4 chronic kidney disease, or unspecified chronic kidney disease (principal); E11.22 Type 2 diabetes mellitus with diabetic chronic kidney disease; N18.30 Chronic kidney disease, stage 3 unspecified | CPT/HCPCS: G0179 ==

== ENCOUNTER 2024-11-22 09:34 | Outpatient (AMB) | payer OTHER, SELFPAY ==
--- NOTE | 2024-11-22 09:36 | A.OFFPC_ITS ---
Vital Signs 11/22/24 09:38 Height 5 ft 2 in Weight 144 lb 6 oz BMI 26.4 BP 120/80 Blood Pressure Location Rt brachial Position Sitting Pulse 82 Pulse Source Pulse Oximeter Temp 97.1 F Temp Source Temporal Artery Scan Pulse Oximetry (%) 97 Oxygen Delivery Method Room Air Intake Visit Reasons: 3 month f/u Intake Note: Patient is here to follow up on DM, CKD, PAD, HLD. Chemical Processing Technician Required: Yes Chemical Processing Technician Language: Hot Patcher Name: Jaylyn (daughter) Information Interpreted: non-clinical & clinical (pt decline orange peel operator service, she prefer her daughter to translate) Crayon Molding Machine Operator: Present Accompanied by: Daughter Allergies lisinopril Adverse Reaction (Verified 11/22/24 09:38) Unknown Tobacco use date assessed: 11/22/24 Fall risk assessment: No Falls in past year Last assessed Fall Risk: 11/22/24 Dental Screening Dental Screen Date: 08/02/24 [facility] Medical History (Updated 11/22/24 @ 10:26 by Miguel Johnson MD) Allergic conjunctivitis Diabetes Encounter for colorectal cancer screening using Cologuard test (~05/16/24) PAD (peripheral artery disease) Acute osteomyelitis of toe CKD (chronic kidney disease) HTN (hypertension) Surgical History History of cataract surgery History of bladder surgery History of total hysterectomy History of tonsillectomy Family History Father Hypertension Diabetes Hx of leg amputation Mother Myocardial infarction Diabetes Hypertension Sister Breast cancer Brother Diabetes Maternal Aunt Bone cancer Social History Household Members: Family Household Members Other:: daughter, grandkids, , 6 total Housing: House Housing Other:: first floor. 4 steps to get in Do you presently have visiting nurse or other home services: Yes Unable to assess alcohol history related to: Unknown Alcohol intake: never Patient Tobacco Use Status: Never used Tobacco e-Cigarette/Vaping Use: Never Used Second Hand Smoke Exposure: No Advance Directives Date on File: 12/05/23 service: No Current occupational status: retired Current occupation: rt hand Cognitive needs: Yes (cane) Hearing needs: No Vision needs: Yes (Glasses) Questionnaire PHQ-9 Over the last 2 weeks, how often have you been bothered by any of the following problems? 1. Little interest or pleasure in doing things: not at all 2. Feeling down, depressed, or hopeless: not at all 3. Trouble falling or staying asleep, or sleeping too much: not at all 4. Feeling tired or having little energy: several days 5. Poor appetite or overeating: several days 6. Feeling bad about yourself - or that you are a failure or have let yourself or your family down: not at all 7. Trouble concentrating on things, such as reading the newspaper or watching television: not at all 8. Moving or speaking so slowly that other people could have noticed. Or the opposite - being so fidgety or restless that you have been moving around a lot more than usual: not at all 9. Thoughts that you would be better off or of hurting yourself in some way: not at all Total score: 2 Depression Screening Interpretation: Positive Depression Screening Done: Yes Source: Developed by Drs. Raymundo Ontiveros, Neva Russell, Navin Sarah and colleagues, with an educational gogo from [employer]. Thrive Questionnaire Date Thrive assessed: 08/02/24 I am a: Patient What is your living situation today?: I have a steady place to live Within the past 12 months, did the food you bought not last and you didn't have the money to get more?: Never true Within the past 12 months, did you worry whether your food would run out before you got money to buy more?: Never true Do you have trouble paying for medicines?: Yes Do you have trouble getting transportation to medical appointments?: No Do you have trouble paying your heating and electricity bill?: No Do you have trouble taking care of your child, family member or friend?: No Do you have trouble with day-to-day activities such as bathing, preparing meals, shopping, managing finances, etc.?: No Are you currently unemployed and looking for a job?: No Are you interested in more education?: No Please select the resources that you would like help with: None Currently or been in a relationship where the following occur: I choose not to answer THRIVE Score: 0 AUDIT C Alcohol Use Questionnaire (AUDIT-C) 1. How often do you have a drink containing alcohol?: Never Total Score: 0 EMMETT-7 AMB Questionnaire EMMETT-7 Date EMMETT - 7 assessed: 11/22/24 Feeling nervous, anxious, or on edge: 1 = Several days Not being able to stop or control worryin = Several days Worrying too much about different things: 1 = Several days Trouble relaxin = Not at all Being so restless that it is hard to sit still: 0 = Not at all Becoming easily annoyed or irritable: 0 = Not at all Feeling afraid as if something awful might happen: 0 = Not at all Total EMMETT-7 score (0-4 normal; 5-9 mild; 10-14 moderate; 15-21 severe): 3 Source: Developed by Drs. Raymundo Ontiveros, Neva Russell, Navin Sarah and colleagues, with an educational gogo from [employer]. Physical exam (Primary Care) Vital Signs: Last Vital Signs Temp 97.1 F 11/22/24 09:38 Pulse 82 11/22/24 09:38 BP 120/80 11/22/24 09:38 Pulse Ox 97 11/22/24 09:38 Oxygen Delivery Method Room Air 11/22/24 09:38 BMI result Body Mass Index 26.4 Tobacco/Smoking Status: Tobacco use Status Tobacco use date assessed 11/22/24 11/22/24 09:39 Patient Tobacco Use Status Never used Tobacco 11/22/24 09:39 e-Cigarette/Vaping Use Never Used 11/22/24 09:39 PHQ-9: PHQ-9 Score PHQ-9: Total score 2 11/22/24 09:39 Depression Screening Interpretation: Positive Thrive Assessment: Date of Thrive Assessment Date Thrive assessed 08/02/24 11/22/24 09:39 Currently or been in a relationship where the following occur: I choose not to answer Results AMB Hemoglobin A1c AMB Hemoglobin A1c 8.3 % Last Edit by MICHAEL Cabrales on 11/22/24 09:59 Results Reviewed Results Reviewed: Laboratory Last Values Hgb A1c (Clinic) 8.3 % (4.0-6.0) H 11/22/24 09:39 Coding Level of Care Code Est Pt Level 4 (01265) Complex EM visit Add On G2211 Diagnoses Diabetes E11.9 Allergic conjunctivitis H10.10 Assessment & Plan Assessment & Plan (1) Diabetes: Code(s): E11.9 - Type 2 diabetes mellitus without complications Category: Medical Plan: A1c is improving. Continue medications at same dosage. (2) Allergic conjunctivitis: Code(s): H10.10 - Acute atopic conjunctivitis, unspecified eye Category: Medical Plan: History of Present Illness The patient is a 70-year-old male presenting with a multitude of concerns requiring attention. He notably requests a refill for his asthma inhaler, a therapy he has relied upon for effective management of his chronic condition. The patient also describes occasional episodes of heartburn, indicative of potential gastroesophageal reflux, though they are intermittent with no clear pattern identified. Dermatological issues of concern include several skin tags on his neck, which have been persistent and recently one experienced bleeding, prompting a request for removal. Additionally, he mentions a dermatological rash present on his ankles, though details surrounding its onset or triggers are limited. An incomplete colonoscopy screening process further highlights his visit, where the patient noted not receiving a sent Cologuard testing kit, which was critical for colon cancer screening. The patient additionally agrees to conduct necessary blood work following this visit, acknowledging its importance in ongoing health monitoring. Social History - Housing: Lives with another individual, noted as the lady I live with. Review of Systems - Respiratory: Reports asthma. - Gastrointestinal: Reports occasional heartburn symptoms. - Dermatological: Reports skin tags on the neck, recent bleeding from one tag, and a rash on the ankles. Physical Exam General: Cooperative and healthy appearing Nutritional Appearance: Well nourished Orientation/consciousness: Patient oriented x3 Limitations: No limitations Head: Normal to inspection General: Appearance normal, both eyes and all related structures Neck: Normal visual inspection Chest: Normal palpation of entire chest wall Respiratory: Patient reports asthma and requests a refill for the asthma pump. ormal respiratory effort Neurology: Patient oriented x3 Results Plan - Refill asthma inhaler prescription. - Recommend lifestyle modifications for heartburn; assess for medication adjustments if needed. - Refer for dermatological evaluation of skin tags and ankle rash. - Ensure the patient receives a Cologuard kit for colorectal cancer screening. - Reinforce the immediate completion of blood work. Patient was informed and verbally consented to the use of an ambient scribe for clinic note documentation during this visit. Discussion Notes Today, I discussed with the patient the current status of his asthma control and the necessity of maintaining his medication regimen through timely refills. Addressing GERD symptoms, I highlighted lifestyle and dietary considerations that may mitigate heartburn episodes and opened the possibility of pharmacologic intervention if needed. The dermatological referral for the management of skin tags and rash was thoroughly considered, explaining the rationale for specialist involvement due to the recent bleeding and new rash symptoms. For the overdue colonoscopy, I reiterated the preventive significance of colorectal screening, emphasizing the need to locate the Cologuard kit. Blood work was prioritized for completion, underpinning its role in comprehensive health monitoring. The importance of coordinating care and ensuring follow-up relies on effective communication with healthcare specialists and adherence to prescribed plans. Patient Instructions - Continue using asthma inhaler as directed. - Follow dietary and lifestyle changes for heartburn management. - Visit a germination worker for skin tags and ankle rash evaluation. - Complete blood work today as arranged. - Ensure to check and follow up on the Cologuard test for colonoscopy screening. - Return for follow-up in three months. Orders: Orders AMB Hemoglobin A1c Today E11.65 - Type 2 diabetes mellitus with hyperglycemia Medications: New olopatadine 0.1% separate doses by at least 6-8 hours 1 drp ophthalmic (eye) BID 5 mL 1RF
[2024-11-22 09:38] VITALS: BP 120/80; PULSE 82; TEMP 36.2; O2SAT 97; BMI 26.4
== END 2024-11-22 11:09 | disposition home or self-care (01) ==
LOC: HO.HMCH 09:35
PROVIDERS: PCP Internal Medicine; Visit Provider Internal Medicine
DX: E11.9 Type 2 diabetes mellitus without complications (principal); H10.10 Acute atopic conjunctivitis, unspecified eye; E11.65 Type 2 diabetes mellitus with hyperglycemia

== ENCOUNTER → 2024-11-22 09:34 | Outpatient (BNVA) | payer OTHER, SELFPAY | PROVIDERS: PCP Internal Medicine; Visit Provider Internal Medicine | DX: E11.22 Type 2 diabetes mellitus with diabetic chronic kidney disease (principal); E11.51 Type 2 diabetes mellitus with diabetic peripheral angiopathy without gangrene; E11.65 Type 2 diabetes mellitus with hyperglycemia; I12.9 Hypertensive chronic kidney disease with stage 1 through stage 4 chronic kidney disease, or unspecified chronic kidney disease; N18.9 Chronic kidney disease, unspecified; E78.5 Hyperlipidemia, unspecified; H10.10 Acute atopic conjunctivitis, unspecified eye | CPT/HCPCS: 83036; 96127; 99212 ==

== ENCOUNTER 2025-02-06 10:27 | Outpatient (REF) | payer OTHER, SELFPAY ==
--- NOTE | ~2025-02-06 | US_ITS ---
EXAMINATION: Noninvasive assessment of the bilateral lower extremities with ARTERIAL DUPLEX, ANKLE BRACHIAL INDICES (ABIs), and PULSE VOLUME RECORDINGS (PVRs). CLINICAL INFORMATION: Peripheral vascular disease. Status post stenting left superficial femoral artery.. TECHNIQUE: Duplex Doppler techniques with waveform analysis and measurement of velocities in the bilateral common femoral, profunda femoris, superficial femoral, popliteal and tibial arteries were performed. Additionally, ankle pulse volume recordings, ankle pressure measurements and ankle brachial indices were obtained of the lower extremity arterial system bilaterally. The study was performed only at rest. COMPARISON: June 04, 2022. FINDINGS: DIRECT DUPLEX DOPPLER FINDINGS: RIGHT LEG: Common femoral artery: 261 cm/s, phasicity: Triphasic. Profunda femoris artery: 285 cm/s, phasicity: Biphasic. Superficial femoral artery (proximal): 308 cm/s, phasicity: Monophasic. Superficial femoral artery (mid): 261 cm/s, phasicity: Monophasic. Superficial femoral artery (distal): 52 cm/s, phasicity: Monophasic. Popliteal artery: 153 cm/s, phasicity: Monophasic. Posterior tibial artery: No color Doppler flow. Peroneal artery: 73 cm/s, phasicity: Monophasic. Anterior tibial artery: No color Doppler flow. Dorsalis pedis artery: 63 cm/s, phasicity:Monophasic. LEFT LEG: Common femoral artery: 190 cm/s, phasicity: Biphasic. Profunda femoris artery: 286 cm/s, phasicity: Biphasic. Superficial femoral artery (proximal): 289 cm/s, phasicity: Triphasic. Superficial femoral artery (mid: Status post stenting. Superficial femoral artery (distal): Status post stenting. Popliteal artery: 157 cm/s, phasicity: Monophasic. Posterior tibial artery: No color Doppler flow. Peroneal artery: No color Doppler flow. Anterior tibial artery: No color Doppler flow . Dorsalis pedis artery: 10 cm/s, phasicity: Monophasic. Left superficial femoral artery stent spectral Doppler analysis: [place] artery, proximal: 114 cm/s. Triphasic waveforms. Proximal stent: 107 cm/s. Triphasic waveforms. Mid stent: 109 cm/s. Triphasic waveforms. Distal stent: 114 cm/s. Triphasic waveforms. [place] artery, distal: 87 cm/s. Monophasic waveforms. BRACHIAL PRESSURES: Right: More than 200 Left: 133 ANKLE PRESSURES: Right: PT not calculated, DP 102 Left: PT 106, DP 99 ANKLE-BRACHIAL INDEX: Right: 0.77. Left: 0.8. ANKLE PVR WAVEFORMS: Right: Abnormal Left: Abnormal US/US arterial duplex BI w/ YENY IMPRESSION: Right leg: Severe inflow disease throughout the interrogated arteries. Occluded/old/chronic, posterior tibialis artery. Left leg: Severe inflow disease distal to the superficial femoral artery. Superficial femoral artery stent: Normal patency. Occluded/old/chronic left posterior tibialis artery to the dorsalis pedis artery. YENY Reference: - >1.4 = calcified vessels - 0.9 - 1.4 = normal - no significant arterial disease - 0.7 - 0.89 = mild peripheral arterial disease - 0.51 - 0.69 = moderate peripheral arterial disease - 0.50 = severe peripheral arterial disease - < .30 = critical arterial disease Electronically signed by: Melvin Vu MD 02/06/2025 12:18 PM EDT
== END 2025-02-06 10:28 | disposition home or self-care (01) ==
LOC: HO.US 10:27
PROVIDERS: PCP Internal Medicine; Visit Provider Surgery Vascular Surgery
DX: I73.9 Peripheral vascular disease, unspecified (principal)
CPT/HCPCS: 93922; 93925

== ENCOUNTER → 2025-02-06 10:29 | Outpatient (BNV) | payer OTHER, SELFPAY | PROVIDERS: PCP Internal Medicine; Visit Provider Radiology Diagnostic Radiology | DX: I73.9 Peripheral vascular disease, unspecified (principal) | CPT/HCPCS: 93922; 93925 ==

== ENCOUNTER 2025-02-25 18:04 | Emergency (ER) | payer OTHER, SELFPAY ==
[2025-02-25 18:21] VITALS: BP 109/66; PULSE 97; RESP 16; TEMP 37.4; O2SAT 94; BMI 29.9
--- NOTE | 2025-02-25 18:29 | ED.GENADULT ---
HPI - General Adult General Chief complaint: General Medical Stated complaint: Hives/Ankle swelling for 2 wks Time Seen by Provider: 02/25/25 23:42 Source: patient and family Limitations: language barrier History of Present Illness ED Provider: Quynh Rea PA-C HPI narrative: 74-year-old female with a history of hypertension, hyperlipidemia, diabetes, peripheral arterial disease, prior osteomyelitis secondary to diabetic foot ulcer, chronic kidney disease, who presents with rash x 2 weeks. Patient has been having circular, raised, isolated lesions pop up over her upper extremities, lower extremities face and back. They are pruritic, pale pink, somewhat vesicular. No one else has a same rash. She denies new body products, food, medication. She does have pets the go outside. She denies having poison jagdish in her yard. Patient is also developing faint redness over left stapleton at a region where she has been scratching the rash, associated subtle swelling. Denies fever. Related Data Home Medications ?Medication ?Instructions ?Recorded ?Confirmed albuterol sulfate 90 mcg/actuation 2 puff PO QID PRN shortness of 03/02/24 05/09/24 aerosol inhaler breath or wheezing Previous Rx's ?Medication ?Instructions ?Recorded blood-glucose meter (OneTouch #1 ea 03/21/23 Ultra2 Meter) lancets 30 gauge (OneTouch #200 ea 03/21/23 UltraSoft 2 Lancet) FreeStyle Song 3 Sensor #6 ea 02/23/24 (blood-glucose sensor) blood-glucose,e commerce strategist,cont #1 ea 02/23/24 (FreeStyle Song 3 [place]) empagliflozin 10 mg tablet 10 mg PO DAILY #90 tabs 02/23/24 (Jardiance) aspirin 81 mg tablet,delayed 81 mg PO DAILY #30 tabs 03/05/24 release alcohol swabs 1 pad topical QIDACHS #100 ea 04/03/24 erythromycin 5 mg/gram (0.5 %) eye 0.5 inch ophthalmic (eye) TID #1 g 04/23/24 ointment blood sugar diagnostic (OneTouch #100 ea 05/06/24 Ultra Test strips) clopidogrel 75 mg tablet 75 mg PO DAILY #90 tabs 08/08/24 pen needle, diabetic 31 gauge x #100 ea 08/08/2410/07 (Easy Comfort Pen [place]) insulin glargine 100 unit/mL (3 45 unit (0.45 mL) subcut BEDTIME 08/27/24 mL) subcutaneous pen (Basaglar #15 mL KwikPen U-100 Insulin) insulin lispro 100 unit/mL 15 unit (0.15 mL) subcut TIDWMEAL 08/27/24 subcutaneous pen (Humalog KwikPen #15 mL (U-100) Insulin) FreeStyle Song 3 Plus Sensor #6 ea 10/09/24 (blood-glucose sensor) FreeStyle Song 3 [place] #1 ea 10/09/24 (blood-glucose,e commerce strategist,cont) olopatadine 0.1 % eye drops 1 drp ophthalmic (eye) BID #5 mL 11/22/24 amlodipine 10 mg tablet 10 mg PO DAILY #90 tabs 02/01/25 rosuvastatin 5 mg tablet 5 mg PO DAILY #90 tabs 02/01/25 citalopram 10 mg tablet 20 mg (2 x 10 mg) PO DAILY 90 days 02/15/25 #180 tabs gabapentin 400 mg capsule 400 mg PO BID #120 caps 02/15/25 doxycycline hyclate 100 mg capsule 100 mg PO BID #13 caps 02/26/25 hydroxyzine HCl 25 mg tablet 25 mg PO TID PRN itching #10 tabs 02/26/25 triamcinolone acetonide 0.025 % 1 appl topical BID #15 grams 02/26/25 topical cream Allergies Allergy/AdvReac Type Severity Reaction Status Date / Time lisinopril AdvReac Unknown Verified 02/25/25 18:27 Review of Systems Review of Systems: Yes all other systems are reviewed and are negative Constitutional: Constitutional: Denies fatigue and Denies fever(s) Cardiovascular: Cardiovascular: Denies chest pain and Denies dyspnea Respiratory: Respiratory: Denies dyspnea Gastrointestinal: Gastrointestinal: Denies abdominal pain, Denies nausea and Denies vomiting Integumentary/Breasts: Skin/Breast: Reports pruritus and Reports rash Endocrine: Endocrine: Denies fatigue PMFSH Past Medical History Attestation statement: The following information was validated with the patient. Medical History (Updated 02/26/25 @ 00:36 by FAVIAN Pastrana) Allergic conjunctivitis Diabetes Encounter for colorectal cancer screening using Cologuard test (~05/16/24) PAD (peripheral artery disease) Acute osteomyelitis of toe CKD (chronic kidney disease) HTN (hypertension) Surgical History History of cataract surgery History of bladder surgery History of total hysterectomy History of tonsillectomy Family History Family History Father Hypertension Diabetes Hx of leg amputation Mother Myocardial infarction Diabetes Hypertension Sister Breast cancer Brother Diabetes Maternal Aunt Bone cancer Social History Social History Household Members: Family Household Members Other:: daughter, grandkids, , 6 total Housing: House Housing Other:: first floor. 4 steps to get in Do you presently have visiting nurse or other home services: Yes Unable to assess alcohol history related to: Unknown Alcohol intake: never Patient Tobacco Use Status: Never used Tobacco Smoked in Last 30 Days: No e-Cigarette/Vaping Use: Never Used Second Hand Smoke Exposure: No Use of substances other than those prescribed or required for medical reasons: No Advance Directives: Yes Advance Directives on File: Yes Advance Directives Date on File: 12/05/23 service: No Current occupational status: retired Current occupation: rt hand Cognitive needs: Yes (cane) Hearing needs: No Vision needs: Yes (Glasses) Physical Exam ED Vital Signs: Vital Signs - 24 hr 02/25/25 18:21 02/25/25 23:29 02/26/25 00:51 Temperature 99.4 F 98.4 F 98.4 F Pulse Rate 97 78 78 Respiratory Rate 16 18 18 Blood Pressure 109/66 155/66 H 155/66 H Pulse Oximetry 94 96 96 Oxygen Delivery Method Room Air Room Air Room Air BMI result Body Mass Index 29.9 Const Other: Alert well-appearing Orientation/consciousness: patient oriented x3 Resp Effort & Inspection: normal respiratory effort Cardio Other: Normal peripheral perfusion Skin Other: Faint, pink, circular somewhat vesicular in some areas, scattered lesions over face, upper extremities, back, lower extremities. There was a region over left stapleton that has excoriated, subtle erythema and subtle swelling noted at this site from her scratching, considering contact dermatitis/eczema Neuro General: patient oriented x3, gait normal, no focal motor deficits and CN's II-XI intact bilaterally Psych Other: Cooperative Course Course Course Narrative: RME performed by Anais Pleitez PA-C. Patient is a 74 year old assigned female at presenting to the emergency department with bilateral lower leg swelling and whole body itching. Detailed physical exam and review of systems are deferred to the primary products inspectors. EKG, labs ordered. Patient placed back in the waiting room pending room availability and results. Medications Administered Discontinued Medications Generic Name Dose Route Start Last Admin Trade Name Niraj PRN Reason Stop Dose Admin Doxycycline Monohydrate 100 mg 02/26/25 00:21 02/26/25 00:34 Doxycycline Monohydrate 100 Mg Capsule PO 02/26/25 00:22 100 mg ONCE ONE Administration Hydroxyzine HCl 25 mg 02/26/25 00:21 02/26/25 00:34 Hydroxyzine Hcl 25 Mg Tablet PO 02/26/25 00:22 25 mg ONCE ONE Administration Medical Decision Making Medical Decision Making MDM Narrative: 74-year-old female with a history of hypertension, hyperlipidemia, diabetes, peripheral arterial disease, prior osteomyelitis secondary to diabetic foot ulcer, chronic kidney disease, who presents with rash x 2 weeks. Patient has been having circular, raised, isolated lesions pop up over her upper extremities, lower extremities face and back. They are pruritic, pale pink, somewhat vesicular. No one else has a same rash. She denies new body products, food, medication. She does have pets the go outside. She denies having poison jagdish in her yard. Patient is also developing faint redness over left stapleton at a region where she has been scratching the rash, associated subtle swelling. Denies fever. Problem: Diabetes History: Per patient I have considered the following differential diagnoses: Contact dermatitis, eczema, shingles, scabies, urticaria, cellulitis Plan: Patient has some form of contact dermatitis, she does have a pet the goes outside, she could be exposed to poison jagdish from the oils on the pets hair. This could also be eczema. It does appear she may be developing early cellulitis over the left stapleton from her scratching, she has been using Benadryl without relief, I did let the family know that Benadryl is not a good medication to be used in the elderly population. We will send with the hydroxyzine, short script, and doxycycline. Also sending with triamcinolone cream Lab Data 02/25/25 18:46 02/25/25 18:46 Labs: Lab Results 02/25/25 02/26/25 Range/Units 18:46 00:03 WBC 5.5 (4.8-10.8) X10*3/uL RBC 3.43 L (4.20-5.50) X10*6/uL Hgb 10.2 L (12.0-16.0) g/dl Hct 28.9 L (37.0-47.0) % MCV 84.3 (80.0-98.0) fL MCH 29.7 (27.0-33.0) pg MCHC 35.3 H (31.0-35.0) g/dl RDW 11.3 (11.0-16.0) % Plt Count 241 (160-400) X10*3/uL MPV 10.4 (9.4-12.3) fL Immature Gran % (Auto) 0.4 (0.0-0.4) % Neut % (Auto) 62.6 (45-73) % Lymph % (Auto) 21.8 (20-40) % Crane % (Auto) 9.4 (2-11) % Eos % (Auto) 4.9 H (0-4) % Baso % (Auto) 0.9 (0-2) % Lymph # (Auto) 1.2 (1.2-4.9) X10*3/uL Crane # (Auto) 0.5 (0.1-1.2) X10*3/uL Eos # (Auto) 0.3 (0.0-0.4) X10*3/uL Baso # (Auto) 0.1 (0.0-0.2) X10*3/uL Abs Immat Gran (auto) 0.02 (0.00-0.03) X10*3/uL Absolute Neuts (auto) 3.5 (2.0-8.3) x10*3/uL Absolute Nucleated RBC 0.000 (0.0-0.012) X10*3/uL Nucleated RBC % (auto) 0.0 (0.0-0.2) /100WBC Sodium 139 (135-145) mmol/L Potassium 4.0 (3.3-5.1) mmol/L Chloride 105 (96-108) mmol/L Carbon Dioxide 26 (22-29) mmol/L Anion Gap 12 (12-20) BUN 27 H (9-16) mg/dL Creatinine 2.79 H (0.5-1.4) mg/dL Estim Creat Clear Calc 15.4 Estimated GFR 17 POC Glucose 270 H (60-115) mg/dL Random Glucose 183 H (60-115) mg/dL Calcium 8.4 D (8.4-10.2) mg/dL Total Bilirubin 0.2 (0.0-1.0) mg/dL AST 21 (5-31) U/L ALT 9 (0-31) U/L Alkaline Phosphatase 83 (39-117) U/L B-Natriuretic Peptide 93 (<100) pg/mL Total Protein 6.2 L (6.5-8.0) g/dL Albumin 3.3 L (3.5-5.0) g/dL Discharge Plan Discharge Clinical Impression: Contact dermatitis, Cellulitis Patient Disposition: Home, Self-Care Instructions: Contact Dermatitis (ED), Cellulitis (ED), Eczema (ED) Additional Instructions: You are being treated for contact dermatitis, it is unclear what the sources, this could also be eczema. See home care instructions. Use the steroid cream as directed, apply a thin film to the affected areas. Use the hydroxyzine as needed for the itchiness, this is an antihistamine, it will cause drowsiness. Take the doxycycline for suspect early cellulitis from scratching. Follow up with primary care as needed. Prescriptions: New hydroxyzine HCl 25 mg tablet 25 mg PO TID PRN (Reason: itching) Qty: 10 0RF doxycycline hyclate 100 mg capsule 100 mg PO BID Qty: 13 0RF triamcinolone acetonide 0.025 % cream 1 appl topical BID Qty: 15 0RF Rx Instructions: Apply a thin film to affected areas No Action (DME) blood-glucose meter [OneTouch Ultra2 Meter] Misc See Rx Instructions .Route Qty: 1 0RF Rx Instructions: test 3 times per day (DME) lancets [OneTouch UltraSoft 2 Lancet] 30 gauge misc See Rx Instructions .Route Qty: 200 5RF Rx Instructions: test 3 times per day (DME) OneTouch Ultra Test Strip See Rx Instructions .Route Qty: 100 8RF Rx Instructions: test 3 times per day clopidogrel 75 mg tablet 75 mg PO DAILY Qty: 90 1RF (DME) pen needle, diabetic [Easy Comfort Pen [place]] 31 gauge x 3/16 needle See Rx Instructions .Route Qty: 100 5RF Rx Instructions: As directed- QID insulin glargine [Basaglar KwikPen U-100 Insulin] 100 unit/mL (3 mL) insulin pen 45 unit subcut BEDTIME Qty: 15 3RF insulin lispro [Humalog KwikPen Insulin] 100 unit/mL insulin pen 15 unit SUBCUT TIDWMEAL Qty: 15 1RF (DME) FreeStyle Song 3 [place] Misc See Rx Instructions .Route Qty: 1 0RF Rx Instructions: As directed (DME) FreeStyle Song 3 Plus Sensor Device See Rx Instructions .Route Qty: 6 3RF Rx Instructions: every 15 days rosuvastatin 5 mg tablet 5 mg PO DAILY Qty: 90 1RF amlodipine 10 mg tablet 10 mg PO DAILY Qty: 90 1RF gabapentin 400 mg capsule 400 mg PO BID Qty: 120 1RF citalopram 10 mg tablet 20 mg PO DAILY 90 Days Qty: 180 0RF albuterol sulfate 90 mcg/actuation HFA aerosol inhaler 2 puff PO QID PRN (Reason: shortness of breath or wheezing) aspirin 81 mg tablet,delayed release (DR/EC) 81 mg PO DAILY Qty: 30 0RF alcohol swabs Pads, Medicated 1 pad TOPICAL QIDACHS Qty: 100 0RF Rx Instructions: Use four times a day or as directed. (DME) FreeStyle Song 3 [place] Misc See Rx Instructions .Route Qty: 1 0RF Rx Instructions: As directed (DME) FreeStyle Song 3 Sensor Device See Rx Instructions .Route Qty: 6 3RF Rx Instructions: As directed for 14 days Jardiance 10 mg tablet 10 mg PO DAILY Qty: 90 3RF erythromycin 5 mg/gram (0.5 %) ointment 0.5 inch ophthalmic (eye) TID Qty: 1 0RF olopatadine 0.1 % drops 1 drp ophthalmic (eye) BID Qty: 5 1RF Rx Instructions: separate doses by at least 6-8 hours Interventions: ED Discharge Assessment Last Done: 02/26/25 00:51 Discharge Date/Time: 02/26/25 00:51 Print Language: Estonian
--- NOTE | 2025-02-25 18:30 | ECG_ITS ---
Test Reason : LLE SWELLING Blood Pressure : */* mmHG Vent. Rate : 93 BPM Atrial Rate : 93 BPM P-R Int : 164 ms QRS Dur : 86 ms QT Int : 382 ms P-R-T Axes : 32 1 48 degrees QTcB Int : 474 ms Normal sinus rhythm Normal ECG When compared with ECG of 29-Mar-2024 08:27, No significant change was found Referred By: Anais Pleitez Electronically Signed By: MARY JANE CALIXTO
[2025-02-25 18:49] LABS: MANUAL DIFF FLAG NO
[2025-02-25 18:50] LABS: Hematocrit 28.9 % (37.0-47.0); Hemoglobin 10.2 g/dl (12.0-16.0); Imm Gran Abs Auto 0.02 X10*3/uL (0.00-0.03); Imm Gran Pct Auto 0.4 % (0.0-0.4); Lymphocytes Absolute Auto 1.2 X10*3/uL (1.2-4.9); Mean Corpuscular HGB Conc 35.3 g/dl (31.0-35.0); Mean Corpuscular Hemoglobin 29.7 pg (27.0-33.0); Mean Corpuscular Volume 84.3 fL (80.0-98.0); NRBC Abs Auto 0.000 X10*3/uL (0.0-0.012); NRBC Pct Auto 0.0 /100WBC (0.0-0.2); Platelet Count 241 X10*3/uL (160-400); Red Blood Count 3.43 X10*6/uL (4.20-5.50); White Blood Count 5.5 X10*3/uL (4.8-10.8)
[2025-02-25 19:03] LABS: Alanine Aminotransferase 9 U/L (0-31); Albumin Level 3.3 g/dL (3.5-5.0); Alkaline Phosphatase 83 U/L (39-117); Anion Gap 12 (12-20); Aspartate Amino Transferase 21 U/L (5-31); Blood Urea Nitrogen 27 mg/dL (9-16); Calcium 8.4 mg/dL (8.4-10.2); Carbon Dioxide 26 mmol/L (22-29); Chloride 105 mmol/L (96-108); Creatinine Clr Calc Pharmacy 15.4; Estimated Glomerular Filt Rate 17; Potassium 4.0 mmol/L (3.3-5.1); Sodium 139 mmol/L (135-145); Total Protein 6.2 g/dL (6.5-8.0)
[2025-02-25 19:09] LABS: B Type Natriuretic Peptide 93 pg/mL (<100)
[2025-02-25 23:29] VITALS: BP 155/66; PULSE 78; RESP 18; TEMP 36.9; O2SAT 96
[2025-02-26 00:08] LABS: Glucose, Whole Blood 270 mg/dL (60-115)
--- NOTE | 2025-02-26 00:17 | PC.NURSE ---
Pt reports glucometer reads blood sugar in the 500's. POC: 270.
[2025-02-26 00:51] VITALS: BP 155/66; PULSE 78; RESP 18; TEMP 36.9; O2SAT 96
== END 2025-02-26 00:51 | disposition home or self-care (01) ==
PROVIDERS: Physician Assistant Medical; Emergency Provider Emergency Medicine; PCP Internal Medicine
DX: L03.116 Cellulitis of left lower limb (principal); L03.115 Cellulitis of right lower limb; L25.9 Unspecified contact dermatitis, unspecified cause; R21 Rash and other nonspecific skin eruption; E11.22 Type 2 diabetes mellitus with diabetic chronic kidney disease; I12.9 Hypertensive chronic kidney disease with stage 1 through stage 4 chronic kidney disease, or unspecified chronic kidney disease; N18.9 Chronic kidney disease, unspecified; E78.5 Hyperlipidemia, unspecified
CPT/HCPCS: 36415; 80053; 82947; 83880; 85025; 93005; 99283; 99284

== ENCOUNTER → 2025-02-25 18:30 | Outpatient (BNV) | payer OTHER, SELFPAY | PROVIDERS: Emergency Provider Emergency Medicine; PCP Internal Medicine; Visit Provider Internal Medicine | DX: R22.42 Localized swelling, mass and lump, left lower limb (principal); Z13.6 Encounter for screening for cardiovascular disorders | CPT/HCPCS: 93010 ==

== ENCOUNTER 2025-03-05 10:54 | Outpatient (AMB) | payer OTHER, SELFPAY ==
--- NOTE | 2025-03-05 10:59 | MHC.OFFVIS ---
Intake Visit Reasons: 6m follow up s/p Arterial US 02/06/25 Intake Note: Patient presents for follow up arterial US performed on 02/06/25. Patient has itchiness in both legs. Accompanied by: Grand Child Allergies lisinopril Adverse Reaction (Verified 03/05/25 11:02) Unknown HPI HPI 6m follow up s/p Arterial US 02/06/25: Details: Very pleasant 74-year-old female presents for follow-up evaluation regarding peripheral vascular disease. As she had seen us in the past and had actually undergone left lower extremity endovascular intervention by us this was done back in April of 2024. In general appears to be ambulating fairly well does require the use of walker. Her biggest complaint right now is a generalized itch. She was treated in the emergency room for cellulitis and questionable contact dermatitis. She did report some relief from the medication. It has returned. She is most concerned about that. At the current time she is ambulating well. [facility] Medical History Allergic conjunctivitis Diabetes Encounter for colorectal cancer screening using Cologuard test (~05/16/24) PAD (peripheral artery disease) Acute osteomyelitis of toe CKD (chronic kidney disease) HTN (hypertension) Surgical History History of cataract surgery History of bladder surgery History of total hysterectomy History of tonsillectomy Family History Father Hypertension Diabetes Hx of leg amputation Mother Myocardial infarction Diabetes Hypertension Sister Breast cancer Brother Diabetes Maternal Aunt Bone cancer Social History Household Members: Family Household Members Other:: daughter, grandkids, , 6 total Housing: House Housing Other:: first floor. 4 steps to get in Do you presently have visiting nurse or other home services: Yes Unable to assess alcohol history related to: Unknown Alcohol intake: never Patient Tobacco Use Status: Never used Tobacco e-Cigarette/Vaping Use: Never Used Second Hand Smoke Exposure: No Advance Directives Date on File: 12/05/23 service: No Current occupational status: retired Current occupation: rt hand Cognitive needs: Yes (cane) Hearing needs: No Vision needs: Yes (Glasses) Review of Systems Const All systems reviewed & are unremarkable except as noted in HPI and below Reports no additional complaints ENT Reports Normal hearing present Card Denies chest pain, Denies chest pain at rest, Denies chest pain with activity and Denies pedal edema Resp Denies cough GI Denies abdominal pain Musc Denies abnormal gait, Denies muscle cramps and Denies radiating pain into limb Skin/Breast Denies skin ulcer and Denies wounds Neuro Reports Normal hearing present and Denies abnormal gait Psych Reports no additional complaints Physical Exam Const General: cooperative, healthy appearing and comfortable Orientation/consciousness: oriented to person, oriented to place and oriented to time HEENT Head: Yes normal to inspection Neck Neck: Yes normal visual inspection Carotids: no bruits Chest Chest palpation & inspection: normal inspection of the chest Resp Effort & Inspection: normal respiratory effort and able to speak in complete sentences Auscultation: clear to auscultation bilaterally, no crackles, no rales, no rhonchi and no wheezes Cardio Other: Bilateral DP signals Rate: regular rate Rhythm: regular rhythm Heart sounds: S1 normal heart sound present and S2 normal heart sound present Bruits: no carotid bruits GI Inspection: Yes normal to inspection Skin Wounds: no wounds Hair: normal Neuro General: oriented to person, oriented to place and oriented to time Cranial nerves: Yes CN's II-XII intact bilaterally and Yes Normal hearing present Cognition (Neuro): normal cognition Motor exam (neuro): 5/5 motor strength present throughout Extrem Other: venous exam: No significant superficial varicosities or spider telangiectasias, minimal edema General: No clubbing, No cyanosis and No edema Psych Appearance: grossly normal Mental Status: mental status grossly normal Speech and movement: Normal speech and movement present Results Reviewed Results Reviewed: Noninvasive arterial testing dated 02/06/2025 demonstrates YENY on the right of 0.77 and on the left of 0.8. I disagree with radiology read. It appears to be mild outflow disease. Written report and images were reviewed. Assessment & Plan Assessment & Plan (1) PAD (peripheral artery disease): Comment: 05/09/2024 left SFA atherectomy with stent placement Code(s): I73.9 - Peripheral vascular disease, unspecified Category: Medical Plan: In short patient has stable claudication. I did review the pathophysiology of peripheral vascular disease with the patient. In addition we did discuss routine conservative measures including a healthy diet and the importance of exercise and ambulation. We did discuss risk factor modification. The patient will continue to to follow-up with surveillance follow-up in approximately 1 year. Thank you for allowing us to participate in this patient's care. If there are any questions or concerns please do not hesitate to contact us. Orders: Orders US arterial duplex LE BI Today I73.9 - Peripheral vascular disease, unspecified Coding Level of Care Code Est Pt Level 4 (94709) Complex EM visit Add On G2211 Diagnoses PAD (peripheral artery disease) I73.9
--- OUTSIDE RECORDS SUMMARY | 2025-03-05 12:02 | XMS_ITS | Clinical Summary ---
Author Organization [facility] Address [address] [place], [place] [id number] Phone Care Team Providers Care Wood Engraver Name Role Phone Unavailable Primary Care Provider Unavailabl e Social History Tobacco Use Types Packs/Day Years Used Date Smoking Tobacco: Never Assessed Education Answer Date Recorded Are you interested in more education? Not on shantelle e 03/05/2024 Are you concerned about learning? Not on file 03/05/2024 No 03/05/2024 No 03/05/2024 Digital Access Answer Date Recorded No 03/05/2024 No 03/05/2024 Reliable internet access at home? Not on file 03/05/2024 Device with a working camera? Not on file Comments Unknown Sex and Gender Information Value Date Recorded Sex Assigned at Not on file Legal Sex Female 10:02 PM EDT Gender Identity Not on file Sexual Orientation Not on file Plan of Treatment Not on file Medical Devices Not on file Additional Source Comments The information contained in this document represents components of the legal health record. It is not the complete legal health record.[facility]
== END 2025-03-05 11:20 | disposition home or self-care (01) ==
LOC: HO.HVS 10:55
PROVIDERS: PCP Internal Medicine; Visit Provider Surgery Vascular Surgery
DX: I73.9 Peripheral vascular disease, unspecified (principal)
CPT/HCPCS: 99214; G2211

== ENCOUNTER → 2025-03-05 10:54 | Outpatient (BNVA) | payer OTHER, SELFPAY | PROVIDERS: PCP Internal Medicine; Visit Provider Surgery Vascular Surgery | DX: I73.9 Peripheral vascular disease, unspecified (principal) | CPT/HCPCS: 99212 ==

== ENCOUNTER 2025-05-23 11:24 | Outpatient (AMB) | payer OTHER, SELFPAY ==
--- NOTE | 2025-05-23 11:32 | A.OFFPC_ITS ---
Vital Signs 05/23/25 11:33 Height 5 ft Weight 152 lb BMI 29.7 BP 112/70 Blood Pressure Location Lt brachial Position Sitting Pulse 85 Pulse Source Pulse Oximeter Temp 97.1 F Temp Source Temporal Artery Scan Pulse Oximetry (%) 97 Oxygen Delivery Method Room Air Intake Visit Reasons: Annual exam Intake Note: Patient is here today for a physical. Complaint of itchiness all over body and bilateral knee pain. Rolled Glass Crosscutter Required: Yes Rolled Glass Crosscutter Language: Nepali Information Interpreted: non-clinical & clinical [employer] Student Education Aide: Present Accompanied by: Daughter Allergies lisinopril Adverse Reaction (Verified 05/23/25 11:33) Unknown Tobacco use date assessed: 05/23/25 Fall risk assessment: No Falls in past year Last assessed Fall Risk: 05/23/25 Dental Screening Dental Screen Date: 08/02/24 [facility] Medical History Allergic conjunctivitis Diabetes Encounter for colorectal cancer screening using Cologuard test (~05/16/24) PAD (peripheral artery disease) Acute osteomyelitis of toe CKD (chronic kidney disease) HTN (hypertension) Surgical History History of cataract surgery History of bladder surgery History of total hysterectomy History of tonsillectomy Family History Father Hypertension Diabetes Hx of leg amputation Mother Myocardial infarction Diabetes Hypertension Sister Breast cancer Brother Diabetes Maternal Aunt Bone cancer Social History Household Members: Family Household Members Other:: daughter, grandkids, , 6 total Housing: House Housing Other:: first floor. 4 steps to get in Do you presently have visiting nurse or other home services: Yes Unable to assess alcohol history related to: Unknown Alcohol intake: never Patient Tobacco Use Status: Never used Tobacco e-Cigarette/Vaping Use: Never Used Second Hand Smoke Exposure: No Advance Directives Date on File: 12/05/23 service: No Current occupational status: retired Current occupation: rt hand Cognitive needs: Yes (cane) Hearing needs: No Vision needs: Yes (Glasses) Questionnaire Thrive Questionnaire Date Thrive assessed: 11/22/24 I am a: Patient What is your living situation today?: I have a steady place to live Within the past 12 months, did the food you bought not last and you didn't have the money to get more?: Never true Within the past 12 months, did you worry whether your food would run out before you got money to buy more?: Never true Do you have trouble paying for medicines?: Yes Do you have trouble getting transportation to medical appointments?: No Do you have trouble paying your heating and electricity bill?: No Do you have trouble taking care of your child, family member or friend?: No Do you have trouble with day-to-day activities such as bathing, preparing meals, shopping, managing finances, etc.?: No Are you currently unemployed and looking for a job?: No Are you interested in more education?: No Please select the resources that you would like help with: None Currently or been in a relationship where the following occur: I choose not to answer THRIVE Score: 0 EMMETT-7 AMB Questionnaire EMMETT-7 Date EMMETT - 7 assessed: 11/22/24 Source: Developed by Drs. Raymundo Ontiveros, Neva Russell, Navin Sarah and colleagues, with an educational gogo from [employer]. Physical exam (Primary Care) Vital Signs: Last Vital Signs Temp 97.1 F 05/23/25 11:33 Pulse 85 05/23/25 11:33 BP 112/70 05/23/25 11:33 Pulse Ox 97 05/23/25 11:33 Oxygen Delivery Method Room Air 05/23/25 11:33 BMI result Body Mass Index 29.7 Tobacco/Smoking Status: Tobacco use Status Tobacco use date assessed 05/23/25 05/23/25 11:34 Patient Tobacco Use Status Never used Tobacco 05/23/25 11:34 e-Cigarette/Vaping Use Never Used 05/23/25 11:34 Thrive Assessment: Date of Thrive Assessment Date Thrive assessed 11/22/24 05/23/25 11:34 Currently or been in a relationship where the following occur: I choose not to answer Results AMB Hemoglobin A1c AMB Hemoglobin A1c 7.6 % Last Edit by MICHAEL Cabrales on 05/23/25 11:49 Results Reviewed Results Reviewed: Laboratory Last Values Hgb A1c (Clinic) 7.6 % (4.0-6.0) H 05/23/25 11:48 Coding Assessment & Plan Assessment & Plan Orders: Orders AMB Hemoglobin A1c Today E11.65 - Type 2 diabetes mellitus with hyperglycemia, E11.9 - Type 2 diabetes mellitus without complications, Z79.4 - termite exterminator (current) use of insulin
[2025-05-23 11:33] VITALS: BP 112/70; PULSE 85; TEMP 36.2; O2SAT 97; BMI 29.7
--- OUTSIDE RECORDS SUMMARY | 2025-05-23 14:20 | XMS_ITS | Clinical Summary ---
Author Organization [facility] Address [address] [place], [place] [id number] Phone Care Team Providers Care Shrinker Name Role Phone Unavailable Primary Care Provider [...] It is not the complete legal health record.[facility]
== END 2025-05-23 13:29 | disposition home or self-care (01) ==
LOC: HO.HMCH 11:25
PROVIDERS: PCP Internal Medicine; Visit Provider Internal Medicine
DX: E11.9 Type 2 diabetes mellitus without complications (principal); E11.65 Type 2 diabetes mellitus with hyperglycemia; Z79.4 Long term (current) use of insulin

== ENCOUNTER → 2025-05-23 11:24 | Outpatient (BNVA) | payer OTHER, SELFPAY | PROVIDERS: PCP Internal Medicine; Visit Provider Internal Medicine | DX: E11.65 Type 2 diabetes mellitus with hyperglycemia (principal); Z79.4 Long term (current) use of insulin | CPT/HCPCS: 83036; 99212 ==

== ENCOUNTER 2025-06-03 15:26 | Outpatient (AMB) | payer OTHER, SELFPAY ==
[2025-06-03 15:43] VITALS: BP 120/72; PULSE 94; TEMP 36.1; O2SAT 95; BMI 31.2
--- NOTE | 2025-06-03 15:43 | A.OFFPC_ITS ---
Vital Signs 06/03/25 15:43 Height 5 ft Weight 159 lb 9.835 oz BMI 31.2 BP 120/72 Blood Pressure Location Lt brachial Position Sitting Pulse 94 Pulse Source Pulse Oximeter Temp 97.0 F Temp Source Temporal Artery Scan Pulse Oximetry (%) 95 Oxygen Delivery Method Room Air Intake Visit Reasons: Left eye issue Accompanied by: Daughter Allergies lisinopril Adverse Reaction (Verified 06/03/25 15:49) Unknown Tobacco use date assessed: 06/03/25 Fall risk assessment: No Falls in past year Last assessed Fall Risk: 06/03/25 Dental Screening Dental Screen Date: 06/03/25 Did you have a dental visit in the last 12 months?: Yes Did you have a dental problem in the last 6 months where you did not have access to dental care?: No Was dental information given to patient?: Patient has dentist HPI HPI Comments History of Present Illness Details The patient is a 74-year-old female with PMH of HTN, DM, MDD, PAD on Plavix accompanied by her daughter, presenting for an acute onset of vision loss in her left eye, which she noticed upon waking today. She reports seeing only blackness from the affected eye. Associated symptoms include sweating, pain, and a swollen vein in her neck. Her vision was reportedly normal prior to this morning. The patient has a history of diabetes. She did not seek care elsewhere before this visit. Advised the patient to go to ED. [facility] Medical History Allergic conjunctivitis Diabetes Encounter for colorectal cancer screening using Cologuard test (~05/16/24) PAD (peripheral artery disease) Acute osteomyelitis of toe CKD (chronic kidney disease) HTN (hypertension) Surgical History History of cataract surgery History of bladder surgery History of total hysterectomy History of tonsillectomy Family History Father Hypertension Diabetes Hx of leg amputation Mother Myocardial infarction Diabetes Hypertension Sister Breast cancer Brother Diabetes Maternal Aunt Bone cancer Social History Household Members: Family Household Members Other:: daughter, grandkids, , 6 total Housing: House Housing Other:: first floor. 4 steps to get in Do you presently have visiting nurse or other home services: Yes Alcohol intake: never Patient Tobacco Use Status: Never used Tobacco e-Cigarette/Vaping Use: Never Used Second Hand Smoke Exposure: No Advance Directives Date on File: 12/05/23 service: No Current occupational status: retired Current occupation: rt hand Cognitive needs: Yes (cane) Hearing needs: No Vision needs: Yes (Glasses) Questionnaire PHQ-9 Over the last 2 weeks, how often have you been bothered by any of the following problems? 1. Little interest or pleasure in doing things: not at all 2. Feeling down, depressed, or hopeless: not at all 3. Trouble falling or staying asleep, or sleeping too much: not at all 4. Feeling tired or having little energy: several days 5. Poor appetite or overeating: several days 6. Feeling bad about yourself - or that you are a failure or have let yourself or your family down: not at all 7. Trouble concentrating on things, such as reading the newspaper or watching television: not at all 8. Moving or speaking so slowly that other people could have noticed. Or the opposite - being so fidgety or restless that you have been moving around a lot more than usual: not at all 9. Thoughts that you would be better off or of hurting yourself in some way: not at all Total score: 2 Depression Screening Interpretation: Positive Depression Screening Done: Yes Source: Developed by Drs. Raymundo Ontiveros, Neva Russell, Navin Sarah and colleagues, with an educational gogo from [employer]. Thrive Questionnaire Date Thrive assessed: 11/22/24 I am a: Patient What is your living situation today?: I have a steady place to live Within the past 12 months, did the food you bought not last and you didn't have the money to get more?: Never true Within the past 12 months, did you worry whether your food would run out before you got money to buy more?: Never true Do you have trouble paying for medicines?: Yes Do you have trouble getting transportation to medical appointments?: No Do you have trouble paying your heating and electricity bill?: No Do you have trouble taking care of your child, family member or friend?: No Do you have trouble with day-to-day activities such as bathing, preparing meals, shopping, managing finances, etc.?: No Are you currently unemployed and looking for a job?: No Are you interested in more education?: No Please select the resources that you would like help with: None Currently or been in a relationship where the following occur: I choose not to answer THRIVE Score: 0 AUDIT C Alcohol Use Questionnaire (AUDIT-C) 1. How often do you have a drink containing alcohol?: Never 3. How often do you have six or more drinks on one occasion?: Never Total Score: 0 EMMETT-7 AMB Questionnaire EMMETT-7 Date EMMETT - 7 assessed: 11/22/24 Feeling nervous, anxious, or on edge: 1 = Several days Not being able to stop or control worryin = Several days Worrying too much about different things: 1 = Several days Trouble relaxin = Not at all Being so restless that it is hard to sit still: 0 = Not at all Becoming easily annoyed or irritable: 0 = Not at all Feeling afraid as if something awful might happen: 0 = Not at all Total EMMETT-7 score (0-4 normal; 5-9 mild; 10-14 moderate; 15-21 severe): 3 Source: Developed by Drs. Raymundo Ontiveros, Neva Russell, Navin Sarah and colleagues, with an educational gogo from [employer]. Review of Systems Const Details: As per HPI. Physical exam (Primary Care) Vital Signs: Last Vital Signs Temp 97.0 F 06/03/25 15:43 Pulse 94 06/03/25 15:43 BP 120/72 06/03/25 15:43 Pulse Ox 95 06/03/25 15:43 Oxygen Delivery Method Room Air 06/03/25 15:43 BMI result Body Mass Index 31.2 Tobacco/Smoking Status: Tobacco use Status Tobacco use date assessed 06/03/25 06/03/25 15:50 Patient Tobacco Use Status Never used Tobacco 06/03/25 15:43 e-Cigarette/Vaping Use Never Used 06/03/25 15:43 PHQ-9: PHQ-9 Score PHQ-9: Total score 2 06/03/25 15:50 Depression Screening Interpretation: Positive Thrive Assessment: Date of Thrive Assessment Date Thrive assessed 11/22/24 06/03/25 15:43 Currently or been in a relationship where the following occur: I choose not to answer Const Other: Pertinent findings are in BOLD GENERAL APPEARANCE NAD, activity normal for age, well developed/ well nourished, no cyanosis, pallor, or diaphoresis. EYES lids/conjunctiva normal. Blindness in the left eye. EARS/NOSE/THROAT Mucous membranes moist, nares normal, lips/teeth normal uvula midline without oral pharyngeal erythema, exudate or swelling TMs normal bilaterally. No lymphangitis/lymphedema. HEAD/NECK normocephalic atraumatic, no facial trauma, neck is supple. Swelling in the left side of her neck veins. RESPIRATORY respiratory effort normal, speaks in full sentences, no tripod position, no accessory muscle use. Lungs clear to auscultation without rhonchi, wheezes, rales CARDIAC Regular rate and rhythm, no edema. ABDOMINAL Soft, ND/NT. No evidence of fluid wave. No pulsatile masses on exam, rebound tenderness, Rowley sign or pain over Mcburney's point. MUSCLES/EXTREMITIES No abnormal range of motion, no swelling. SKIN Warm, pink and dry. No rashes, dermatoses, petechiae or lesions. NEUROLOGICAL Speech is clear and appropriate. Normal level of consciousness. Gait and coordination are normal. 5/5 strength in all extremities. PSYCH Normal mood and affect. Judgement/competence is appropriate Coding Level of Care Code Est Pt Level 3 (02724) Diagnoses Vision loss of left eye H54.62 Time Spent (min) 20 Assessment & Plan Assessment & Plan (1) Vision loss of left eye: Code(s): H54.62 - Unqualified visual loss, left eye, normal vision right eye Category: Medical Plan: - The patient presents with acute monocular vision loss, a medical emergency. - There is concern for a possible blockage, potentially related to the reported swollen vein in her neck. - The patient is advised to go to the emergency department immediately for evaluation. - An emergent workup in the ED is necessary and will likely include a CT scan of the head and an MRI of the brain. - I called the ED to provide a verbal report and notify them of the patient's impending arrival. Plan I explained to the patient and her daughter that sudden vision loss in one eye is a serious issue that requires immediate evaluation in an emergency department. I informed them that the hospital can perform all necessary tests, such as a CT scan and MRI, to determine the cause. I advised them to specifically mention the bulging vein, as it could be related to a blockage causing her vision loss. I offered to call the hospital to notify them of her arrival, though I noted this does not guarantee she will be seen sooner.
--- OUTSIDE RECORDS SUMMARY | 2025-06-03 17:31 | XMS_ITS | Clinical Summary ---
Author Organization [facility] Address [address] [place], [place] [id number] Phone Care Team Providers Care Transplant Immunologist Name Role Phone Unavailable Primary Care Provider [...] It is not the complete legal health record.[facility]
== END 2025-06-03 16:02 | disposition home or self-care (01) ==
LOC: HO.HMCH 15:26
PROVIDERS: PCP Internal Medicine; Visit Provider Internal Medicine
DX: H54.62 Unqualified visual loss, left eye, normal vision right eye (principal)

== ENCOUNTER 2025-06-03 16:15 | Emergency (ER) | payer OTHER, SELFPAY ==
[2025-06-03 16:34] VITALS: BP 121/62; PULSE 96; RESP 16; TEMP 36.6; O2SAT 93; BMI 36.7
--- NOTE | 2025-06-03 16:34 | ED_ITS ---
HPI - General Adult General Chief complaint: Eye Problems Stated complaint: blind in lt eye, sent from pcp Time Seen by Provider: 06/03/25 17:11 Source: patient and family Mode of arrival: ambulatory Limitations: no limitations History of Present Illness ED Provider: Dr. Mckenna Thrasher HPI narrative: Patient comes to the emergency room complaining of seeing ?bloody worms throughout her entire visual field of the left eye. Patient states that she has had this happened multiple times. In both eyes. Patient states that she has been told multiple times that she has hemorrhages intermittently in both eyes. Patient states that she is still able to see, but the whole pratt he is obscured by those ?bloody worms . Patient denies any ocular pain. Related Data Home Medications ?Medication ?Instructions ?Recorded ?Confirmed albuterol sulfate 90 mcg/actuation 2 puff PO QID PRN s hortness of 03/02/24 05/09/24 aerosol inhaler breath or wheezing Previous Rx's ?Medication ?Instructions ?Recorded blood-glucose meter (OneTouch #1 ea 03/21/23 Ultra2 Meter) lancets 30 gauge (OneTouch #200 ea 03/21/23 UltraSoft 2 Lancet) FreeStyle Song 3 Sensor #6 ea 02/23/24 (blood-glucose sensor) blood-glucose,senior dentist,cont #1 ea 02/23/24 (FreeStyle Song 3 Dumas) empagliflozin 10 mg tablet 10 mg PO DAILY #90 tabs 08/17 (Jardiance) aspirin 81 mg tablet,delayed 81 mg PO DAILY #30 tabs 0 03/05/24 release alcohol swabs 1 pad topical QIDACHS #100 e a 04/03/24 erythromycin 5 mg/gram (0.5 %) eye 0.5 inch ophthalmic (eye) TID #1 g 04/23/24 ointment clopidogrel 75 mg tablet 75 mg PO DAILY #90 tabs 07/25 12/16 insulin lispro 100 unit/mL 15 unit (0.15 mL) subcut TI DWMEAL 08/27/24 subcutaneous pen (Humalog KwikPen #15 mL (U-100) Insulin) FreeStyle Song 3 Plus Sensor #6 ea 10/09/24 (blood-glucose sensor) FreeStyle Song 3 Dumas #1 ea 10/09/24 (blood-glucose,senior dentist,cont) olopatadine 0.1 % eye drops 1 drp ophthalmic (eye) BID #5 mL 11/22/24 amlodipine 10 mg tablet 10 mg PO DAILY #90 tabs 01/22 08/18 rosuvastatin 5 mg tablet 5 mg PO DAILY #90 tabs 02/01 citalopram 10 mg tablet 20 mg (2 x 10 mg) PO DAILY 9 0 days 02/15/25 #180 tabs gabapentin 400 mg capsule 400 mg PO BID #120 caps 01/23 12/16 hydroxyzine HCl 25 mg tablet 25 mg PO TID PRN itching #10 tabs 02/26/25 triamcinolone acetonide 0.025 % 1 appl topical BID #15 grams 02/26/25 topical cream pen needle, diabetic 31 gauge x #100 ea 03/08/2510/07 (Easy Comfort Pen Derby) insulin glargine 100 unit/mL (3 35 unit (0.35 mL) subc ut BEDTIME 03/26/25 mL) subcutaneous pen (Lantus 90 days #31.5 mL Solostar U-100 Insulin) blood sugar diagnostic (OneTouch #100 ea 04/10/25 Ultra Test strips) hydroxyzine HCl 25 mg tablet 50 mg (2 x 25 mg) PO QID 14 days 04/10/25 #112 tabs prednisone 50 mg tablet 50 mg PO QAM #5 tabs 5 polyethylene glycol 3350 17 gram 17 g PO DAILY #30 ea 04/25/25 oral powder packet (Miralax) Allergies Allergy/AdvReac Type Severity Reaction Status Date / Time No Known Allergies Allergy Verified 06/03/25 16:42 Review of Systems 2 Review of Systems: Constitutional : No Weight loss, No Fever, No Chills, No Night Sweats, No Fatigue, No Malaise ENT/Mouth : No Hearing loss, No Ear Pain, No Nasal Congestion, No Sinus Pain, No Hoarseness, No sore throat, No Rhinorrhea, No Swallowing Difficulty Eyes: No Eye Pain, No Swelling, No Redness, No Foreign Body, No Discharge, complaining of seeing ?bloody worms ? for the entire visual field of the left eye Cardiovascular : No Chest Pain, No SOB, No Dyspnea on Exertion, No Orthopnea, No Edema, No Palpitations Respiratory : No Cough, No Sputum, No Wheezing, No Smoke Exposure, No Dyspnea Gastrointestinal : No Nausea, No Vomiting, No Diarrhea, No Constipation, No abdominal Pain, No Hematochezia, No Melena Genitourinary : no irregular bleeding, No Dysuria, No Urinary Frequency, No Hematuria, No Urinary Incontinence, No Urgency, No Flank Pain, No Urinary Flow Changes, No Hesitancy Musculoskeletal : No joint pain, No Myalgias, No Joint Swelling Skin : No Skin Lesions, No rash Neuro : No Weakness, No Numbness, No Paresthesias, No Loss of Consciousness, No Dizziness, No Headache Psych : No Anxiety/Panic, No Depression, No SI/HI/AH/VH, No Social Issues, Heme/Lymph: No Bruising, No Bleeding,No Lymphadenopathy Endocrine : No Polyuria, No Polydipsia, No Temperature Intolerance [facility] Past Medical History Medical History Allergic conjunctivitis Diabetes Encounter for colorectal cancer screening using Cologuard test (~05/16/24) PAD (peripheral artery disease) Acute osteomyelitis of toe CKD (chronic kidney disease) HTN (hypertension) Surgical History History of cataract surgery History of bladder surgery History of total hysterectomy History of tonsillectomy Family History Family History Father Hypertension Diabetes Hx of leg amputation Mother Myocardial infarction Diabetes Hypertension Sister Breast cancer Brother Diabetes Maternal Aunt Bone cancer Social History Social History Household Members: Family Household Members Other:: daughter, grandkids, , 6 total Housing: House Housing Other:: first floor. 4 steps to get in Do you presently have visiting nurse or other home services: Yes Alcohol intake: never Patient Tobacco Use Status: Never used Tobacco e-Cigarette/Vaping Use: Never Used Second Hand Smoke Exposure: No Advance Directives: Yes Advance Directives on File: Yes Advance Directives Date on File: 12/05/23 Do you have a plan to hurt others: No Plan service: No Current occupational status: retired Current occupation: rt hand Cognitive needs: Yes (cane) Hearing needs: No Vision needs: Yes (Glasses) Physical Exam ED Exam Exam: Appearance: Alert. Oriented X3. No acute distress. Eyes: Pupils equal, round and reactive to light bilaterally -right eye: Fluorescein stain negative for corneal abrasion. Negative Danis sign. 20/50 vision, eye pressure 21.5 mmHg, bedside US: The retina is intact, optic sheath diameter: 0.4 cm, -left eye: Fluorescent stain negative for corneal abrasion. Negative Danis sign. Patient states that she can not see the letters because of a floaters. Patient can see objects in front of her and distinguish them. Bedside ultrasound: Retina is intact. No establishment, no vitreous detachment. However, patient does have a vitreous hemorrhage ENT: Pharynx normal. Neck: Normal inspection. Neck supple. No lymph nodes noted. No crepitus CVS: Normal heart rate and rhythm. Pulses normal. Normal S1 and S2 Respiratory: No respiratory distress. Breath sounds normal. No Wheezing. No rales Abdomen: Soft and nontender. No rigidity. No distention. Skin: Skin warm and dry. Normal skin color. Normal skin turgor. Extremities: No lower extremity edema. No Lacerations. No Rash Neuro: Oriented X 3. No motor deficit. No sensory deficit. Moving all extremities. No slurred speech. CN 2 through 12 grossly intact Psych: calm, cooperative, normal affect Vital Signs: Vital Signs - 24 hr 06/03/25 16:34 06/03/25 17:52 Temperature 97.9 F Pulse Rate 96 100 Respiratory Rate 16 18 Blood Pressure 121/62 172/59 H Pulse Oximetry 93 95 Oxygen Delivery Method Room Air Room Air BMI result Body Mass Index 36.7 Course Course Course Narrative: Rapid medical examination performed in triage by Anais Pleitez PA-C: Patient is a 74 year old assigned female at presenting to the emergency department with new blindness. States that she woke up with new onset blindness in her left eye. Detailed physical exam and review of systems are deferred to the physical science teacher. Labs ordered. Patient placed back in the waiting room pending room availability and results. Medications Administered Discontinued Medications Generic Name Dose Route Start Last Admin Trade Name Freq PRN Reason Stop Dose Admin Fluorescein Sodium 1 strip 06/03/25 17:27 06/03/25 17:38 Fluorescein Sodium Strip EYE-LEFT 06/03/25 17:28 1 strip ONCE ONE Administration Medical Decision Making Medical Decision Making [facility] Narrative: I discussed the physical exam with the patient and her family, patient does have a vitreous hemorrhage. No retinal detachment. Patient is able to see any distinguish objects when holding her right eye closed and having her left eye open. Interpretation of labs: No significant abnormality in patient's hematology . Chemistry shows a creatinine of 2.68 which is at patient's baseline, glucose of 380. Patient was offered IV fluids and insulin. Patient states that she prefers to take her insulin dose at home. Patient states that she takes 45 units of Lantus at home and fast acting insulin 15 units 3 times a day. I discussed with the patient her last insulin rates. Seems that she has been between 300-400 constantly, throughout the day. I discussed with the patient to increase her Lantus to 50 units and 17 units 3 times a day and have close follow-up with the primary care physician, patient agrees with plan. Also, I discussed with the patient that she needs to have close follow-up with her eye doctor/juvenile probation officer. Patient states that she had cataract surgery done ?many years ago? and the loss of contact information for juvenile probation officer and they do not know how to find him either. I offered to the patient information to follow up with Dr. Graves Differential Diagnosis Differential Diagnoses: The differential diagnosis associated with the presentation includes (Within all detachment, vitreous detachment, vitreous hemorrhage, hyperglycemia) Admission/Observation Consideration of admission/observation: Escalation of care including admission/observation considered (Given patient's physical exam and lab findings, observation was considered) Lab Data MDM Lab Attestation statement: I reviewed the patient's lab results. 06/03/25 17:40 06/03/25 17:40 Labs: Lab Results 06/03/25 06/03/25 Range/Units 17:40 17:44 WBC 5.7 (4.8-10.8) X10*3/uL RBC 3.45 L (4.20-5.50) X10*6/uL Hgb 10.0 L (12.0-16.0) g/dl Hct 29.5 L (37.0-47.0) % MCV 85.5 (80.0-98.0) fL MCH 29.0 (27.0-33.0) pg MCHC 33.9 (31.0-35.0) g/dl RDW 11.8 (11.0-16.0) % Plt Count 255 (160-400) X10*3/uL MPV 10.5 (9.4-12.3) fL Immature Gran % (Auto) 0.4 (0.0-0.4) % Neut % (Auto) 71.7 (45-73) % Lymph % (Auto) 14.6 L (20-40) % Talbot % (Auto) 9.1 (2-11) % Eos % (Auto) 3.7 (0-4) % Baso % (Auto) 0.5 (0-2) % Lymph # (Auto) 0.8 L (1.2-4.9) X10*3/uL Talbot # (Auto) 0.5 (0.1-1.2) X10*3/uL Eos # (Auto) 0.2 (0.0-0.4) X10*3/uL Baso # (Auto) 0.0 (0.0-0.2) X10*3/uL Abs Immat Gran (auto) 0.02 (0.00-0.03) X10*3/uL Absolute Neuts (auto) 4.1 (2.0-8.3) x10*3/uL Absolute Nucleated RBC 0.000 (0.0-0.012) X10*3/uL Nucleated RBC % (auto) 0.0 (0.0-0.2) /100WBC VBG pH 7.43 (7.32-7.43) VBG pCO2 32 mmHg VBG pO2 89 mmHg VBG HCO3 21 L (22-26) mmol/L VBG O2 Saturation 99.0 % VBG Base Excess -1.8 mmol/L Sodium 134 L (135-145) mmol/L Potassium 3.5 (3.3-5.1) mmol/L Chloride 103 (96-108) mmol/L Carbon Dioxide 20 L (22-29) mmol/L Anion Gap 15 (12-20) BUN 29 H (9-16) mg/dL Creatinine 2.68 H (0.5-1.4) mg/dL Estim Creat Clear Calc 18.5 Estimated GFR 17 Random Glucose 380 H* (60-115) mg/dL Calcium 8.6 (8.4-10.2) mg/dL Magnesium 2.0 (1.6-2.6) mg/dL Total Bilirubin 0.2 (0.0-1.0) mg/dL AST 30 (5-31) U/L ALT 20 (0-31) U/L Alkaline Phosphatase 137 H (39-117) U/L Total Protein 6.5 (6.5-8.0) g/dL Albumin 3.3 L (3.5-5.0) g/dL Beta-Hydroxybutyrate 0.08 (0.02-0.27) mmol/L Critical Care Time Critical Care Time Critical Care Time: Yes Total Critical Care Time: 35 Attestation: I have personally provided critical care time. Time includes review of lab data, radiology results, discussion with consultants, and monitoring for potential decompensation. Intervention performed as documented. Discharge Plan Discharge Clinical Impression: Vitreous hemorrhage, Acute hyperglycemia Patient Disposition: Home, Self-Care Instructions: Diabetic Hyperglycemia (ED), Eye (Visual) Floaters (ED) Additional Instructions: Please increase your nighttime insulin to 50 units and also your fast acting/daytime insulin to 17 units 3 times a day. Please follow-up with your primary care physician tomorrow. If you have any worsening or new symptoms, please return to the emergency room or call 911 Prescriptions: No Action (DME) blood-glucose meter [OneTouch Ultra2 Meter] Misc See Rx Instructions .Route Qty: 1 0RF Rx Instructions: test 3 times per day (DME) lancets [OneTouch UltraSoft 2 Lancet] 30 gauge misc See Rx Instructions .Route Qty: 200 5RF Rx Instructions: test 3 times per day clopidogrel 75 mg tablet 75 mg PO DAILY Qty: 90 1RF insulin lispro [Humalog KwikPen Insulin] 100 unit/mL insulin pen 15 unit SUBCUT TIDWMEAL Qty: 15 1RF (DME) FreeStyle Song 3 Dumas Misc See Rx Instructions .Route Qty: 1 0RF Rx Instructions: As directed (DME) FreeStyle Song 3 Plus Sensor Device See Rx Instructions .Route Qty: 6 3RF Rx Instructions: every 15 days rosuvastatin 5 mg tablet 5 mg PO DAILY Qty: 90 1RF amlodipine 10 mg tablet 10 mg PO DAILY Qty: 90 1RF gabapentin 400 mg capsule 400 mg PO BID Qty: 120 1RF citalopram 10 mg tablet 20 mg PO DAILY 90 Days Qty: 180 0RF (DME) pen needle, diabetic [Easy Comfort Pen Derby] 31 gauge x 3/16 needle See Rx Instructions .Route Qty: 100 5RF Rx Instructions: As directed- QID insulin glargine [Lantus Solostar U-100 Insulin] 100 unit/mL (3 mL) insulin pen 35 unit subcut BEDTIME 90 Days Qty: 31.5 3RF (DME) OneTouch Ultra Test Strip See Rx Instructions .Route Qty: 100 8RF Rx Instructions: test 3 times per day polyethylene glycol 3350 [Miralax] 17 gram powder in packet 17 g PO DAILY Qty: 30 6RF albuterol sulfate 90 mcg/actuation HFA aerosol inhaler 2 puff PO QID PRN (Reason: shortness of breath or wheezing) aspirin 81 mg tablet,delayed release (DR/EC) 81 mg PO DAILY Qty: 30 0RF alcohol swabs Pads, Medicated 1 pad TOPICAL QIDACHS Qty: 100 0RF Rx Instructions: Use four times a day or as directed. hydroxyzine HCl 25 mg tablet 25 mg PO TID PRN (Reason: itching) Qty: 10 0RF triamcinolone acetonide 0.025 % cream 1 appl topical BID Qty: 15 0RF Rx Instructions: Apply a thin film to affected areas (DME) FreeStyle Song 3 Dumas Misc See Rx Instructions .Route Qty: 1 0RF Rx Instructions: As directed (DME) FreeStyle Song 3 Sensor Device See Rx Instructions .Route Qty: 6 3RF Rx Instructions: As directed for 14 days Jardiance 10 mg tablet 10 mg PO DAILY Qty: 90 3RF prednisone 50 mg tablet 50 mg PO QAM Qty: 5 0RF hydroxyzine HCl 25 mg tablet 50 mg PO QID 14 Days Qty: 112 0RF erythromycin 5 mg/gram (0.5 %) ointment 0.5 inch ophthalmic (eye) TID Qty: 1 0RF olopatadine 0.1 % drops 1 drp ophthalmic (eye) BID Qty: 5 1RF Rx Instructions: separate doses by at least 6-8 hours Referrals: Jan Graves [Physician, Ophthalmology] - 06/04/25 Print Language: Japanese
[2025-06-03] MEDS: Fluorescein Sodium STRIP 1 STRIP EYE-LEFT (17:38)
[2025-06-03 17:44] LABS: MANUAL DIFF FLAG NO
[2025-06-03 17:49] LABS: VBG HCO3 21 mmol/L (22-26); VBG O2 % Saturation 99.0 %
[2025-06-03 17:49] LABS: Hematocrit 29.5 % (37.0-47.0); Hemoglobin 10.0 g/dl (12.0-16.0); Imm Gran Abs Auto 0.02 X10*3/uL (0.00-0.03); Imm Gran Pct Auto 0.4 % (0.0-0.4); Lymphocytes Absolute Auto 0.8 X10*3/uL (1.2-4.9); Mean Corpuscular HGB Conc 33.9 g/dl (31.0-35.0); Mean Corpuscular Hemoglobin 29.0 pg (27.0-33.0); Mean Corpuscular Volume 85.5 fL (80.0-98.0); NRBC Abs Auto 0.000 X10*3/uL (0.0-0.012); NRBC Pct Auto 0.0 /100WBC (0.0-0.2); Platelet Count 255 X10*3/uL (160-400); Red Blood Count 3.45 X10*6/uL (4.20-5.50); Venous Blood Gas Refer to POC result; White Blood Count 5.7 X10*3/uL (4.8-10.8)
[2025-06-03 17:52] VITALS: BP 172/59; PULSE 100; RESP 18; O2SAT 95
--- OUTSIDE RECORDS SUMMARY | 2025-06-03 18:06 | XMS_ITS | Clinical Summary ---
Author Organization [facility] Address [address] [place] [address] Care Team Providers Care Water Proofer Name Role Phone Community, Pcp Primary Care [...] 82 05/17/2019 9:02 AM EDT Temperature 36.6 C (97.9 F) 01/15/2016 1:54 PM EDT Respiratory Rate 18 05/17/2019 9:02 AM EDT [...] test per patient (Patient reports normal results)) BMI CHECK/ADVISE 07/25/2024 12/19/2015 INFLUENZA (#1) 2025 Care Teams Water Proofer Relationship Specialty Start Date End Date Community, Pcp PCP - General Internal Medicine 05/17/19
--- OUTSIDE RECORDS SUMMARY | 2025-06-03 18:06 | XMS_ITS | Encounter Summary ---
Author Organization [employer] [facility] Address [facility] [place] [address] Care Team Providers Care Flying I Instructor Name Role Phone Gisela Howell MD Primary Care Provider Un available Community, Pcp Primary Care Provider Unavailabl e Encounter Details Date Type Department Care Team Description 12/02/2015 Wellness Visit Medical Records [address] [place] [address] Rita Cabrera MD Social History Tobacco Use [...] on filedocumented in this encounter Care Teams Flying I Instructor Relationship Specialty Start Date End Date Gisela Howell MD PCP - General Internal Medicine 12/02/1505/16 Community, Pcp PCP - General Internal Medicine 05/17/19 documented as of this encounter
--- OUTSIDE RECORDS SUMMARY | 2025-06-03 18:06 | XMS_ITS | Encounter Summary ---
Author Organization [employer] [facility] Address [address] [place] [address] Care Team Providers Care Publications Editor Name Role Phone Rita Cabrera MD Primary Care Provider Gisela Juarez MD Primary Care Provider Un available Community, Pcp Primary Care Provider Liv Garcia Primary Care Provider Robert oliver Encounter Details Date Type Department Care Team Description 08/22/2015 Release of Information Medical Records [address] [place] [id number] Abstract, Provider Social History Tobacco Use Types Packs/Day Years Used Date Smoking Tobacco: Never Assessed Sex Assigned at Date Recorded Not on file documented as of this encounter Plan of Treatment Not on file documented as of this encounter Visit Diagnoses Not on filedocumented in this encounter Care Teams Publications Editor Relationship Specialty Start Date End Date Rita Cabrera MD PCP - General Internal Medicine 08/25/15 12/01/15 Gisela Howell MD PCP - General Internal Medicine 12/02/1505/16 [facility] PCP - General Internal Medicine 05/17/19 Liv Cotto PCP - General 02/10/15 08/24/15 documented as of this encounter
--- OUTSIDE RECORDS SUMMARY | 2025-06-03 18:06 | XMS_ITS | Encounter Summary ---
Author Organization [employer] [facility] Address [address] [place] [address] Care Team Providers Care Dispute Resolution Specialist Name Role Phone Gisela Howell MD Primary Care Provider Un available Community, Pcp Primary Care Provider Unavailabl e Encounter Details Date Type Department Care Team Description 12/24/2015 Orders Only Adult Medicine [address] [address] Gisela Howell MD Type 2 diabetes mellitus with diabetic neuropathy (Primary Dx) Social History Tobacco Use Types Packs/Day Years Used Date Smoking Tobacco: Never Alcohol Use Standard Drinks/Week Comments No 0 (1 standard drink = 0.6 oz pur e alcohol) Sex Assigned at Date Recorded Not on file documented as of this encounter Plan of Treatment Not on file documented as of this encounter Visit Diagnoses Diagnosis Type 2 diabetes mellitus with diabetic neuropathy (HCC)- Primary Type II or unspecified type diabetes mellitus with neurological manifestations, not stated as uncontrolled documented in this encounter Care Teams Dispute Resolution Specialist Relationship Specialty Start Date End Date Gisela Howell MD PCP - General Internal Medicine 12/02/1505/16 Community, Pcp PCP - General Internal Medicine 05/17/19 documented as of this encounter
--- OUTSIDE RECORDS SUMMARY | 2025-06-03 18:06 | XMS_ITS | Encounter Summary ---
Author Organization [employer] [facility] Address [facility] [place] [address] Care Team Providers Care Ic Design Engineer Name Role Phone Gisela Howell MD Primary Care Provider Un available Community, Pcp Primary Care Provider Unavailabl e Encounter Details Date Type Department Care Team Description 12/23/2015 Business Doc Medical Records [address] [place] [id number] Abstract, Provider Social History Tobacco Use Types [...] on filedocumented in this encounter Care Teams Ic Design Engineer Relationship Specialty Start Date End Date Gisela Howell MD PCP - General Internal Medicine 12/02/1505/16 Community, Pcp PCP - General Internal Medicine 05/17/19 documented as of this encounter
--- OUTSIDE RECORDS SUMMARY | 2025-06-03 18:06 | XMS_ITS | Encounter Summary ---
Author Organization [employer] [facility] Address [address] [place] [address] Care Team Providers Care Kitchen And Bath Designer Name Role Phone Rita Cabrera MD Primary Care Provider Gisela Juarez MD Primary Care Provider Un available Community, Pcp Primary Care Provider Unavailabl e Encounter Details Date Type Department Care Team Description 10/14/2015 Business Doc Medical Records [address] [place] [address] Abstract, Provider Social History Tobacco Use Types [...] on filedocumented in this encounter Care Teams Kitchen And Bath Designer Relationship Specialty Start Date End Date Rita Cabrera MD PCP - General Internal Medicine 08/25/15 12/01/15 Gisela Howell MD PCP - General Internal Medicine 12/02/1505/16 Community, Pcp PCP - General Internal Medicine 05/17/19 documented as of this encounter
[2025-06-03 18:11] LABS: Alanine Aminotransferase 20 U/L (0-31); Albumin Level 3.3 g/dL (3.5-5.0); Alkaline Phosphatase 137 U/L (39-117); Anion Gap 15 (12-20); Aspartate Amino Transferase 30 U/L (5-31); Blood Urea Nitrogen 29 mg/dL (9-16); Calcium 8.6 mg/dL (8.4-10.2); Carbon Dioxide 20 mmol/L (22-29); Chloride 103 mmol/L (96-108); Creatinine Clr Calc Pharmacy 18.5; Estimated Glomerular Filt Rate 17; Magnesium 2.0 mg/dL (1.6-2.6); Potassium 3.5 mmol/L (3.3-5.1); Sodium 134 mmol/L (135-145); Total Protein 6.5 g/dL (6.5-8.0)
[2025-06-03 19:02] VITALS: BP 183/72; PULSE 97; RESP 16; TEMP 37; O2SAT 95
[2025-06-03 19:19] VITALS: BP 183/72; PULSE 97; RESP 16; TEMP 37; O2SAT 95
== END 2025-06-03 19:19 | disposition home or self-care (01) ==
PROVIDERS: Physician Assistant Medical; Emergency Provider Emergency Medicine; PCP Internal Medicine
DX: H43.12 Vitreous hemorrhage, left eye (principal); E11.65 Type 2 diabetes mellitus with hyperglycemia; H53.8 Other visual disturbances; I73.9 Peripheral vascular disease, unspecified; I12.9 Hypertensive chronic kidney disease with stage 1 through stage 4 chronic kidney disease, or unspecified chronic kidney disease; N18.9 Chronic kidney disease, unspecified; E11.22 Type 2 diabetes mellitus with diabetic chronic kidney disease; Z79.82 Long term (current) use of aspirin; Z79.84 Long term (current) use of oral hypoglycemic drugs; Z79.4 Long term (current) use of insulin
CPT/HCPCS: 36415; 80053; 82010; 82803; 83735; 85025; 99212; 99283

== ENCOUNTER 2025-07-01 13:37 | Outpatient (AMB) | payer OTHER, SELFPAY ==
--- NOTE | 2025-07-01 13:46 | AM.OFFWIN_ITS ---
Intake Vital Signs 07/01/25 13:47 Height 5 ft 1 in Weight 153 lb BMI 28.9 BP 130/72 Blood Pressure Location Rt brachial Position Sitting Pulse 83 Pulse Source Pulse Oximeter Temp 98.5 F Temp Source Oral Pulse Oximetry (%) 97 Oxygen Delivery Method Room Air Intake Visit Reasons: EP right eye irritation Intake Note: Pt presents with RT eye redness and feeling gritty x1 wk after blowing her nose often d/t a cold Patient Tobacco Use Status: Never used Tobacco Allergies No Known Allergies Allergy (Verified 07/01/25 13:54) Do you need a note to return to daycare/school/sports/work: No HPI HPI Comments History of Present Illness Details 74 y/o female presents with right eye re dness and itchiness. Symptoms began after a recent cold about one week ago. She reports sneezing and blowing her nose very forcefully, after which she noticed a ?gritty/dayanna? sensation in the right eye. She contacted her eye doctor, who suggested possible corneal abrasion or subconjunctival hemorrhage and advised use of Visine. She denies vision changes or significant eye pain but reports photophobia. No tearing, discharge, or foreign body exposure noted. [facility] Medical History (Updated 07/01/25 @ 14:50 by Maria Teresa Begum NP) Corneal abrasion, right Allergic conjunctivitis Diabetes Encounter for colorectal cancer screening using Cologuard test (~05/16/24) PAD (peripheral artery disease) Acute osteomyelitis of toe CKD (chronic kidney disease) HTN (hypertension) Surgical History History of cataract surgery History of bladder surgery History of total hysterectomy History of tonsillectomy Family History Father Hypertension Diabetes Hx of leg amputation Mother Myocardial infarction Diabetes Hypertension Sister Breast cancer Brother Diabetes Maternal Aunt Bone cancer Social History Household Members: Family Household Members Other:: daughter, grandkids, , 6 total Housing: House Housing Other:: first floor. 4 steps to get in Do you presently have visiting nurse or other home services: Yes Alcohol intake: never Patient Tobacco Use Status: Never used Tobacco e-Cigarette/Vaping Use: Never Used Second Hand Smoke Exposure: No Advance Directives Date on File: 12/05/23 service: No Current occupational status: retired Current occupation: rt hand Cognitive needs: Yes (cane) Hearing needs: No Vision needs: Yes (Glasses) Review of Systems Const All systems reviewed & are unremarkable except as noted in HPI and below Physical Exam Vital Signs: Last Vital Signs Temp 98.5 F 07/01/25 13:47 Pulse 83 07/01/25 13:47 BP 130/72 07/01/25 13:47 Pulse Ox 97 07/01/25 13:47 Oxygen Delivery Method Room Air 07/01/25 13:47 BMI result Body Mass Index 28.9 Const General: no acute distress Nutritional Appearance: obese Orientation/consciousness: patient oriented x3 Limitations: language barrier and ambulation with walker HEENT Head: Yes normocephalic Ears: external ears normal Face and sinus: Yes sinuses nontender Mouth: moist mucous membranes Throat: Yes uvula midline Eyes Other: Right eye with conjunctival injection; no obvious discharge. No periorbital swelling. Pupils equal, round, reactive to light. Extraocular movements intact. No visible foreign body on gross exam. Eyelids: Yes eyelids normal Conjunctivae: conjunctival abnormal right subconjunctival hemorrhage Neuro General: patient oriented x3 and moves all extremities Psych Speech and movement: Normal speech and movement present Assessment & Plan Assessment & Plan (1) Corneal abrasion, right: Code(s): S05.01XA - Injury of conjunctiva and corneal abrasion without foreign body, right eye, initial encounter Qualifiers: Encounter type: initial encounter Qualified Code(s): S05.01XA - Injury of conjunctiva and corneal abrasion without foreign body, right eye, initial encounter Plan: Right eye irritation, likely corneal abrasion vs subconjunctival hemorrhage secondary to increased sinus pressure from forceful nose blowing. Photophobia, likely associated with corneal surface irritation. No red-flag symptoms (vision loss, severe pain, purulent discharge, trauma). Warm compresses 2?3 times daily for comfort. Avoid rubbing the eyes; Avoid eye make-up. Advise wearing sunglasses outdoors to help with photophobia. Topical antibiotic ointment - Erythromycin ophthalmic ointment to prevent secondary infection ? use as directed. Medications: New erythromycin 0.5 inches ophthalmic (eye) BID 50 grams 0RF S05.01XA - Injury of conjunctiva and corneal abrasion without foreign body, right eye, initial encounter Discontinued erythromycin Discontinued Reason: Patient Completed Course 0.5 inches ophthalmic (eye) TID 1 g 0RF Coding Level of Care Code Est Pt Level 4 (88587) Diagnoses Abrasion of right cornea, initial encounter S05.01XA Encounter type: initial encounter Time Spent (min) 20
[2025-07-01 13:47] VITALS: BP 130/72; PULSE 83; TEMP 36.9; O2SAT 97; BMI 28.9
--- OUTSIDE RECORDS SUMMARY | 2025-07-01 22:21 | XMS_ITS | Clinical Summary ---
Author Organization [facility] Address [address] [place], [place] [address] Phone Care Team Providers Care Power Sweeper Operator Name Role Phone Unavailable Primary Care Provider [...] It is not the complete legal health record.[facility]
== END 2025-07-01 14:36 | disposition home or self-care (01) ==
PROVIDERS: PCP Internal Medicine; Visit Provider Nurse Practitioner Family
DX: S05.01XA Injury of conjunctiva and corneal abrasion without foreign body, right eye, initial encounter (principal)

== ENCOUNTER → 2025-07-01 13:37 | Outpatient (BNVA) | payer OTHER, SELFPAY | PROVIDERS: PCP Internal Medicine; Visit Provider Nurse Practitioner Family | DX: S05.01XA Injury of conjunctiva and corneal abrasion without foreign body, right eye, initial encounter (principal); H53.141 Visual discomfort, right eye | CPT/HCPCS: 99212 ==

== ENCOUNTER 2025-07-03 13:55 | Outpatient (AMB) | payer OTHER, SELFPAY ==
--- NOTE | 2025-07-03 14:02 | A.OFFPC_ITS ---
Vital Signs 07/03/25 14:05 Height 5 ft 1 in Weight 152 lb 6 oz BMI 28.8 BP 120/68 Blood Pressure Location Rt brachial Position Sitting Pulse 79 Pulse Source Pulse Oximeter Temp 97.3 F Temp Source Temporal Artery Scan Pulse Oximetry (%) 95 Oxygen Delivery Method Room Air Intake Visit Reasons: high blood sugar- okay per Dr Ray Intake Note: Patient is here to follow up on High blood sugar. Traveling Phlebotomist Required: Yes Traveling Phlebotomist Language: Parts Lister Name: Daughter Supervisory Cbp Officer: Present Accompanied by: Daughter Allergies No Known Allergies Allergy (Verified 07/03/25 14:05) Tobacco use date assessed: 07/03/25 Fall risk assessment: No Falls in past year Last assessed Fall Risk: 07/03/25 Dental Screening Dental Screen Date: 06/03/25 HPI high blood sugar- okay per Dr Ray HPI Details 74-year-old female presents to the offic e to discuss her medical condition. She is accompanied by her daughter who does not speak Qatari and a alum operator was in the room. In addition the patient is demented and does not give history on her own. Patient goes to an adult daycare center 5 days a week. At the adult daycare center they check blood sugars and administer insulin appropriately. A week or so ago the daughter called me to requested that the daycare center not administer insulin. According to the daughter, the patient is given insulin and then provided a meal which the patient does not care for. Therefore when she comes home her blood sugars are in the 60s and the patient is sweating. With that information given to me, I wrote a letter to the daycare center instructing them not to administer insulin as per the daughter's wishes. However, they continue to check the blood sugars and on more than 1 occasion it was greater than 400. When this was brought to my notice I decided to bring both of them into the office. [facility] Medical History (Updated 07/01/25 @ 14:50 by Maria Teresa Begum NP) Corneal abrasion, right Allergic conjunctivitis Diabetes Encounter for colorectal cancer screening using Cologuard test (~05/16/24) PAD (peripheral artery disease) Acute osteomyelitis of toe CKD (chronic kidney disease) HTN (hypertension) Surgical History History of cataract surgery History of bladder surgery History of total hysterectomy History of tonsillectomy Family History Father Hypertension Diabetes Hx of leg amputation Mother Myocardial infarction Diabetes Hypertension Sister Breast cancer Brother Diabetes Maternal Aunt Bone cancer Social History Household Members: Family Household Members Other:: daughter, grandkids, , 6 total Housing: House Housing Other:: first floor. 4 steps to get in Do you presently have visiting nurse or other home services: Yes Alcohol intake: never Patient Tobacco Use Status: Never used Tobacco e-Cigarette/Vaping Use: Never Used Second Hand Smoke Exposure: No Advance Directives Date on File: 12/05/23 service: No Current occupational status: retired Current occupation: rt hand Cognitive needs: Yes (cane) Hearing needs: No Vision needs: Yes (Glasses) Questionnaire Thrive Questionnaire Date Thrive assessed: 11/22/24 I am a: Patient What is your living situation today?: I have a steady place to live Within the past 12 months, did the food you bought not last and you didn't have the money to get more?: Never true Within the past 12 months, did you worry whether your food would run out before you got money to buy more?: Never true Do you have trouble paying for medicines?: Yes Do you have trouble getting transportation to medical appointments?: No Do you have trouble paying your heating and electricity bill?: No Do you have trouble taking care of your child, family member or friend?: No Do you have trouble with day-to-day activities such as bathing, preparing meals, shopping, managing finances, etc.?: No Are you currently unemployed and looking for a job?: No Are you interested in more education?: No Please select the resources that you would like help with: None Currently or been in a relationship where the following occur: I choose not to answer THRIVE Score: 0 EMMETT-7 AMB Questionnaire EMMETT-7 Date EMMETT - 7 assessed: 11/22/24 Source: Developed by Drs. Raymundo Ontiveros, Neva Russell, Navin Sarah and colleagues, with an educational gogo from [employer]. Physical exam (Primary Care) Vital Signs: Last Vital Signs Temp 97.3 F 07/03/25 14:05 Pulse 79 07/03/25 14:05 BP 120/68 07/03/25 14:05 Pulse Ox 95 07/03/25 14:05 Oxygen Delivery Method Room Air 07/03/25 14:05 BMI result Body Mass Index 28.8 Tobacco/Smoking Status: Tobacco use Status Tobacco use date assessed 07/03/25 07/03/25 14:10 Patient Tobacco Use Status Never used Tobacco 07/03/25 14:10 e-Cigarette/Vaping Use Never Used 07/03/25 14:10 Thrive Assessment: Date of Thrive Assessment Date Thrive assessed 11/22/24 07/03/25 14:10 Currently or been in a relationship where the following occur: I choose not to answer Const General: cooperative and healthy appearing Nutritional Appearance: well nourished Orientation/consciousness: patient oriented x3 Limitations: no limitations HENMT Head: Yes normal to inspection Eyes General: appearance normal, both eyes and all related structures Neck Neck: Yes normal visual inspection Chest Chest palpation & inspection: normal palpation of entire chest wall Resp Effort & Inspection: normal respiratory effort Neuro General: patient oriented x3 Coding Level of Care Code Est Pt Level 4 (48669) Add On Problem Visit Only Diagnoses Hyperglycemia R73.9 Assessment & Plan Assessment & Plan (1) Hyperglycemia: Code(s): R73.9 - Hyperglycemia, unspecified Plan: I had a long conversation with the patient, her daughter and the dining room cashier. The patient was quiet throughout the interview and the daughter was speaking on her behalf. The following is the summary: Patient's daughter reports that her mother is in the adult daycare between 730 a.m. and 01:00 in the afternoon. She takes her morning regular insulin before she leaves. She does not want her to get the insulin at the adult daycare center. I explained to her the dangers of elevated blood sugars that thy are recording. Patient reports that she will check the blood sugars as soon as her mother comes home and administer the insulin accordingly. I plan to have a discussion with the adult daycare center. Medications: Refilled gabapentin 400 mg PO BID 120 caps 1RF
[2025-07-03 14:05] VITALS: BP 120/68; PULSE 79; TEMP 36.3; O2SAT 95; BMI 28.8
--- OUTSIDE RECORDS SUMMARY | 2025-07-03 21:39 | XMS_ITS | Clinical Summary ---
Author Organization [facility] Address [address] [place], [place] [id number] Phone Care Team Providers Care Burlesque Dancer Name Role Phone Unavailable Primary Care Provider [...] It is not the complete legal health record.[facility]
== END 2025-07-03 15:20 | disposition home or self-care (01) ==
LOC: HO.HMCH 13:56
PROVIDERS: PCP Internal Medicine; Visit Provider Internal Medicine
DX: R73.9 Hyperglycemia, unspecified (principal)

== ENCOUNTER → 2025-07-03 13:55 | Outpatient (BNVA) | payer OTHER, SELFPAY | PROVIDERS: PCP Internal Medicine; Visit Provider Internal Medicine | DX: E11.65 Type 2 diabetes mellitus with hyperglycemia (principal) | CPT/HCPCS: 99212 ==